=== PATIENT | female | born 1935 | race Caucasian/White ===

== ENCOUNTER 2018-05-16 19:58 | Emergency (ER) | payer MEDICARE, SELFPAY ==
[2018-05-16] VITALS (41 sets, daily range): BP systolic 125–183; BP diastolic 50–155; PULSE 66–143; RESP 14–25; TEMP 36.7–36.9; O2SAT 95–98
[2018-05-16 20:46] LABS: Abs Immature Grans 0.02 k/cumm (0.0-0.09); Absolute Basophil Count 0.04 k/cumm (0.0-0.2); Absolute Eosinophil Count 0.39 k/cumm (0.0-0.7); Absolute Lymphocyte Count 4.48 k/cumm (1.2-3.4); Absolute Monocyte Count 0.96 k/cumm (0.11-0.7); Basophils % 0.4; Eosinophils % 3.5; HCT 46.8 % (36.0-46.0); HGB 15.2 g/dL (12.0-15.5); Immature Grans % 0.2; Lymphocytes % 40.1; Mean Corp. HGB Concentration 32.5 g/dL (32.0-36.0); Mean Corpuscular Hemoglobin 29.8 pg (27.0-33.0); Mean Corpuscular Volume 91.8 fL (80-95); Mean Platelet Volume 10.9 fL (8.0-11.0); Monocytes % 8.6; Neutrophils % 47.2; Platelet Count 238 x1000/uL (130-400); RBC Distribution Width 13.4 % (11.7-14.6); White Blood Cell Count 11.18 k/cumm (4.4-10.8)
[2018-05-16 20:50] LABS: Absolute Neutrophil Count 5.28 k/cumm (1.2-6.7)
[2018-05-16 20:56] LABS: ALT 32 U/L (12-78); AST 25 U/L (15-37); Albumin 3.8 g/dL (3.4-5.0); Alkaline Phosphatase 84 U/L (46-116); Anion Gap 11.1 mmol/L (3-11); BUN 27 mg/dL (7-18); Bilirubin, Total 0.3 mg/dL (0.2-1.0); CO2 25.9 mmol/L (21.0-32.0); CREATININE 1.05 mg/dL (0.55-1.02); Calcium 9.4 mg/dL (8.5-10.1); Chloride 104 mmol/L (98-107); Estimated GFR 50.18 (mL/min/1.73m2); Glucose 106 mg/dL (70-100); Potassium 4.2 mmol/L (3.5-5.1); Sodium 141 mmol/L (136-145); Total Protein 8.4 g/dL (6.4-8.2)
[2018-05-16 21:02] LABS: Troponin I 0.18 ng/mL (0.00-0.06)
[2018-05-16 22:59] LABS: TSH 8.47 uIU/mL (0.358-3.74)
[2018-05-16] MEDS: Clopidogrel 300 MG TAB 600 MG PO (23:01)
[2018-05-16] MEDS: Aspirin 325 MG TAB PO (23:02)
--- NOTE | 2018-05-16 23:06 | W.ED.GENAD ---
Discharge Plan Disposition [facility] Condition: Good Discharge Details Chief Complaint: Chest Pain Clinical Impression: Acute non-ST elevation myocardial infarction (NSTEMI), Heart palpitations, Paroxysmal A-fib, Community acquired pneumonia Primary Care Provider: Chantell Castillo V ED Provider: Marcos Talavera Home Meds and New Rx's Prescriptions: No Action No Known Home Meds RF: 0 Medical Decision Making This is an 83-year-old female with no significant past medical history who presents today for palpitations. Patient has had palpitations and a heart rate in the 120s-130s for the last 4-6 hours. She had some very very mild light chest pressure, but denies any arm or neck pain. She denies any previous cardiac history. She has had a mild associated cough for the last few weeks but no fevers chills or productivity to her cough. When the patient initially arrived in the emergency room she had a heart rate of 127, and EKG read atrial fibrillation with a right bundle branch block. However within 10 minutes of being here in the emergency department she converted on her own to sinus rhythm, with a rate in the 70s. She continues to have no complaints at this time of chest pain, shortness of breath or even pressure on her chest, shoulders or arms. EKG showed no evidence of ST elevations or depressions. Patient's laboratory workup did return shows minimal white count of 11.18. TSH is notably elevated at 8.47. Sodium, potassium, chloride and bicarb are normal. Troponin is 0.18 and elevated. Although the patient has no cardiac history, she clearly does demonstrate an elevated troponin. Chest x-ray does show evidence of a hazy opacity in the left lower lung per virtual radiology, likely related to combination of atelectasis and/or pneumonia with possible layering left pleural effusion. We will start the patient on azithromycin for this. No evidence of pneumothorax. The patient's notable tachycardia and spontaneous return to normal, as well as her notably elevated troponin, we do feel that she requires further workup from a Cardiologic perspective. We did contact [facility], and they were unwilling to accept any patients at this time. We did contact the [facility] and I spoke with Dr. Reagan who did agree that the patient would benefit from further cardiac evaluation however they have no rooms at this time, but may be they would have some in the morning. They recommended giving aspirin and Plavix, but holding on heparin at this time. Currently there are no beds with telemetry at [facility], [facility], [facility], [facility], [facility]. I spoke with Paul Sutton hospitalist at [facility], he is agreed to accept the patient for transfer. I have extensively reviewed the treatment plan with the patient. I have addressed all patient concerns at this time. I have also discussed the plan with the admitting physician and they agree with the current assessment and plan and have agreed to assume responsibility for the patient. All parties demonstrate verbal understanding and agreement with our assessment and plan at this time. EKG 20: 10 Rate 127, QTC 462, QRS 120, interpretation of atrial fibrillation with right bundle branch block, however there does appear to be inconsistent P wave morphology and presence. Right bundle branch block is present. No ST elevations or depressions. Inverted T wave in lead II, lead III, V3, V4. T wave flattening in V4. EKG 21:28 Rate 70, [place] 172, QTc 425, QRS 134, sinus rhythm with right bundle branch block. No ST elevations or depressions, no significant T wave inversions. Q waves in lead III. Negative for Scarbossas criterion. P waves are present HPI General Date/Time Provider Initiated Documentation: 05/16/18 20:14. HPI Narrative: This is an 83-year-old female who denies any significant past medical history, who presents today for palpitations. Patient states that this afternoon she felt very lightheaded, and took her blood pressure and placed a heart rate monitor on she noted her heart rate to be in the 120s-130s. This continued for 4-5 hours. Eventually she felt it prudent to go to the ER for further evaluation. She had some mild chest pain and pressure during these episodes. She denies any arm pain, neck pain, numbness, tingling, weakness, headache, vision changes. She does admit to a mild cough, that has been nonproductive. This is been present for the last few weeks though. She denies any fever or chills. She denies any previous cardiac history, or history of stroke. She denies any history of hypertension, diabetes, high cholesterol, or tobacco use. Past surgical history is positive for hysterectomy and bladder repositioning. Patient denies any other complaints at this time. She denies any pertinent family history. She denies any IV or illicit drug use Related Data Home Medications Medication Instructions Recorded Confirmed Unknown [No Known Home Meds] 05/16/18 05/16/18 Allergies Allergy/AdvReac Type Severity Reaction Status Date / Time No Known Allergies Allergy Unverified 05/16/18 21:45 General Stated Complaint: Chest Pain PAL: 2 Review of Systems Review of Systems 10 point review of systems was performed, pertinent positives and negatives are noted in the history of present illness. [facility] Social History Smoking/Tobacco Use Status: Never Exam Narrative Exam Narrative: 1.Const: Well-nourished, Well-developed, appearing stated age 2.Eyes: PERRL, no conjunctival injection, and symmetrical lids. 3.ENT: Atraumatic external nose and ears. Moist MM. Neck: Symmetric, trachea midline, No thyromegaly. 4.CVS: +S1/S2, No murmurs or gallops. Heart rate is in the 70s on auscultation peripheral pulses 2+ and equal in all extremities. Brisk capillary refill in all extremities. 5.RESP: Unlabored respiratory effort. Clear to auscultation bilaterally. No wheezes rales or rhonchi 6.GI: Soft, Nontender/Nondistended, No hepatosplenomegaly. No guarding or rebound. 7.MSK: Normocephalic/Atraumatic, Extremities w/o deformity or ttp No cyanosis or clubbing, Normal movement of all extremities 8.Skin: Warm, Dry. No rashes or lesions. 9.Neuro: technology integration specialist II-XII grossly intact. Sensation grossly intact, no focal neurologic deficits. 10.Psych: (AAO) x3. Appropriate mood and affect Course Vital Signs Temperature 36.7 C 05/16/18 20:24 Pulse 132 H 05/16/18 20:24 Respiratory Rate 18 05/16/18 20:24 Blood Pressure 129/82 05/16/18 20:24 Temperature 36.9 C 05/16/18 23:02 Temperature Source Temporal Artery Scan 05/16/18 20:24 Pulse 132 H 05/16/18 20:24 Respiratory Rate 18 05/16/18 20:24 Respiratory Effort Non-Labored 05/16/18 20:27 Respiratory Depth Normal 05/16/18 20:27 Respiratory Pattern Normal 05/16/18 20:27 Blood Pressure 129/82 05/16/18 20:24 Blood Pressure Position Sitting 05/16/18 20:24 Oxygen Delivery Method Room Air 05/16/18 20:24 Oxygen Flow Rate 0 05/16/18 20:24 Pain Level 0 05/16/18 23:02 Lab/Test Results Lab/Test Results: Laboratory Tests Range/Units 05/16/18 05/16/18 05/16/18 20:22 20:22 20:22 WBC (4.4-10.8) k/cumm 11.18 H RBC (4.00-5.20) m/cumm 5.10 Hgb (12.0-15.5) g/dL 15.2 Hct (36.0-46.0) % 46.8 H MCV (80-95) fL 91.8 MCH (27.0-33.0) pg 29.8 MCHC (32.0-36.0) g/dL 32.5 RDW (11.7-14.6) % 13.4 Plt Count (130-400) x1000/uL 238 MPV (8.0-11.0) fL 10.9 Immature Gran % 0.2 Neutrophils % 47.2 Lymphocytes % 40.1 Monocytes % 8.6 Eosinophils % 3.5 Basophils % 0.4 Absolute Neutrophils (1.2-6.7) k/cumm 5.28 Absolute Lymphocytes (1.2-3.4) k/cumm 4.48 H Absolute Monocytes (0.11-0.7) k/cumm 0.96 H Absolute Eosinophils (0.0-0.7) k/cumm 0.39 Absolute Basophils (0.0-0.2) k/cumm 0.04 Sodium (136-145) mmol/L 141 Potassium (3.5-5.1) mmol/L 4.2 Chloride (98-107) mmol/L 104 Carbon Dioxide (21.0-32.0) mmol/L 25.9 Anion Gap (3-11) mmol/L 11.1 H BUN (7-18) mg/dL 27 H Creatinine (0.55-1.02) mg/dL 1.05 H Estimated GFR/1.73 m2 (mL/min/1.73m2) 50.18 Glucose (70-100) mg/dL 106 H Calcium (8.5-10.1) mg/dL 9.4 Magnesium (1.8-2.4) mg/dL 2.0 Total Bilirubin (0.2-1.0) mg/dL 0.3 AST (15-37) U/L 25 ALT (12-78) U/L 32 Alkaline Phosphatase (46-116) U/L 84 Troponin I (0.00-0.06) ng/mL 0.18 H Total Protein (6.4-8.2) g/dL 8.4 H Albumin (3.4-5.0) g/dL 3.8 TSH (0.358-3.74) uIU/mL 8.47 H
--- NOTE | 2018-05-16 23:12 | ED.GENADUL_ITS ---
Discharge Plan Disposition [facility] Disposition: [facility] Condition: Good Discharge Details Chief Complaint: Chest Pain Clinical Impression: Acute non-ST elevation myocardial infarction (NSTEMI), Heart palpitations, Paroxysmal A-fib, Community acquired pneumonia Primary Care Provider: Chantell Castillo V ED Provider: Marcos Talavera Home Meds and New Rx's Prescriptions: No Action No Known Home Meds RF: 0 Medical Decision Making This is an 83-year-old female with no significant past medical history who presents today for palpitations. Patient has had palpitations and a heart rate in the 120s-130s for the last 4-6 hours. She had some very very mild light chest pressure, but denies any arm or neck pain. She denies any previous cardiac history. She has had a mild associated cough for the last few weeks but no fevers chills or productivity to her cough. When the patient initially arrived in the emergency room she had a heart rate of 127, and EKG read atrial fibrillation with a right bundle branch block. However within 10 minutes of being here in the emergency department she converted on her own to sinus rhythm, with a rate in the 70s. She continues to have no complaints at this time of chest pain, shortness of breath or even pressure on her chest, shoulders or arms. EKG showed no evidence of ST elevations or depressions. Patient's laboratory workup did return shows minimal white count of 11.18. TSH is notably elevated at 8.47. Sodium, potassium, chloride and bicarb are normal. Troponin is 0.18 and elevated. Although the patient has no cardiac history, she clearly does demonstrate an elevated troponin. Chest x-ray does show evidence of a hazy opacity in the left lower lung per virtual radiology, likely related to combination of atelectasis and/or pneumonia with possible layering left pleural effusion. We will start the patient on azithromycin for this. No evidence of pneumothorax. The patient's notable tachycardia and spontaneous return to normal, as well as her notably elevated troponin, we do feel that she requires further workup from a Cardiologic perspective. We did contact [facility], and they were unwilling to accept any patients at this time. We did contact the [facility] and I spoke with Dr. Reagan who did agree that the patient would benefit from further cardiac evaluation however they have no rooms at this time, but may be they would have some in the morning. They recommended giving aspirin and Plavix, but holding on heparin at this time. Currently there are no beds with telemetry at [facility], [facility], [facility], [facility], [facility]. I spoke with Paul Sutton hospitalist at [facility] , he is agreed to accept the patient for transfer. I have extensively reviewed the treatment plan with the patient. I have addressed all patient concerns at this time. I have also discussed the plan with the admitting physician and they agree with the current assessment and plan and have agreed to assume responsibility for the patient. All parties demonstrate verbal understanding and agreement with our assessment and plan at this time. EKG 20: 10 Rate 127, QTC 462, QRS 120, interpretation of atrial fibrillation with right bundle branch block, however there does appear to be inconsistent P wave morphology and presence. Right bundle branch block is present. No ST elevations or depressions. Inverted T wave in lead II, lead III, V3, V4. T wave flattening in V4. EKG 21:28 Rate 70, MT 172, QTc 425, QRS 134, sinus rhythm with right bundle branch block. No ST elevations or depressions, no significant T wave inversions. Q waves in lead III. Negative for Scarbossas criterion. P waves are present HPI General Date/Time Provider Initiated Documentation: 05/16/18 20:14 . HPI Narrative: This is an 83-year-old female who denies any significant past medical history, who presents today for palpitations. Patient states that this afternoon she felt very lightheaded, and took her blood pressure and placed a heart rate monitor on she noted her heart rate to be in the 120s-130s. This continued for 4-5 hours. Eventually she felt it prudent to go to the ER for further evaluation. She had some mild chest pain and pressure during these episodes. She denies any arm pain, neck pain, numbness, tingling, weakness, headache, vision changes. She does admit to a mild cough, that has been nonproductive. This is been present for the last few weeks though. She denies any fever or chills. She denies any previous cardiac history, or history of stroke. She denies any history of hypertension, diabetes , high cholesterol, or tobacco use. Past surgical history is positive for hysterectomy and bladder repositioning. Patient denies any other complaints at this time. She denies any pertinent family history. She denies any IV or illicit drug use Related Data Home Medications Medication Instructions Recorded Confirmed Unknown [No Known Home Meds] 05/16/18 05/16/18 Allergies Allergy/AdvReac Type Severity Reaction Status Date / Time No Known Allergies Allergy Unverified 05/16/18 21:45 General Stated Complaint: Chest Pain PAL: 2 Review of Systems Review of Systems 10 point review of systems was performed, pertinent positives and negatives are noted in the history of present illness. [facility] Social History Smoking/Tobacco Use Status: Never Exam Narrative Exam Narrative: 1.Const: Well-nourished, Well-developed, appearing stated age 2.Eyes: PERRL, no conjunctival injection, and symmetrical lids. 3.ENT: Atraumatic external nose and ears. Moist MM. Neck: Symmetric, trachea midline, No thyromegaly. 4.CVS: +S1/S2, No murmurs or gallops. Heart rate is in the 70s on auscultation peripheral pulses 2+ and equal in all extremities. Brisk capillary refill in all extremities. 5.RESP: Unlabored respiratory effort. Clear to auscultation bilaterally. No wheezes rales or rhonchi 6.GI: Soft, Nontender/Nondistended, No hepatosplenomegaly. No guarding or rebound. 7.MSK: Normocephalic/Atraumatic, Extremities w/o deformity or ttp No cyanosis or clubbing, Normal movement of all extremities 8.Skin: Warm, Dry. No rashes or lesions. 9.Neuro: operations professional II-XII grossly intact. Sensation grossly intact, no focal neurologic deficits. 10.Psych: (AAO) x3. Appropriate mood and affect Course Vital Signs Temperature 36.7 C 05/16/18 20:24 Pulse 132 H 05/16/18 20:24 Respiratory Rate 18 05/16/18 20:24 Blood Pressure 129/82 05/16/18 20:24 Temperature 36.9 C 05/16/18 23:02 Temperature Source Temporal Artery Scan 05/16/18 20:24 Pulse 132 H 05/16/18 20:24 Respiratory Rate 18 05/16/18 20:24 Respiratory Effort Non-Labored 05/16/18 20:27 Respiratory Depth Normal 05/16/18 20:27 Respiratory Pattern Normal 05/16/18 20:27 Blood Pressure 129/82 05/16/18 20:24 Blood Pressure Position Sitting 05/16/18 20:24 Oxygen Delivery Method Room Air 05/16/18 20:24 Oxygen Flow Rate 0 05/16/18 20:24 Pain Level 0 05/16/18 23:02 Lab/Test Results Lab/Test Results: Laboratory Tests Range/Units 05/16/18 05/16/18 05/16/18 20:22 20:22 20:22 WBC (4.4-10.8) k/cumm 11.18 H RBC (4.00-5.20) m/cumm 5.10 Hgb (12.0-15.5) g/dL 15.2 Hct (36.0-46.0) % 46.8 H MCV (80-95) fL 91.8 MCH (27.0-33.0) pg 29.8 MCHC (32.0-36.0) g/dL 32.5 RDW (11.7-14.6) % 13.4 Plt Count (130-400) x1000/uL 238 MPV (8.0-11.0) fL 10.9 Immature Gran % 0.2 Neutrophils % 47.2 Lymphocytes % 40.1 Monocytes % 8.6 Eosinophils % 3.5 Basophils % 0.4 Absolute Neutrophils (1.2-6.7) k/cumm 5.28 Absolute Lymphocytes (1.2-3.4) k/cumm 4.48 H Absolute Monocytes (0.11-0.7) k/cumm 0.96 H Absolute Eosinophils (0.0-0.7) k/cumm 0.39 Absolute Basophils (0.0-0.2) k/cumm 0.04 Sodium (136-145) mmol/L 141 Potassium (3.5-5.1) mmol/L 4.2 Chloride (98-107) mmol/L 104 Carbon Dioxide (21.0-32.0) mmol/L 25.9 Anion Gap (3-11) mmol/L 11.1 H BUN (7-18) mg/dL 27 H Creatinine (0.55-1.02) mg/dL 1.05 H Estimated GFR/1.73 m2 (mL/min/1.73m2) 50.18 Glucose (70-100) mg/dL 106 H Calcium (8.5-10.1) mg/dL 9.4 Magnesium (1.8-2.4) mg/dL 2.0 Total Bilirubin (0.2-1.0) mg/dL 0.3 AST (15-37) U/L 25 ALT (12-78) U/L 32 Alkaline Phosphatase (46-116) U/L 84 Troponin I (0.00-0.06) ng/mL 0.18 H Total Protein (6.4-8.2) g/dL 8.4 H Albumin (3.4-5.0) g/dL 3.8 TSH (0.358-3.74) uIU/mL 8.47 H
--- NOTE | 2018-05-16 23:15 | DI.RAD_ITS ---
SYMPTOM/DIAGNOSIS: COUGH PORTABLE AP CHEST: No priors. The heart is mildly enlarged. Pulmonary vasculature is within normal limits. There is obscuration of the left hemidiaphragm and a left basilar infiltrate and /or effusion cannot be excluded. The lungs are otherwise clear. No pneumothorax is identified. Degenerative changes are seen in the spine. IMPRESSION: Question of a left basilar infiltrate and/or effusion.
--- NOTE | 2018-05-16 23:45 | DI.VRAD_ITS ---
EXAM: XR Chest, 1 View CLINICAL HISTORY: 83 years old, female; Signs and symptoms; Cough TECHNIQUE: Frontal view of the chest. COMPARISON: None available. FINDINGS: Lungs: The pulmonary vasculature is within normal limits. There is mild peribronchial thickening, likely infectious or inflammatory in etiology. There are changes suggesting underlying COPD/emphysema. There is hazy opacity in the left lung base with obscuration of the left hemidiaphragm and left costophrenic angle that may represent a combination of atelectasis and/or pneumonia, possibly with a layering left pleural effusion. The appearance may be due in part to overlying soft tissue. Pleural space: See above. Heart: The cardiomediastinal silhouette shows cardiomegaly. Mediastinum: Unremarkable. Bones/joints: Unremarkable. IMPRESSION: Hazy opacity in the left lower lung, likely related to a combination of atelectasis and/or pneumonia with possible layering left pleural effusion. Dictated and Authenticated by: Kitty Pretty MD. Ordering:TJ WOODALL MD
[2018-05-17] VITALS (12 sets, daily range): BP systolic 141–172; BP diastolic 44–99; PULSE 58–83; RESP 14–28; O2SAT 95–97
[2018-05-17] MEDS: AZITHROMYCIN 500 MG in Normal Saline 250 ML 250 MG IVPB (00:40)
== END 2018-05-17 01:14 | disposition short-term general hospital (02) ==
PROVIDERS: Emergency Provider Student in an Organized Health Care Education/Training Program; PCP Family Medicine
DX: I21.4 Non-ST elevation (NSTEMI) myocardial infarction (principal); R00.2 Palpitations; I48.0 Paroxysmal atrial fibrillation; J18.9 Pneumonia, unspecified organism
CPT/HCPCS: 80053; 93005; 96365; 99285; 71045; 83735; 84443; 84484; 85025; 93010; J0456

== ENCOUNTER 2018-05-20 17:05 | Outpatient (REF) | payer MEDICARE, SELFPAY | END 2018-05-20 17:25 | LOC: NCHCN 17:05 | PROVIDERS: PCP Family Medicine; Visit Provider Family Medicine | DX: R35.0 Frequency of micturition (principal) | CPT/HCPCS: 87086 ==

== ENCOUNTER 2018-05-30 00:06 | Outpatient (CLI) | payer MEDICARE, SELFPAY ==
--- NOTE | 2018-05-30 09:15 | MERGEMPI_ITS ---
*[facility]* *[facility]* [address] [place] [address] Myocardial Perfusion Imaging - SPECT Jalen protocol Date of study: 05/30/2018 *PATIENT PRESENTATION* Height: 152.4cm (60in) Blood Pressure: Weight: 72.3kg (159lb) BSA: 1.78m^2 Referring physician: Sorin Horton MD Ordering physician: Chantell Castillo Impressions: Normal perfusion by Tc99m Sestamibi Imaging. Summary: 1. Myocardial perfusion imaging: No myocardial perfusion defects noted. 2. The calculated left ventricular ejection fraction after stress: 73%. No left ventricular regional motion abnormality. Indication: I48.91. History: REASON FOR TESTING: PATIENT IN ED ON 05/16/18 FOR CHEST PAIN-- HAD PRESENTED WITH CHEST FLUTTERING, NSTEMI RULED IN, AND PATIENT TRANSFERRED TO [facility] FOR FURTHER EVALUATION. PMH: PAFIB, NSTEMI. FAMILY HISTORY: NON-CONTRIBUTORY. SMOKING: NEVER. EXERCISE: NO REGULAR EXERCISE. Risk factors: Cholesterol: 232mg/dl. HDL: 56mg/dl. LDL: 156mg/dl. Triglycerides: 188mg/dl. ALLERGIES: NKA MEDICATIONS: METOPROLOL 25 MG BID, PRADAXA 150MG BID, LEVOTHYROXINE DOSE UNKNOWN. VITAMINS: B6 100MG, B 12 1000 MCG, VIT C 1000 MG, EXTER C 500 MG, VIT E 400 MG, FISH OIL 1000 MG GARLIC 600 MG, ROYAL JELLY 500 MG, KURT KETONES DOSE UNKNOWN, CRANBERRY EXTRACT DOSE UNKNOWN. Imaging Technique: Protocol: Jalen protocol. Acquisition: Gated SPECT; 1 day - rest/stress. The patient was imaged in the supine position. Attenuation correction used. Isotope administration: - Rest. Tc[99m]-sestamibi. Dose: 10.3mCi. Injection time: 09:20 AM. Injection to stress time: 00:45. - Stress. Tc[99m]-sestamibi. Dose: 32.2mCi. Injection time: 11:00 AM. 1-2 min before end of exercise Baseline ECG: LAST EKG 05/16/18-SINUS RHYTHM WITH RIGHT BBB WITH HR 70. TODAY'S EKG: SINUS ANGIE WITH HR 57. Stress protocol: + +---+ + !Stage !HR !BP (mmHg) ! + +---+ + !Baseline supine !57 !126/70 (89) ! + +---+ + !Baseline standing !63 !130/72 (91) ! + +---+ + !Stage I; 1.7mph, 10degrees; 3 min!135!220/102 (141)! + +---+ + !Recovery; 1 min !128!220/102 (141)! + +---+ + !Recovery; 3 min !100!170/100 (123)! + +---+ + !Recovery; 6 min !71 !128/72 (91) ! + +---+ + !Recovery; 9 min !69 !140/80 (100) ! + +---+ + * Stress results: The rate-pressure product for the peak heart rate and blood pressure was 24834ku Hg/min. Stress ECG: EXERCISE TESTING ENDED IN 2 MINUTES 35 SECONDS D/T FATIGUE AND PROFOUND SOB. MAX HR WAS 138, 100% OF TARGET. BP RESONSE-HYPERTENSIVE. METS 4.64, ECTOPY: INTERMITTENT PAC'S AND PVC'S ANGINA: NO REPORTED CHEST PAIN OR PRESSURE ISCHEMIA: NONE NOTED FUNCTIONAL CAPACITY: MILD TO MODERATELY DIMINISHED. Myocardial perfusion: Imaging information: gated. No myocardial perfusion defects noted. Ventricular Function (Wall Motion): The calculated left ventricular ejection fraction after stress: 73%. No left ventricular regional motion abnormality. Study data: VALERY supervised and was readily available during the procedure. This study was interpreted by [facility]. Study status: Routine. Consent: The risks, benefits, and alternatives to the procedure were explained to the patient and informed consent was obtained. Procedure: Initial setup. A baseline ECG was recorded. Surface ECG leads and manual cuff blood pressure measurements were monitored. Heart sounds: Normal. Lung sounds: Normal. Treadmill exercise testing was performed using the Jalen protocol. Study completion: All catheters inserted during the procedure were removed. The patient tolerated the procedure well and was discharged from the lab. Discharge: The patient left the laboratory in stable condition. Birthdate: Patient birthdate: 1935. Sex: Gender: female. Study date: Study date: 05/30/2018. Study time: 12:30 PM. Electronically signed by Sorin Horton MD 05/30/2018 16:44
== END 2018-05-30 00:26 ==
PROVIDERS: PCP Family Medicine; Visit Provider Family Medicine
DX: I48.91 Unspecified atrial fibrillation (principal); R07.9 Chest pain, unspecified; I25.2 Old myocardial infarction
CPT/HCPCS: 78452; 93016; 93018; 93017

== ENCOUNTER 2018-06-21 15:26 | Outpatient (REF) | payer MEDICARE, SELFPAY | END 2018-06-21 15:46 | LOC: NCHCN 15:26 | PROVIDERS: PCP Family Medicine; Visit Provider Family Medicine | DX: E03.9 Hypothyroidism, unspecified (principal) | CPT/HCPCS: 84443 ==

== ENCOUNTER 2019-01-03 11:56 | Outpatient (REF) | payer MEDICARE, SELFPAY ==
[2019-01-03 21:58] LABS: HCT 43.7 % (36.0-46.0); Mean Corpuscular Hemoglobin 29.7 pg (27.0-33.0); Mean Corpuscular Volume 92.8 fL (80-95); Mean Platelet Volume 11.9 fL (8.0-11.0); Platelet Count 203 x1000/uL (130-400); RBC 4.71 m/cumm (4.00-5.20); RBC Distribution Width 13.3 % (11.7-14.6); White Blood Cell Count 11.89 k/cumm (4.4-10.8)
[2019-01-03 22:12] LABS: Anion Gap 9.4 mmol/L (3-11); BUN 21 mg/dL (7-18); CO2 26.6 mmol/L (21.0-32.0); CREATININE 0.91 mg/dL (0.55-1.02); Calcium 9.3 mg/dL (8.5-10.1); Chloride 104 mmol/L (98-107); Estimated GFR 59.18 (mL/min/1.73m2); FREE T4 1.12 ng/dL (0.76-1.46); Glucose 93 mg/dL (70-100); Potassium 4.2 mmol/L (3.5-5.1); Sodium 140 mmol/L (136-145); TSH 2.57 uIU/mL (0.358-3.74)
== END 2019-01-03 12:16 ==
LOC: NCHCN 11:56
PROVIDERS: PCP Family Medicine; Visit Provider Family Medicine
DX: E03.9 Hypothyroidism, unspecified (principal); I48.91 Unspecified atrial fibrillation
CPT/HCPCS: 80048; 85027; 84439; 84443

== ENCOUNTER 2019-01-22 19:56 | Emergency (ER) | payer MEDICARE, SELFPAY ==
--- NOTE | 2019-01-22 20:00 | NUR.NOTE ---
pt presents today with loose bloody stools that started today. describes blood as bright red blood and is convinced that the blood is from her hemorrhoids and not a GI bleed.
[2019-01-22 20:03] VITALS: BP 178/75; PULSE 88; RESP 17; TEMP 36.8; O2SAT 97
--- NOTE | 2019-01-22 20:33 | W.ED.GENAD ---
Discharge Plan Disposition Patient Disposition: HOME Condition: Stable Discharge Details Chief Complaint: Nausea/Vomit/Diar Clinical Impression: Diverticulitis Primary Care Provider: Chantell Castillo V ED Provider: Sorin Lucas Home Meds and New Rx's Prescriptions: New ciprofloxacin HCl 500 mg tablet 500 mg PO BID Qty: 14 RF: 0 metronidazole [Flagyl] 500 mg tablet 500 mg PO TID Qty: 21 RF: 0 Continued levothyroxine 25 mcg Tablet 25 mcg PO DAILY RF: 0 metoprolol tartrate 25 mg Tablet 25 mg PO BID RF: 0 Xarelto 20 mg Tablet 20 mg PO DAILY RF: 0 Discharge Instructions Additional Instructions: Your cat scan showed you have diverticulitis Take the antibiotics as prescribed. Do not drink alcohol while taking the flagyl follow up with your primary care provider within a week you can take 1000mg tylenol every 6 hours for pain as needed if pain significantly worsens, you have high persistent fevers, feel short of breath or chest pain or persistent vomit return to the emergency department Medical Decision Making 83 yo female with hx of afib on xarelto comes in with diarrhea for a day and thinks there has been blood in the stool today as well. Denies any recent abx or recent travel. She is in no distress on exam. She does have lower abdominal pain and on exam has tenderness without guarding or rebound on exam, no upper abdominal pain. HAs small non bleeding external hemorrhoid at the 9 oclock position. No internal masses or hemorrhoids palpated. HAs brown heme positive stool on rectal exam, no alessandro blood or melena. Will obtain lab work and imaging to evaluate for possible diverticulitis labs show wbc of 17, stable h/h and otherwise unremarkable lab work. CT shows uncomplicated diverticulitis. She is tolerating PO and only has minimal pain, is willing to tryial outpatient management of her diverticulitis. Will start oral abx, she will f/u with her pcp in a week and return precautions given Differential Diagnosis hemorrhoids, diverticulitis, colitis Medical Records Medical records reviewed: Yes I reviewed the patient's medical records. Imaging Data Radiologic Study: Attestation: I personally reviewed and interpreted this imaging study as follows: Imaging: CT Scan Radiologist's impression: 1. Non-complicated diverticulitis of the mid sigmoid colon. 2. Equivocal findings with respect to the rectosigmoid junction. Lab Data Lab results reviewed: Yes I reviewed the patient's lab results. HPI General Mode of arrival: ambulatory. Date/Time Provider Initiated Documentation: 01/22/19 20:06. Limitations to Documentation: no limitations. Information obtained by: patient. History of Present Illness 83 year old F presents to the emergency department with the chief complaint of diarrhea, described as moderate, Patient started experiencing this day(s) (1) and it has been constant. No relieving factors improve symptom(s), No exacerbating factors reported . Patient did receive the following treatments prior to arrival, none Related Data Home Medications Medication Instructions Recorded Confirmed Xarelto 20 mg PO DAILY 01/22/19 01/22/19 ciprofloxacin HCl 500 mg PO BID #14 tab 01/22/19 levothyroxine 25 mcg PO DAILY 01/22/19 01/22/19 metoprolol tartrate 25 mg PO BID 01/22/19 01/22/19 metronidazole [Flagyl] 500 mg PO TID #21 tab 01/22/19 Previous Rx's Medication Instructions Recorded ciprofloxacin HCl 500 mg PO BID #14 tab 01/22/19 metronidazole [Flagyl] 500 mg PO TID #21 tab 01/22/19 Allergies Allergy/AdvReac Type Severity Reaction Status Date / Time No Known Allergies Allergy Unverified 01/22/19 20:06 General Stated Complaint: Nausea/Vomit/Diar PAL: 4 Review of Systems Review of Systems All systems reviewed & are unremarkable except as noted in HPI and below Constitutional Denies chills, Denies fever(s) and Denies weakness Cardiovascular Denies chest pain and Denies dyspnea Respiratory Denies cough and Denies dyspnea Gastrointestinal Denies nausea and Denies vomiting Genitourinary Denies dysuria Neurologic Denies weakness [facility] Social History Smoking/Tobacco Use Status: Never Alcohol Intake: never Drug use: Never Substance use type: does not use Do you feel safe at home: Yes Do you feel safe in your relationship?: Yes Exam Const General: no acute distress Orientation: alert HENMT Head: normal to inspection Ears: external ears normal General nose exam: external nose normal Mouth: moist mucous membranes Eyes General: appearance normal, both eyes and all related structures Neck Neck: normal visual inspection Resp Effort & Inspection: normal respiratory effort and able to speak in complete sentences Cardio Rate: regular rate GI Palpation: soft Skin General skin exam: no rashes or lesions noted Neuro General: alert and oriented x3 Extrem General: normal to inspection Psych Mental Status: mental status grossly normal Course Vital Signs Temperature 36.8 C 01/22/19 20:03 Pulse 88 01/22/19 20:03 Respiratory Rate 17 01/22/19 20:03 Blood Pressure 178/75 H 01/22/19 20:03 Pulse Oximetry 97 01/22/19 20:03 Temperature 36.8 C 01/22/19 20:03 Temperature Source Skin 01/22/19 20:03 Pulse 88 01/22/19 20:03 Respiratory Rate 17 01/22/19 20:03 Respiratory Effort 01/22/19 20:10 Blood Pressure 178/75 H 01/22/19 20:03 Blood Pressure Position Sitting 01/22/19 20:03 Pulse Oximetry 97 01/22/19 20:03 Oxygen Delivery Method Room Air 01/22/19 20:03 Oxygen Flow Rate 0 01/22/19 20:03 Pain Level 6 01/22/19 20:03
--- NOTE | 2019-01-22 20:37 | ED.GENADUL_ITS ---
Discharge Plan Disposition Patient Disposition: HOME Condition: Stable Discharge Details Chief Complaint: Nausea/Vomit/Diar Clinical Impression: Diverticulitis Primary Care Provider: Chantell Castillo V ED Provider: Sorin Lucas Home Meds and New Rx's Prescriptions: New ciprofloxacin HCl 500 mg tablet 500 mg PO BID Qty: 14 RF: 0 metronidazole [Flagyl] 500 mg tablet 500 mg PO TID Qty: 21 RF: 0 Continued levothyroxine 25 mcg Tablet 25 mcg PO DAILY RF: 0 metoprolol tartrate 25 mg Tablet 25 mg PO BID RF: 0 Xarelto 20 mg Tablet 20 mg PO DAILY RF: 0 Discharge Instructions Additional Instructions: Your cat scan showed you have diverticulitis Take the antibiotics as prescribed. Do not drink alcohol while taking the flagyl follow up with your primary care provider within a week you can take 1000mg tylenol every 6 hours for pain as needed if pain significantly worsens, you have high persistent fevers, feel short of breath or chest pain or persistent vomit return to the emergency department Medical Decision Making 83 yo female with hx of afib on xarelto comes in with diarrhea for a day and thinks there has been blood in the stool today as well. Denies any recent abx or recent travel. She is in no distress on exam. She does have lower abdominal pain and on exam has tenderness without guarding or rebound on exam, no upper abdominal pain. HAs small non bleeding external hemorrhoid at the 9 oclock position. No internal masses or hemorrhoids palpated. HAs brown heme positive stool on rectal exam, no alessandro blood or melena. Will obtain lab work and imaging to evaluate for possible diverticulitis labs show wbc of 17, stable h/h and otherwise unremarkable lab work. CT shows uncomplicated diverticulitis. She is tolerating PO and only has minimal pain, is willing to tryial outpatient management of her diverticulitis. Will start oral abx, she will f/u with her pcp in a week and return precautions given Differential Diagnosis hemorrhoids, diverticulitis, colitis Medical Records Medical records reviewed: Yes I reviewed the patient's medical records. Imaging Data Radiologic Study: Attestation: I personally reviewed and interpreted this imaging study as follows: Imaging: CT Scan Radiologist's impression: 1. Non-complicated diverticulitis of the mid sigmoid colon. 2. Equivocal findings with respect to the rectosigmoid junction. Lab Data Lab results reviewed: Yes I reviewed the patient's lab results. HPI General Mode of arrival: ambulatory . Date/Time Provider Initiated Documentation: 01/22/19 20:06 . Limitations to Documentation: no limitations . Information obtained by: patient . History of Present Illness 83 year old F presents to the emergency department with the chief complaint of diarrhea, described as moderate, Patient started experiencing this day(s) (1) and it has been constant. No relieving factors improve symptom(s), No exacerbating factors reported . Patient did receive the following treatments prior to arrival, none Related Data Home Medications Medication Instructions Recorded Confirmed Xarelto 20 mg PO DAILY 01/22/19 01/22/19 ciprofloxacin HCl 500 mg PO BID #14 tab 01/22/19 levothyroxine 25 mcg PO DAILY 01/22/19 01/22/19 metoprolol tartrate 25 mg PO BID 01/22/19 01/22/19 metronidazole [Flagyl] 500 mg PO TID #21 tab 01/22/19 Previous Rx's Medication Instructions Recorded ciprofloxacin HCl 500 mg PO BID #14 tab 01/22/19 metronidazole [Flagyl] 500 mg PO TID #21 tab 01/22/19 Allergies Allergy/AdvReac Type Severity Reaction Status Date / Time No Known Allergies Allergy Unverified 01/22/19 20:06 General Stated Complaint: Nausea/Vomit/Diar PAL: 4 Review of Systems Review of Systems All systems reviewed & are unremarkable except as noted in HPI and below Constitutional Denies chills, Denies fever(s) and Denies weakness Cardiovascular Denies chest pain and Denies dyspnea Respiratory Denies cough and Denies dyspnea Gastrointestinal Denies nausea and Denies vomiting Genitourinary Denies dysuria Neurologic Denies weakness [facility] Social History Smoking/Tobacco Use Status: Never Alcohol Intake: never Drug use: Never Substance use type: does not use Do you feel safe at home: Yes Do you feel safe in your relationship?: Yes Exam Const General: no acute distress Orientation: alert HENMT Head: normal to inspection Ears: external ears normal General nose exam: external nose normal Mouth: moist mucous membranes Eyes General: appearance normal, both eyes and all related structures Neck Neck: normal visual inspection Resp Effort & Inspection: normal respiratory effort and able to speak in complete sentences Cardio Rate: regular rate GI Palpation: soft Skin General skin exam: no rashes or lesions noted Neuro General: alert and oriented x3 Extrem General: normal to inspection Psych Mental Status: mental status grossly normal Course Vital Signs Temperature 36.8 C 01/22/19 20:03 Pulse 88 01/22/19 20:03 Respiratory Rate 17 01/22/19 20:03 Blood Pressure 178/75 H 01/22/19 20:03 Pulse Oximetry 97 01/22/19 20:03 Temperature 36.8 C 01/22/19 20:03 Temperature Source Skin 01/22/19 20:03 Pulse 88 01/22/19 20:03 Respiratory Rate 17 01/22/19 20:03 Respiratory Effort 01/22/19 20:10 Blood Pressure 178/75 H 01/22/19 20:03 Blood Pressure Position Sitting 01/22/19 20:03 Pulse Oximetry 97 01/22/19 20:03 Oxygen Delivery Method Room Air 01/22/19 20:03 Oxygen Flow Rate 0 01/22/19 20:03 Pain Level 6 01/22/19 20:03
[2019-01-22 20:39] LABS: Abs Immature Grans 0.04 k/cumm (0.0-0.09); Basophils % 0.1; Eosinophils % 0.1; HCT 43.3 % (36.0-46.0); HGB 14.6 g/dL (12.0-15.5); Immature Grans % 0.2; Lymphocytes % 7.1; Mean Corp. HGB Concentration 33.7 g/dL (32.0-36.0); Mean Corpuscular Hemoglobin 30.2 pg (27.0-33.0); Mean Corpuscular Volume 89.6 fL (80-95); Mean Platelet Volume 10.4 fL (8.0-11.0); Neutrophils % 83.5; Platelet Count 193 x1000/uL (130-400); RBC 4.83 m/cumm (4.00-5.20); RBC Distribution Width 13.5 % (11.7-14.6); White Blood Cell Count 17.53 k/cumm (4.4-10.8)
[2019-01-22 20:51] LABS: Absolute Basophil Count 0.02 k/cumm (0.0-0.2); Absolute Eosinophil Count 0.02 k/cumm (0.0-0.7); Absolute Lymphocyte Count 1.24 k/cumm (1.2-3.4); Absolute Monocyte Count 1.58 k/cumm (0.11-0.7); Absolute Neutrophil Count 14.64 k/cumm (1.2-6.7)
[2019-01-22 21:01] LABS: Prothrombin Time 10.3 sec (9.3-11.0)
--- NOTE | 2019-01-22 21:05 | DI.CT_ITS ---
SYMPTOM/DIAGNOSIS: LOW ABD PAIN, BLOODY STOOL ABDOMEN AND PELVIC CT: CT examination of the abdomen and pelvis was performed with a bolus infusion of 100 cc's of Omnipaque 350. Images obtained through the lung bases are unremarkable. Note is made of a hiatal hernia. Liver and spleen are unremarkable in appearance. Pancreas appears intact. Gallbladder and biliary ducts are CT normal. Abdominal aorta is of normal diameter and no major vascular abnormality is seen. No significant abdominal or pelvic adenopathy. Bi-lobed fat containing ventral hernia noted. Appendix appears normal. No evidence of bowel obstruction. There is an area of apparent inflammatory change involving sigmoid colon with marked pericolonic fat edema and wall thickening of the colon consistent with diverticulitis. Note is also made of apparent wall thickening and pericolonic increased fat attenuation suggestive of proctitis, please correlate clinically. CONCLUSION: Findings consistent with acute sigmoid diverticulitis, uncomplicated. Probable proctitis, please correlate clinically.
[2019-01-22 21:08] LABS: Diff Comment Diff Reviewed; RBC Morphology Normal
[2019-01-22 21:10] LABS: ALT 19 U/L (12-78); AST 16 U/L (15-37); Albumin 3.4 g/dL (3.4-5.0); Alkaline Phosphatase 72 U/L (46-116); Anion Gap 15.7 mmol/L (3-11); BUN 22 mg/dL (7-18); Bilirubin, Total 0.8 mg/dL (0.2-1.0); CO2 21.3 mmol/L (21.0-32.0); Calcium 9.5 mg/dL (8.5-10.1); Chloride 101 mmol/L (98-107); Estimated GFR 53.08 (mL/min/1.73m2); Glucose 145 mg/dL (70-100); Lipase 108 U/L (73-393); Potassium 3.7 mmol/L (3.5-5.1); Sodium 138 mmol/L (136-145); Total Protein 8.7 g/dL (6.4-8.2)
[2019-01-22] MEDS: Omnipaque 350 MG/ML 100 ML BTL 86 ML IJ (21:10)
[2019-01-22] MEDS: Normal Saline Flush 10 ML SYR IVP (21:25)
[2019-01-22] MEDS: Normal Saline 1,000 ML 1000 ML IV (21:25)
--- NOTE | 2019-01-22 21:25 | DI.VRAD_ITS ---
EXAM: CT Abdomen and Pelvis With Contrast EXAM DATE/TIME: 01/22/2019 8:25 PM CLINICAL HISTORY: 83 years old, female; Generalized; Patient HX: Lower abdominal pain, bloody stools. TECHNIQUE: Imaging protocol: Axial computed tomography images of the abdomen and pelvis with intravenous contrast. Coronal and sagittal reformatted images were created and reviewed. Radiation optimization: All CT scans at this facility use at least one of these dose optimization techniques: automated exposure control; mA and/or kV adjustment per patient size (includes targeted exams where dose is matched to clinical indication); or iterative reconstruction. Contrast material: OMNI-PAQUE 350; Contrast volume: 86 ml; Contrast route: IV; COMPARISON: No relevant prior studies available. FINDINGS: Small hiatal hernia. Fat-containing anterior abdominal wall hernia. Inflammatory process involving the mid sigmoid colon with bogdan-colic fatty stranding suggesting acute diverticulitis. Additional mild colon wall thickening and some surrounding inflammation at the level of the rectum possibly representing an additional area of proctitis although this may be related to prior surgery or an old inflammatory process. Prior hysterectomy. Diffuse degenerative disc and facet disease throughout the lumbar spine. No significant free fluid. No evidence of bowel obstruction. IMPRESSION: 1. Non-complicated diverticulitis of the mid sigmoid colon. 2. Equivocal findings with respect to the rectosigmoid junction. 3. Additional incidental findings as described. Dictated and Authenticated by: Onel Bales MD. Ordering:RIDDHI Rowell MD
[2019-01-22] MEDS: Ciprofloxacin 500 MG TAB PO (21:41)
[2019-01-22] MEDS: metroNIDAZOLE 500 MG TAB PO (21:41)
== END 2019-01-22 22:20 | disposition home or self-care (01) ==
PROVIDERS: Emergency Provider Emergency Medicine; PCP Family Medicine
DX: K57.33 Diverticulitis of large intestine without perforation or abscess with bleeding (principal); I48.91 Unspecified atrial fibrillation; Z79.01 Long term (current) use of anticoagulants
CPT/HCPCS: 36415; 80053; 83690; 96360; 99285; 74177; 83735; 85025; 85610; 85730; 99284; J3490

== ENCOUNTER 2019-03-23 15:56 | Outpatient (REF) | payer MEDICARE, SELFPAY ==
[2019-03-23 21:14] LABS: Abs Immature Grans 0.01 k/cumm (0.0-0.09); Absolute Basophil Count 0.02 k/cumm (0.0-0.2); Absolute Eosinophil Count 0.27 k/cumm (0.0-0.7); Absolute Lymphocyte Count 3.06 k/cumm (1.2-3.4); Absolute Monocyte Count 0.81 k/cumm (0.11-0.7); Absolute Neutrophil Count 3.84 k/cumm (1.2-6.7); Basophils % 0.2; Eosinophils % 3.4; Immature Grans % 0.1; Lymphocytes % 38.2; Monocytes % 10.1; White Blood Cell Count 8.01 k/cumm (4.4-10.8)
[2019-03-23 22:31] LABS: TSH (W/Ref FT4) 3.79 uIU/mL (0.36-3.74); Vitamin B12 1101 pg/mL (193-986)
[2019-03-27 11:42] LABS: Varicella IgG Antibody Positive
== END 2019-03-23 16:16 ==
LOC: NCHCN 15:56
PROVIDERS: PCP Family Medicine; Visit Provider Family Medicine
DX: E03.9 Hypothyroidism, unspecified (principal); D72.829 Elevated white blood cell count, unspecified; I48.91 Unspecified atrial fibrillation; E53.8 Deficiency of other specified B group vitamins
CPT/HCPCS: 85048; 86787; 82607; 84439; 84443; 85007

== ENCOUNTER 2019-06-20 12:41 | Outpatient (REF) | payer MEDICARE, SELFPAY ==
[2019-06-20 21:59] LABS: Abs Immature Grans 0.01 k/cumm (0.0-0.09); Absolute Basophil Count 0.04 k/cumm (0.0-0.2); Absolute Eosinophil Count 0.22 k/cumm (0.0-0.7); Absolute Lymphocyte Count 2.12 k/cumm (1.2-3.4); Absolute Monocyte Count 0.58 k/cumm (0.11-0.7); Absolute Neutrophil Count 4.13 k/cumm (1.2-6.7); Basophils % 0.6; Eosinophils % 3.1; HCT 42.9 % (36.0-46.0); HGB 13.7 g/dL (12.0-15.5); Immature Grans % 0.1; Lymphocytes % 29.9; Mean Corp. HGB Concentration 31.9 g/dL (32.0-36.0); Mean Corpuscular Hemoglobin 28.6 pg (27.0-33.0); Mean Corpuscular Volume 89.6 fL (80-95); Mean Platelet Volume 10.8 fL (8.0-11.0); Monocytes % 8.2; Neutrophils % 58.1; Platelet Count 289 x1000/uL (130-400); RBC 4.79 m/cumm (4.00-5.20); RBC Distribution Width 12.9 % (11.7-14.6)
[2019-06-20 22:03] LABS: C-Reactive Protein 0.78 mg/dL (0.0-0.3)
[2019-06-20 22:57] LABS: ESR 37 mm/hr (0-30)
== END 2019-06-20 13:01 ==
LOC: NCHCN 12:41
PROVIDERS: PCP Family Medicine; Visit Provider Family Medicine
DX: R10.9 Unspecified abdominal pain (principal); K57.90 Diverticulosis of intestine, part unspecified, without perforation or abscess without bleeding
CPT/HCPCS: 85652; 85025; 86140

== ENCOUNTER → 2019-07-03 09:44 | Outpatient (BNVA) | payer MEDICARE, SELFPAY | PROVIDERS: PCP Family Medicine; Referring Provider Family Medicine; Visit Provider Surgery | DX: K57.32 Diverticulitis of large intestine without perforation or abscess without bleeding (principal); R10.9 Unspecified abdominal pain; M54.5 Low back pain | CPT/HCPCS: 99203; 99213 ==

== ENCOUNTER 2019-07-13 10:46 | Day surgery (SDC) | payer MEDICARE, SELFPAY ==
[2019-07-13 11:10] VITALS: BP 148/72; PULSE 72; RESP 16; TEMP 36; O2SAT 97
[2019-07-13] MEDS: Lactated Ringers 1,000 ML 80 ML IV (11:29)
--- NOTE | 2019-07-13 12:40 | W.PM.DSUDISC ---
Discharge Plan Disposition Patient Disposition: HOME Condition: Good Discharge Details Reason For Visit: DIVERTICULITIS Attending Provider: Opal Das Primary Care Provider: Chantell Castillo V Home Meds and New Rx's Prescriptions: Continued ascorbate calcium (vitamin C) 500 mg tablet 1 gm PO DAILY RF: 0 vitamin B complex [B Complex-Vitamin B12] Tablet 1 tab PO DAILY RF: 0 omega-3 fatty acids [Fish Oil Concentrate] 1,000 mg capsule 1,000 mg PO DAILY RF: 0 vitamin E 200 unit capsule 200 unit PO DAILY RF: 0 garlic 500 mg capsule 500 mg PO DAILY RF: 0 cranberry fruit concentrate 500 mg capsule 500 mg PO DAILY RF: 0 royal jelly 500 mg capsule 500 mg PO DAILY RF: 0 raspberry ketone 100 mg capsule 100 mg PO DAILY RF: 0 levothyroxine 25 mcg Tablet 25 mcg PO DAILY RF: 0 Xarelto 20 mg Tablet 20 mg PO DAILY RF: 0 metoprolol tartrate 25 mg tablet 12.5 mg PO BID RF: 0 ibuprofen 200 mg Tablet 200 mg PO PRN PRNRF: 0 Discharge Instructions Additional Instructions: Findings: Your colonoscopy showed diverticulosis Follow up: Routine colon screening is not needed. Please call if you develop: fevers >101.5 Nausea or Vomiting Abdominal pain that is not transient DAY SURGERY UNIT POST COLONOSCOPY INSTRUCTIONS 1. Because there will be medication in your system for the next 24 hours, you may feel a little sleepy. Your coordination will be affected. Therefore: a. Do not drive or operate dangerous equipment for 24 hours. b. Do not drink alcohol beverages for 24 hours (not even beer). c. Plan to go home and rest for the day. 2. Generally there are no restrictions on your activity after a day or so has gone by, but you may feel a bit fatigued for a few days. 3 After you arrive home you may have a light meal and return to a normal diet as you can tolerate it without feeling sick to your stomach. 4. After surgery, you may feel pain or discomfort. This should be only transient, but if it persists please contact your doctor. 5. If there are any questions regarding the findings of your procedure, please feel free to contact your doctor. 6. If you are unable to contact your doctor with a problem, contact the hospital at [phone]. 7. Continue all your regular medications unless directed otherwise. I understand the above instructions and have no questions. Signature of Patient or Responsible Adult Escort Date/Time Name of Responsible Adult Escort Signature of Nurse Date/Time Stand Alone Forms: Kamran Busby (KENANU) Activity:: Activity as Tolerated Diet:: As Tolerated Discharge Orders Discharge Orders: Discharge Order (Routine); Ordered 07/13/19 Ordered By: Opal Das DS: Diagnosis Discharge Diagnosis (1) Diverticulosis: Status: Acute
[2019-07-13 13:15] VITALS: BP 141/67; PULSE 81; RESP 16; TEMP 36.2; O2SAT 99
--- NOTE | 2019-07-13 13:54 | COLE_ITS ---
DATE OF PROCEDURE: July 13, 2019 PREOPERATIVE DIAGNOSIS: Diverticulitis. POSTOPERATIVE DIAGNOSIS: Diverticulosis. PROCEDURE: Colonoscopy. SURGEON: Opal Das M.D. ANESTHESIA: General. INDICATIONS: This is an 84-year-old woman who had diagnosed with diverticulitis based on CAT scan in January. She does note some left low back pain that radiates around to her left groin. Her last colon oscopy was in 2002. She has no F/H colon cancer or inflammatory bowel disease. PROCEDURE: She is placed in the left Araiza' position. Propofol was titrated to sedation. Digital r ectal examination revealed no abnormalities. The scope was advanced to the cecum without difficulty . The ileocecal valve and the appendiceal orifice were clearly identified. Her prep was excellent. The scope was slowly withdrawn with no abnormalities seen within the ascending, transverse or desc ending colon. In the sigmoid region, she had a moderate amount of diverticular change. There was no evidence of active inflammation or stricture. The rectum was normal including retroflexed view. She tolerated the procedure well and was stable to recovery. She will not need routine screening in the future. cc: Chantell Castillo M.D.
== END 2019-07-13 14:05 | disposition home or self-care (01) ==
PROVIDERS: PCP Family Medicine; Visit Provider Surgery
PROC: 0DJD8ZZ Inspection of Lower Intestinal Tract, Via Natural or Artificial Opening Endoscopic (ICD-10-PCS; CPT 45378; principal; 2019-07-13 12:00)
DX: K57.30 Diverticulosis of large intestine without perforation or abscess without bleeding (principal); Z87.19 Personal history of other diseases of the digestive system
CPT/HCPCS: 45378; J3010

== ENCOUNTER 2019-09-28 11:59 | Outpatient (REF) | payer MEDICARE, SELFPAY ==
[2019-09-28 22:13] LABS: Anion Gap 10.3 mmol/L (3-11); BUN 25 mg/dL (7-18); CO2 26.7 mmol/L (21.0-32.0); CREATININE 0.85 mg/dL (0.55-1.02); Calcium 9.3 mg/dL (8.5-10.1); Chloride 105 mmol/L (98-107); Glucose 94 mg/dL (74-106); Potassium 4.5 mmol/L (3.5-5.1); Sodium 142 mmol/L (136-145); TSH 3.82 uIU/mL (0.36-3.74); Vitamin B12 1202 pg/mL (193-986)
[2019-09-28 22:30] LABS: FREE T4 0.99 ng/dL (0.76-1.46)
== END 2019-09-28 12:19 ==
LOC: NCHCN 11:59
PROVIDERS: PCP Family Medicine; Visit Provider Family Medicine
DX: E03.9 Hypothyroidism, unspecified (principal); E53.8 Deficiency of other specified B group vitamins; I10 Essential (primary) hypertension
CPT/HCPCS: 80048; 82607; 84439; 84443

== ENCOUNTER 2019-12-26 10:53 | Outpatient (REF) | payer MEDICARE, SELFPAY ==
[2019-12-26 19:20] LABS: HCT 42.8 % (36.0-46.0); HGB 14.2 g/dL (12.0-15.5); Mean Corp. HGB Concentration 33.2 g/dL (32.0-36.0); Mean Corpuscular Hemoglobin 30.3 pg (27.0-33.0); Mean Corpuscular Volume 91.3 fL (80-95); Mean Platelet Volume 10.8 fL (8.0-11.0); Platelet Count 220 x1000/uL (130-400); RBC 4.69 m/cumm (4.00-5.20); RBC Distribution Width 13.3 % (11.7-14.6); White Blood Cell Count 8.71 k/cumm (4.4-10.8)
[2019-12-26 19:41] LABS: ALT 24 U/L (14-59); AST 17 U/L (15-37); Albumin 3.8 g/dL (3.4-5.0); Alkaline Phosphatase 70 U/L (46-116); Anion Gap 8.5 mmol/L (3-11); BUN 24 mg/dL (7-18); Bilirubin, Total 0.4 mg/dL (0.2-1.0); CO2 28.5 mmol/L (21.0-32.0); Calcium 9.2 mg/dL (8.5-10.1); Calculated LDL 158 mg/dL (<100); Chloride 105 mmol/L (98-107); Cholesterol 238 mg/dL (<200); Glucose 89 mg/dL (74-106); HDL Cholesterol 54 mg/dL (40-60); Potassium 4.2 mmol/L (3.5-5.1); Sodium 142 mmol/L (136-145); TSH (W/Ref FT4) 4.46 uIU/mL (0.36-3.74); Total Protein 7.5 g/dL (6.4-8.2); Triglyceride 130 mg/dL (<150)
[2019-12-26 20:03] LABS: FREE T4 0.95 ng/dL (0.76-1.46)
== END 2019-12-26 11:13 ==
LOC: NCHCN 10:53
PROVIDERS: PCP Family Medicine; Visit Provider Family Medicine
DX: I10 Essential (primary) hypertension (principal); E03.9 Hypothyroidism, unspecified; E78.5 Hyperlipidemia, unspecified
CPT/HCPCS: 80053; 80061; 85027; 84439; 84443

== ENCOUNTER 2020-10-05 12:17 | Inpatient (IN) | payer MEDICARE, SELFPAY ==
[2020-10-05] VITALS (38 sets, daily range): BP systolic 99–165; BP diastolic 46–104; PULSE 60–165; RESP 12–29; TEMP 36.3–36.5; O2SAT 94–100
--- NOTE | 2020-10-05 12:59 | DI.CT_ITS ---
EXAM: CT ABDOMEN PELVIS W CLINICAL HISTORY: left flank and back pain, rlq ttp, prior diverticu. TECHNIQUE: Imaging Protocol: Axial computed tomography images with coronal and sagittal reformatted images were created and reviewed CONTRAST MATERIAL: Intravenous: Omnipaque 65cc, as per ER physician request Oral: None COMPARISON: CT CT ABDOMEN PELVIS W from 01/22/2019 FINDINGS: VISUALIZED LUNG BASES: No nodules nor pleural effusions evident. ABDOMEN: There is no ascites. Moderate size hiatal hernia again noted. There is edema of the duodenal C loop and there is an air-filled density off the medial aspect of the duodenum which is significantly larg er than on the prior study. Suspect duodenum ulcer at this level, the most distal aspect of the duod enum as well as the ligament of Treitz and proximal jejunal loops do not appear edematous. In additi on, the pancreas does not appear to be the obvious cause of the duodenal pathology. LIVER: There are no obvious focal hepatic lesions evident . GALLBLADDER/BILIARY: No obvious gallbladder pathology. CBD is not dilated. PANCREAS: No evidence of pancreatic mass nor dilatation of the pancreatic duct. No peripancreatic st reaking evident. SPLEEN: Spleen is not enlarged. No obvious intrasplenic lesions. Splenic and portal veins are paten t. ADRENALS: There are no significant adrenal masses. KIDNEYS:No cysts evident. No solid renal masses. No calculi nor hydronephrosis.. ABDOMINAL AORTA: Abdominal aorta is heavily calcified but not enlarged. ABDOMINAL WALL/GI: There is an anterior abdominal wall midline hernia which contains fat but no bowel loops. This hernia was also evident in the January 2019 study. No bowel obstruction. PELVIS: GI: No evidence of appendicitis.There are multiple sigmoid diverticuli but without evidence of obviou s acute diverticulitis. No free fluid. LYMPH NODES: There is no intrapelvic nor inguinal adenopathy. REPRODUCTIVE: Uterus is surgically absent. No abnormal adnexal masses. URINARY BLADDER: No calculi nor obvious masses evident OSSEOUS: No significant osseous lesions. 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 Also adva nced facet joint degenerative arthropathy. Scoliosis convex left in the lumbar spine evident. Degen erative anterolisthesis L4 upon L5. No lytic osseous lesions evident. IMPRESSION: 1. Compared to the prior CT scan of January 2019 there is again noted evidence of sigmoid diverticulosis but the diverticulitis has cleared and there is no evidence of abscess in the pelvis. 2. The main new finding here is significant edema of the proximal and mid duodenal C-loop and there i s also air addition defect in the medial wall more evident than previous and 1st consideration here i s for prominent duodenal ulcer. The edema of the duodenum does not appear to be related to adjacent pathology in the pancreas. The pancreas itself appears unremarkable. The epicenter of pathology tiana ears to be in the duodenum. Endoscopy is recommended. 3. Moderate size hiatal hernia again noted. 4. Uterus is again noted to be surgically absent. There are no abnormal adnexal findings. RADIATION DOSE DELIVERED: 719.59mGy.cm Total DLP DATA REPOSITORY: All CT scans at this facility are submitted to the National Radiology Data Registry (NRDR) Dose Index Registry (DIR) with the [employer] ([employer]). RADIATION OPTIMIZATION: All CT scans at this facility use at least one of these dose optimization te chniques: automated exposure control; mA and/or kV adjustment per patient size (includes targeted exa ms where dose is matched to clinical indication); or iterative reconstruction.
--- NOTE | 2020-10-05 13:02 | ED.GENADUL_ITS ---
Discharge Plan Disposition Patient Disposition: [facility] INPATIENT Condition: Serious Discharge Details Clinical Impression: Melena, Acute upper gastrointestinal bleeding, Duodenal ulcer, Atrial fibrillation Primary Care Provider: Chantell Castillo V ED Provider: Charanjit Gaviria Home Meds and New Rx's Prescriptions: No Action ascorbate calcium (vitamin C) 500 mg tablet 1 gm PO DAILY RF: 0 vitamin B complex [B Complex-Vitamin B12] Tablet 1 tab PO DAILY RF: 0 omega-3 fatty acids [Fish Oil Concentrate] 1,000 mg capsule 1,000 mg PO DAILY RF: 0 vitamin E 200 unit capsule 200 unit PO DAILY RF: 0 garlic 500 mg capsule 500 mg PO DAILY RF: 0 cranberry fruit concentrate 500 mg capsule 500 mg PO DAILY RF: 0 royal jelly 500 mg capsule 500 mg PO DAILY RF: 0 raspberry ketone 100 mg capsule 100 mg PO DAILY RF: 0 Xarelto 20 mg Tablet 20 mg PO DAILY RF: 0 metoprolol tartrate 25 mg tablet 12.5 mg PO BID RF: 0 sulfamethoxazole-trimethoprim [Bactrim DS] 800-160 mg Tablet 1 tab PO BID RF: 0 losartan 25 mg Tablet 25 mg PO DAILY RF: 0 ibuprofen 200 mg Tablet 200 mg PO PRN PRNRF: 0 Medical Decision Making 1307??85-year-old female with prior history of diverticulitis remotely, here with left flank pain that radiates to her left lower abdomen over the past 4 days, refractory so far to antibiotic that she recently started 2 days ago. Also had episode of coffee ground dark stool today. No BRBPR. Patient does have right lower quadrant abdominal tenderness, no rigidity and no rebound tenderness. Patient is hemodynamically stable. Plan to obtain CT the abdomen pelvis to assess for acute surgical pathology. -- Labs reviewed: cbc pending. --Patient had an episode of atrial fibrillation with rapid ventricular response with heart rate in the 150s to 160s. BP stable. Metoprolol 25 mg orally given and shortly thereafter heart rate improved. ECG was reviewed and interpreted by me: Please see report -- CT abd/pelv interpreted by radiology: Stomach and bowel: There is wall edema involving the 1st and 2nd portion of the duodenum with some mild extent to the 3rd portion level. These changes are new since previous exam. In the proximal duodenal level there appears to be anterior air attenuation not appreciated on previous study series 7, images 68-72. Consider possible ulcer or diverticulum. Diverticulosis without acute diverticulitis. Vasculature: Moderate atherosclerotic change seen in the vasculature. Lymph nodes: Mild peripancreatic adenopathy. IMPRESSION: Inflammatory changes in the proximal duodenum extending to the proximal portion of the 3rd portion of the duodenum. Ulcer at the bulb level not excludable. Rectal exam performed and no alessandro blood, heme positive stool. Patient is on xarelto. Will consult surgery. 16:45 --I spoke with Dr. Sears who will admit the patient. HPI General Mode of arrival: ambulatory . Date/Time Provider Initiated Documentation: 10/05/20 12:59 . Limitations to Documentation: no limitations . Information obtained by: patient . HPI Narrative: 85-year-old female with history of diverticulitis, atrial fibrillation on Xarelto, here with left lower back, flank and abdominal pain that started 4 days ago and has persisted. Patient notes she started an antibiotic from prior course of diverticulitis 3 days ago which was switched to Bactrim by her PCP which she has been taking for the past 2 days. She notes pain is persisted without any significant relief on antibiotics. Pain is currently mild to moderate. Pain is worse with movement and improved with lying down. She notes associated dark stool today. No bloody stool. No fever. No urinary symptoms. Related Data Home Medications Medication Instructions Recorded Confirmed Xarelto 20 mg PO DAILY 01/22/19 10/05/20 ascorbate calcium (vitamin C) 500 1 gm PO DAILY tab 07/03/19 10/05/20 mg tablet cranberry fruit concentrate 500 mg 500 mg PO DAILY cap 07/03/19 10/05/20 capsule garlic 500 mg capsule 500 mg PO DAILY 07/03/19 10/05/20 metoprolol tartrate 25 mg tablet 12.5 mg PO BID tab 07/03/19 10/05/20 omega-3 fatty acids 1,000 mg 1,000 mg PO DAILY 07/03/19 10/05/20 capsule raspberry ketone 100 mg capsule 100 mg PO DAILY cap 07/03/19 10/05/20 royal jelly 500 mg capsule 500 mg PO DAILY cap 07/03/19 10/05/20 vitamin B complex 1 tab PO DAILY 07/03/19 10/05/20 vitamin E 200 unit capsule 200 unit PO DAILY 07/03/19 10/05/20 ibuprofen 200 mg PO PRN PRN 07/13/19 10/05/20 losartan 25 mg PO DAILY 10/05/20 10/05/20 sulfamethoxazole-trimethoprim 1 tab PO BID 10/05/20 10/05/20 [Bactrim DS] Allergies Allergy/AdvReac Type Severity Reaction Status Date / Time No Known Allergies Allergy Unverified 10/05/20 12:32 General Stated Complaint: FlankPain PAL: 3 Review of Systems All systems reviewed & are unremarkable except as noted in HPI and below Constitutional Constitutional: Denies fever(s) Comments: Generally does not feel well Gastrointestinal Gastrointestinal: Reports as per HPI Genitourinary Genitourinary: Reports as per HPI [facility] Medical History Atrial fibrillation Diverticulosis Hyperlipidemia Hypothyroidism Ventral hernia Surgical History History of bladder repair surgery History of colonoscopy S/P hysterectomy Social History Smoking/Tobacco Use Status: Never Smoking risk assessment performed?: Yes Alcohol Intake: never Drug use: Never Substance use type: does not use Do you feel safe at home: Yes Do you feel safe in your relationship?: Yes Exam Const General: cooperative and no acute distress HENMT Mouth: moist mucous membranes Eyes Conjunctivae: normal conjunctivae Sclera: normal sclerae Neck Neck: trachea midline and supple Resp Auscultation: clear to auscultation bilaterally, no rales, no rhonchi and no wheezes Cardio Jugular venous pressure: no JVD Rate: not tachycardic Rhythm: abnormal rhythm GI Palpation: soft, not firm, no guarding, hernia ventral (Nontender), no masses, not rigid, tender in the RLQ; with no rebound tenderness and No ascites Skin General skin exam: no rashes or lesions noted Neuro General: patient alert, patient awake, patient oriented x3 and tone normal Extrem General: no edema Psych Appearance: grossly normal Mental Status: mental status grossly normal Speech and Movement: speech and movement normal Course Vital Signs Vital signs: Vital Signs Temperature 36.5 C 10/05/20 12:25 Pulse 83 10/05/20 12:25 Blood Pressure 165/73 H 10/05/20 12:25 Pulse Oximetry 97 10/05/20 12:25 Temperature 36.5 C 10/05/20 12:25 Temperature Source Temporal Artery Scan 10/05/20 12:25 Pulse 83 10/05/20 12:25 Respiratory Effort Non-Labored 10/05/20 12:30 Blood Pressure 165/73 H 10/05/20 12:25 Blood Pressure Position Sitting 10/05/20 12:25 Pulse Oximetry 97 10/05/20 12:25 Oxygen Delivery Method Room Air 10/05/20 12:25 Oxygen Flow Rate 0 10/05/20 12:25 Pain Level 0 10/05/20 12:25
[2020-10-05] MEDS: Normal Saline 500 ML 1000 ML IV (13:16)
[2020-10-05] MEDS: Normal Saline Flush 10 ML SYR IVP ×5 (13:17→23:15)
[2020-10-05 13:27] LABS: ALT 55 U/L (14-59); AST 43 U/L (15-37); Albumin 3.6 g/dL (3.4-5.0); Alkaline Phosphatase 98 U/L (46-116); Anion Gap 13.2 mmol/L (3-11); BUN 27 mg/dL (7-18); Bilirubin, Total 0.5 mg/dL (0.2-1.0); CO2 22.8 mmol/L (21.0-32.0); CREATININE 1.4 mg/dL (0.55-1.02); Calcium 9.3 mg/dL (8.5-10.1); Chloride 101 mmol/L (98-107); Estimated GFR 35.82 (mL/min/1.73m2); Glucose 111 mg/dL (74-106); Potassium 4.1 mmol/L (3.5-5.1); Sodium 137 mmol/L (136-145); Total Protein 8.3 g/dL (6.4-8.2)
[2020-10-05 13:50] LABS: Prothrombin Time 10.4 sec (9.3-11.0)
--- NOTE | 2020-10-05 14:00 | RT.EKG_ITS ---
APPROVED REPORT Exam: Resting ECG Patient Location: E HR:151 bpm ECG Measurements Heart Rate 151 AXIS MI 90 P 0 QRSd 119 QRS 91 QT 304 T -6 QTc 481 Conclusion Supraventricular tachycardia...V-rate>(220-age), QRSd<120 RBBB and LPFB...QRSd >120mS, axis(90,210) Low voltage, precordial leads...precordial leads <1.0mV afib with rvr
[2020-10-05] MEDS: Metoprolol 25 MG TAB (14:24)
[2020-10-05] MEDS: Normal Saline - Diluent 50 ML VIAL IV (14:44)
[2020-10-05] MEDS: Omnipaque 350 MG/ML 100 ML BTL IV (15:05)
[2020-10-05 15:19] LABS: Bilirubin Negative (Negative); Blood Negative (Negative); Clarity Sl Cloudy (Clear); Glucose Negative (Negative); Ketones 15 mg/dL (Negative); Leukocyte Esterase Negative (Negative); Nitrite Negative (Negative); Specific Gravity >= 1.030 (1.005-1.025); Urobilinogen 0.2 EU/dL (Up TO 0.2); pH 5.5 (5-8)
[2020-10-05 15:38] LABS: Lipase 135 U/L (73-393)
--- NOTE | 2020-10-05 15:42 | DI.VRAD_ITS ---
PROCEDURE INFORMATION: Exam: CT Abdomen And Pelvis With Contrast Exam date and time: 10/05/2020 2:43 PM Age: 85 years old Clinical indication: Other: Left flank and back pain, rlq ttp prior diverticulitis TECHNIQUE: Imaging protocol: Computed tomography of the abdomen and pelvis with contrast. Contrast material: OMNIPAQUE 350; Contrast volume: 65 ml; Contrast route: INTRAVENOUS (IV); COMPARISON: CT ABDOMEN PELVIS W 01/22/2019 8:45 PM FINDINGS: Mediastinal space: Small hiatal hernia. Liver: Mild fatty liver. Gallbladder and bile ducts: Normal. No calcified stones. No ductal dilation. Pancreas: Normal. No ductal dilation. Spleen: Normal. No splenomegaly. Adrenal glands: Normal. No mass. Kidneys and ureters: Normal. No hydronephrosis. Stomach and bowel: There is wall edema involving the 1st and 2nd portion of the duodenum with some mild extent to the 3rd portion level. These changes are new since previous exam. In the proximal duodenal level there appears to be anterior air attenuation not appreciated on previous study series 7, images 68-72. Consider possible ulcer or diverticulum. Diverticulosis without acute diverticulitis. Appendix: No evidence of appendicitis. Intraperitoneal space: Unremarkable. No free air. No significant fluid collection. Vasculature: Moderate atherosclerotic change seen in the vasculature. Lymph nodes: Mild peripancreatic adenopathy. Urinary bladder: Unremarkable as visualized. Reproductive: Status post hysterectomy. Bones/joints: Levoscoliosis noted in the lumbar spine. Soft tissues: Unremarkable. Other findings: Respiratory motion noted. IMPRESSION: Inflammatory changes in the proximal duodenum extending to the proximal portion of the 3rd portion of the duodenum. Ulcer at the bulb level not excludable. Dictated and Authenticated by: Trinity Turner MD. Ordering:SAV Donohue MD
[2020-10-05 16:21] LABS: HCT 43.6 % (36.0-46.0); HGB 14.5 g/dL (11.2-15.7); MCHC 33.3 % (32.0-36.0); MCV 90.1 fL (80-95); MPV 11.8 fL (8.0-11.0); Platelet Count 226 10^3/uL (130-400); RBC 4.84 10^6/uL (3.93-5.22); RDW 13.2 % (11.7-14.6); RDW-SD 43.5 fL; WBC 8.95 10^3/uL (4.4-10.8)
--- NOTE | 2020-10-05 16:28 | W.PM.HP.N ---
Date of service: 10/05/20 Time of Service: 16:28 Assessment and Plan Assessment and plan (1) Acute upper gastrointestinal bleeding: Status: Acute Assessment and plan: One episeode of possible melena at home. Had occult positive stools Hgb is normal Will treat with BID omeprazole and AC and HS Carafate Stop Xarelto I spent 45 minutes in reviewing the record, seeing the patient and documenting in the medical record. (2) Duodenal ulcer: Status: Acute Assessment and plan: ? History of Present Illness Narrative: 85-year-old female with history of diverticulitis, atrial fibrillation on Xarelto, that went to the ED today for left lower back that radiates to the LLQ that started 4 days ago and has persisted. Patient notes she started an antibiotic from prior course of diverticulitis 3 days ago which was switched to Bactrim by her PCP which she has been taking for the past 2 days. She notes pain is persisted without any significant relief on antibiotics. Pain is currently mild to moderate. Pain is worse with movement and improved with lying down. She notes associated dark stool today. No bloody stool. No fever. No urinary symptoms Labs were normal CT scan Abdomen and pelvis was done. I reviewed the scan It shows some inflammation in the duodenum with a diverticulum vs ulcer. There is no free fluid or air. She has no pain in the epigastric area. Review of Systems Constitutional Constitutional: Denies fever(s), Denies headache(s) and Denies weight loss Eyes Eyes: Denies change in vision ENT Ears, Nose, Mouth, and Throat: Denies dysphagia, Denies headache(s) and Denies hoarseness Cardiovascular Cardiovascular: Reports as per HPI, Denies chest pain, Denies radiating jaw, neck or arm pain and Denies dyspnea Respiratory Respiratory: Denies cough and Denies dyspnea Gastrointestinal Gastrointestinal: Reports as per HPI and Denies dysphagia Genitourinary Genitourinary: Denies hematuria, Denies urinary frequency and Denies difficulty voiding Musculoskeletal Musculoskeletal: Reports system reviewed and no additional complaints, except as documented Integumentary/Breasts Skin/Breast: Reports system reviewed and no additional complaints, except as documented Neurologic Neurologic: Reports system reviewed and no additional complaints, except as documented and Denies headache(s) Psychiatric Psychiatric: Reports system reviewed and no additional complaints, except as documented Endocrine Endocrine: Reports system reviewed and no additional complaints, except as documented PFSH Medical History (Updated 10/05/20 @ 17:38 by Katiana Sears MD) Atrial fibrillation Diverticulitis large intestine Diverticulosis Elevated blood pressure reading without diagnosis of hypertension Grief reaction Hyperlipidemia Hypothyroidism Pharyngitis Urinary frequency Ventral hernia Vitamin B12 deficiency Surgical History History of bladder repair surgery History of colonoscopy S/P hysterectomy Social History Smoking/Tobacco Use Status: Never Smoking risk assessment performed?: Yes Alcohol Intake: never Drug use: Never Substance use type: does not use Do you feel safe at home: Yes Do you feel safe in your relationship?: Yes Meds Home Medications and Allergies Home Medications Medication Instructions Recorded Confirmed Type Xarelto 20 mg PO DAILY 01/22/19 10/05/20 History ascorbate calcium (vitamin C) 500 1 gm PO DAILY tab 07/03/19 10/05/20 History mg tablet cranberry fruit concentrate 500 mg 500 mg PO DAILY cap 07/03/19 10/05/20 History capsule garlic 500 mg capsule 500 mg PO DAILY 07/03/19 10/05/20 History metoprolol tartrate 25 mg tablet 12.5 mg PO BID tab 07/03/19 10/05/20 History omega-3 fatty acids 1,000 mg 1,000 mg PO DAILY 07/03/19 10/05/20 History capsule raspberry ketone 100 mg capsule 100 mg PO DAILY cap 07/03/19 10/05/20 History royal jelly 500 mg capsule 500 mg PO DAILY cap 07/03/19 10/05/20 History vitamin B complex 1 tab PO DAILY 07/03/19 10/05/20 History vitamin E 200 unit capsule 200 unit PO DAILY 07/03/19 10/05/20 History ibuprofen 200 mg PO PRN PRN 07/13/19 10/05/20 History losartan 25 mg PO DAILY 10/05/20 10/05/20 History sulfamethoxazole-trimethoprim 1 tab PO BID 10/05/20 10/05/20 History [Bactrim DS] Allergies Allergy/AdvReac Type Severity Reaction Status Date / Time No Known Allergies Allergy Unverified 10/05/20 12:32 Exam Const General: cooperative, comfortable and no acute distress Orientation: alert and oriented x3 HENMT Head: normocephalic and atraumatic Resp Effort & Inspection: normal respiratory effort Auscultation: clear to auscultation bilaterally Cardio Rate: regular rate Rhythm: abnormal rhythm GI Inspection: normal to inspection Palpation: soft, no hepatosplenomegaly and tender (mild LLQ. No rebound or guarding) Auscultation: normal bowel sounds Results Labs Result diagrams: 10/05/20 13:10 10/05/20 13:09 Labs: Laboratory Results - last 24 hr 10/05/20 10/05/20 10/05/20 13:09 13:09 13:09 WBC RBC Hgb Hct MCV MCH MCHC RDW Plt Count MPV PT 10.4 INR 1.0 Sodium 137 Potassium 4.1 Chloride 101 Carbon Dioxide 22.8 Anion Gap 13.2 H BUN 27 H Creatinine 1.4 H Estimated GFR/1.73 m2 35.82 Glucose 111 H Calcium 9.3 Total Bilirubin 0.5 AST 43 H ALT 55 Alkaline Phosphatase 98 Total Protein 8.3 H Albumin 3.6 Lipase 135 Urine Color Urine Clarity Urine pH Ur Specific [place] Urine Protein Urine Ketones Urine Blood Urine Nitrite Urine Bilirubin Urine Urobilinogen Ur Leukocyte Esterase Urine Glucose 10/05/20 10/05/20 13:10 14:45 WBC 8.95 RBC 4.84 Hgb 14.5 Hct 43.6 MCV 90.1 MCH 30.0 MCHC 33.3 RDW 13.2 Plt Count 226 MPV 11.8 H PT INR Sodium Potassium Chloride Carbon Dioxide Anion Gap BUN Creatinine Estimated GFR/1.73 m2 Glucose Calcium Total Bilirubin AST ALT Alkaline Phosphatase Total Protein Albumin Lipase Urine Color Yellow Urine Clarity Sl cloudy Urine pH 5.5 Ur Specific [place] >= 1.030 H Urine Protein Negative Urine Ketones 15 H Urine Blood Negative Urine Nitrite Negative Urine Bilirubin Negative Urine Urobilinogen 0.2 Ur Leukocyte Esterase Negative Urine Glucose Negative Last Vital Signs Temp 97.5 F L 10/05/20 15:55 Pulse 81 10/05/20 16:16 Resp 18 10/05/20 16:16 BP 105/87 10/05/20 16:16 Pulse Ox 95 10/05/20 16:16 COVID-19 Screening Have you, or household traveled for leisure in last 14 days?: No Had IN PERSON contact w/suspected or confirmed C-19 person: No
[2020-10-05] MEDS: ACETAMINOPHEN 1,000 MG/100 ML BTL 400 MG IVPB ×2 (16:55→23:14)
[2020-10-05] MEDS: Pantoprazole 40 MG VIAL IVP (19:21)
[2020-10-05] MEDS: Sucralfate 1 GM TAB PO (21:11)
[2020-10-06] VITALS (20 sets, daily range): BP systolic 87–148; BP diastolic 53–76; PULSE 69–155; RESP 15–20; TEMP 36–36.8; O2SAT 95–98
[2020-10-06 01:45] LABS: COVID-19 RT-PCR UVMMC Result Negative (Negative)
[2020-10-06] MEDS: ACETAMINOPHEN 1,000 MG/100 ML BTL 400 MG IVPB ×3 (04:07→20:15)
[2020-10-06] MEDS: Normal Saline Flush 10 ML SYR IVP ×6 (04:08→21:36)
[2020-10-06 07:12] LABS: Abs Immature Grans 0.01 10^3/uL (0.0-0.06); Absolute Basophil Count 0.04 10^3/uL (0.0-0.2); Absolute Eosinophil Count 0.45 10^3/uL (0.0-0.7); Absolute Lymphocyte Count 2.09 10^3/uL (1.2-3.4); Absolute Monocyte Count 1.02 10^3/uL (0.1-0.8); Absolute Neutrophil Count 3.68 10^3/uL (1.2-6.7); Basophils % 0.5; Eosinophils % 6.2; HCT 35.4 % (36.0-46.0); HGB 11.9 g/dL (11.2-15.7); Immature Grans % 0.1; Lymphocytes % 28.7; MCHC 33.6 % (32.0-36.0); MCV 89.2 fL (80-95); MPV 11.1 fL (8.0-11.0); Neutrophils % 50.5; Nucleated RBC 0 %; Platelet Count 190 10^3/uL (130-400); RBC 3.97 10^6/uL (3.93-5.22); RDW 13.2 % (11.7-14.6); RDW-SD 43.6 fL; WBC 7.29 10^3/uL (4.4-10.8)
[2020-10-06 07:31] LABS: Anion Gap 10.6 mmol/L (3-11); BUN 27 mg/dL (7-18); CO2 22.4 mmol/L (21.0-32.0); CREATININE 1.3 mg/dL (0.55-1.02); Calcium 8.5 mg/dL (8.5-10.1); Chloride 103 mmol/L (98-107); Estimated GFR 39.02 (mL/min/1.73m2); Glucose 93 mg/dL (74-106); Magnesium 1.8 mg/dL (1.8-2.4); Potassium 3.9 mmol/L (3.5-5.1); Sodium 136 mmol/L (136-145)
[2020-10-06] MEDS: Metoprolol 25 MG TAB 12.5 MG PO (09:38)
[2020-10-06] MEDS: Sucralfate 1 GM TAB PO ×4 (09:38→21:36)
[2020-10-06] MEDS: Losartan 25 MG TAB PO (09:38)
[2020-10-06] MEDS: Pantoprazole 40 MG VIAL IVP ×2 (09:39→21:36)
[2020-10-06] MEDS: Metoprolol 5 MG/5 ML VIAL IVP ×3 (09:57→17:14)
--- NOTE | 2020-10-06 11:02 | W.MEDCONSULT ---
Date of service: 10/06/20 Time of Service: 11:02 Assessment and Plan Assessment and plan (1) Acute upper gastrointestinal bleeding: Status: Acute Assessment and plan: Hold Xarelto for the next 48 to 72 hours until certain the bleeding has ceased. Continue aggressive GI management with PPI and Carafate. If further bleeding then proceed with EGD. Check Helicobacter pylori studies. If H&H remains stable/no further bleeding and consider resumption of Xarelto upon discharge from the hospital. (2) Atrial fibrillation: Status: Chronic Assessment and plan: Aggressive rate control with adjustment of her Lopressor. Can use IV Lopressor for acute management while adjusting her oral dose. Hold Xarelto as noted above. I would obtain outpatient 30-day event recorder to assess stability of her atrial fibrillation upon discharge. She does not routinely follow-up with a ext js developer. Reviewing her studies here at [facility] she had a stress test in 2018 in which she was sinus rhythm. She indicates that usually she can tell when she is back in atrial fibrillation. Qualifiers: Atrial fibrillation type: paroxysmal Qualified Code(s): I48.0 - Paroxysmal atrial fibrillation (3) Duodenal ulcer: Status: Acute Assessment and plan: Aggressive GI management with double dose Protonix in addition to Carafate. EGD as per surgery's recommendation. (4) Acute low back pain: Status: Acute Assessment and plan: Avoid use of NSAIDs in the setting of peptic ulcer disease. Apparently patient was taken Advil at home for her low back pain. Treat with muscle relaxer and topical lidocaine patch. May use Nucynta if pain is not controlled with Tylenol and muscle relaxers and lidocaine. Qualifiers: Back pain laterality: left Sciatica presence: with sciatica Sciatica laterality: sciatica of left side Qualified Code(s): M54.42 - Lumbago with sciatica, left side History of Present Illness History of Present Illness Chief Complaint: Low back pain, melena Narrative: 85-year-old female with history of atrial fibrillation controlled with Lopressor and anticoagulated with Xarelto presents emergency department yesterday with low back pain with radiation to her left groin. She has a history of diverticulitis and was presumptively diagnosed with acute diverticulitis and placed on antibiotics by her PCP. In spite of being on antibiotics her back pain and left groin pain did not improve. She has been taking Aleve gel capsules for her pain. On the day of admission she had loose bowel movements with dark black stools. Her low back pain radiates around the left sacrum and into the left groin is worse with movement and alleviated with rest or with lying down. She denies any nausea or vomiting or hematemesis and no hematochezia. While being worked up in the emergency department she went into rapid atrial fibrillation which was treated double dose of her home medication of Lopressor. She was given a total of 25 mg of Lopressor in the emergency department. Work-up included CBC that showed a normal hemoglobin of 14.5 g and a hematocrit of 43% with normal platelets and normal leukocyte count. Pro time and INR were within normal limits. CMP demonstrated elevated BUN and creatinine of [address] of the abdomen pelvis was performed and demonstrated hiatal hernia as well as edema and air-filled defect of the proximal duodenum suggestive of a duodenal ulcer. She is also noted to have diverticulosis but no evidence for diverticulitis. Patient was admitted to the hospital by Dr. Sears who been consulted by the emergency department. Patient was started on IV Protonix and oral Carafate. Since being admitted last night she has had a couple episodes of paroxysmal rapid atrial fibrillation with heart rates in the 130s that is been responsive to IV Lopressor. I have been consulted to medically manage her. Her Xarelto is currently on hold because of recent GI bleeding. There is no plans to perform an immediate EGD unless she has recurrent bleeding. Patient denies any abdominal pain or nausea or vomiting this morning and denies any chest pain or pressure or dizziness or dyspnea. Her low back pain seems to be musculoskeletal of the left lower sacrum over the SI joint with some radiation into the left groin. Dr. Sears is going to treat this with lidocaine patch and I suggested addition of Robaxin. I have increased her home dose of Lopressor from 12.5 mg p.o. twice daily to 25 mg p.o. twice daily. We will recheck an H&H at noon as she dropped her hemoglobin overnight from 14.5 g down to 11.9 g. Review of Systems Constitutional Constitutional: Reports system reviewed and no additional complaints, except as documented Cardiovascular Cardiovascular: Reports system reviewed and no additional complaints, except as documented Respiratory Respiratory: Reports system reviewed and no additional complaints, except as documented Gastrointestinal Gastrointestinal: Reports as per [facility] Medical History Atrial fibrillation Diverticulitis large intestine Diverticulosis Elevated blood pressure reading without diagnosis of hypertension Grief reaction Hyperlipidemia Hypothyroidism Pharyngitis Urinary frequency Ventral hernia Vitamin B12 deficiency Surgical History History of bladder repair surgery History of colonoscopy S/P hysterectomy Social History Smoking/Tobacco Use Status: Never Smoking risk assessment performed?: Yes Alcohol Intake: never Drug use: Never Substance use type: does not use Do you feel safe at home: Yes Do you feel safe in your relationship?: Yes Exam Narrative Exam Narrative: Elderly female sitting up in her chair in no discomfort. She is alert and oriented person place time circumstance. HEENT is unremarkable. Conjunctiva is pink. Neck is supple nontender no JVD. Lungs are clear to auscultation anteriorly posteriorly she had some fine rales at the bases no rhonchi or wheezes. Heart irregularly irregular at a slightly rapid rate no appreciable murmur rub Abdomen soft and nontender with normal bowel sounds. Low back is tender over the SI joint. Lower extremities without peripheral cyanosis or edema Results Last Vital Signs Temp 36.0 C L 10/06/20 08:26 Pulse 95 H 10/06/20 10:54 Resp 16 10/06/20 08:26 BP 107/59 L 10/06/20 10:54 Pulse Ox 98 10/06/20 08:26 Labs Result diagrams: 10/06/20 06:34 10/06/20 06:34 Labs: Laboratory Results - last 24 hr 10/05/20 10/05/20 10/05/20 13:09 13:09 13:09 WBC RBC Hgb Hct MCV MCH MCHC RDW Plt Count MPV Immature Gran % Neutrophils % Lymphocytes % Monocytes % Eosinophils % Basophils % Nucleated RBC % Absolute Neutrophils Absolute Lymphocytes Absolute Monocytes Absolute Eosinophils Absolute Basophils PT 10.4 INR 1.0 Sodium 137 Potassium 4.1 Chloride 101 Carbon Dioxide 22.8 Anion Gap 13.2 H BUN 27 H Creatinine 1.4 H Estimated GFR/1.73 m2 35.82 Glucose 111 H Calcium 9.3 Magnesium Total Bilirubin 0.5 AST 43 H ALT 55 Alkaline Phosphatase 98 Total Protein 8.3 H Albumin 3.6 Lipase 135 Urine Color Urine Clarity Urine pH Ur Specific [place] Urine Protein Urine Ketones Urine Blood Urine Nitrite Urine Bilirubin Urine Urobilinogen Ur Leukocyte Esterase Urine Glucose SARS-CoV-2 (PCR) Nasopharyn COVID-19 PCR Ref Test Perform Site 10/05/20 10/05/20 10/05/20 13:10 14:45 17:00 WBC 8.95 RBC 4.84 Hgb 14.5 Hct 43.6 MCV 90.1 MCH 30.0 MCHC 33.3 RDW 13.2 Plt Count 226 MPV 11.8 H Immature Gran % Neutrophils % Lymphocytes % Monocytes % Eosinophils % Basophils % Nucleated RBC % Absolute Neutrophils Absolute Lymphocytes Absolute Monocytes Absolute Eosinophils Absolute Basophils PT INR Sodium Potassium Chloride Carbon Dioxide Anion Gap BUN Creatinine Estimated GFR/1.73 m2 Glucose Calcium Magnesium Total Bilirubin AST ALT Alkaline Phosphatase Total Protein Albumin Lipase Urine Color Yellow Urine Clarity Sl cloudy Urine pH 5.5 Ur Specific [place] >= 1.030 H Urine Protein Negative Urine Ketones 15 H Urine Blood Negative Urine Nitrite Negative Urine Bilirubin Negative Urine Urobilinogen 0.2 Ur Leukocyte Esterase Negative Urine Glucose Negative SARS-CoV-2 (PCR) [facility] Not Applicable Ref Test [facility]form [facility] 10/06/20 10/06/20 06:34 06:34 WBC 7.29 RBC 3.97 Hgb 11.9 D Hct 35.4 L MCV 89.2 MCH 30.0 MCHC 33.6 RDW 13.2 Plt Count 190 MPV 11.1 H Immature Gran % 0.1 Neutrophils % 50.5 Lymphocytes % 28.7 Monocytes % 14.0 Eosinophils % 6.2 Basophils % 0.5 Nucleated RBC % 0 Absolute Neutrophils 3.68 Absolute Lymphocytes 2.09 Absolute Monocytes 1.02 H Absolute Eosinophils 0.45 Absolute Basophils 0.04 PT INR Sodium 136 Potassium 3.9 Chloride 103 Carbon Dioxide 22.4 Anion Gap 10.6 BUN 27 H Creatinine 1.3 H Estimated GFR/1.73 m2 39.02 Glucose 93 Calcium 8.5 Magnesium 1.8 Total Bilirubin AST ALT Alkaline Phosphatase Total Protein Albumin Lipase Urine Color Urine Clarity Urine pH Ur Specific [place] Urine Protein Urine Ketones Urine Blood Urine Nitrite Urine Bilirubin Urine Urobilinogen Ur Leukocyte Esterase Urine Glucose SARS-CoV-2 (PCR) Nasopharyn COVID-19 PCR Ref Test Perform Site
[2020-10-06 12:12] LABS: HGB 13.1 g/dL (11.2-15.7)
[2020-10-06] MEDS: Lidocaine 5% Patch 1 PATCH TP (12:13)
--- NOTE | 2020-10-06 12:50 | PGE_ITS ---
Date of Service Date of service: 10/06/20 Time of Service: 09:00 Assessment and Plan Assessment and plan (1) Acute low back pain: Status: Acute Assessment and plan: She is tender to palpation just above the pelvic bone. It is more tender when she moves. Less tender when she lays down or sitting. The heating pad helps. We will apply a Lidoderm patch to see if that helps with her pain. I do not feel that this is GI related or kidney related. Qualifiers: Back pain laterality: left Sciatica presence: with sciatica Sciatica laterality: sciatica of left side Qualified Code(s): M54.42 - Lumbago with sciatica, left side (2) Duodenal ulcer: Status: Acute Assessment and plan: CT scan showing either an ulcer versus a duodenal diverticulum. There is also some mild inflammation noted within the duodenum. She has not had a bowel movement today to check for blood. She has no abdominal pain. We will recheck her hemoglobin and hematocrit at 12 and make sure that it is not drifting. I will also start her on a soft diet. I spent 45 minutes in reviewing the record, seeing the patient and documenting in the medical record. (3) Atrial fibrillation: Status: Chronic Assessment and plan: Patient continues to go in and out of atrial fibrillation. I have consulted the hospitalist to assist with treatment. Subjective Subjective Interval history since last seen: Ms Sanchez is feeling well today. She did go back into A. fib in the 130s 140s. She was given 5 mg of IV Lopressor and her pulse came back down. She is asymptomatic with this. She does not complain of any chest pain, shortness of breath. She continues to only complain of her back pain. No abdominal pain, no nausea no vomiting. She is hungry. She has tolerated her clear liquids without any difficulty. She has not yet had a bowel movement. Her hematocrit did drop slightly from 43.6 yesterday to 35.4. Her hemoglobin dropped from 14.5-11.9 this morning. It hold her metoprolol last night because her blood pressures were low and she had gotten a double dose of metoprolol in the emergency department. Exam Const General: cooperative, comfortable and no acute distress Orientation: alert and awake [facility] Head: normocephalic and atraumatic Resp Effort & Inspection: normal respiratory effort Auscultation: clear to auscultation bilaterally Cardio Rate: tachycardic Rhythm: abnormal rhythm Heart Sounds: no gallops, no murmurs and no rubs GI Inspection: normal to inspection Palpation: soft, no hepatosplenomegaly and nontender Auscultation: normal bowel sounds Back/Spine/Pelvis Back: no CVA tenderness and back tenderness (Just above the pelvic brim.) Back/spine/pelvis image: 1. Area of tenderness on palpation. Objective Last Vital Signs Temp 97.9 F 10/06/20 11:40 Pulse 120 H 10/06/20 12:10 Resp 18 10/06/20 11:40 BP 92/56 L 10/06/20 12:10 Pulse Ox 97 10/06/20 11:40 Laboratory Results - last 24 hr 10/05/20 10/05/20 10/05/20 13:09 13:09 13:09 WBC RBC Hgb Hct MCV MCH MCHC RDW Plt Count MPV Immature Gran % Neutrophils % Lymphocytes % Monocytes % Eosinophils % Basophils % Nucleated RBC % Absolute Neutrophils Absolute Lymphocytes Absolute Monocytes Absolute Eosinophils Absolute Basophils PT 10.4 INR 1.0 Sodium 137 Potassium 4.1 Chloride 101 Carbon Dioxide 22.8 Anion Gap 13.2 H BUN 27 H Creatinine 1.4 H Estimated GFR/1.73 m2 35.82 Glucose 111 H Calcium 9.3 Magnesium Total Bilirubin 0.5 AST 43 H ALT 55 Alkaline Phosphatase 98 Total Protein 8.3 H Albumin 3.6 Lipase 135 Urine Color Urine Clarity Urine pH Ur Specific [place] Urine Protein Urine Ketones Urine Blood Urine Nitrite Urine Bilirubin Urine Urobilinogen Ur Leukocyte Esterase Urine Glucose SARS-CoV-2 (PCR) Nasopharyn COVID-19 PCR Ref Test Perform Site 10/05/20 10/05/20 10/05/20 13:10 14:45 17:00 WBC 8.95 RBC 4.84 Hgb 14.5 Hct 43.6 MCV 90.1 MCH 30.0 MCHC 33.3 RDW 13.2 Plt Count 226 MPV 11.8 H Immature Gran % Neutrophils % Lymphocytes % Monocytes % Eosinophils % Basophils % Nucleated RBC % Absolute Neutrophils Absolute Lymphocytes Absolute Monocytes Absolute Eosinophils Absolute Basophils PT INR Sodium Potassium Chloride Carbon Dioxide Anion Gap BUN Creatinine Estimated GFR/1.73 m2 Glucose Calcium Magnesium Total Bilirubin AST ALT Alkaline Phosphatase Total Protein Albumin Lipase Urine Color Yellow Urine Clarity Sl cloudy Urine pH 5.5 Ur Specific [place] >= 1.030 H Urine Protein Negative Urine Ketones 15 H Urine Blood Negative Urine Nitrite Negative Urine Bilirubin Negative Urine Urobilinogen 0.2 Ur Leukocyte Esterase Negative Urine Glucose Negative SARS-CoV-2 (PCR) Negative Nasopharyn COVID-19 PCR Not Applicable Ref Test Perform Site [facility] lab 10/06/20 10/06/20 10/06/20 06:34 06:34 12:00 WBC 7.29 RBC 3.97 Hgb 11.9 D 13.1 Hct 35.4 L 40.0 MCV 89.2 MCH 30.0 MCHC 33.6 RDW 13.2 Plt Count 190 MPV 11.1 H Immature Gran % 0.1 Neutrophils % 50.5 Lymphocytes % 28.7 Monocytes % 14.0 Eosinophils % 6.2 Basophils % 0.5 Nucleated RBC % 0 Absolute Neutrophils 3.68 Absolute Lymphocytes 2.09 Absolute Monocytes 1.02 H Absolute Eosinophils 0.45 Absolute Basophils 0.04 PT INR Sodium 136 Potassium 3.9 Chloride 103 Carbon Dioxide 22.4 Anion Gap 10.6 BUN 27 H Creatinine 1.3 H Estimated GFR/1.73 m2 39.02 Glucose 93 Calcium 8.5 Magnesium 1.8 Total Bilirubin AST ALT Alkaline Phosphatase Total Protein Albumin Lipase Urine Color Urine Clarity Urine pH Ur Specific [place] Urine Protein Urine Ketones Urine Blood Urine Nitrite Urine Bilirubin Urine Urobilinogen Ur Leukocyte Esterase Urine Glucose SARS-CoV-2 (PCR) Nasopharyn COVID-19 PCR Ref Test Perform Site
--- NOTE | 2020-10-06 14:47 | PDOC.CMIN ---
- If Service Date Differs Date of service: 10/06/20 Time of Service: 18:59 Care Management Initial Assess REASON FOR HOSPITALIZATION:: Gastric Ulcer PAST MEDICAL HISTORY/PAST SURGICAL HISTORY:: acute low back pain, melena, upper GI bleeding, duodenal ulcer, A-fib, abdominal pain, leukocytosis, diverticulosis, hypothyroidism, hyperlipidemia, pharyngitis, ventral hernia, vitamin B12 deficiency, bladder repair surgery, colonoscopy, hysterectomy, gastrointestinal hemorrage, lumbago with sciatica PREVIOUS FUNCTIONAL STATUS/SOCIAL/FAMILY SUPPORTS:: Jayashree resides in [place] with her . Her daughter Niru resides nearby in [place], [place]. Her son also visits her almost daily. CURRENT FUNCTIONAL STATUS:: Jayashree was sleeping when attempted to meet with her. Per provider, she is up independently in her room, remains on tele with medication adjustments due to A-fib. Med consult placed. She continues to complain of back pain and hemoglobin is being closely monitored due to upper GI bleeding; xarelto currently being held. ADVANCE DIRECTIVES:: None on file at [facility]. Has patient been provided with info about the portal/API?: No Did the patient sign up for the portal?: No CODE STATUS:: Full Code INSURANCE COVERAGE / FINANCIAL ISSUES:: Medicare. AARP CURRENT HOME/COMMUNITY SERVICES/EQUIPMENT:: Raised toilet seat, cane, walking stick PRIMARY CARE PHYSICIAN:: Chantell Castillo MD. POTENTIAL DISCHARGE NEEDS:: Possible new medications. Follow up appointment with PCP. PATIENT/FAMILY EDUCATION NEEDS:: Review discharge instructions, discuss [employer]. ANTICIPATED BARRIERS TO DISCHARGE:: None identified at this time. TRANSPORTATION:: Via private vehicle with her son. PLAN:: Jayashree will return home when ready per MD. She will follow up with her PCP and plan of care as prescribed. She will transport via private vehicle with her son.
[2020-10-06] MEDS: Normal Saline 500 ML 30 ML IV (20:15)
[2020-10-06] MEDS: Metoprolol 25 MG TAB PO (20:16)
[2020-10-06] MEDS: LIDOCAINE Patch Removal 1 EACH TP (21:38)
[2020-10-07] VITALS (15 sets, daily range): BP systolic 101–120; BP diastolic 60–73; PULSE 65–147; RESP 17–19; TEMP 36–36.9; O2SAT 95–99
[2020-10-07] MEDS: Normal Saline Flush 10 ML SYR IVP ×3 (03:19→20:19)
[2020-10-07] MEDS: ACETAMINOPHEN 1,000 MG/100 ML BTL 400 MG IVPB ×3 (03:19→20:18)
[2020-10-07 07:21] LABS: Abs Immature Grans 0.02 10^3/uL (0.0-0.06); Absolute Basophil Count 0.04 10^3/uL (0.0-0.2); Absolute Eosinophil Count 0.32 10^3/uL (0.0-0.7); Absolute Lymphocyte Count 3.53 10^3/uL (1.2-3.4); Absolute Monocyte Count 0.87 10^3/uL (0.1-0.8); Absolute Neutrophil Count 4.06 10^3/uL (1.2-6.7); Basophils % 0.5; Eosinophils % 3.6; HCT 38.5 % (36.0-46.0); HGB 12.8 g/dL (11.2-15.7); Immature Grans % 0.2; Lymphocytes % 39.9; MCH 29.6 pg (27.0-33.0); MCHC 33.2 % (32.0-36.0); MCV 89.1 fL (80-95); MPV 10.8 fL (8.0-11.0); Monocytes % 9.8; Nucleated RBC 0 %; Platelet Count 209 10^3/uL (130-400); RBC 4.32 10^6/uL (3.93-5.22); RDW 13.2 % (11.7-14.6); RDW-SD 43.3 fL; WBC 8.84 10^3/uL (4.4-10.8)
[2020-10-07 07:34] LABS: Anion Gap 9.8 mmol/L (3-11); BUN 26 mg/dL (7-18); CO2 22.2 mmol/L (21.0-32.0); CREATININE 1.4 mg/dL (0.55-1.02); Calcium 8.6 mg/dL (8.5-10.1); Chloride 99 mmol/L (98-107); Estimated GFR 35.82 (mL/min/1.73m2); Glucose 104 mg/dL (74-106); Potassium 4.1 mmol/L (3.5-5.1); Sodium 131 mmol/L (136-145)
[2020-10-07] MEDS: Pantoprazole 40 MG VIAL IVP ×2 (08:30→20:18)
[2020-10-07] MEDS: Metoprolol 5 MG/5 ML VIAL IVP (08:31)
[2020-10-07] MEDS: Sucralfate 1 GM TAB PO ×4 (08:31→21:54)
--- NOTE | 2020-10-07 08:53 | W.PM.PROGNOT ---
Date of Service Date of service: 10/07/20 Time of Service: 07:00 Assessment and Plan Assessment and plan (1) Acute low back pain: Status: Acute Assessment and plan: Continue with use of heating pad and lidocaine patches. Encouraged activity as tolerated. Qualifiers: Back pain laterality: left Sciatica presence: with sciatica Sciatica laterality: sciatica of left side Qualified Code(s): M54.42 - Lumbago with sciatica, left side (2) Duodenal ulcer: Status: Acute Assessment and plan: Continue with soft diet. (+) BM yesterday. No abdominal pain. (3) Atrial fibrillation: Status: Chronic Assessment and plan: Hospitalist has been consulted. Hgb and Hct is stable. Could most likely restart her Xeralto. Subjective Subjective Interval history since last seen: Patient denies any abdominal pain at this time. (+) BM last night. She states her largest complaint at this time is her low back pain, which disturbed her sleep last night. Exam Const General: cooperative, healthy appearing and comfortable Orientation: alert and oriented x3 Resp Effort & Inspection: normal respiratory effort, no audible wheezes and no cough GI Inspection: normal to inspection Palpation: soft, no guarding and nontender Auscultation: normal bowel sounds Objective Last Vital Signs Temp 36.0 C L 10/07/20 07:53 Pulse 130 H 10/07/20 08:31 Resp 17 10/07/20 07:53 BP 105/60 10/07/20 08:31 Pulse Ox 95 10/07/20 07:53 Laboratory Results - last 24 hr 10/06/20 10/07/20 10/07/20 12:00 07:07 07:07 WBC 8.84 RBC 4.32 Hgb 13.1 12.8 Hct 40.0 38.5 MCV 89.1 MCH 29.6 MCHC 33.2 RDW 13.2 Plt Count 209 MPV 10.8 Immature Gran % 0.2 Neutrophils % 46.0 Lymphocytes % 39.9 Monocytes % 9.8 Eosinophils % 3.6 Basophils % 0.5 Nucleated RBC % 0 Absolute Neutrophils 4.06 Absolute Lymphocytes 3.53 H Absolute Monocytes 0.87 H Absolute Eosinophils 0.32 Absolute Basophils 0.04 Sodium 131 L Potassium 4.1 Chloride 99 Carbon Dioxide 22.2 Anion Gap 9.8 BUN 26 H Creatinine 1.4 H Estimated GFR/1.73 m2 35.82 Glucose 104 Calcium 8.6
[2020-10-07] MEDS: Metoprolol 25 MG TAB PO ×4 (09:08→20:19)
[2020-10-07] MEDS: LIDOCAINE Patch Removal 1 EACH TP (10:49)
[2020-10-07] MEDS: Metoprolol 12.5 MG TAB PO (11:10)
[2020-10-07] MEDS: Rivaroxaban 10 MG TABLET 20 MG PO (12:21)
--- NOTE | 2020-10-07 12:59 | W.NUTRFU ---
Date of service: 10/07/20 Time of Service: 12:59 Nutritional Follow up NOTE: 85 year old female admitted with GI bleed with hx of diverticulitis. Following soft Heart Healthy Diet with adequate intake. Not considered at nutritional risk. Will continue to follow. Time Spent in Nutritional Counseling and Treatment: 0
[2020-10-07] MEDS: Methocarbamol 750 MG TAB 1500 MG PO ×2 (15:46→20:19)
--- NOTE | 2020-10-07 17:03 | W.PM.PROGNOT ---
Date of Service Date of service: 10/07/20 Time of Service: 17:03 Assessment and Plan Assessment and plan (1) Atrial fibrillation: Status: Deleted Assessment and plan: Continue titration of Lopressor. Currently now on 25 mg p.o. 4 times daily. Use IV Lopressor as needed sustained heart rate greater than or equal to 130 bpm. Arrange outpatient Holter ECG upon discharge. Patient should then follow-up with her PCP who should refer her on to a wrapper layer and examiner soft work. I put her losartan on hold so that she will have enough blood pressure to tolerate the Lopressor. Qualifiers: Atrial fibrillation type: paroxysmal Qualified Code(s): I48.0 - Paroxysmal atrial fibrillation (2) Acute upper gastrointestinal bleeding: Status: Acute Assessment and plan: Hold Xarelto for the next 48 to 72 hours until certain the bleeding has ceased. Continue aggressive GI management with PPI and Carafate. If further bleeding then proceed with EGD. Check Helicobacter pylori studies. If H&H remains stable/no further bleeding and consider resumption of Xarelto upon discharge from the hospital. (3) Duodenal ulcer: Status: Acute Assessment and plan: Aggressive GI management with double dose Protonix in addition to Carafate. EGD as per surgery's recommendation. (4) Acute low back pain: Status: Acute Assessment and plan: Avoid use of NSAIDs in the setting of peptic ulcer disease. Apparently patient was taken Advil at home for her low back pain. Treat with muscle relaxer and topical lidocaine patch. May use Nucynta if pain is not controlled with Tylenol and muscle relaxers and lidocaine. Qualifiers: Back pain laterality: left Sciatica presence: with sciatica Sciatica laterality: sciatica of left side Qualified Code(s): M54.42 - Lumbago with sciatica, left side Subjective Subjective Interval history since last seen: This morning patient's atrial fibrillation was out of control with heart rates up into the 130s. Since that I have adjusted her Lopressor to 25 mg p.o. 4 times daily and this afternoon heart rate has improved. At rest heart rates in the 80s but with activity she will be up into the 110s. Hopefully overnight she will continue to improve well will be able to be discharged home tomorrow. With respect to her ulcer she has no nausea or vomiting no abdominal pain. She is currently being maintained on Carafate and Protonix. I expect that she should be able to be discharged home tomorrow. We will arrange outpatient Holter monitoring upon discharge. Exam Narrative Exam Narrative: Elderly female sitting up in a chair alert and oriented person place time circumstance Lungs are clear to auscultation Heart is irregularly irregular and slightly tachycardic Abdomen soft nontender Extremities without peripheral cyanosis or edema. Objective Last Vital Signs Temp 36.6 C 10/07/20 15:17 Pulse 90 10/07/20 15:17 Resp 18 10/07/20 15:17 BP 101/61 10/07/20 15:17 Pulse Ox 99 10/07/20 15:17 Laboratory Results - last 24 hr 10/07/20 10/07/20 07:07 07:07 WBC 8.84 RBC 4.32 Hgb 12.8 Hct 38.5 MCV 89.1 MCH 29.6 MCHC 33.2 RDW 13.2 Plt Count 209 MPV 10.8 Immature Gran % 0.2 Neutrophils % 46.0 Lymphocytes % 39.9 Monocytes % 9.8 Eosinophils % 3.6 Basophils % 0.5 Nucleated RBC % 0 Absolute Neutrophils 4.06 Absolute Lymphocytes 3.53 H Absolute Monocytes 0.87 H Absolute Eosinophils 0.32 Absolute Basophils 0.04 Sodium 131 L Potassium 4.1 Chloride 99 Carbon Dioxide 22.2 Anion Gap 9.8 BUN 26 H Creatinine 1.4 H Estimated GFR/1.73 m2 35.82 Glucose 104 Calcium 8.6
--- NOTE | 2020-10-07 19:27 | PDOC.CMPRO ---
- If Service Date Differs Date of service: 10/07/20 Time of Service: 19:27 Care Management Progress Note S/O: Jayashree was sitting up in her chair when CM met with her. She reported that she was feeling ok. She has been having back pain, which is what is bothering her the most today. She reported that she has had a positive experience at [facility]. She stated that he brought her to the infusion room for a long period of time prior to his passing, and she was very happy with [facility] at that time as well. Per report, she may be ready for discharge tomorrow. Her medications continue to be adjusted today. CM will continue to follow. A: Jayashree is an 85 year old female admitted to [facility] on 10/05/20 with a gastric ulcer. P: Jayashree will return home when ready per MD. She will follow up with her PCP and plan of care as prescribed. She will transport via private vehicle with her son.
[2020-10-07] MEDS: Lidocaine 5% Patch 1 PATCH TP (21:54)
[2020-10-08] VITALS (9 sets, daily range): BP systolic 112–130; BP diastolic 67–80; PULSE 41–141; RESP 18–20; TEMP 36.2–37.1; O2SAT 95–99
[2020-10-08] MEDS: ACETAMINOPHEN 1,000 MG/100 ML BTL 400 MG IVPB (03:16)
[2020-10-08] MEDS: Normal Saline Flush 10 ML SYR IVP ×4 (03:17→20:28)
--- NOTE | 2020-10-08 07:26 | W.PM.PROGNOT ---
Documented by User: SAMPSON Ahmadi 10/08/20 07:30 Date of Service Date of service: 10/08/20 Time of Service: 07:26 Assessment and Plan Assessment and plan (1) Acute low back pain: Status: Acute Assessment and plan: Continue with use of heating pad and lidocaine patches. Encouraged activity as tolerated. Qualifiers: Back pain laterality: left Sciatica laterality: sciatica of left side Sciatica presence: with sciatica Qualified Code(s): M54.42 - Lumbago with sciatica, left side (2) Duodenal ulcer: Status: Acute Assessment and plan: Continue with soft diet. No abdominal pain. Recommended continued use of PPI and Sulcrafate upon d/c (3) Atrial fibrillation: Status: Chronic Assessment and plan: Defer to hospitalist. Subjective Subjective Interval history since last seen: Patient reports the only thing that has been bothering her is her low back pain. She denies any abdominal pain. She states that she has not had a BM. Exam Const General: cooperative, healthy appearing and comfortable Orientation: alert and oriented x3 Resp Effort & Inspection: normal respiratory effort, no audible wheezes and no cough GI Palpation: soft, no guarding and nontender Objective Last Vital Signs Temp 37.1 C 10/08/20 03:08 Pulse 121 H 10/08/20 03:08 Resp 18 10/08/20 03:08 BP 130/80 10/08/20 03:08 Pulse Ox 96 10/08/20 03:08 Laboratory Results - last 24 hr 10/07/20 10/07/20 07:07 07:07 WBC 8.84 RBC 4.32 Hgb 12.8 Hct 38.5 MCV 89.1 MCH 29.6 MCHC 33.2 RDW 13.2 Plt Count 209 MPV 10.8 Immature Gran % 0.2 Neutrophils % 46.0 Lymphocytes % 39.9 Monocytes % 9.8 Eosinophils % 3.6 Basophils % 0.5 Nucleated RBC % 0 Absolute Neutrophils 4.06 Absolute Lymphocytes 3.53 H Absolute Monocytes 0.87 H Absolute Eosinophils 0.32 Absolute Basophils 0.04 Sodium 131 L Potassium 4.1 Chloride 99 Carbon Dioxide 22.2 Anion Gap 9.8 BUN 26 H Creatinine 1.4 H Estimated GFR/1.73 m2 35.82 Glucose 104 Calcium 8.6 Documented by User: Ely Morton, DO 10/08/20 22:58 Assessment and Plan Assessment and plan (1) Anemia due to blood loss, acute: Status: Acute Assessment and plan: cont PPI and carafate will re-eval as needed.
[2020-10-08 08:06] LABS: HGB 12.6 g/dL (11.2-15.7)
[2020-10-08] MEDS: Pantoprazole 40 MG VIAL IVP (09:08)
[2020-10-08] MEDS: Metoprolol 25 MG TAB PO ×2 (09:09→12:27)
[2020-10-08] MEDS: Methocarbamol 750 MG TAB 1500 MG PO ×4 (09:09→20:28)
[2020-10-08] MEDS: Rivaroxaban 10 MG TABLET 20 MG PO (09:09)
[2020-10-08] MEDS: Sucralfate 1 GM TAB PO ×4 (09:09→21:46)
[2020-10-08] MEDS: LIDOCAINE Patch Removal 1 EACH TP (10:07)
--- NOTE | 2020-10-08 11:40 | W.PM.PROGNOT ---
Date of Service Date of service: 10/08/20 Time of Service: 11:40 Assessment and Plan Assessment and plan (1) Atrial fibrillation: Status: Deleted Assessment and plan: Despite titration of her Lopressor we have not been able to regulate her atrial fibrillation rate. Blood pressures of limited further titration of her Lopressor. Given that she had a normal stress MPI in May 30, 2018 with an ejection fraction of 73% and given that her akgqj-kx-utkc ultrasound also demonstrated normal LV and RV function I think the patient would be eligible for going on an antiarrhythmic such as Tambocor or Tikosyn. Because of her Xarelto and its interaction with calcium channel blockers I have not tried verapamil or diltiazem. If she had ischemic heart disease or congestive heart failure I would consider amiodarone therapy. I will obtain a telephone consultation with cardiology to get their impression. Patient is now back on her Xarelto. Qualifiers: Atrial fibrillation type: paroxysmal Qualified Code(s): I48.0 - Paroxysmal atrial fibrillation (2) Acute upper gastrointestinal bleeding: Status: Acute Assessment and plan: No further evidence of GI bleeding. Hemoglobin remained stable at 12.6 g. (3) Duodenal ulcer: Status: Acute Assessment and plan: Aggressive GI management with double dose Protonix in addition to Carafate. EGD as per surgery's recommendation. (4) Acute low back pain: Status: Acute Assessment and plan: Avoid use of NSAIDs in the setting of peptic ulcer disease. Apparently patient was taken Advil at home for her low back pain. Treat with muscle relaxer and topical lidocaine patch. May use Nucynta if pain is not controlled with Tylenol and muscle relaxers and lidocaine. Qualifiers: Back pain laterality: left Sciatica presence: with sciatica Sciatica laterality: sciatica of left side Qualified Code(s): M54.42 - Lumbago with sciatica, left side (5) Discharge planning issues: Status: Acute Assessment and plan: Patient will return home once we get her atrial fibrillation rate under control. Subjective Subjective Interval history since last seen: Patient's rhythm remains atrial fibrillation with variable rate control. At rest her heart rate will be in the low 100s but with activity she will be upwards of 140 bpm. Patient denies any chest pain or pressure palpitations but gets mildly dyspneic with any kind of activity. Exam Narrative Exam Narrative: Alert and oriented to person place time circumstance in no acute distress sitting up in her chair. Patient was placed back to bed to do a vopiw-vt-idph ultrasound of her heart. Lungs are clear to auscultation Heart irregular regular but tachycardic with no appreciable murmur rub Abdomen is obese soft and nontender Extremities without peripheral cyanosis or edema. Objective Last Vital Signs Temp 36.7 C 10/08/20 11:05 Pulse 41 L 10/08/20 11:05 Resp 20 10/08/20 11:05 BP 112/67 10/08/20 11:05 Pulse Ox 96 10/08/20 11:05 Laboratory Results - last 24 hr 10/08/20 07:46 Hgb 12.6
--- NOTE | 2020-10-08 12:15 | RT.EKG_ITS ---
APPROVED REPORT Exam: Resting ECG Patient Location: I HR:118 bpm ECG Measurements Heart Rate 118 AXIS MS [id number] P [id number] QRSd 139 QRS 86 QT 334 T -33 QTc 489 Conclusion Atrial fibrillation Right bundle branch block...QRSd>120, terminal axis(90,270)
[2020-10-08] MEDS: Acetaminophen 325 MG TAB PO (15:41)
[2020-10-08] MEDS: Digoxin 0.5 MG/2 ML AMP 0.25 MG IVP (15:42)
--- NOTE | 2020-10-08 17:37 | PDOC.CMPRO ---
- If Service Date Differs Date of service: 10/08/20 Time of Service: 17:37 Care Management Progress Note S/O: Jayashree was sitting up in her chair when CM met with her. She was pleasant and engaged in conversation. She reported that she had an ultrasound in her room today, and the MD was going to consult the process description writer. She stated that her back pain is her main complaint, which started on Wednesday. Her back pain is being treated with tylenol, a muscle relaxer and a topical lidocaine patch, which is effective for the most part, per pt. Per report, once her AFIB rate is controlled, she will be ready for discharge. CM will continue to follow. A: Jayashree is an 85 year old female admitted to [facility] on 10/05/20 with a gastric ulcer. P: Jayashree will return home when ready per MD. She will follow up with her PCP and plan of care as prescribed. She will transport via private vehicle with her son.
[2020-10-08] MEDS: METOPROLOL CR 50 MG, METOPROLOL CR 25 MG 75 MG PO (20:28)
[2020-10-08] MEDS: Pantoprazole 40 MG TABCR PO (20:28)
[2020-10-08] MEDS: Lidocaine 5% Patch 1 PATCH TP (21:45)
[2020-10-09] VITALS (10 sets, daily range): BP systolic 111–148; BP diastolic 72–90; PULSE 57–122; RESP 18–19; TEMP 35.4–36.6; O2SAT 96–97
[2020-10-09] MEDS: Digoxin 0.5 MG/2 ML AMP 0.125 MG IVP ×2 (00:07→06:16)
[2020-10-09] MEDS: Acetaminophen 325 MG TAB PO ×2 (03:44→11:26)
[2020-10-09] MEDS: Normal Saline Flush 10 ML SYR IVP ×2 (06:16→08:01)
[2020-10-09] MEDS: Rivaroxaban 10 MG TABLET 20 MG PO (07:58)
[2020-10-09] MEDS: Methocarbamol 750 MG TAB 1500 MG PO (07:58)
[2020-10-09] MEDS: Sucralfate 1 GM TAB PO ×2 (07:59→11:23)
[2020-10-09] MEDS: METOPROLOL CR 50 MG, METOPROLOL CR 25 MG 75 MG PO (08:00)
[2020-10-09] MEDS: Pantoprazole 40 MG TABCR PO (08:00)
[2020-10-09] MEDS: LIDOCAINE Patch Removal 1 EACH TP (10:36)
[2020-10-09] MEDS: Digoxin 0.125 MG TAB PO (11:22)
--- NOTE | 2020-10-09 13:50 | W.PM.DS.N ---
Date of service: 10/09/20 Time of Service: 13:50 DS: Diagnosis Discharge Diagnosis (1) Acute upper gastrointestinal bleeding: Status: Resolved Asessment and Plan: No further GI bleeding was noted after her Xarelto was held for couple of days and she was started on Carafate and Protonix. Patient is advised to avoid use of NSAIDs in the future. She should have a follow-up CBC in a week. (2) Duodenal ulcer: Status: Acute Asessment and Plan: Patient was treated with Carafate and Protonix and should remain on the same. She should follow-up with Dr. Sears in 4 to 6 weeks to consider having EGD to see if her ulcer has healed or whether this is a duodenal diverticulum. (3) Atrial fibrillation: Status: Chronic Asessment and Plan: Patient's Lopressor was changed to Toprol-XL 75 mg twice a day. Xarelto was resumed. Digoxin was added at 0.125 mg daily. Patient is advised to monitor blood pressure if her blood pressures are on the low side she should withhold her losartan indefinitely. (4) Acute low back pain: Status: Acute Asessment and Plan: Patient's low back pain was treated with lidocaine patches while in the hospital along with Robaxin and Nucynta. She should have further follow-up as an outpatient with further investigation with possible MRI of her lumbosacral spine. Prescription for Robaxin Nucynta was written and short-term supply medicines were dispensed to cover her overnight until her pharmacy could obtain the medications. Discharge Plan Disposition Patient Disposition: HOME Condition: Improving Discharge Details Reason For Visit: GASTRIC ULCER Admit Date/Time: 10/07/20 16:05 Admit Provider: Katiana Sears Attending Provider: Jovanni Gonzales Primary Care Provider: Chantell Castillo V Hospital Course Hospital Course: 85-year-old female with history of paroxysmal atrial fibrillation treated with Lopressor and Xarelto who presented emergency department with low back pain with radiation to her left groin. She has a history of diverticulitis and was presumptively diagnosed with cute diverticulitis and placed on antibiotics by her PCP. In spite of the antibiotics her low back pain and left groin pain did not improve so she was taking Aleve gel capsules for pain. On admission she had loose black tarry looking stools. While she was being worked up in the emergency department she went in rapid atrial fibrillation which was treated with a double dose of her oral Lopressor. She was given a total of 25 mg of Lopressor emergency department. Further work-up showed her hemoglobin to be 14.5 g hematocrit 43%. INR was within normal limits. CMP showed elevated BUN of [address] scan of the abdomen pelvis performed showed a hiatal hernia as well as edema and air-filled defect of the proximal duodenum suggestive of a duodenal ulcer. Dr. Katiana Sears was consulted from surgical service and she admitted the patient. Patient was placed on IV Protonix and oral Carafate and her Xarelto was held for 48 hours. An EGD was not performed during this hospitalization. Serial CBCs were monitored. Her hemoglobin on admission was 14.5 g and transiently dropped to 11.9 g the next morning but then abiel to 13.1 g and rate remained between 12.6 and 13 g. Hospitalist service was consulted regarding her rapid atrial fibrillation. 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 She was placed on muscle relaxants including Robaxin and prescribed Nucynta for her pain. Over the next couple days she required titration of her Lopressor dose which was increased up to 25 mg 4 times daily. In spite of this she still required IV Lopressor for intermittent spells of rapid atrial fibrillation in the 130s to 140s. I was going to start her on either verapamil or diltiazem CD. I looked back at her previous cardiac work-up she had a normal stress MPI in May 2018 in which her EF was 70%. There were no echocardiograms on record. Because our senior teradata developer was office this week no echocardiogram could be done. I did a utina-mb-nlsz ultrasound and this demonstrated normal LV and RV function however she also has evidence of LVH. I was considering putting her on an antidysrhythmic but because we had held her Xarelto for a couple of days because of the acute GI bleeding it was not felt to be safe to put her on a antidysrhythmic and possibly having her cardioverted to sinus rhythm until she been safely back on her Xarelto for 4 weeks. I called down to [facility] and spoke with an EP chief of hospital medicine Dr. Iraheta who recommended low-dose digoxin as well as titration of her metoprolol. He suggested putting her on extended release and dividing it into twice a day dosing of Toprol-XL. Since she was already tolerating 100 mg a day of Lopressor he suggested going up to 150 mg a day and dividing it into a twice daily dosing of Toprol-XL. I also started on some IV digoxin and then converted over to oral digoxin 0.125 mg p.o. daily. Overall this seemed to improve her rate control in general. At rest her heart rate ranged from 57-85 although with activity her heart rate would still get up into the 110s but she was asymptomatic from this. Patient is being discharged on antiulcer medications including Carafate 1 g before meals and at bedtime as well as Protonix. For her atrial fibrillation she has been prescribed Toprol-XL 50 mg 1 and 1/2 tablets twice a day as well as digoxin 0.125 mg daily. Patient was set up with a 14-day cardiac event recorder to assess stability of her atrial fibrillation. Home Meds and New Rx's Prescriptions: New methocarbamol 750 mg Tablet 1,500 mg PO QID PRN PRNQty: 40 RF: 0 sucralfate 1 gram Tablet 1 g PO AC & HS Qty: 120 RF: 1 pantoprazole 40 mg Tablet,Delayed Release (Dr/Ec) 40 mg PO BID@729,1999 Qty: 30 RF: 1 Nucynta 50 mg Tablet 50 mg PO Q4H PRN PRNQty: 18 RF: 0 digoxin 125 mcg (0.125 mg) tablet 125 mcg PO DAILY Qty: 30 RF: 1 metoprolol succinate [Toprol XL] 50 mg tablet extended release 24 hr 75 mg PO BID Qty: 90 RF: 1 Continued vitamin B complex [B Complex-Vitamin B12] Tablet 1 tab PO DAILY RF: 0 omega-3 fatty acids [Fish Oil Concentrate] 1,000 mg capsule 1,000 mg PO DAILY RF: 0 vitamin E 200 unit capsule 200 unit PO DAILY RF: 0 garlic 500 mg capsule 500 mg PO DAILY RF: 0 cranberry fruit concentrate 500 mg capsule 500 mg PO DAILY RF: 0 royal jelly 500 mg capsule 500 mg PO DAILY RF: 0 raspberry ketone 100 mg capsule 100 mg PO DAILY RF: 0 Xarelto 20 mg Tablet 20 mg PO DAILY RF: 0 losartan 25 mg Tablet 25 mg PO DAILY RF: 0 Discontinued ascorbate calcium (vitamin C) 500 mg tablet 1 gm PO DAILY RF: 0 metoprolol tartrate 25 mg tablet 12.5 mg PO BID RF: 0 sulfamethoxazole-trimethoprim [Bactrim DS] 800-160 mg Tablet 1 tab PO BID RF: 0 ibuprofen 200 mg Tablet 200 mg PO PRN PRNRF: 0 Discharge Instructions Instructions: A-fib (Atrial Fibrillation) (DC), Peptic Ulcer (DC) Additional Instructions: discontinue your current metoprolol tartrate (lopressor) which is being replaced w/ metoprolol succinate (an extended release form called Toprol XL). You will also be started on digoxin 0.125 mg once per day to help w/ control of your irregular heart rhythm, atrial fibrillation. You should continue your Xarelto (rivaroxaban). You have been started on two medications to help heal the ulcer caused by your use of NSAID'S. The medications to help your ulcer are called pantoprazole (protonix) and sulcralfate (carafate). You should refrain from use of any non-steroidal anti-inflammatory medicines such as ibuprofen (Motrin) or naproxen (Aleve) or aspirin. You may use Tylenol in the recommended doses on the bottle for mild to moderate pains. You have been prescribed Nucynta to use on a short term basis for more severe pains. You have also been prescribed a muscle relaxer (Robaxin). Ask your PCP for referral for further treatment of your low back pain such as a pain clinic, massotherapist or chiropracter. You have been given a heart monitor to wear for the next 14 days (Zio patch) please return to respiratory care department per their instructions at the end of 14 days. This will be read by a chief of hospital medicine and reported to your primary care provider. Your provider may wish to refer you to a chief of hospital medicine to assist w/ managing your atrial fibrillation. Stand Alone Forms: Nursing Discharge Form Referrals: Chantell Castillo MD [Primary Care Provider] - 10/18/20 8:45 am Katiana Sears MD [ [facility] STAFF PHYSICIAN] - 10/22/20 1:30 pm Activity:: Activity as Tolerated Equipment/Supplies:: No Equipment Needed Diet:: Low Sodium Discharge Orders Discharge Orders: Discharge Order (Routine); Ordered 10/09/20 Ordered By: Jovanni Gonzales Other Ambulatory Orders: Complete Blood Count w/Diff (Routine) Timeframe: 1 Week Facility: [facility] - Location: Laboratory Outpatient Ordered By: Jovanni Gonzales DS: Summary Time Spent with Patient providing and/or coordinating discharge services: Less than 30 minutes Status at Discharge Functional status at discharge: independent ambulation Overall status at discharge: patient is progressing back to baseline Mental Status: mental status grossly normal Speech and Movement: speech and movement normal Mood: congruent mood Affect: normal affect Exam Narrative Exam Narrative: Alert and oriented to person place time circumstance in no acute distress sitting up in her chair. Patient was placed back to bed to do a fjmyg-iz-sxex ultrasound of her heart. Lungs are clear to auscultation Heart irregular regular but tachycardic with no appreciable murmur rub Abdomen is obese soft and nontender Extremities without peripheral cyanosis or edema. Psych Mental Status: mental status grossly normal Speech and Movement: speech and movement normal Mood: congruent mood Affect: normal affect DS: Data Vitals/I&O Vitals and I&O: Vital Signs Temperature 36.6 C 10/09/20 11:17 Temperature Source Tympanic 10/09/20 11:17 Pulse 120 H 10/09/20 11:22 Pulse Rhythm Irregular 10/09/20 10:58 Pulse 70 10/05/20 16:50 Respiratory Rate 19 10/09/20 11:17 Respiratory Effort Non-Labored 10/09/20 10:58 Respiratory Depth Normal 10/09/20 10:58 Respiratory Pattern Normal 10/09/20 10:58 Blood Pressure 111/72 10/09/20 11:17 Blood Pressure Mean 76 10/05/20 16:46 Blood Pressure Position Sitting 10/05/20 15:55 Pulse Oximetry 97 10/09/20 11:17 Oxygen Delivery Method Room Air 10/09/20 11:17 Oxygen Flow Rate 0 10/09/20 11:17 Pain Level 5 10/09/20 11:26 Comment 10/06/20 17:24 Intake & Output 10/08/20 10/09/20 10/09/20 23:59 11:59 23:59 Intake Total 570 / 820 260 / 500 240 / 500 Output Total 1725 / 2825 900 / 900 Balance -1155 / -2005 -640 / -400 240 / -400 Intake: IV 10 / 10 10 / 10 Oral 560 / 810 250 / 490 240 / 490 Output: Urine 1725 / 2825 900 / 900 Other: Urine Color Yellow Straw Urine Appearance Clear Clear Urine Odor None None Voiding Methods Toilet Toilet [facility] Medical History (Updated 10/09/20 @ 14:49 by Jovanni Gonzales) Diverticulitis large intestine Diverticulosis Elevated blood pressure reading without diagnosis of hypertension Grief reaction Hyperlipidemia Hypothyroidism Pharyngitis Urinary frequency Ventral hernia Vitamin B12 deficiency Surgical History History of bladder repair surgery History of colonoscopy S/P hysterectomy Social History Smoking/Tobacco Use Status: Never Smoking risk assessment performed?: Yes Alcohol Intake: never Drug use: Never Substance use type: does not use Do you feel safe at home: Yes Do you feel safe in your relationship?: Yes
--- NOTE | 2020-10-09 15:58 | PDOC.CMDIS ---
- If Service Date Differs Date of service: 10/09/20 Time of Service: 15:58 LACE Index Scoring Tool - Questions: Length of Stay (in days): 4 - 6 Acuity (Admit via E.D.?): Yes E.D. Visits: 1 - Answers: Total Score: 8 Risk of Readmission: Low Risk Care Management Discharge Reason for Hospitalization: Gastric Ulcer Discharge Plan: Jayashree will return home with no additional services at this time. REE called her pharmacy and obtained her co pay information, which was $116 after all discount cards applied for 5 new prescriptions. The pharmacy had to order them, and they will not be available until tomorrow afternoon. CM asked [facility]'s pharmacy and MD to provide her doses for this evening and tomorrow morning. She will follow up with her PCP and discharge plan of care. Her son will drive her home via private vehicle. She is happy to be going home. Patient/Family Education Needs: Review discharge instructions regarding activity levels and medications, discussion of self care needs including ask me three and goals of care.
== END 2020-10-09 15:08 | disposition home or self-care (01) | DRG 379 ==
LOC: ER 16:49 → MS 17:43
PROVIDERS: Admitting Provider Surgery; Emergency Provider Student in an Organized Health Care Education/Training Program; PCP Family Medicine; Visit Provider Internal Medicine
DX: K26.0 Acute duodenal ulcer with hemorrhage (principal); Z79.01 Long term (current) use of anticoagulants; K57.30 Diverticulosis of large intestine without perforation or abscess without bleeding; E78.5 Hyperlipidemia, unspecified; E03.9 Hypothyroidism, unspecified; E53.8 Deficiency of other specified B group vitamins; R35.0 Frequency of micturition; I48.0 Paroxysmal atrial fibrillation; M54.42 Lumbago with sciatica, left side; K44.9 Diaphragmatic hernia without obstruction or gangrene
CPT/HCPCS: 36415; 80048; 80053; 83690; 85027; 87338; 93005; 93246; 96361; 96374; 99223; 99232; 99233; 99239; 99253; 99285; U0003; U0005; 74177; 81003; 83735; 85014; 85018; 85025; 85610; 93010; 99213; G0378; J0131; J1160; J3490

== ENCOUNTER 2020-10-15 07:17 | Emergency (ER) | payer MEDICARE, SELFPAY ==
[2020-10-15] VITALS (41 sets, daily range): BP systolic 81–131; BP diastolic 53–78; PULSE 63–134; RESP 15–27; TEMP 36.6–36.8; O2SAT 84–100
--- NOTE | 2020-10-15 07:15 | RT.EKG_ITS ---
APPROVED REPORT Exam: Resting ECG Patient Location: E HR:128 bpm ECG Measurements Heart Rate 128 AXIS NH [id number] P [id number] QRSd 121 QRS 61 QT 341 T -78 QTc 497 Conclusion Atrial fibrillation...? atrial activity Ventricular bigeminy...bigeminy string>4 w/ V complexes Right bundle branch block...QRSd>120, terminal axis(90,270). ST depr, consider ischemia, anterolateral lds...ST <-0.10mV, I aVL V2-V6. Afib. RBBB. No significant change from previous. I have reviewed and interpreted ECG and agree with software generated interpretation.
[2020-10-15 07:54] LABS: Abs Immature Grans 0.29 10^3/uL (0.0-0.06); Absolute Basophil Count 0.05 10^3/uL (0.0-0.2); Basophils % 0.2; HGB 8.7 g/dL (11.2-15.7); Immature Grans % 1.2; Lymphocytes % 10.8; MCH 30.9 pg (27.0-33.0); MCHC 32.2 % (32.0-36.0); MCV 95.7 fL (80-95); MPV 9.7 fL (8.0-11.0); Monocytes % 4.5; Neutrophils % 83.3; Nucleated RBC 0 %; RBC 2.82 10^6/uL (3.93-5.22); RDW 14.4 % (11.7-14.6); RDW-SD 48.4 fL
[2020-10-15 08:02] LABS: Absolute Monocyte Count 1.13 10^3/uL (0.1-0.8); Absolute Neutrophil Count 20.85 10^3/uL (1.2-6.7); WBC 25.03 10^3/uL (4.4-10.8)
[2020-10-15 08:16] LABS: INR 1.3 (0.9-1.1); PTT Activated 23.3 sec (21.0-27.5); Prothrombin Time 13.2 sec (9.3-11.0)
[2020-10-15 08:20] LABS: ALT 30 U/L (14-59); AST 13 U/L (15-37); Alkaline Phosphatase 52 U/L (46-116); Anion Gap 12.8 mmol/L (3-11); BUN 68 mg/dL (7-18); Bilirubin, Total 0.3 mg/dL (0.2-1.0); CO2 20.2 mmol/L (21.0-32.0); CREATININE 1.2 mg/dL (0.55-1.02); Calcium 9.1 mg/dL (8.5-10.1); Chloride 106 mmol/L (98-107); Glucose 180 mg/dL (74-106); Lipase 207 U/L (73-393); Magnesium 1.8 mg/dL (1.8-2.4); Potassium 4.4 mmol/L (3.5-5.1); Sodium 139 mmol/L (136-145); Total Protein 6.9 g/dL (6.4-8.2)
[2020-10-15 08:21] LABS: Diff Comment Agrees w/ Instrument; Platelet Count 380 10^3/uL (130-400)
[2020-10-15 08:22] LABS: Polychromasia Present
[2020-10-15 08:23] LABS: Bilirubin, Direct < 0.05 mg/dL (0.00-0.20)
[2020-10-15 08:24] LABS: Troponin I 0.11 ng/mL (<0.06)
[2020-10-15] MEDS: Normal Saline Flush 10 ML SYR IVP (08:38)
[2020-10-15] MEDS: Normal Saline 1,000 ML 1000 ML IV ×2 (08:38→10:12)
[2020-10-15] MEDS: Pantoprazole 40 MG VIAL (08:39)
[2020-10-15 08:51] LABS: Digoxin 2.08 ng/mL (0.90-2.00)
--- NOTE | 2020-10-15 09:06 | W.ED.GENAD ---
Discharge Plan Disposition Patient Disposition: [facility] Condition: Serious Discharge Details Chief Complaint: Nausea/Vomit/Diar Clinical Impression: GI bleed, Leukocytosis, Anemia Primary Care Provider: Chantell Castillo V ED Provider: Jovanni Diez Home Meds and New Rx's Prescriptions: No Action vitamin B complex [B Complex-Vitamin B12] Tablet 1 tab PO DAILY RF: 0 omega-3 fatty acids [Fish Oil Concentrate] 1,000 mg capsule 1,000 mg PO DAILY RF: 0 vitamin E 200 unit capsule 200 unit PO DAILY RF: 0 garlic 500 mg capsule 500 mg PO DAILY RF: 0 cranberry fruit concentrate 500 mg capsule 500 mg PO DAILY RF: 0 royal jelly 500 mg capsule 500 mg PO DAILY RF: 0 raspberry ketone 100 mg capsule 100 mg PO DAILY RF: 0 Xarelto 20 mg Tablet 20 mg PO DAILY RF: 0 losartan 25 mg Tablet 25 mg PO DAILY RF: 0 methocarbamol 750 mg Tablet 1,500 mg PO QID PRN PRNQty: 40 RF: 0 sucralfate 1 gram Tablet 1 g PO AC & HS Qty: 120 RF: 1 pantoprazole 40 mg Tablet,Delayed Release (Dr/Ec) 40 mg PO BID@0730,2000 Qty: 30 RF: 1 Nucynta 50 mg Tablet 50 mg PO Q4H PRN PRNQty: 18 RF: 0 digoxin 125 mcg (0.125 mg) tablet 125 mcg PO DAILY Qty: 30 RF: 1 metoprolol succinate [Toprol XL] 50 mg tablet extended release 24 hr 75 mg PO BID Qty: 90 RF: 1 Medical Decision Making This is a 85-year-old female with past medical history of hypertension, A. fib, chronic anticoagulation, recent medication change to digoxin. She was seen in the ER 2 weeks ago and subsequently admitted for duodenal ulcer. There was difficulty controlling her A. fib while here in the facility, cardiology consulted, digoxin added onto her her medication list, and she did not end up having an endoscopy. Since discharge she has had continuation of her left back pain, discharge plan was for potential MRI and orthopedic follow-up. She has had intermittent black tarry stools and blood in her stools. Had one episode of coffee-ground emesis today. She reports generalized weakness, fatigue, shortness of breath with any exertion. Clinically she appears well, initial blood pressure 127/60. Heart rate 112. Abdomen is soft, nontender. Given her recent hospitalization, duodenal bleeding ulcer, presentation today, will initiate IV access, both septic and cardiac work-up. Of note, the patient did present to the ER prior to the beginning of my shift and laboratory values were placed per protocol. Upon my evaluation blood pressures are lower than her initial presentation, she remained tachycardic, will initiate IV fluid bolus. Laboratory values reveal a white blood cell count of 25.03, hemoglobin 8.7, hematocrit 27.0. These are all very different than her most recent presentation to the ER and hospitalization. Platelet count 380. INR 1.3. Lactate 4.0. Sodium 139 potassium 4.4, BUN 68, creatinine 1.2, GFR 42.8 glucose 180 magnesium 1.8 initial troponin 0 0.11. Lipase 207. Dig level of 2.08. Type and screen pending Denies any chest pain whatsoever. Believe that her slightly elevated troponin is likely secondary to demand. Given her initial presentation and initial laboratory values, I do not believe the patient can be safely discharged home. The question is whether or not we can care for her here at our facility or she will require transfer. I spoke with Dr. Sears, our surgical team, who felt as though the patient would likely require a higher level of care. Given her lactate, white blood cell count, persistent hypotension. Will initiate a second IV fluid bolus, CT abdomen pelvis with IV contrast. No clear source of infection, will obtain blood cultures but hold on any antibiotic therapy. I did receive a call from the patient's daughter, made her aware of her current status, no clear disposition at this point but we are awaiting her CT and need for admission or likely transfer. CT imaging pushed to [facility] and I initiated a transfer with the [facility] transfer line at 0950. I was contacted by Dr. Jacobs, at 1024, hospitalist team at [facility]. She believes that transfer is reasonable. They will need to check on the bed status. She believe that obtaining a portable chest x-ray is reasonable. She does not believe that emergent transfusion is indicated, recommends rechecking CBC in about 2 hours. She does feel as though a repeat lactate now is reasonable. Given there is no clear source of infection will hold on any antibiotic therapy. Patient will be given 3rd L of fluid at 200 cc/h after the second liter is completed. I received a second call from [facility], Dr. Jacobs, at 1042. She is able to accept transfer of the patient, bed availability is present but they will need to call back with that bed availability. At this time she does recommend initiating Zosyn antibiotics given there is no clear source of her infection, impressive white count and lactate. Repeat lactate 2.9. Repeat troponin 0 0.19. Repeat troponin at 1106, please see official report by Dr. Bay. Atrial fibrillation, rate of 119. Right bundle branch block. No dynamic changes when compared to initial EKG. Medical Records Medical records reviewed: Yes I reviewed the patient's medical records. Imaging Data Radiologic Study: Attestation: I personally reviewed and interpreted this imaging study as follows: Imaging: X-Ray Radiologist's impression: Chest x-ray negative per radiology Lab Data Lab results reviewed: Yes I reviewed the patient's lab results. Lab results narrative: 10/15/20 10:36 Blood Blood Culture - Pending 10/15/20 10:26 Blood Blood Culture - Pending Laboratory Tests Range/Units 10/15/20 10/15/20 10/15/20 07:42 07:42 07:42 WBC (4.4-10.8) 10^3/uL 25.03 H* RBC (3.93-5.22) 10^6/uL 2.82 L Hgb (11.2-15.7) g/dL 8.7 L Hct (36.0-46.0) % 27.0 L MCV (80-95) fL 95.7 H MCH (27.0-33.0) pg 30.9 MCHC (32.0-36.0) % 32.2 RDW (11.7-14.6) % 14.4 Plt Count (130-400) 10^3/uL 380 D MPV (8.0-11.0) fL 9.7 Immature Gran % 1.2 Neutrophils % 83.3 Lymphocytes % 10.8 Monocytes % 4.5 Eosinophils % 0.0 Basophils % 0.2 Nucleated RBC % % 0 Absolute Neutrophils (1.2-6.7) 10^3/uL 20.85 H Absolute Lymphocytes (1.2-3.4) 10^3/uL 2.70 Absolute Monocytes (0.1-0.8) 10^3/uL 1.13 H Absolute Eosinophils (0.0-0.7) 10^3/uL 0.00 Absolute Basophils (0.0-0.2) 10^3/uL 0.05 RBC Morphology See below Polychromasia Present PT (9.3-11.0) sec INR (0.9-1.1) APTT (21.0-27.5) sec VBG Lactate (0.6-1.4) mmol/L 4.0 H* Sodium (136-145) mmol/L 139 Potassium (3.5-5.1) mmol/L 4.4 Chloride (98-107) mmol/L 106 Carbon Dioxide (21.0-32.0) mmol/L 20.2 L Anion Gap (3-11) mmol/L 12.8 H BUN (7-18) mg/dL 68 H Creatinine (0.55-1.02) mg/dL 1.2 H Estimated GFR/1.73 m2 (mL/min/1.73m2) 42.80 Glucose (74-106) mg/dL 180 H Calcium (8.5-10.1) mg/dL 9.1 Magnesium (1.8-2.4) mg/dL 1.8 Total Bilirubin (0.2-1.0) mg/dL 0.3 Conjugated Bilirubin (0.00-0.20) mg/dL < 0.05 AST (15-37) U/L 13 L ALT (14-59) U/L 30 Alkaline Phosphatase (46-116) U/L 52 Troponin I (<0.06) ng/mL 0.11 H* Total Protein (6.4-8.2) g/dL 6.9 Albumin (3.4-5.0) g/dL 3.0 L Lipase (73-393) U/L 207 Urine Color (Yellow) Urine Clarity (Clear) Urine pH (5-8) Ur Specific [place] (1.005-1.025) Urine Protein (Negative) mg/dL Urine Ketones (Negative) mg/dL Urine Blood (Negative) Urine Nitrite (Negative) Urine Bilirubin (Negative) Urine Urobilinogen (Up TO 0.2) EU/dL Ur Leukocyte Esterase (Negative) Urine RBC (0-2) HPF Urine WBC (0-5) HPF Ur Epithelial Cells (Negative) HPF Urine Crystals (Negative) HPF Urine Bacteria (Negative) HPF Urine Casts (Negative) LPF Urine Mucus (Negative) Ur Culture Indicated? Urine Glucose (Negative) mg/dL Digoxin (0.90-2.00) ng/mL Patient ABO/Rh Antibody Screen Range/Units 10/15/20 10/15/20 10/15/20 07:42 07:42 07:42 WBC (4.4-10.8) 10^3/uL RBC (3.93-5.22) 10^6/uL Hgb (11.2-15.7) g/dL Hct (36.0-46.0) % MCV (80-95) fL MCH (27.0-33.0) pg MCHC (32.0-36.0) % RDW (11.7-14.6) % Plt Count (130-400) 10^3/uL MPV (8.0-11.0) fL Immature Gran % Neutrophils % Lymphocytes % Monocytes % Eosinophils % Basophils % Nucleated RBC % % Absolute Neutrophils (1.2-6.7) 10^3/uL Absolute Lymphocytes (1.2-3.4) 10^3/uL Absolute Monocytes (0.1-0.8) 10^3/uL Absolute Eosinophils (0.0-0.7) 10^3/uL Absolute Basophils (0.0-0.2) 10^3/uL RBC Morphology Polychromasia PT (9.3-11.0) sec 13.2 H INR (0.9-1.1) 1.3 H APTT (21.0-27.5) sec 23.3 VBG Lactate (0.6-1.4) mmol/L Sodium (136-145) mmol/L Potassium (3.5-5.1) mmol/L Chloride (98-107) mmol/L Carbon Dioxide (21.0-32.0) mmol/L Anion Gap (3-11) mmol/L BUN (7-18) mg/dL Creatinine (0.55-1.02) mg/dL Estimated GFR/1.73 m2 (mL/min/1.73m2) Glucose (74-106) mg/dL Calcium (8.5-10.1) mg/dL Magnesium (1.8-2.4) mg/dL Total Bilirubin (0.2-1.0) mg/dL Conjugated Bilirubin (0.00-0.20) mg/dL AST (15-37) U/L ALT (14-59) U/L Alkaline Phosphatase (46-116) U/L Troponin I (<0.06) ng/mL Total Protein (6.4-8.2) g/dL Albumin (3.4-5.0) g/dL Lipase (73-393) U/L Urine Color (Yellow) Urine Clarity (Clear) Urine pH (5-8) Ur Specific [place] (1.005-1.025) Urine Protein (Negative) mg/dL Urine Ketones (Negative) mg/dL Urine Blood (Negative) Urine Nitrite (Negative) Urine Bilirubin (Negative) Urine Urobilinogen (Up TO 0.2) EU/dL Ur Leukocyte Esterase (Negative) Urine RBC (0-2) HPF Urine WBC (0-5) HPF Ur Epithelial Cells (Negative) HPF Urine Crystals (Negative) HPF Urine Bacteria (Negative) HPF Urine Casts (Negative) LPF Urine Mucus (Negative) Ur Culture Indicated? Urine Glucose (Negative) mg/dL Digoxin (0.90-2.00) ng/mL 2.08 H* Patient ABO/Rh O Negative Antibody Screen Negative Range/Units 10/15/20 10/15/20 10/15/20 09:58 10:36 11:01 WBC (4.4-10.8) 10^3/uL RBC (3.93-5.22) 10^6/uL Hgb (11.2-15.7) g/dL Hct (36.0-46.0) % MCV (80-95) fL MCH (27.0-33.0) pg MCHC (32.0-36.0) % RDW (11.7-14.6) % Plt Count (130-400) 10^3/uL MPV (8.0-11.0) fL Immature Gran % Neutrophils % Lymphocytes % Monocytes % Eosinophils % Basophils % Nucleated RBC % % Absolute Neutrophils (1.2-6.7) 10^3/uL Absolute Lymphocytes (1.2-3.4) 10^3/uL Absolute Monocytes (0.1-0.8) 10^3/uL Absolute Eosinophils (0.0-0.7) 10^3/uL Absolute Basophils (0.0-0.2) 10^3/uL RBC Morphology Polychromasia PT (9.3-11.0) sec INR (0.9-1.1) APTT (21.0-27.5) sec VBG Lactate (0.6-1.4) mmol/L 2.9 H* Sodium (136-145) mmol/L Potassium (3.5-5.1) mmol/L Chloride (98-107) mmol/L Carbon Dioxide (21.0-32.0) mmol/L Anion Gap (3-11) mmol/L BUN (7-18) mg/dL Creatinine (0.55-1.02) mg/dL Estimated GFR/1.73 m2 (mL/min/1.73m2) Glucose (74-106) mg/dL Calcium (8.5-10.1) mg/dL Magnesium (1.8-2.4) mg/dL Total Bilirubin (0.2-1.0) mg/dL Conjugated Bilirubin (0.00-0.20) mg/dL AST (15-37) U/L ALT (14-59) U/L Alkaline Phosphatase (46-116) U/L Troponin I (<0.06) ng/mL 0.19 H* Total Protein (6.4-8.2) g/dL Albumin (3.4-5.0) g/dL Lipase (73-393) U/L Urine Color (Yellow) Yellow Urine Clarity (Clear) Clear Urine pH (5-8) 5.0 Ur Specific [place] (1.005-1.025) 1.010 Urine Protein (Negative) mg/dL Negative Urine Ketones (Negative) mg/dL Negative Urine Blood (Negative) Small H Urine Nitrite (Negative) Negative Urine Bilirubin (Negative) Negative Urine Urobilinogen (Up TO 0.2) EU/dL 0.2 Ur Leukocyte Esterase (Negative) Negative Urine RBC (0-2) HPF 0-2 Urine WBC (0-5) HPF 0-2 Ur Epithelial Cells (Negative) HPF Moderate Urine Crystals (Negative) HPF Negative Urine Bacteria (Negative) HPF Few Urine Casts (Negative) LPF Negative Urine Mucus (Negative) Negative Ur Culture Indicated? No/sq. contamination Urine Glucose (Negative) mg/dL Negative Digoxin (0.90-2.00) ng/mL Patient ABO/Rh Antibody Screen ECG Data Attestation: I personally reviewed and interpreted this ECG (s) as follows: Interpretation: Please see official report by Dr. Bay. Atrial fibrillation, rate of 128. Right bundle branch block. No dynamic changes when compared to EKG on 10-05-20. HPI General Mode of arrival: ambulatory. Date/Time Provider Initiated Documentation: 10/15/20 07:17. Limitations to Documentation: no limitations. Information obtained by: patient. HPI Narrative: This is an 85-year-old female with past medical history that includes A. fib, chronic anticoagulation, recently on digoxin, hypertension, diverticulosis, recent admission to our facility for duodenal ulcer. She states that she was discharged last week and since then has had intermittent bloody or dark stools. She tells me that she has had lower left back pain for the past 2 weeks and has was initially brought her to the ER for her last admission. She tells me that the pain is essentially unchanged, moderate in nature, worse with movement. She tells me that she has generalized weakness, felt diaphoretic, feels very tired and short of breath with any movement or exertion, had one episode this morning of loose black stool but not diarrhea. Also reports 1 episode of coffee-ground emesis. She denies any abdominal pain to me whatsoever. She denies recent trauma, headache, chest pain, cough, abdominal pain, dysuria, numbness, tingling, weakness. Related Data Home Medications Medication Instructions Recorded Confirmed Xarelto 20 mg PO DAILY 01/22/19 10/15/20 cranberry fruit concentrate 500 mg 500 mg PO DAILY cap 07/03/19 10/15/20 capsule garlic 500 mg capsule 500 mg PO DAILY 07/03/19 10/15/20 omega-3 fatty acids 1,000 mg 1,000 mg PO DAILY 07/03/19 10/15/20 capsule raspberry ketone 100 mg capsule 100 mg PO DAILY cap 07/03/19 10/15/20 royal jelly 500 mg capsule 500 mg PO DAILY cap 07/03/19 10/15/20 vitamin B complex 1 tab PO DAILY 07/03/19 10/15/20 vitamin E 200 unit capsule 200 unit PO DAILY 07/03/19 10/15/20 losartan 25 mg PO DAILY 10/05/20 10/15/20 digoxin 125 mcg PO DAILY #30 tab 10/09/20 10/15/20 methocarbamol 1,500 mg PO QID PRN PRN #40 tab 10/09/20 10/15/20 metoprolol succinate [Toprol XL] 75 mg PO BID #90 tab 10/09/20 10/15/20 pantoprazole 40 mg PO BID@0730,1999 #30 tab 10/09/20 10/15/20 sucralfate 1 g PO AC & HS #120 tab 10/09/20 10/15/20 tapentadol [Nucynta] 50 mg PO Q4H PRN PRN #18 tab 10/09/20 10/15/20 Previous Rx's Medication Instructions Recorded digoxin 125 mcg PO DAILY #30 tab 10/09/20 methocarbamol 1,500 mg PO QID PRN PRN #40 tab 10/09/20 metoprolol succinate [Toprol XL] 75 mg PO BID #90 tab 10/09/20 pantoprazole 40 mg PO BID@0730,1999 #30 tab 10/09/20 sucralfate 1 g PO AC & HS #120 tab 10/09/20 tapentadol [Nucynta] 50 mg PO Q4H PRN PRN #18 tab 10/09/20 Allergies Allergy/AdvReac Type Severity Reaction Status Date / Time No Known Allergies Allergy Unverified 10/15/20 07:31 General Stated Complaint: Nausea/Vomit/Diar PAL: 3 Review of Systems Constitutional Constitutional: Reports fatigue, Denies fever(s), Denies headache(s) and Reports weakness (Generalized) ENT Ears, Nose, Mouth, and Throat: Denies headache(s) and Denies neck pain Cardiovascular Cardiovascular: Denies chest pain and Reports dyspnea on exertion Respiratory Respiratory: Denies cough and Reports dyspnea on exertion Gastrointestinal Gastrointestinal: Denies abdominal pain, Reports melena, Reports hematochezia, Denies constipation, Denies diarrhea, Reports nausea and Reports vomiting Genitourinary Genitourinary: Denies dysuria Musculoskeletal Musculoskeletal: Reports back pain, Denies neck pain, Denies numbness and Denies tingling Integumentary/Breasts Skin/Breast: Denies rash Neurologic Neurologic: Denies headache(s), Denies numbness, Denies tingling and Reports weakness (Generalized) Endocrine Endocrine: Reports fatigue Hematologic/Lymphatic Hematologic/Lymphatic: Reports easy bleeding and Reports easy bruising [facility] Medical History Diverticulitis large intestine Diverticulosis Elevated blood pressure reading without diagnosis of hypertension Grief reaction Hyperlipidemia Hypothyroidism Pharyngitis Urinary frequency Ventral hernia Vitamin B12 deficiency Surgical History History of bladder repair surgery History of colonoscopy S/P hysterectomy Social History Smoking/Tobacco Use Status: Never Smoking risk assessment performed?: Yes Alcohol Intake: never Drug use: Never Substance use type: does not use Do you feel safe at home: Yes Do you feel safe in your relationship?: Yes Exam Const General: cooperative, healthy appearing, comfortable and no acute distress Orientation: alert, awake and oriented x3 HENMT Head: normal to inspection, normocephalic and atraumatic Mouth: moist mucous membranes Eyes General: appearance normal, both eyes and all related structures Conjunctivae: conjunctivae normal Sclera: sclerae normal Neck Neck: normal visual inspection, full ROM, trachea midline, supple and nontender Resp Effort & Inspection: normal respiratory effort and able to speak in complete sentences Auscultation: clear to auscultation bilaterally Cardio Rate: tachycardic (112) Rhythm: abnormal rhythm irregularly irregular GI Inspection: visible herniation Palpation: soft, not firm, no guarding, no pulsatile masses, nontender and other (Soft, nontender, easily reduced hernia just superior to the umbilicus) Auscultation: normal bowel sounds Rectal Exam - female: visual inspection normal, normal sphincter tone, abnormal stool Rectal exam abnormal stool - female: black stool, No fecal impaction, No fissure and heme positive stool Back/Spine/Pelvis Back: no CVA tenderness and back tenderness (Diffuse mild left lumbar, worse over the SI joint) Skin General skin exam: no rashes or lesions noted Neuro General: patient alert, patient awake, patient oriented x3, moves all extremities and no focal motor deficits Cognition: normal cognition Speech: speech normal Motor: muscle tone normal throughout Sensory Exam: no sensory deficits noted Extrem General: normal to inspection, full ROM, capillary refill normal, no pedal edema and no calf tenderness Psych Appearance: grossly normal Mental Status: mental status grossly normal Course Vital Signs Vital signs: Vital Signs Temperature 36.6 C 10/15/20 07:24 Pulse 75 10/15/20 07:24 Respiratory Rate 18 10/15/20 07:24 Blood Pressure 127/60 10/15/20 07:24 Pulse Oximetry 94 10/15/20 07:24 Temperature 36.6 C 10/15/20 07:24 Temperature Source Skin 10/15/20 07:24 Pulse 109 H 10/15/20 08:31 Pulse 112 H 10/15/20 08:50 Respiratory Rate 27 H 10/15/20 08:50 Respiratory Effort 10/15/20 07:31 Blood Pressure 110/75 10/15/20 08:31 Blood Pressure Mean 84 10/15/20 08:31 Blood Pressure Position Supine 10/15/20 07:24 Pulse Oximetry 99 10/15/20 08:40 Oxygen Delivery Method Room Air 10/15/20 07:24 Oxygen Flow Rate 0 10/15/20 07:24 Pain Level 0 10/15/20 07:24 Lab/Test Results Lab/Test Results: Laboratory Tests Range/Units 10/15/20 10/15/20 10/15/20 07:42 07:42 07:42 WBC (4.4-10.8) 10^3/uL 25.03 H* RBC (3.93-5.22) 10^6/uL 2.82 L Hgb (11.2-15.7) g/dL 8.7 L Hct (36.0-46.0) % 27.0 L MCV (80-95) fL 95.7 H MCH (27.0-33.0) pg 30.9 MCHC (32.0-36.0) % 32.2 RDW (11.7-14.6) % 14.4 Plt Count (130-400) 10^3/uL 380 D MPV (8.0-11.0) fL 9.7 Immature Gran % 1.2 Neutrophils % 83.3 Lymphocytes % 10.8 Monocytes % 4.5 Eosinophils % 0.0 Basophils % 0.2 Nucleated RBC % % 0 Absolute Neutrophils (1.2-6.7) 10^3/uL 20.85 H Absolute Lymphocytes (1.2-3.4) 10^3/uL 2.70 Absolute Monocytes (0.1-0.8) 10^3/uL 1.13 H Absolute Eosinophils (0.0-0.7) 10^3/uL 0.00 Absolute Basophils (0.0-0.2) 10^3/uL 0.05 RBC Morphology See below Polychromasia Present PT (9.3-11.0) sec INR (0.9-1.1) APTT (21.0-27.5) sec VBG Lactate (0.6-1.4) mmol/L 4.0 H* Sodium (136-145) mmol/L 139 Potassium (3.5-5.1) mmol/L 4.4 Chloride (98-107) mmol/L 106 Carbon Dioxide (21.0-32.0) mmol/L 20.2 L Anion Gap (3-11) mmol/L 12.8 H BUN (7-18) mg/dL 68 H Creatinine (0.55-1.02) mg/dL 1.2 H Estimated GFR/1.73 m2 (mL/min/1.73m2) 42.80 Glucose (74-106) mg/dL 180 H Calcium (8.5-10.1) mg/dL 9.1 Magnesium (1.8-2.4) mg/dL 1.8 Total Bilirubin (0.2-1.0) mg/dL 0.3 Conjugated Bilirubin (0.00-0.20) mg/dL < 0.05 AST (15-37) U/L 13 L ALT (14-59) U/L 30 Alkaline Phosphatase (46-116) U/L 52 Troponin I (<0.06) ng/mL 0.11 H* Total Protein (6.4-8.2) g/dL 6.9 Albumin (3.4-5.0) g/dL 3.0 L Lipase (73-393) U/L 207 Digoxin (0.90-2.00) ng/mL Patient ABO/Rh Antibody Screen Range/Units 10/15/20 10/15/20 10/15/20 07:42 07:42 07:42 WBC (4.4-10.8) 10^3/uL RBC (3.93-5.22) 10^6/uL Hgb (11.2-15.7) g/dL Hct (36.0-46.0) % MCV (80-95) fL MCH (27.0-33.0) pg MCHC (32.0-36.0) % RDW (11.7-14.6) % Plt Count (130-400) 10^3/uL MPV (8.0-11.0) fL Immature Gran % Neutrophils % Lymphocytes % Monocytes % Eosinophils % Basophils % Nucleated RBC % % Absolute Neutrophils (1.2-6.7) 10^3/uL Absolute Lymphocytes (1.2-3.4) 10^3/uL Absolute Monocytes (0.1-0.8) 10^3/uL Absolute Eosinophils (0.0-0.7) 10^3/uL Absolute Basophils (0.0-0.2) 10^3/uL RBC Morphology Polychromasia PT (9.3-11.0) sec 13.2 H INR (0.9-1.1) 1.3 H APTT (21.0-27.5) sec 23.3 VBG Lactate (0.6-1.4) mmol/L Sodium (136-145) mmol/L Potassium (3.5-5.1) mmol/L Chloride (98-107) mmol/L Carbon Dioxide (21.0-32.0) mmol/L Anion Gap (3-11) mmol/L BUN (7-18) mg/dL Creatinine (0.55-1.02) mg/dL Estimated GFR/1.73 m2 (mL/min/1.73m2) Glucose (74-106) mg/dL Calcium (8.5-10.1) mg/dL Magnesium (1.8-2.4) mg/dL Total Bilirubin (0.2-1.0) mg/dL Conjugated Bilirubin (0.00-0.20) mg/dL AST (15-37) U/L ALT (14-59) U/L Alkaline Phosphatase (46-116) U/L Troponin I (<0.06) ng/mL Total Protein (6.4-8.2) g/dL Albumin (3.4-5.0) g/dL Lipase (73-393) U/L Digoxin (0.90-2.00) ng/mL 2.08 H* Patient ABO/Rh O Negative Antibody Screen Negative Critical Care Time Critical Care Time Critical Care Time: Yes Total Critical Care Time: 40 Attestation: Upon my evaluation, this patient had a high probability of clinically significant, life-threatening deterioration due to their current medical conditions, which required my direct attention, intervention, and personal management. I have personally provided greater than 30 minutes of critical care time exclusive of the time spend on separately billable procedures. Time includes obtaining a history, examining the patient, pulse oximetry, review of laboratory data, radiology results, discussion with consultants, arranging urgent treatment with development of a management plan, evaluation of patient's response to treatment, and monitoring for potential decompensation. Interventions were performed as documented above.
[2020-10-15] MEDS: Normal Saline - Diluent 50 ML VIAL IV (09:15)
[2020-10-15] MEDS: Omnipaque 350 MG/ML 100 ML BTL IJ (09:15)
--- NOTE | 2020-10-15 09:15 | DI.CT_ITS ---
EXAM: CT ABDOMEN PELVIS W CLINICAL HISTORY: hx of diverticulitis and duo ulcer. Bloody stool. TECHNIQUE: Imaging Protocol: Axial computed tomography images with coronal and sagittal reformatted images were created and reviewed CONTRAST MATERIAL: Intravenous: Omnipaque 350 Contrast volume:100 cc Oral: no COMPARISON: CT CT ABDOMEN PELVIS W from 10/05/2020 FINDINGS: Lung bases are clear. The heart is mildly enlarged, unchanged. There is a small hiatal hernia. The liver, gallbladder, spleen, pancreas, kidneys, adrenals and urinary bladder are unremarkable. The p atient is status post hysterectomy. There is diverticulosis of the sigmoid but no evidence of divert iculitis. The appendix appears normal. The previously noted duodenal edema is no longer present. T here is now perirectal and perianal wall thickening. There is no evidence of an abscess. There is n o free air or free fluid. The aorta shows atherosclerotic changes. There is no evidence of aneurysm . A fatty containing hernia is again noted above the level of the umbilicus. Degenerative changes a re present in the spine. Scoliosis is also present. Impression: Distal rectal and perianal wall thickening and inflammation. No evidence of drainable abscess or flu id collection. Resolution of previously noted duodenal edema. RADIATION DOSE DELIVERED: 775.58mGy.cm Total DLP DATA REPOSITORY: All CT scans at this facility are submitted to the National Radiology Data Registry (NRDR) Dose Index Registry (DIR) with the [employer] (ACR). RADIATION OPTIMIZATION: All CT scans at this facility use at least one of these dose optimization te chniques: automated exposure control; mA and/or kV adjustment per patient size (includes targeted exa ms where dose is matched to clinical indication); or iterative reconstruction.
--- NOTE | 2020-10-15 09:32 | DI.VRAD_ITS ---
PROCEDURE INFORMATION: Exam: CT Abdomen And Pelvis With Contrast Exam date and time: 10/15/2020 9:15 AM Age: 85 years old Clinical indication: Localized; Other: Duo ulcer; Patient HX: Black bloody stool this morning with vomiting and severe abdominal pain since early this morning. TECHNIQUE: Imaging protocol: Computed tomography of the abdomen and pelvis with contrast. Radiation optimization: All CT scans at this facility use at least one of these dose optimization techniques: automated exposure control; mA and/or kV adjustment per patient size (includes targeted exams where dose is matched to clinical indication); or iterative reconstruction. Contrast material: OMNIPAQUE 350; Contrast volume: 100 ml; Contrast route: INTRAVENOUS (IV); COMPARISON: CT ABDOMEN PELVIS W 10/05/2020 2:50 PM FINDINGS: Limitations: None. Lungs: Grossly clear lung bases. Stable cardiac silhouette. Mediastinal space: Small hiatal hernia as before. Liver: Low-density liver suggests fatty infiltration without focal lesions or ductal dilatation. Gallbladder and bile ducts: No gallstones or choledocholithiasis. Pancreas: Normal. No ductal dilation. Spleen: The spleen is enlarged. Adrenal glands: Normal. No mass. Kidneys and ureters: Bilateral renal volume loss as before without stone or hydronephrosis. Stomach and bowel: The stomach is poorly distended. Resolved edema in wall thickening involving the duodenum relative to the prior. Sigmoid diverticulosis without diverticulitis. Appendix: No evidence of appendicitis. Intraperitoneal space: Unremarkable. No free air. No significant fluid collection. Vasculature: Atherosclerotic changes of the thoracic aorta. Moderate to severe atherosclerotic changes of the aorta extending into the mesenteric, renal, and iliac arteries. No central arterial thrombus. Lymph nodes: Unremarkable. No enlarged lymph nodes. Urinary bladder: Unremarkable as visualized. Reproductive: Absent uterus. Bones/joints: Scoliosis and degenerative changes with osteopenia but no evidence of acute fracture. Stable grade 1 anterolisthesis of L4 on L5. comparable to the previous. Direct visualization and palpation recommended. Soft tissues: Tiny fatty ventral wall hernia contains a minimally stranded fat but no bowel. This was present previously. Soft tissue prominence at the level of the anus and distal rectum extending to the posterior perineum this was not completely included on the field of view on the previous. Limited adjacent fatty stranding. Other findings: Stable fatty stranding along the left side of the perirectal space as before. IMPRESSION: 1. Resolved duodenal edema. 2. Prominent soft tissue involving the distal rectum, anus, ischial rectal, and perineal soft tissues, incompletely included on the field of view on the prior. Limited fatty stranding adjacent this. Correlation with direct visualization and palpation recommended to exclude inflammatory or infiltrative disorders here. 3. No bowel obstruction or free air. 4. Changes of likely fatty liver. 5. Atherosclerotic changes of the aorta and branch vessels without central thrombus. 6. No pneumatosis. Dictated and Authenticated by: Pillo Arenas MD. Ordering:LUIS CARLOS Baig MD
[2020-10-15 10:05] LABS: Bilirubin Negative (Negative); Blood Small (Negative); Clarity Clear (Clear); Glucose Negative (Negative); Ketones Negative (Negative); Leukocyte Esterase Negative (Negative); Nitrite Negative (Negative); Urobilinogen 0.2 EU/dL (Up TO 0.2)
[2020-10-15 10:12] LABS: Bacteria Few HPF (Negative); C & S Indicated? No/Sq. Contamination; Casts Negative LPF (Negative); Crystals Negative HPF (Negative); Epithelial Cells Moderate HPF (Negative); Mucus Negative (Negative); RBC 0-2 HPF (0-2); WBC 0-2 HPF (0-5)
--- NOTE | 2020-10-15 10:45 | RT.EKG_ITS ---
APPROVED REPORT Exam: Resting ECG Patient Location: E HR:119 bpm ECG Measurements Heart Rate 119 AXIS AL [id number] P [id number] QRSd 127 QRS 70 QT 346 T 269 QTc 486 Conclusion Atrial fibrillation...? atrial activity Right bundle branch block...QRSd>120, terminal axis(90,270) Repol abnrm suggests ischemia, diffuse leads...ST-T neg, ant/lat/inf I have reviewed and interpreted ECG and agree with software generated interpretation.
--- NOTE | 2020-10-15 10:48 | DI.RAD_ITS ---
EXAM: XR PORTABLE CHEST AP CLINICAL HISTORY: trop of 0.11, wbc 25 TECHNIQUE: 2D digital imaging was performed. COMPARISON: CR XR PORTABLE CHEST AP from 05/16/[address] ABDOMEN PELVIS W from 10/15/[address] ABDOMEN PELVIS W from 10/15/2020 FINDINGS: LUNGS: Mild scarring left lung base. No pleural abnormality seen. HEART: Mildly enlarged, unchanged.. MEDIASTINUM: Normal. Electronic device overlying the left upper chest. Monitoring leads. BONES: Degenerative changes in the spine and shoulders. Scoliosis of the thoracolumbar junction. IMPRESSION: No acute pulmonary findings. DATA REPOSITORY: RADIATION DOSE DELIVERED:
[2020-10-15] MEDS: Normal Saline 500 ML 200 ML IV (10:59)
[2020-10-15] MEDS: PIPERACILLIN/TAZO 3.375 GM in Normal Saline 50 ML IVPB (10:59)
[2020-10-15 11:06] LABS: Troponin I 0.19 ng/mL (<0.06)
[2020-10-15 11:11] LABS: Lactate 2.9 mmol/L (0.6-1.4)
== END 2020-10-15 11:56 | disposition short-term general hospital (02) ==
PROVIDERS: Emergency Medicine; Emergency Provider Physician Assistant; PCP Family Medicine
DX: K92.2 Gastrointestinal hemorrhage, unspecified (principal); D72.829 Elevated white blood cell count, unspecified; D64.89 Other specified anemias; I48.91 Unspecified atrial fibrillation; Z79.01 Long term (current) use of anticoagulants; I10 Essential (primary) hypertension
CPT/HCPCS: 36415; 80053; 83690; 86850; 86900; 86901; 87040; 93005; 96361; 96365; 99291; 71045; 74177; 80162; 81003; 81015; 82248; 83605; 83735; 84484; 85025; 85610; 85730; 93010; J2543; J3490

== ENCOUNTER 2020-10-22 08:30 | Outpatient (CLI) | payer MEDICARE, SELFPAY | END 2020-10-22 08:31 | LOC: CARDO 10-23 10:09 | PROVIDERS: PCP Family Medicine; Referring Provider Internal Medicine; Visit Provider Internal Medicine Cardiovascular Disease | DX: I48.91 Unspecified atrial fibrillation (principal); I48.92 Unspecified atrial flutter; I47.2 Ventricular tachycardia | CPT/HCPCS: 93248 ==

== ENCOUNTER 2020-10-23 11:08 | Outpatient (REF) | payer MEDICARE, SELFPAY ==
[2020-10-23 16:04] LABS: Abs Immature Grans 0.03 10^3/uL (0.0-0.06); Absolute Basophil Count 0.03 10^3/uL (0.0-0.2); Absolute Lymphocyte Count 1.57 10^3/uL (1.2-3.4); Absolute Monocyte Count 0.69 10^3/uL (0.1-0.8); Absolute Neutrophil Count 4.94 10^3/uL (1.2-6.7); Basophils % 0.4; HCT 31.4 % (36.0-46.0); Immature Grans % 0.4; Lymphocytes % 20.8; MCH 30.3 pg (27.0-33.0); MCHC 31.8 % (32.0-36.0); MCV 95.2 fL (80-95); MPV 11.7 fL (8.0-11.0); Monocytes % 9.1; Neutrophils % 65.3; Nucleated RBC 0 %; Platelet Count 218 10^3/uL (130-400); RDW 17.8 % (11.7-14.6); RDW-SD 60.7 fL; WBC 7.56 10^3/uL (4.4-10.8)
[2020-10-23 16:19] LABS: Digoxin 0.92 ng/mL (0.90-2.00)
== END 2020-10-23 11:09 | disposition home or self-care (01) ==
LOC: NCHCN 11:08
PROVIDERS: PCP Family Medicine; Visit Provider Family Medicine
DX: I48.0 Paroxysmal atrial fibrillation (principal); Z79.899 Other long term (current) drug therapy; Z51.81 Encounter for therapeutic drug level monitoring
CPT/HCPCS: 80162; 85025

== ENCOUNTER 2020-12-03 05:40 | Emergency (ER) | payer MEDICARE, SELFPAY ==
[2020-12-03] VITALS (92 sets, daily range): BP systolic 146–198; BP diastolic 65–156; PULSE 50–85; RESP 12–26; TEMP 36–36.6; O2SAT 94–100
--- NOTE | 2020-12-03 05:30 | RT.EKG_ITS ---
APPROVED REPORT Exam: Resting ECG Patient Location: E HR:67 bpm ECG Measurements Heart Rate 67 AXIS HI 212 P 31 QRSd 139 QRS 50 QT 411 T 0 QTc 432 Conclusion Sinus rhythm...normal P axis, V-rate 60- 99 Ventricular trigeminy...trigeminy string>6 w/ V complexes Borderline prolonged HI interval...HI >212, V-rate 50- 90 Right bundle branch block...QRSd>120, terminal axis(90,270)
--- NOTE | 2020-12-03 05:44 | ED.GENADUL_ITS ---
Discharge Plan Disposition Patient Disposition: [facility] Condition: Stable Discharge Details Clinical Impression: Left leg numbness, Pain of left calf, Elevated troponin Primary Care Provider: Chantell Castillo V ED Provider: Aura Bay Home Meds and New Rx's Prescriptions: No Action losartan 25 mg Tablet 25 mg PO DAILY RF: 0 pantoprazole 40 mg Tablet,Delayed Release (Dr/Ec) 40 mg PO BID@ Qty: 30 RF: 1 digoxin 125 mcg (0.125 mg) tablet 125 mcg PO DAILY Qty: 30 RF: 1 metoprolol succinate [Toprol XL] 50 mg tablet extended release 24 hr 75 mg PO BID Qty: 90 RF: 1 aspirin 81 mg tablet,chewable 81 mg PO DAILY RF: 0 Discharge Data Discharge Date/Time-TO BE ENTERED AT DEPARTURE: 12/03/20 18:55 Medical Decision Making <Sorin Lucas MD - Last Filed: 12/03/20 06:58> 85 yo female with hx of afib, htn, upper gi bleed in September secondary to duodenal ulcer due to H pylori and nstemi at the same time, presents today with ems with complaints of waking up and noting she was having numbness and difficulty walking due to numbness in her left leg and also noted she felt sweaty. She denies chest pain, dyspnea, and denies being weakn yesterday when she went to bed. She states her symptoms were first noticed when she woke up. She denies any nausea or abdominal pain. She has an NIH of 1 on neuro exam for sensation loss being mild to moderate throughout the left leg, has no drift or other deficits. When she does try to walk she has difficulty because she states she can't feel her leg touching the ground. No saddle anesthesia, has mild calf tenderness but no leg swelling. Concern for possible cva but given she awoke with these symptoms would be outside window for lytics and her nih is low as well. Will obtain labs to evaluate for anemia, electrolyte disorders and also head ct, and given the calf tenderness and she is currently not on xarelto will obtain ultrasound to evaluate for dvt though has no swelling of the leg so doubt dvt patient remains stable, still has numbness throughout the left leg without any drift and has pain in the left calf. Continues to deny any chest pain or dyspnea at this time. will order aspirin and await results of u/s and will likely need cardiology and possibly neurology consults Differential Diagnosis Differential Diagnosis: anemia, electrolyte abnormality, uti, cva, tia Medical Records Medical records reviewed: Yes I reviewed the patient's medical records. Imaging Data Radiologic Study: Attestation: I personally reviewed and interpreted this imaging study as follows: Imaging: CT Scan Radiologist's impression: IMPRESSION: Age-appropriate atrophy and chronic microvascular change. Lab Data Lab results reviewed: Yes I reviewed the patient's lab results. ECG Data Attestation: I personally reviewed and interpreted this ECG (s) as follows: Prior ECG tracings: available for review Interpretation: sinus rhythm, rate of 67, pr 212, qtc 432 <Justin Beck MD - Last Filed: 12/03/20 14:41> 85-year-old female, on whom I received signout from Dr. Lucas for the morning of December 03. Please see his note regarding details of the initial presentation, exam, plan of care she has a history of paroxysmal atrial fibrillation for which she is currently not anticoagulated, GI bleed with a history of duodenal ulcer which she just finished a course of antibiotics for H pylori, as well as history of non-STEMI in September. She had establish care for presumed coronary artery disease with plan for outpatient cardiac MRI. She presented early this morning for diaphoresis and new left leg numbness. She has not had previous chest pain with NSTEMI in September. Patient remained somewhat hypertensive, I reexamined her left leg which reveals normal motor function, sensation intact throughout but diminished per the patient. Normal patellar reflex. Mild tenderness left SI joint. Given the history of diaphoresis, left leg dysesthesia, history of suspected coronary artery disease and now troponin of 0.4, I did consider aortic dissection and the patient underwent CTA of the chest and abdomen, as well as the ultrasound ordered by Dr. Lucas. Ultrasound no evidence of DVT, CTA reveals no evidence of dissection. There is note of atherosclerotic disease in the abdomen, as well as mild pulmonary edema. See formal report. Further lab diagnostics: Improvement of venous lactate, repeat troponin is 0.36 Prior to the contrast dye load the patient received 200 cc of normal saline, given her elevated troponin, evidence of CHF, she was subsequently given 20 mg of Lasix. She has had a brisk urine output. I discussed the case with Dr. Dodge of neurology, she does feel the patient may have a cortical stroke and merits antiplatelet therapy and anticoagulation with further work-up likely to include MRI of the head and CTA. I discussed the case with on-call cardiology at [facility]. They agree that her worsening cardiac status likely denotes underlying coronary artery vascular disease and she will require transfer and further work-up. They have accepted her to the cardiology service of , likely for tomorrow morning. If possible, they have asked that we consider obtaining brain MRI & echocardiogram while awaiting transfer (ordered). Addendum: Dr. Ivory reports no acute findings on the patient's MRI imaging. Echocardiogram: Normal left ventricular wall thickness and chamber size. Estimated ejection fraction is 50 to 55%. There are segmental wall motion abnormalities involving the anteroapical, inferoapical and apical segments Normal right ventricular size and systolic function Both atria are normal in size The aortic valve is trileaflet with mild regurgitation Moderate mitral annular calcification. Moderate mitral regurgitation Normal tricuspid valve with mild regurgitation. Estimated right ventricular systolic pressure is 51 mmHg, moderate pulmonary hypertension Normal pulmonic valve with trace regurgitation <Aura Bay DO - Last Filed: 12/03/20 22:47> 1500 -- please see previous providers notes for initial presentation, exam, plan and course. Case endorsed to continue to monitor patient while she is awaiting transport to [facility]. If [facility] bed not available this evening and bed becomes available on the floor, will admit on the floor while awaiting transfer to [facility]. 1625 -- bed now available. PTT obtained prior to transport and elevated. Heparin adjusted accordingly. Patient has remained hemodynamically stable. 1830 -- EMS now available and here to transport patient to [facility]. Patient has remained hemodynamically stable. HPI <Sorin Lucas MD - Last Filed: 12/03/20 06:58> General Mode of arrival: EMS . Date/Time Provider Initiated Documentation: 12/03/20 05:42 . Limitations to Documentation: no limitations . Information obtained by: patient . History of Present Illness 85 year old F presents to the emergency department with the chief complaint of left leg numb ness, described as moderate, and is localized to the left and lower extremity. Patient reports no radiation. Patient started experiencing this unknown (woke up with it) and it has been constant. No relieving factors improve symptom(s), No exacerbating factors reported . Patient did receive the following treatments prior to arrival, none Related Data Home Medications Medication Instructions Recorded Confirmed losartan 25 mg PO DAILY 10/05/20 12/03/20 digoxin 125 mcg PO DAILY #30 tab 10/09/20 12/03/20 metoprolol succinate [Toprol XL] 75 mg PO BID #90 tab 10/09/20 12/03/20 pantoprazole 40 mg PO BID@0730,1999 #30 tab 10/09/20 12/03/20 aspirin 81 mg PO DAILY 12/03/20 12/03/20 Previous Rx's Medication Instructions Recorded digoxin 125 mcg PO DAILY #30 tab 10/09/20 metoprolol succinate [Toprol XL] 75 mg PO BID #90 tab 10/09/20 pantoprazole 40 mg PO BID@0730,1999 #30 tab 10/09/20 Allergies Allergy/AdvReac Type Severity Reaction Status Date / Time No Known Allergies Allergy Unverified 12/03/20 05:47 General PAL: 3 Review of Systems <Sorin Lucas MD - Last Filed: 12/03/20 06:58> All systems reviewed & are unremarkable except as noted in HPI and below Constitutional Constitutional: Denies chills and Denies fever(s) Cardiovascular Cardiovascular: Denies chest pain and Denies dyspnea Respiratory Respiratory: Denies cough and Denies dyspnea Gastrointestinal Gastrointestinal: Denies abdominal pain, Denies nausea and Denies vomiting Musculoskeletal Musculoskeletal: Denies joint swelling PFS <Sorin Lucas MD - Last Filed: 12/03/20 06:58> Medical History Diverticulitis large intestine Diverticulosis Elevated blood pressure reading without diagnosis of hypertension Grief reaction Hyperlipidemia Hypothyroidism Pharyngitis Urinary frequency Ventral hernia Vitamin B12 deficiency Surgical History History of bladder repair surgery History of colonoscopy S/P hysterectomy Social History Smoking/Tobacco Use Status: Never Smoking risk assessment performed?: Yes Alcohol Intake: never Drug use: Never Substance use type: does not use Do you feel safe at home: Yes Do you feel safe in your relationship?: Yes Exam <Sorin Lucas MD - Last Filed: 12/03/20 06:58> Const General: no acute distress Orientation: alert [facility] Head: normal to inspection Ears: external ears normal General nose exam: external nose normal Mouth: moist mucous membranes Eyes General: appearance normal, both eyes and all related structures Neck Neck: normal visual inspection Resp Effort & Inspection: normal respiratory effort and able to speak in complete sentences Cardio Rate: regular rate Skin General skin exam: no rashes or lesions noted Neuro General: patient alert and patient oriented x3 Extrem General: normal to inspection Psych Mental Status: mental status grossly normal Sign Out <Sorin Lucas MD - Last Filed: 12/03/20 06:58> Sign Out Data: Sign Out Comment: woke up with left leg numbness and diaphoresis, gi bleed and nstemi in September. CT head negative no chest pain or dyspnea troponin is 0.43. Given aspirin, getting ultrasound due to calf pain but pending cardiology and neurology recs Last updated by Sorin Lucas MD at 12/03/20 06:48 Sign Out Comment: Accepted to [facility] [place], Dr Ritter-Cardiology. Check bed availablility, consider ICU admission if no bed today. Last updated by Justin Beck MD at 12/03/20 14:45
--- NOTE | 2020-12-03 05:45 | DI.CT_ITS ---
EXAM: CT HEAD WO CLINICAL HISTORY: numbness left leg. TECHNIQUE: Imaging Protocol: Axial computed tomography images with coronal and sagittal reformatted images were created and reviewed COMPARISON: No exams were available for comparison FINDINGS: Ventricles and Extra axial spaces: Normal in size and morphology for the patient's age. Hemorrhage: None. Cerebral parenchyma: No acute territorial infarct. There are areas of decreased attenuation in the w melida matter consistent with chronic microvascular ischemic disease. 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 Midline shift: None. Brainstem/Cerebellum: Normal. Calvarium: Normal. Visualized Paranasal sinuses/Mastoids: Clear. Soft Tissues: Unremarkable. IMPRESSION: No acute intracranial process. RADIATION DOSE DELIVERED: 687.12mGy.cm Total DLP DATA REPOSITORY: All CT scans at this facility are submitted to the National Radiology Data Registry (NRDR) Dose Index Registry (DIR) with the [employer] ([employer]). RADIATION OPTIMIZATION: All CT scans at this facility use at least one of these dose optimization te chniques: automated exposure control; mA and/or kV adjustment per patient size (includes targeted exa ms where dose is matched to clinical indication); or iterative reconstruction.
[2020-12-03 05:55] LABS: Abs Immature Grans 0.02 10^3/uL (0.0-0.06); Absolute Basophil Count 0.04 10^3/uL (0.0-0.2); Absolute Eosinophil Count 0.41 10^3/uL (0.0-0.7); Absolute Lymphocyte Count 2.79 10^3/uL (1.2-3.4); Absolute Monocyte Count 0.81 10^3/uL (0.1-0.8); Absolute Neutrophil Count 4.07 10^3/uL (1.2-6.7); Basophils % 0.5; HCT 38.8 % (36.0-46.0); HGB 11.9 g/dL (11.2-15.7); Immature Grans % 0.2; Lymphocytes % 34.3; MCH 27.7 pg (27.0-33.0); MCHC 30.7 % (32.0-36.0); MCV 90.2 fL (80-95); MPV 11.2 fL (8.0-11.0); Nucleated RBC 0 %; Platelet Count 209 10^3/uL (130-400); RDW 14.7 % (11.7-14.6); RDW-SD 48.9 fL; WBC 8.14 10^3/uL (4.4-10.8)
[2020-12-03 06:00] LABS: Lactate 2.8 mmol/L (0.6-1.4)
[2020-12-03 06:11] LABS: INR 1.1 (0.9-1.1); PTT Activated 21.3 sec (21.0-27.5); Prothrombin Time 10.6 sec (9.3-11.0)
--- NOTE | 2020-12-03 06:12 | NUR.NOTE ---
Nursing Note: NIHSS 1, for sensory loss left leg
--- NOTE | 2020-12-03 06:13 | NUR.NOTE ---
Addendum entered by Kaleigh Murdock 12/03/20 06:25: Push/pull of arms and legs are equal and strong. Speech clear and symmetry of facial muscles noted. Denies numbness/weakness of anywhere else except left leg. Original Note: Nursing Note: Pt reports she woke up and felt left leg numbness. States I feel it's numb when I stand on it. It doesn't feel the same. Pt reports no loss/changes of vision, denies BASILIO, denies changes to speech or cognition. Pt reports it's just my left leg that is bothering me. Pt reports was seen for similar complaint and [place] [facility] [place]. Pt reports nothing makes numbness better/worse. No discoloration /bruising noted to leg. Pt denies injury to affected limb. Pt able to stand up and take few steps, however stating, I don't know if my foot is on the ground completely because it's numb. Pt reporting no CP, denies SOB, fever, denies N/V/D. Pt reports no urinary/abd complaints. NIHSS of 1 for sensory loss.
[2020-12-03 06:22] LABS: ALT 31 U/L (14-59); AST 25 U/L (15-37); Albumin 3.7 g/dL (3.4-5.0); Alkaline Phosphatase 79 U/L (46-116); Anion Gap 12.5 mmol/L (3-11); BUN 16 mg/dL (7-18); Bilirubin, Direct 0.1 mg/dL (0.0-0.2); Bilirubin, Total 0.6 mg/dL (0.2-1.0); CO2 23.5 mmol/L (21.0-32.0); CREATININE 1.1 mg/dL (0.55-1.02); Calcium 9.5 mg/dL (8.5-10.1); Chloride 108 mmol/L (98-107); Estimated GFR 47.32 (mL/min/1.73m2); Glucose 143 mg/dL (74-106); Magnesium 1.8 mg/dL (1.8-2.4); Potassium 3.6 mmol/L (3.5-5.1); Sodium 144 mmol/L (136-145); Total Protein 7.7 g/dL (6.4-8.2)
--- NOTE | 2020-12-03 06:32 | DI.VRAD_ITS ---
PROCEDURE INFORMATION: Exam: CT Head Without Contrast Exam date and time: 12/03/2020 5:57 AM Age: 85 years old Clinical indication: Other: Leg pain, numbness; Patient HX: Numbness in left leg TECHNIQUE: Imaging protocol: Computed tomography of the head without contrast. Radiation optimization: All CT scans at this facility use at least one of these dose optimization techniques: automated exposure control; mA and/or kV adjustment per patient size (includes targeted exams where dose is matched to clinical indication); or iterative reconstruction. Other technique: STROKE PROTOCOL was implemented. COMPARISON: No relevant prior studies available. FINDINGS: Brain: Age- related chronic microvascular changes are noted within the white matter. Right-sided basal ganglionic lacunar type infarct Cerebral ventricles: The ventricles and sulci are prominent compatible with age-appropriate atrophy. Bones/joints: Unremarkable. No acute fracture. Paranasal sinuses: Visualized sinuses are unremarkable. No fluid levels. Mastoid air cells: Visualized mastoid air cells are well aerated. Soft tissues: Unremarkable. IMPRESSION: Age-appropriate atrophy and chronic microvascular change. ASSESSMENT: ASPECTS ([place] Stroke Program Early CT Score) is 10. Dictated and Authenticated by: Valdemar Duque MD. Ordering:RIDDHI Rowell MD
[2020-12-03 06:39] LABS: Digoxin 0.58 ng/mL (0.90-2.00); FREE T4 0.91 ng/dL (0.76-1.46); Troponin I 0.43 ng/mL (<0.06)
[2020-12-03] MEDS: Aspirin 81 MG CHEW 324 MG CH (06:57)
--- NOTE | 2020-12-03 06:57 | NUR.NOTE ---
Nursing Note: Hand off report to Jeovany ALVES
--- NOTE | 2020-12-03 07:00 | DI.US_ITS ---
EXAM: US LOWER EXTREMITY VENOUS LT CLINICAL HISTORY: ?dvt, calf tenderness TECHNIQUE: Left lower extremity venous ultrasound performed using grayscale, color-flow, and spectra l Doppler analysis. COMPARISON: No exams were available for comparison FINDINGS: The left common femoral, femoral and popliteal veins demonstrate normal compressibility, augmentation , and color Doppler. The posterior tibial veins are patent. The saphenofemoral junction is unremarka ble. There is no evidence of a Lara cyst. The soft tissues are unremarkable. IMPRESSION: No DVT. DATA REPOSITORY:
--- NOTE | 2020-12-03 07:28 | DI.RAD_ITS ---
EXAM: XR PORTABLE CHEST AP CLINICAL HISTORY: elevated troponin TECHNIQUE: 2D digital imaging was performed. COMPARISON: CR XR PORTABLE CHEST AP from 10/15/2020 FINDINGS: MEDIASTINUM: Normal. HEART: Normal. PULMONARY VASCULATURE: Mild pulmonary venous congestion. LUNGS: Increased interstitial markings diffusely. No focal consolidating infiltrates. PLEURAL SPACE: Small right pleural effusion. No pneumothorax. BONE:Within normal limits for the patient's age. OTHER FINDINGS:Normal. IMPRESSION: Findings suspicious for fluid overload/CHF. Please correlate clinically. DATA REPOSITORY: RADIATION DOSE DELIVERED:
--- NOTE | 2020-12-03 07:36 | NUR.NOTE ---
Nursing Note Syd Hall [phone] Cell- [phone] Daughter
--- NOTE | 2020-12-03 07:45 | DI.CT_ITS ---
EXAM: CT THORAX ABDOMEN CTA CLINICAL HISTORY: L leg numb, HTN, elev trop. Hx GIulcer.. TECHNIQUE: Imaging Protocol: Axial CT angiography was performed with multi-slice acquisition and m ulti-planar and/or 3D reconstructions. CONTRAST MATERIAL: Intravenous: Omnipaque 350 Contrast volume:100 mL Oral: No COMPARISON: CT CT ABDOMEN PELVIS W from 10/15/2020 FINDINGS: CHEST: Tracheobronchial tree: Patent where visualized. Pulmonary parenchyma: Scattered small infiltrates are seen in the lungs. There are small bilateral p leural effusions with subjacent infiltrates which may represent atelectasis or pneumonia. The findin gs are most prominent in the right lung. There is diffuse thickening of the interstitium which may r epresent fluid/edema. No pulmonary nodules are identified. Pulmonary Arteries: No evidence of filling defect to suggest pulmonary emboli. Mediastinum and Trinh: No dominant adenopathy or fluid collection. Small hiatal hernia. Visualized thyroid: Unremarkable. Pleura: No pneumothorax. Heart: Mild cardiomegaly. Mild coronary artery calcification. No pericardial effusion. Aorta: Thoracic aorta non-dilated. No aneurysm or dissection. Moderate atherosclerosis. Soft Tissues: Unremarkable. Bones: Degenerative changes. ABDOMEN AND PELVIS: Abdomen: Celiac axis/mesenteric arteries: No evidence of occlusion or significant stenosis. Renal Arteries: No evidence of occlusion or significant stenosis of the right renal artery. There is atherosclerosis of the origin of the left renal artery with 40-50 percent stenosis. No occlusion. There is a single renal artery perfusing each kidney. Aorta: No evidence of occlusion or significant stenosis. No aneurysm or dissection. Moderate ather osclerosis. Pelvis: Iliac Arteries: The proximal common iliac arteries are visualized and show atherosclerosis. No sten osis or occlusion. ABDOMEN: Liver: Normal density. No measurable mass. Portal, Superior Mesenteric, and Splenic Veins: Unremarkable. Gallbladder and Biliary Tract: No radiodense calculus or dilation. Pancreas: Normal density, no abnormal calcifications or inflammatory process. Spleen: Normal. Adrenals: No masses seen. Kidneys: Normal size, contour and axis. No radiodense stones or obstructive uropathy. No masses seen. Bowel: No obstruction or bowel wall thickening. Small hiatal hernia. Peritoneal Cavity: No ascites, collection or mesenteric inflammatory response. No free air. Lymph Nodes: Within normal limits. Bones: Degenerative changes in the spine. Left convex lumbar scoliosis. Soft Tissues: A focal midline anterior abdominal wall fat containing hernia is incompletely imaged. IMPRESSION: 1. No evidence of pulmonary embolism, thoracic aortic dissection or aneurysm. 2. 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 Otherwise no evidence of ab dominal dissection or significant stenosis. 3. Findings in the lungs which may represent pulmonary edema/fluid overload. Please correlate clinic ally. 4. Focal fat containing anterior abdominal wall hernia which is incompletely imaged on this examinati on. 5. Bilateral pleural effusions. 6. Results of this exam have been verbally communicated with provider. RADIATION DOSE DELIVERED: 638.99mGy.cm Total DLP DATA REPOSITORY: All CT scans at this facility are submitted to the National Radiology Data Registry (NRDR) Dose Index Registry (DIR) with the [employer] (A[employer]). RADIATION OPTIMIZATION: All CT scans at this facility use at least one of these dose optimization te chniques: automated exposure control; mA and/or kV adjustment per patient size (includes targeted exa ms where dose is matched to clinical indication); or iterative reconstruction.
[2020-12-03] MEDS: Normal Saline 250 ML IV (07:55)
[2020-12-03] MEDS: Omnipaque 350 MG/ML 100 ML BTL IJ (08:25)
[2020-12-03 08:35] LABS: Lactate 1.4 mmol/L (0.6-1.4)
[2020-12-03] MEDS: Normal Saline - Diluent 50 ML VIAL IV (08:35)
--- NOTE | 2020-12-03 08:45 | RT.EKG_ITS ---
APPROVED REPORT Exam: Resting ECG Patient Location: E HR:65 bpm ECG Measurements Heart Rate 65 AXIS CA 213 P 53 QRSd 134 QRS 60 QT 427 T 225 QTc 445 Conclusion Sinus rhythm Multiple ventricular premature complexes. Borderline prolonged CA interval...CA >212 Right bundle branch block.. Anteroseptal infarct, age indeterminate...Q >35mS, T neg, V1-V2
[2020-12-03 09:01] LABS: Troponin I 0.36 ng/mL (<0.06)
[2020-12-03 09:02] LABS: Bilirubin Negative (Negative); Blood Negative (Negative); Clarity Sl Cloudy (Clear); Glucose Negative (Negative); Ketones Negative (Negative); Leukocyte Esterase Negative (Negative); Nitrite Negative (Negative); Specific Gravity 1.025 (1.005-1.025); Urobilinogen 0.2 EU/dL (Up TO 0.2); pH 5.5 (5-8)
[2020-12-03] MEDS: Furosemide 20 MG/2 ML VIAL IVP (09:03)
[2020-12-03 09:15] LABS: Epithelial Cells Many HPF (Negative)
[2020-12-03 09:16] LABS: C & S Indicated? No/Sq. Contamination
[2020-12-03 09:17] LABS: NT-proBNP 2684 pg/mL (<300)
[2020-12-03] MEDS: Acetaminophen 500 MG TAB 1000 MG PO (10:06)
[2020-12-03 10:41] LABS: COVID-19 PCR Negative (Negative)
--- NOTE | 2020-12-03 11:00 | DI.US_ITS ---
APPROVED REPORT EXAM: Comprehensive 2D, Doppler, and color-flow Echocardiogram Patient Location: ER Room/Bed: 2 Book Salesman: Norma Burgess RDCS (AE) Indications: NSTEMI Other Information Study Quality: Adequate. Technically limited study due to inability to position patient. Conclusion Normal left ventricular wall thickness and chamber size. Estimated ejection fraction is 50 to 55%. There are segmental wall motion abnormalities involving the anteroapical, inferoapical and apical se gments Normal right ventricular size and systolic function Both atria are normal in size The aortic valve is trileaflet with mild regurgitation Moderate mitral annular calcification. Moderate mitral regurgitation Normal tricuspid valve with mild regurgitation. Estimated right ventricular systolic pressure is 51 mmHg, moderate pulmonary hypertension Normal pulmonic valve with trace regurgitation Wall motion Left Ventricle The left ventricle is normal size. Left ventricular systolic function is mildly decreased. There is n ormal left ventricular wall thickness. Anteroapical, inferoapical, apical wall motion abnormality The re is no ventricular septal defect visualized. LVEF is 50-55%. Right Ventricle The right ventricle is normal size. The right ventricular systolic function is normal. The RVSP is 51 .4 mmHg. Atria The left atrium size is normal. The right atrium size is normal. The interatrial septum is intact wit h no evidence for an atrial septal defect. Aortic Valve The aortic valve is normal in structure. Aortic valve is trileaflet. There is no aortic valvular sten osis. mild aortic regurgitation. Mitral Valve Moderate mitral annular calcification. No evidence of mitral valve stenosis. Moderate mitral regurgit ation. Tricuspid Valve The tricuspid valve is normal in structure. There is no tricuspid valve stenosis. Mild tricuspid regu rgitation. Pulmonic Valve The pulmonary valve is normal in structure. There is no pulmonic valvular stenosis. Trace pulmonic re gurgitation. Great Vessels The aortic root is normal in size. The ascending aorta is normal in size. Aortic arch is not well vis ualized. IVC is normal in size and collapses >50% with inspiration. Pericardium There is no pericardial effusion. 2D Dimensions IVSD d PLAX 1.03 cm F: 0.6-1.0 LV Vol A2C d MOD 86.8 mL LVPW d PLAX 1.03 cm F: 0.6 - 1.0 LV Vol A4C d MOD 88.4 mL LVID d PLAX 4.10 cm F: 3.8 - 5.2 LA vol/ BSA A2C s A-L 26.7 mL/m2 LVDs 3.10 cm F: 2.2 - 3.5 LA vol/ BSA A4C s A-L 37.1 mL/m2 Ao Root d 2.45 cm F: 2.7 - 3.3 LA Vol/ BSA Biplane s A-L 34.1 mL/m2 RA Area A4C 11.92 cm2 LA Area A4C s MOD 21.12 cm2 RA Vol/ BSA A4C s A-L 17.3 mL/m2 LA Area A2C s MOD 16.54 cm2 Ao Asc Diam d 2.64 cm F: 2.3 - 3.1 LV EF A4C MOD 45.7 % LV EF Teichholz 48.8 % LV EF A2C MOD 45.2 % LVEF ([facility]) 45.12 % F: 54 - 74 LV EF Biplane MOD 45.1 % LV Volume 71.65 mL F: 46 - 106 SV 40.69 mL LV Volume Index 42.39 mL/m2 F: 29 - 61 SV Index 23.97 mL/m2 LV Vol Biplane MOD 90.2 mL FS 24.30 % M-Mode TAPSE 1.64 cm (M/F) >1.7 LV Diastology MV E' medial 0.070 (>0.07 m/s) E/A Ratio 2.6 LV E/e MED 16.90 (<14) MV E Vmax 1.18 (0.4-1.3 m/s) MV E' lateral 0.077 (>0.1 m/s) MV A Vmax 0.45 (0.4-1.3 m/s) LV E/e LAT 15.30 (<14) MV E/A Ratio 2.41 MV E/E' medial 16.93 MV E/E' lateral 15.32 Aortic Valve LVOT Area 2.69 cm2 AoV Area Vmax 1.37 cm2 LVOT Vmax 0.76 m/s AoV Area/ BSA (Vmax) 0.81 cm2/m2 LVOT Mean Jairo. 0.46 m/s PRISCILLA Mean Jairo. 1.30 cm2 LVOT Peak Grad 2.3 mmHg PRISCILLA Mean Jairo. Index 0.77 cm2/m2 LVOT Mean Grad 1.0 mmHg AR DT 2082 msec LVOT VTI 0.176 m AR PHT 604 msec LVOT Diam s 1.85 cm AoV Vmax 1.49 m/s Velocity Ratio 0.51 AoV Mean Jairo. 0.94 m/s AoV Peak Grad 8.9 mmHg LVOT SV 47.22 mL AoV Mean Grad 4.2 mmHg AoV VTI 0.313 m AoV Area VTI 1.51 cm2 AoV Area/ BSA (VTI) 0.89 cm/m2 Mitral Valve MV DT 170 (160-240 msec) MR Vmax 5.11 m/s MV PHT 49 msec MR VTI 1.888 m MV Area PHT 4.47 cm2 MR Peak Grad 104.4 mmHg MV VTI 0.326 m MR Mean Grad 76.7 mmHg MV VTI Annulus 0.321 m MR PISA Radius 0.58 cm MV Area VTI 1.43 (4.0-6.0 cm2) MR EROA 0.15 cm2 MR Aliasing Velocity 0.35 m/s MR PISA 2.13 cm2 Pulmonary Valve PV Vmax 0.71 (0.5-1.5 m/s) RVOT Peak Gr. 1.74 mmHg PV Peak Grad 2.0 mmHg RVOT Mean Gr. 0.75 mmHg PV Mean Grad 1.0 mmHg RVOT VTI 0.136 m PV VTI 0.137 m RVOT Vmax 0.66 m/s Tricuspid Valve TR Peak Grad 48.4 mmHg TR Vmax 3.48 m/s RA Pressure 3.00 mmHg RVSP (TR) 51.4 mmHg
--- NOTE | 2020-12-03 11:00 | DI.MRI_ITS ---
EXAM: MR ANGIO NECK WO CLINICAL HISTORY: left leg numbness. TECHNIQUE: Multiplanar multisequence MRA of the Neck was performed. COMPARISON: No exams were available for comparison FINDINGS: The examination is limited due to patient motion artifact. Common Carotid: Right: No dissection, occlusion or significant stenosis. Left: No dissection, occlusion or significant stenosis. External Carotid: Right: No evidence of occlusion or significant stenosis. Left: No evidence of occlusion or significant stenosis. Internal Carotid: Right: No dissection, occlusion or significant stenosis. Left: No dissection, occlusion or significant stenosis. Vertebral Artery: Right: No dissection, occlusion or significant stenosis. Left: No dissection, occlusion or significant stenosis. The visualized paraspinal soft tissues are unremarkable. IMPRESSION: No evidence of dissection, occlusion or significant stenosis. Results of this exam have been verbally communicated with provider. DATA REPOSITORY:
--- NOTE | 2020-12-03 11:00 | DI.MRI_ITS ---
CLINICAL HISTORY: left leg numbness. TECHNIQUE: Multiplanar multisequence MRA of the brain was performed. COMPARISON: None. FINDINGS: The examination is limited due to patient motion artifact. Carotid Arteries: No aneurysm, occlusion or significant stenosis. Anterior Cerebral Arteries: Right: No aneurysm, occlusion or significant stenosis. Left: No aneurysm, occlusion or significant stenosis. Middle Cerebral Arteries: Right: No aneurysm, occlusion or significant stenosis. Left: No aneurysm, occlusion or significant stenosis. Posterior Cerebral Arteries: Right: No aneurysm, occlusion or significant stenosis. Left: No aneurysm, occlusion or significant stenosis. Vertebral Arteries: Right: No aneurysm, occlusion or significant stenosis. Left: No aneurysm, occlusion or significant stenosis. Basilar Artery: No aneurysm, occlusion or significant stenosis. IMPRESSION: No vascular occlusion or significant stenosis. Results of this exam have been verbally communicated with provider. DATA REPOSITORY:
[2020-12-03] MEDS: Pantoprazole 40 MG VIAL IVP (11:51)
--- NOTE | 2020-12-03 12:00 | NUR.NOTE ---
Nursing Note: 5915 Pt notes that left anterior lower leg feels cold---anterior lower tibial area cool to touch--new sx--Dr Beck notifed.
[2020-12-03] MEDS: Losartan 25 MG TAB PO (12:35)
[2020-12-03] MEDS: Digoxin 0.125 MG TAB PO (12:35)
[2020-12-03] MEDS: LORazepam 2 MG/ML VIAL 0.5 MG IVP (12:45)
--- NOTE | 2020-12-03 12:58 | NUR.NOTE ---
Nursing Note: Heparin paused while pt in MRI--unable to use pump.
--- NOTE | 2020-12-03 13:45 | DI.MRI_ITS ---
EXAM: MR BRAIN WO CLINICAL HISTORY: left leg numbness TECHNIQUE: Multiplanar multisequence MRI of the brain was performed. COMPARISON: CT CT HEAD WO from 12/03/2020 FINDINGS: The examination is limited due to patient motion artifact. VENTRICLES AND EXTRA AXIAL SPACES: Normal in size and morphology for the patient's age. MIDLINE SHIFT: None. CEREBRAL PARENCHYMA: No focus of restricted diffusion to suggest acute infarct. No space-occupying le ky identified. There are scattered areas of hyperintense signal in the white matter on the T2 and F LAIR images consistent with microvascular ischemic change. There is a small lacunar infarct in the r ight basal ganglia. HEMORRHAGE: None. BRAINSTEM/CEREBELLUM: Normal. CALVARIUM: Normal. VISUALIZED PARANASAL SINUSES/MASTOIDS:Clear. [place]: Normal flow void. PITUITARY GLAND: Unremarkable. OTHER FINDINGS: None. IMPRESSION: No evidence of an acute infarct. Results of this exam have been verbally communicated with provider. DATA REPOSITORY:
--- NOTE | 2020-12-03 16:40 | NUR.NOTE ---
Nursing Note: 1615--anterior tibial area returned to normal warm temp--pulses intact--pt states t feels better than before--Not quite normal but almost. Dr Bay notified.
[2020-12-03 17:16] LABS: PTT Activated 69.9 sec (21.0-27.5)
== END 2020-12-03 18:55 | disposition short-term general hospital (02) ==
PROVIDERS: Emergency Medicine; Emergency Provider Physician Assistant; PCP Family Medicine
DX: M79.662 Pain in left lower leg (principal); R77.8 Other specified abnormalities of plasma proteins; R20.0 Anesthesia of skin; Z20.822 Contact with and (suspected) exposure to COVID-19
CPT/HCPCS: 70544; 70547; 71275; 74175; 80053; 87635; 93005; 93306; 96361; 96365; 96366; 96375; 99285; 70450; 70551; 71045; 80162; 81003; 81015; 82248; 83605; 83735; 83880; 84439; 84443; 84484; 85025; 85610; 85730; 93010; 93971; J1941; J2060; J3490

== ENCOUNTER 2020-12-09 18:23 | Outpatient (CLI) | payer MEDICARE, SELFPAY ==
--- NOTE | 2020-12-09 11:34 | DI.RAD_ITS ---
EXAM: XR HIP LT COMPLETE AP PELVIS CLINICAL HISTORY: HIP PAIN LT, M25.552. TECHNIQUE: 2D digital imaging was performed. COMPARISON: No exams were available for comparison FINDINGS: There is no evidence of pelvic nor hip fracture. Additional lateral view of the left hip reveals mild degenerative changes. No osseous lesions. Bone density is age-appropriate. IMPRESSION: DATA REPOSITORY: RADIATION DOSE DELIVERED:
--- NOTE | 2020-12-09 11:34 | DI.RAD_ITS ---
EXAM: XR LUMBAR SPINE COMPLETE CLINICAL HISTORY: BACK PAIN LUMBAR WITH RADICULOPATHY, M54.16. TECHNIQUE: 2D digital imaging was performed. COMPARISON: CT CT THORAX ABDOMEN CTA from 12/03/2020 FINDINGS: There is an element of partial sacralization of the L5 segment. There is advanced disc space narrowi ng at L5-S1. There is degenerative anterolisthesis of L4 upon L5 approximately 1 cm slippage and thi s related to advanced degenerative changes in the facet joints at this level. Mild narrowing of the disc spaces above this level noted. Anterior osseous lipping at L2-3 level noted. Hypertrophic dege nerative changes in spinous processes are noted. Scoliosis convex left which is a rotoscoliosis. Th e visualized sacroiliac joints appear unremarkable. IMPRESSION: Degenerative disc disease. Degenerative anterolisthesis L4 upon L5. Rotoscoliosis. DATA REPOSITORY: RADIATION DOSE DELIVERED:
== END 2020-12-09 18:43 ==
PROVIDERS: PCP Family Medicine; Visit Provider Family Medicine
DX: M54.16 Radiculopathy, lumbar region (principal); M51.17 Intervertebral disc disorders with radiculopathy, lumbosacral region; M25.552 Pain in left hip; M16.12 Unilateral primary osteoarthritis, left hip
CPT/HCPCS: 72110; 73502

== ENCOUNTER 2020-12-26 03:42 | Outpatient (CLI) | payer MEDICARE, SELFPAY ==
--- NOTE | 2020-12-26 10:00 | RT.EKG_ITS ---
APPROVED REPORT Exam: Resting ECG Reason for Exam: PreOp Testing Patient Location: O HR:65 bpm ECG Measurements Heart Rate 65 AXIS CA 232 P 8 QRSd 148 QRS 27 QT 392 T 251 QTc 406 Conclusion Sinus rhythm...normal P axis, V-rate 60- 99 Ventricular premature complex...V complex w/ short R-R interval Prolonged CA interval...CA >220, V-rate 50- 90 Right bundle branch block...QRSd>120, terminal axis(90,270)
== END 2020-12-26 03:43 | disposition home or self-care (01) ==
LOC: RT 03:42
PROVIDERS: PCP Family Medicine; Visit Provider Surgery
DX: R94.31 Abnormal electrocardiogram [ECG] [EKG] (principal); I73.9 Peripheral vascular disease, unspecified; Z01.818 Encounter for other preprocedural examination; D62 Acute posthemorrhagic anemia
CPT/HCPCS: 36415; 80048; 84134; 85025; 93005; 93010

== ENCOUNTER 2020-12-26 10:12 | Outpatient (CLI) | payer MEDICARE, SELFPAY ==
[2020-12-26 10:39] LABS: Abs Immature Grans 0.03 10^3/uL (0.0-0.06); Absolute Basophil Count 0.03 10^3/uL (0.0-0.2); Absolute Eosinophil Count 0.17 10^3/uL (0.0-0.7); Absolute Monocyte Count 0.95 10^3/uL (0.1-0.8); Absolute Neutrophil Count 5.76 10^3/uL (1.2-6.7); Basophils % 0.3; HCT 39.7 % (36.0-46.0); HGB 12.4 g/dL (11.2-15.7); Immature Grans % 0.3; Lymphocytes % 19.7; MCHC 31.2 % (32.0-36.0); MCV 86.3 fL (80-95); MPV 9.8 fL (8.0-11.0); Neutrophils % 66.7; Nucleated RBC 0 %; Platelet Count 293 10^3/uL (130-400); RDW 14.9 % (11.7-14.6); RDW-SD 47.1 fL; WBC 8.64 10^3/uL (4.4-10.8)
[2020-12-26 11:50] LABS: BUN 23 mg/dL (7-18); CREATININE 1.2 mg/dL (0.55-1.02); Calcium 9.3 mg/dL (8.5-10.1); Chloride 97 mmol/L (98-107); Glucose 107 mg/dL (74-106); Potassium 3.9 mmol/L (3.5-5.1); Sodium 135 mmol/L (136-145)
[2020-12-27 09:42] LABS: Prealbumin 27 mg/dL (20-40)
== END 2020-12-26 10:13 | disposition home or self-care (01) ==
LOC: LBO 10:17
PROVIDERS: Internal Medicine; PCP Family Medicine; Visit Provider Surgery
DX: D62 Acute posthemorrhagic anemia (principal); I73.9 Peripheral vascular disease, unspecified; Z01.818 Encounter for other preprocedural examination
CPT/HCPCS: 36415; 80048; 84134; 85025

== ENCOUNTER 2021-06-18 09:32 | Outpatient (REF) | payer MEDICARE, SELFPAY ==
[2021-06-18 15:07] LABS: HGB 13.2 g/dL (11.2-15.7)
[2021-06-18 15:27] LABS: ALT 35 U/L (14-59); AST 26 U/L (15-37); Alkaline Phosphatase 95 U/L (46-116); Anion Gap 9.7 mmol/L (3-11); BUN 30 mg/dL (7-18); Bilirubin, Total 0.5 mg/dL (0.2-1.0); CO2 28.3 mmol/L (21.0-32.0); CREATININE 1.2 mg/dL (0.55-1.02); Calcium 9.4 mg/dL (8.5-10.1); Chloride 107 mmol/L (98-107); FREE T4 0.75 ng/dL (0.76-1.46); Glucose 101 mg/dL (74-106); Potassium 4.2 mmol/L (3.5-5.1); Sodium 145 mmol/L (136-145); TSH 7.07 uIU/mL (0.36-3.74); Total Protein 7.7 g/dL (6.4-8.2)
[2021-06-18 16:50] LABS: Digoxin 0.77 ng/mL (0.90-2.00)
== END 2021-06-18 09:33 | disposition home or self-care (01) ==
LOC: NCHCN 09:32
PROVIDERS: PCP Family Medicine; Visit Provider Family Medicine
DX: E03.9 Hypothyroidism, unspecified (principal); I10 Essential (primary) hypertension; D64.9 Anemia, unspecified; I48.91 Unspecified atrial fibrillation
CPT/HCPCS: 80053; 80162; 84439; 84443; 85014; 85018

== ENCOUNTER 2021-08-05 13:34 | Outpatient (REF) | payer MEDICARE, SELFPAY ==
[2021-08-05 20:22] LABS: CREATININE 1.1 mg/dL (0.55-1.02); Calculated LDL 64 mg/dL (<100); Cholesterol 129 mg/dL (<200); Estimated GFR 47.21 (mL/min/1.73m2); HDL Cholesterol 43 mg/dL (40-60); TSH 3.04 uIU/mL (0.36-3.74); Triglyceride 110 mg/dL (<150)
[2021-08-05 20:57] LABS: FREE T4 0.88 ng/dL (0.76-1.46)
[2021-08-07 00:44] LABS: Vitamin D 25 Total 43.2 ng/mL (30-100)
== END 2021-08-05 13:35 | disposition home or self-care (01) ==
LOC: NCHCN 13:34
PROVIDERS: PCP Family Medicine; Visit Provider Family Medicine
DX: E03.9 Hypothyroidism, unspecified (principal); I73.9 Peripheral vascular disease, unspecified; Z00.00 Encounter for general adult medical examination without abnormal findings
CPT/HCPCS: 80061; 82306; 82565; 84439; 84443

== ENCOUNTER 2021-12-04 09:29 | Outpatient (REF) | payer MEDICARE, SELFPAY ==
[2021-12-04 13:34] LABS: HCT 43.1 % (36.0-46.0)
[2021-12-04 14:19] LABS: Anion Gap 9.3 mmol/L (3-11); BUN 25 mg/dL (7-18); CO2 28.7 mmol/L (21.0-32.0); Calcium 9.2 mg/dL (8.5-10.1); Chloride 105 mmol/L (98-107); Digoxin 0.85 ng/mL (0.90-2.00); Estimated GFR 52.69 (mL/min/1.73m2); Glucose 124 mg/dL (74-106); Potassium 4.2 mmol/L (3.5-5.1); Sodium 143 mmol/L (136-145); TSH (W/Ref FT4) 4.18 uIU/mL (0.36-3.74)
[2021-12-04 14:59] LABS: FREE T4 0.91 ng/dL (0.76-1.46)
== END 2021-12-04 09:30 | disposition home or self-care (01) ==
LOC: NCHCN 09:29
PROVIDERS: PCP Family Medicine; Visit Provider Family Medicine
DX: E03.9 Hypothyroidism, unspecified (principal); I73.9 Peripheral vascular disease, unspecified; I10 Essential (primary) hypertension; I25.10 Atherosclerotic heart disease of native coronary artery without angina pectoris
CPT/HCPCS: 80048; 80162; 84439; 84443; 85014; 85018

== ENCOUNTER 2022-10-27 11:10 | Outpatient (REF) | payer MEDICARE, SELFPAY ==
[2022-10-27 16:48] LABS: ALT 40 U/L (14-59); AST 33 U/L (15-37); Alkaline Phosphatase 67 U/L (46-116); Anion Gap 9.4 mmol/L (3-11); BUN 31 mg/dL (7-18); Bilirubin, Total 0.7 mg/dL (0.2-1.0); CO2 27.6 mmol/L (21.0-32.0); CREATININE 1.1 mg/dL (0.55-1.02); Calcium 9.6 mg/dL (8.5-10.1); Chloride 105 mmol/L (98-107); Estimated GFR 48.94 (mL/min/1.73m2); FREE T4 1.02 ng/dL (0.76-1.46); Glucose 101 mg/dL (74-106); Potassium 4.3 mmol/L (3.5-5.1); Sodium 142 mmol/L (136-145); TSH 2.21 uIU/mL (0.36-3.74); Total Protein 8.1 g/dL (6.4-8.2)
== END 2022-10-27 11:11 | disposition home or self-care (01) ==
LOC: NCHCN 11:10
PROVIDERS: PCP Family Medicine; Visit Provider Family Medicine
DX: E03.9 Hypothyroidism, unspecified (principal); I10 Essential (primary) hypertension
CPT/HCPCS: 80053; 84439; 84443

== ENCOUNTER 2023-06-01 19:24 | Outpatient (REF) | payer MEDICARE, SELFPAY ==
[2023-06-01 16:04] LABS: HCT 45.3 % (36.0-46.0); HGB 15.2 g/dL (11.2-15.7); MCH 31.1 pg (27.0-33.0); MCHC 33.6 % (32.0-36.0); MCV 93 fL (80-95); MPV 11.2 fL (8.0-11.0); Platelet Count 216 10^3/uL (130-400); RBC 4.88 10^6/uL (3.93-5.22); RDW 12.6 % (11.7-14.6); RDW-SD 43.1 fL; WBC 9.66 10^3/uL (4.4-10.8)
[2023-06-01 16:25] LABS: ALT 44 U/L (14-59); AST 33 U/L (15-37); Alkaline Phosphatase 64 U/L (46-116); Anion Gap 13.2 mmol/L (3-11); BUN 29 mg/dL (7-18); Bilirubin, Total 0.6 mg/dL (0.2-1.0); CO2 22.8 mmol/L (21.0-32.0); CREATININE 1.1 mg/dL (0.55-1.02); Calcium 9.8 mg/dL (8.5-10.1); Chloride 104 mmol/L (98-107); Estimated GFR 48.63 (mL/min/1.73m2); Glucose 108 mg/dL (74-106); Potassium 4.1 mmol/L (3.5-5.1); Sodium 140 mmol/L (136-145); TSH 2.88 uIU/mL (0.36-3.74); Total Protein 7.7 g/dL (6.4-8.2)
[2023-06-01 16:37] LABS: Digoxin 0.89 ng/mL (0.90-2.00)
== END 2023-06-01 19:25 | disposition home or self-care (01) ==
LOC: NCHCN 19:24
PROVIDERS: PCP Family Medicine; Visit Provider Nurse Practitioner Family
DX: I48.91 Unspecified atrial fibrillation (principal); E03.9 Hypothyroidism, unspecified; D64.9 Anemia, unspecified
CPT/HCPCS: 80053; 85027; 80162; 84443

== ENCOUNTER → 2023-08-05 00:37 | Outpatient (CLI) | payer MEDICARE, SELFPAY | PROVIDERS: PCP Family Medicine; Visit Provider Nurse Practitioner Family | DX: I25.2 Old myocardial infarction (principal) | CPT/HCPCS: 93306 ==

== ENCOUNTER → 2023-08-27 00:46 | Outpatient (CLI) | payer MEDICARE, SELFPAY ==
--- NOTE | 2023-08-27 | DI.DEXA_ITS ---
Exam(s) XR DEXA BONE DENSITY W/WO FARTUN EXAM: XR DEXA BONE DENSITY W/WO FARTUN CLINICAL HISTORY: MENOPAUSAL Z78.0 TECHNIQUE: COMPARISON: Comparison examination is 10/26/2002. FINDINGS: Lateral Spine Image: Unremarkable. No compression deformities identified. Left hip: Total T-Score: -1.7. This compares to -0.9 on the prior examination. Total Z-Score: 0.6 T- and Z-scores: Findings are consistent with osteopenia. Lumbar Spine: Total T-Score: 3.9. This compares to 0.1 on the prior examination. Total Z-Score: 6.8 T- and Z-scores: Within normal limits. Left forearm: Total T-score:-2.9. This compares to -1.8 on the prior examination. Findings are consistent with osteoporosis. 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
== END ==
PROVIDERS: PCP Family Medicine; Visit Provider Family Medicine
DX: Z78.0 Asymptomatic menopausal state (principal); Z13.820 Encounter for screening for osteoporosis; M81.0 Age-related osteoporosis without current pathological fracture
CPT/HCPCS: 77080

== ENCOUNTER 2023-12-10 13:13 | Outpatient (REF) | payer MEDICARE, SELFPAY ==
[2023-12-10 16:02] LABS: HGB 13.3 g/dL (11.2-15.7); MCH 31.4 pg (27.0-33.0); MCHC 32.4 % (32.0-36.0); MCV 97 fL (80-95); MPV 11.2 fL (8.0-11.0); Platelet Count 184 10^3/uL (130-400); RBC 4.24 10^6/uL (3.93-5.22); RDW 13.2 % (11.7-14.6); RDW-SD 46.6 fL; WBC 8.99 10^3/uL (4.4-10.8)
[2023-12-10 16:27] LABS: Anion Gap 11.5 mmol/L (3-11); BUN 35 mg/dL (7-18); CO2 27.5 mmol/L (21.0-32.0); CREATININE 1.2 mg/dL (0.55-1.02); Calcium 9.9 mg/dL (8.5-10.1); Chloride 105 mmol/L (98-107); Digoxin 0.81 ng/mL (0.90-2.00); Estimated GFR 43.81 (mL/min/1.73m2); Glucose 103 mg/dL (74-106); Potassium 4.4 mmol/L (3.5-5.1); Sodium 144 mmol/L (136-145)
== END 2023-12-10 13:14 | disposition home or self-care (01) ==
LOC: NCHCN 13:13
PROVIDERS: PCP Family Medicine; Visit Provider Family Medicine
DX: I10 Essential (primary) hypertension (principal); I48.91 Unspecified atrial fibrillation; Z79.899 Other long term (current) drug therapy
CPT/HCPCS: 80048; 85027; 80162

== ENCOUNTER 2024-01-12 14:41 | Emergency (ER) | payer MEDICARE, SELFPAY ==
[2024-01-12] VITALS (37 sets, daily range): BP systolic 90–160; BP diastolic 39–87; PULSE 96–128; RESP 16–26; TEMP 36.5–36.9; O2SAT 97–100
--- NOTE | 2024-01-12 14:30 | RT.EKG_ITS ---
APPROVED REPORT Exam: Resting ECG Reason for Exam: shortness of breath Patient Location: E HR:102 bpm ECG Measurements Heart Rate 102 AXIS SD [id number] P [id number] QRSd 144 QRS 67 QT 380 T -70 QTc 495 Conclusion Atrial fibrillation...? atrial activity Right bundle branch block...QRSd>120, terminal axis(90,270) ST depression, consider ischemia, diffuse lds...ST <-0.10mV, ant/lat/inf Atrial fibrillation at a rate of 102 with approximately [address] segment elevation in aVR with diffuse ST segment depressions leads I to aVL V2, V3, V4 through V6. Compared to prior dated [address] segment elevation in aVR and depressions are markedly more pronounced. Concerning for occlusion ID.
--- NOTE | 2024-01-12 14:45 | W.ED.GENAD ---
Discharge Plan Disposition Patient Disposition: Transfer-Acute Inpatient Care Specific Acute Inpt Facility: [facility] Discharge Details Clinical Impression: Myocardial injury, Acute non-ST elevation myocardial infarction (NSTEMI), Chest pressure, Acute anemia Primary Care Provider: Chantell Castillo V ED Provider: Cal Joya Home Meds and New Rx's Prescriptions: No Action losartan 25 mg Tablet 25 mg PO DAILY digoxin 125 mcg (0.125 mg) tablet 125 mcg PO DAILY Qty: 30 1RF aspirin 81 mg tablet,chewable 81 mg PO DAILY Patient Comments: CHEW ONE TABLET BY MOUTH EVERY DAY levothyroxine 25 mcg tablet Patient Comments: TAKE 1 AND 1/2 TABLETS BY MOUTH EVERY DAY LEAST 30 MINUTES PRIOR TO BREAKFAST nitroglycerin 0.4 mg tablet, sublingual Patient Comments: PLACE ONE TABLET UNDER THE TONGUE EVERY 5 MINUTES FOR UP TO 3 DOSES NEEDED FOR CHEST PAIN. IF CHEST PAIN STILL PERSISTS CONTACT 911 hydrochlorothiazide 12.5 mg tablet Patient Comments: TAKE ONE TABLET BY MOUTH EVERY DAY metoprolol tartrate 25 mg tablet Patient Comments: TAKE ONE-HALF TABLET BY MOUTH EVERY DAY NEEDED FOR ELEVATED PULSE losartan 50 mg tablet Patient Comments: Take 1/2 tablet by mouth once a day famotidine 20 mg tablet Patient Comments: TAKE 1 TABLET BY MOUTH TWICE A WEEK levothyroxine 25 mcg capsule 25 mcg PO DAILY metoprolol succinate [Toprol XL] 50 mg tablet extended release 24 hr 200 mg PO BID HPI General Date/Time Provider Initiated Documentation: 01/12/24 14:43. HPI Narrative: MDM Patient seen immediately on arrival. Patient has greater than [address] segment elevation in aVR with diffuse ST segment depression concerning for proximal LAD occlusion and STEMI equivalent for which [facility] was consulted at 3:10 PM. Patient has resolved chest pain now and given approximately 1 week of symptoms with shortness of breath will consult with cardiology at [facility] prior to administering lytics. No lower extremity edema to suggest acute heart failure. PE is certainly possible and patient is relatively low risk so we will obtain a D-dimer. No tearing quality to suggest aortic dissection. Equal breath sounds and no trauma so doubt pneumothorax. Not hypotensive nor dialysis patient so my suspicion is low for tamponade. No pain out of proportion to suggest necrotizing soft tissue infection. No fevers nor cough so doubt pneumonia. No history of recent emesis so doubt esophageal rupture. Will obtain portable chest x-ray and complete bedside echocardiogram. Will repeat ECG to ensure no dynamic changes. 3:22 PM I spoke to Dr. Wills from cards at [facility] who advised against lytics. She was concerned for left main disease. She requested an update once the patient's troponin returned. CBC returned with no leukocytosis. No thrombocytosis. Venous blood gas with no acidemia nor hypercarbia. Normocytic anemia with a hemoglobin of 8.3. No melena nor gross blood on rectal exam so I did not reverse her apixaban with 4 factor PCC. Given this new acute blood loss anemia I considered whether or not to pursue a restrictive or liberal transfusion strategy given myocardial infarction with anemia. Given recent [place] Journal article which may have been slightly underpower I elected to pursue a more liberal strategy and transfused the patient 2 units given the trend towards benefit observed in the liberal group from this study: Restrictive or liberal transfusion strategy in myocardial infarction and anemia Pablo JL, Yves MM, H?edil PC, et al. N Engl J Med. 2022;389(15):8120-8307. 3:30 PM I received call back from Dr. Wills from cardiology at [facility]. She accepted the patient to the stepdown on behalf of Dr. Eckert. Transfer center requested that we wait for a call from bed placement prior to transferring the patient. If the patient makes troponin Dr. Wills advised heparin bolus and drip. She requested holding off on clopidogrel as there is a possibility that the patient may require surgical evaluation. No response to nitroglycerin. No ongoing chest pain. 3:35 PM Critical troponin at 252 ng/L. Will start heparin drip. CKD but no LUIS. No acute LFT abnormalities. Mild hyperglycemia and mild gap but bicarbonate greater than 18??not consistent with DKA. Very mild hypokalemia. Mild hypomagnesemia for which patient will receive oral repletion. I updated the transfer center at [facility]. 3:52 PM Mildly elevated BUN. Negative D-dimer. 4:17 PM Subtherapeutic digoxin level. Given no A-fib with RVR will hold digoxin load at this point in time. 7:04 PM Troponin went up nearly 10 fold to 1109 ng/L for which I called the transfer center at [facility]. Patient remains stable in no acute distress. 7:57 PM Patient had an approximately 10-second run of nonsustained V. tach for which she was placed on the pads. She remained asymptomatic during this time. I updated the cardiology team at [facility]. 11:40 PM Late charting due to patient care. Patient was transferred uneventfully to [facility] with visual merchandising coordinator Randy. Chronic conditions affecting the care of the patient: Coronary artery disease atrial fibrillation History obtained from an outside historian: Patient's daughter External record review: [facility] EMR Diagnostic interpretations performed by me: Per my independent interpretation chest x-ray shows:No acute cardiopulmonary process. Per my independent interpretation EKG shows: Atrial fibrillation at a rate of 102 with approximately [address] segment elevation in aVR with diffuse ST segment depressions leads I to aVL V2, V3, V4 through V6. Compared to prior dated [address] segment elevation in aVR and depressions are markedly more pronounced. Concerning for occlusion PR. ECG #2 Atrial fibrillation at a rate of 106. Normal axis. Right bundle branch block. ST segment elevation in aVR with diffuse ST segment depressions similar to prior. Prolonged QTc. ]Medications: Aspirin nitroglycerin heparin drip blood Social determinants of health affecting disposition: N/A Management discussed with: Cardiology [facility] Treatment/interventions considered: Reversal of apixaban but deferred based on myocardial injury Response to therapies provided: N/A HPI This is an 88-year-old female with history of coronary artery disease, hypertension, hyperlipidemia and atrial fibrillation on apixaban arrived to the emergency department via private vehicle in the setting of shortness of breath the past approximately 1 week. She arrives with her daughter. She mostly has shortness of breath with exertion. She reports history of myocardial infarction in 2020. On the way down to the emergency department she developed chest pressure that is now resolved. She denies any radiation to her chest pressure. No exacerbators. No alleviators. She describes her chest pressure as a light pain. She denies tobacco. She has no history of diabetes. She denies leg swelling. She has not taken any nitro in the past week. She denies nausea vomiting diarrhea. No lower extremity swelling. No dysuria nor frequency. Patient notes that she has intermittently had dark stools. She denies any blood in her stools. Denies any recent bleeding. Denies any coffee-ground emesis. Patient is not an alcoholic. Exam General: Elderly-appearing in no acute distress speaking in complete sentences. Head: Normocephalic, atraumatic. Eye: Extraocular eye movements intact. No conjunctival injection. No scleral icterus. Ear, nose, mouth, throat: Grossly normal inspection. Normal voice, handling secretions normally. Neck: Trachea midline. Cardiovascular: Well-perfused distal extremities. Irregularly irregular rate Respiratory: Nonlabored respiration. Clear lungs bilaterally. Gastrointestinal: Nondistended abdomen. Soft nontender. Rectal exam: With patient's daughter at bedside completed a rectal exam. Patient had a nonbleeding external hemorrhoid at the 6 o'clock position. No gross blood. No melena. No stigmata of recent bleed. Musculoskeletal: No no significant lower extremity pitting edema. Moving all 4 extremities spontaneously. Skin: Normal for age and race, grossly normal temperature and turgor. No acute rash. Neurologic: Alert and appropriate, no apparent acute deficits. Psychiatric: Mood and manner are appropriate. Grooming and personal hygiene are appropriate. Related Data Home Medications Medication Instructions Recorded Confirmed losartan 25 mg tablet 25 mg PO DAILY 10/05/20 01/12/24 digoxin 125 mcg (0.125 mg) tablet 125 mcg PO DAILY #30 tabs 10/09/20 01/12/24 aspirin 81 mg chewable tablet 81 mg PO DAILY 12/03/20 01/12/24 famotidine 20 mg tablet mg 01/12/24 hydrochlorothiazide 12.5 mg tablet mg 01/12/24 levothyroxine 25 mcg capsule 25 mcg PO DAILY 01/12/24 01/12/24 levothyroxine 25 mcg tablet mcg 01/12/24 losartan 50 mg tablet mg 01/12/24 metoprolol succinate 50 mg 200 mg PO BID 01/12/24 01/12/24 tablet,extended release 24 hr (Toprol XL) metoprolol tartrate 25 mg tablet mg 01/12/24 nitroglycerin 0.4 mg sublingual mg 01/12/24 tablet Previous Rx's Medication Instructions Recorded digoxin 125 mcg (0.125 mg) tablet 125 mcg PO DAILY #30 tabs 10/09/20 Allergies Allergy/AdvReac Type Severity Reaction Status Date / Time No Known Allergies Allergy Verified 01/12/24 14:48 General PAL: 3 Medical Decision Making Quality:SDOH Health Related Social Needs: No Data to Display Critical Care Time Critical Care Time Critical Care Time: Yes Total Critical Care Time: 45 Attestation: Tacky dysrhythmia and consultation with cardiology at [facility]. [facility] All Active Problems (Updated 01/12/24 @ 23:41 by Cal Joya MD) Acute anemia (Acute) Chest pressure (Acute) Acute non-ST elevation myocardial infarction (NSTEMI) (Acute) Myocardial injury (Acute) Elevated troponin (Acute) Pain of left calf (Acute) Left leg numbness (Acute) Anemia due to blood loss, acute (Acute) Discharge planning issues (Acute) Acute low back pain (Acute) Melena (Acute) Duodenal ulcer (Acute) Atrial fibrillation (Chronic) Abdominal pain (Acute) Leukocytosis (Acute) Reaction, situational (Acute) Diverticulosis (Acute) Hypothyroidism (Chronic) Hyperlipidemia (Acute) Medical History Diverticulitis large intestine Diverticulosis Elevated blood pressure reading without diagnosis of hypertension Grief reaction Hyperlipidemia Hypothyroidism Pharyngitis Urinary frequency Ventral hernia Vitamin B12 deficiency Surgical History History of bladder repair surgery History of colonoscopy S/P hysterectomy Social History Smoking/Tobacco Use Status: Never Smoking risk assessment performed?: Yes Alcohol Intake: never Drug use: Never Substance use type: does not use Do you feel safe at home: Yes Do you feel safe in your relationship?: Yes POCUS Exam (ED) Limited Cardiac Exam DATE OF EXAM: 01/12/24 TIME OF EXAM: 15:39 PROVIDER THAT PERFORMED THE STUDY: Cal Joya IS THIS A REPEAT EXAM DURING THIS ENCOUNTER: no REASON FOR EXAM: Chest pain VISUALIZED STRUCTURES: Four Chambers, Left ventricle, LVOT and Other structure: Bilateral lungs VIEW OBTAINED: Apical 4-Chamber, Parasternal long-axis and Subxiphoid PERTINENT FINDINGS/IMPRESSION: No pericardial effusion and No RV dilation DIFFERENTIAL DIAGNOSES: Aortic outflow track less than 4 cm, good squeeze, RV less than LV, no significant pericardial effusion. No B-lines bilaterally. Exam complete
[2024-01-12] MEDS: Aspirin 81 MG CHEW 324 MG CH (15:01)
[2024-01-12 15:06] LABS: BE (Venous) -4 mmol/L (-2-3); HCO3 (Venous) 20 mmol/L (23-28); O2 Sat (Venous) 81 %; TCO2 (Venous) 19 mmol/L (24-29); pCO2 (Venous) 32 mmHg (41-51); pH (Venous) 7.41 (7.31-7.41); pO2 (Venous) 49 mmHg
[2024-01-12 15:08] LABS: Abs Immature Grans 0.03 10^3/uL (0.0-0.06); Absolute Basophil Count 0.02 10^3/uL (0.0-0.2); Absolute Eosinophil Count 0.21 10^3/uL (0.0-0.7); Absolute Lymphocyte Count 3.01 10^3/uL (1.2-3.4); Absolute Monocyte Count 1.01 10^3/uL (0.1-0.8); Absolute Neutrophil Count 6.22 10^3/uL (1.2-6.7); Basophils % 0.2 %; HCT 25.8 % (36.0-46.0); HGB 8.3 g/dL (11.2-15.7); Immature Grans % 0.3 %; Lymphocytes % 28.7 %; MCH 30.3 pg (27.0-33.0); MCHC 32.2 % (32.0-36.0); MCV 94 fL (80-95); MPV 10.4 fL (8.0-11.0); Monocytes % 9.6 %; Neutrophils % 59.2 %; Platelet Count 243 10^3/uL (130-400); RBC 2.74 10^6/uL (3.93-5.22); RDW 12.8 % (11.7-14.6); RDW-SD 43.8 fL
--- NOTE | 2024-01-12 15:15 | RT.EKG_ITS ---
APPROVED REPORT Exam: Resting ECG Reason for Exam: SOB Patient Location: E HR:106 bpm ECG Measurements Heart Rate 106 AXIS MD [id number] P [id number] QRSd 135 QRS 68 QT 389 T -59 QTc 518 Conclusion Atrial fibrillation...? atrial activity Right bundle branch block...QRSd>120, terminal axis(90,270) Repol abnrm suggests ischemia, diffuse leads...ST-T neg, ant/lat/inf Atrial fibrillation at a rate of 106. Normal axis. Right bundle branch block. ST segment elevation in aVR with diffuse ST segment depressions similar to prior. Prolonged QTc.
--- NOTE | 2024-01-12 15:20 | DI.RAD_ITS ---
Exam(s) XR PORTABLE CHEST AP EXAM: XR PORTABLE CHEST AP CLINICAL HISTORY: Shortness of breath. TECHNIQUE: 2D digital imaging was performed. COMPARISON: CR XR PORTABLE CHEST AP from 12/03/2020 FINDINGS: Single AP portable view. Heart size is upper normal, unchanged. The mediastinum is not widened. No new infiltrates nor pleural effusions. No pulmonary edema. No fractures. No pneumothorax. IMPRESSION: No acute pulmonary findings on this single AP portable view of the chest. DATA REPOSITORY: RADIATION DOSE DELIVERED:
[2024-01-12 15:30] LABS: ALT 27 U/L (14-59); AST 13 U/L (15-37); Albumin 3.9 g/dL (3.4-5.0); Alkaline Phosphatase 60 U/L (46-116); Anion Gap 16.2 mmol/L (3-11); BUN 54 mg/dL (7-18); Bilirubin, Total 0.5 mg/dL (0.2-1.0); CO2 19.8 mmol/L (21.0-32.0); CREATININE 1.3 mg/dL (0.55-1.02); Calcium 9.3 mg/dL (8.5-10.1); Chloride 105 mmol/L (98-107); Glucose 214 mg/dL (74-106); Magnesium 1.7 mg/dL (1.8-2.4); Potassium 3.4 mmol/L (3.5-5.1); Sodium 141 mmol/L (136-145); Total Protein 7.6 g/dL (6.4-8.2)
[2024-01-12 15:32] LABS: Troponin I 252 ng/L (< or =60)
[2024-01-12 15:33] LABS: NT-proBNP 1142 pg/mL (<300)
[2024-01-12 15:46] LABS: D-Dimer 270 ng/mlFEU (<500)
[2024-01-12] MEDS: Magnesium Oxide 400 MG TAB PO (16:01)
[2024-01-12] MEDS: Potassium Chloride 20 MEQ TABCR 40 MEQ PO (16:02)
[2024-01-12 16:11] LABS: PTT Activated 25.2 sec (23.6-32.8)
[2024-01-12] MEDS: Heparin in 0.45% NaCl 25,000 UNIT/250 ML BAG 7.5 UNIT IV (16:20)
[2024-01-12 18:51] LABS: Troponin I 1109 ng/L (< or =60)
--- NOTE | 2024-01-12 19:56 | NUR.NOTE ---
Nursing Note: Pt had 20 beat run of VT on tele. Pt assessed, pt had no S&S, was talking with daughter at the time who stated she did not indicate any concerns. Mahnaz FIGUEROA notified and to bedside. Tele strip printed and transferred to EMR.
== END 2024-01-12 21:45 | disposition short-term general hospital (02) ==
PROVIDERS: Emergency Provider Emergency Medicine; PCP Family Medicine
DX: I21.4 Non-ST elevation (NSTEMI) myocardial infarction (principal); I25.2 Old myocardial infarction; I10 Essential (primary) hypertension; D64.9 Anemia, unspecified; E87.6 Hypokalemia; E83.42 Hypomagnesemia; K64.4 Residual hemorrhoidal skin tags; I25.10 Atherosclerotic heart disease of native coronary artery without angina pectoris; E78.5 Hyperlipidemia, unspecified; Z79.82 Long term (current) use of aspirin; Z79.01 Long term (current) use of anticoagulants
CPT/HCPCS: 36415; 80053; 82805; 86850; 86900; 86901; 86920; 93005; 93308; 99285; 71045; 80162; 83735; 83880; 84484; 85025; 85379; 85730; 93010; J1644; P9016

== ENCOUNTER 2024-01-31 10:50 | Outpatient (REF) | payer MEDICARE, SELFPAY ==
[2024-01-31 16:18] LABS: Abs Immature Grans 0.02 10^3/uL (0.0-0.06); Absolute Basophil Count 0.03 10^3/uL (0.0-0.2); Absolute Eosinophil Count 0.22 10^3/uL (0.0-0.7); Absolute Lymphocyte Count 1.65 10^3/uL (1.2-3.4); Absolute Monocyte Count 0.76 10^3/uL (0.1-0.8); Absolute Neutrophil Count 6.01 10^3/uL (1.2-6.7); Basophils % 0.3 %; Eosinophils % 2.5 %; HGB 10.2 g/dL (11.2-15.7); Immature Grans % 0.2 %; MCH 27.2 pg (27.0-33.0); MCHC 30.9 % (32.0-36.0); MCV 88 fL (80-95); MPV 10.7 fL (8.0-11.0); Monocytes % 8.7 %; Neutrophils % 69.3 %; Platelet Count 302 10^3/uL (130-400); RBC 3.75 10^6/uL (3.93-5.22); RDW 14.1 % (11.7-14.6); RDW-SD 45.4 fL; WBC 8.69 10^3/uL (4.4-10.8)
[2024-01-31 16:57] LABS: Iron 18 ug/dL (50-170); Total Iron Binding Capacity 429 ug/dL (250-450); Transferrin Sat 4 % (15-50)
[2024-01-31 17:03] LABS: Anion Gap 10.8 mmol/L (3-11); BUN 30 mg/dL (7-18); CO2 27.2 mmol/L (21.0-32.0); CREATININE 1.3 mg/dL (0.55-1.02); Calcium 9.5 mg/dL (8.5-10.1); Chloride 102 mmol/L (98-107); Estimated GFR 39.55 (mL/min/1.73m2); Ferritin 14 ng/mL (8-252); Glucose 114 mg/dL (74-106); Potassium 4.5 mmol/L (3.5-5.1); Sodium 140 mmol/L (136-145); Vitamin B12 1016 pg/mL (193-986)
== END 2024-01-31 10:51 | disposition home or self-care (01) ==
LOC: NCHCN 10:50
PROVIDERS: PCP Family Medicine; Visit Provider Physician Assistant Medical
DX: D64.9 Anemia, unspecified (principal); I22.2 Subsequent non-ST elevation (NSTEMI) myocardial infarction; K92.89 Other specified diseases of the digestive system
CPT/HCPCS: 80048; 82607; 82728; 83540; 83550; 83735; 85025

== ENCOUNTER 2024-04-11 15:06 | Outpatient (REF) | payer MEDICARE, SELFPAY ==
[2024-04-11 16:46] LABS: Abs Immature Grans 0.03 10^3/uL (0.0-0.06); Absolute Basophil Count 0.04 10^3/uL (0.0-0.2); Absolute Lymphocyte Count 1.75 10^3/uL (1.2-3.4); Absolute Monocyte Count 1.02 10^3/uL (0.1-0.8); Absolute Neutrophil Count 6.16 10^3/uL (1.2-6.7); Basophils % 0.4 %; Eosinophils % 1.1 %; HCT 32.2 % (36.0-46.0); HGB 9.4 g/dL (11.2-15.7); Immature Grans % 0.3 %; Lymphocytes % 19.2 %; MCH 22.6 pg (27.0-33.0); MCHC 29.2 % (32.0-36.0); MCV 77 fL (80-95); MPV 10.6 fL (8.0-11.0); Monocytes % 11.2 %; Neutrophils % 67.8 %; Platelet Count 317 10^3/uL (130-400); RBC 4.16 10^6/uL (3.93-5.22); RDW 18.6 % (11.7-14.6); RDW-SD 49.4 fL
[2024-04-11 17:37] LABS: ALT 28 U/L (14-59); AST 30 U/L (15-37); Albumin 3.9 g/dL (3.4-5.0); Alkaline Phosphatase 68 U/L (46-116); Anion Gap 10.5 mmol/L (3-11); BUN 26 mg/dL (7-18); Bilirubin, Total 0.82 mg/dL (0.2-1.0); CO2 23.5 mmol/L (21.0-32.0); CREATININE 1.3 mg/dL (0.55-1.02); Calcium 10.1 mg/dL (8.5-10.1); Chloride 102 mmol/L (98-107); Estimated GFR 39.55 (mL/min/1.73m2); Glucose 103 mg/dL (74-106); Magnesium 1.8 mg/dL (1.8-2.4); NT-proBNP 2201 pg/mL (<300); Potassium 4.5 mmol/L (3.5-5.1); Sodium 136 mmol/L (136-145); TSH (W/Ref FT4) 4.79 uIU/mL (0.36-3.74); Total Protein 7.6 g/dL (6.4-8.2)
[2024-04-11 17:54] LABS: Iron 18 ug/dL (50-170)
[2024-04-11 18:03] LABS: FREE T4 1.19 ng/dL (0.76-1.46)
[2024-04-11 18:50] LABS: Digoxin 0.83 ng/mL (0.90-2.00)
== END 2024-04-11 15:07 | disposition home or self-care (01) ==
LOC: NCHCN 15:06
PROVIDERS: PCP Family Medicine; Visit Provider Family Medicine
DX: D64.9 Anemia, unspecified (principal); I22.2 Subsequent non-ST elevation (NSTEMI) myocardial infarction
CPT/HCPCS: 80053; 80162; 83540; 83735; 83880; 84439; 84443; 85025

== ENCOUNTER 2024-05-11 21:39 | Outpatient (REF) | payer MEDICARE, SELFPAY ==
[2024-05-11 17:39] LABS: HCT 35.2 % (36.0-46.0); HGB 10.1 g/dL (11.2-15.7)
[2024-05-11 17:55] LABS: Anion Gap 12.8 mmol/L (3-11); BUN 28 mg/dL (7-18); CO2 25.2 mmol/L (21.0-32.0); CREATININE 1.5 mg/dL (0.55-1.02); Calcium 9.9 mg/dL (8.5-10.1); Chloride 103 mmol/L (98-107); Estimated GFR 33.31 (mL/min/1.73m2); Glucose 124 mg/dL (74-106); Sodium 141 mmol/L (136-145)
[2024-05-11 18:01] LABS: Iron 22 ug/dL (50-170)
== END 2024-05-11 21:40 | disposition home or self-care (01) ==
LOC: NCHCN 21:39
PROVIDERS: PCP Family Medicine; Visit Provider Family Medicine
DX: D46.9 Myelodysplastic syndrome, unspecified (principal)
CPT/HCPCS: 80048; 83540; 85014; 85018

== ENCOUNTER 2024-06-21 07:53 | Outpatient (REF) | payer MEDICARE, SELFPAY ==
[2024-06-20 16:30] LABS: HCT 38.9 % (36.0-46.0); HGB 11.5 g/dL (11.2-15.7)
[2024-06-20 17:38] LABS: Anion Gap 12.4 mmol/L (3-11); BUN 25 mg/dL (7-18); CO2 26.6 mmol/L (21.0-32.0); CREATININE 1.2 mg/dL (0.55-1.02); Calcium 9.4 mg/dL (8.5-10.1); Chloride 109 mmol/L (98-107); Estimated GFR 43.54 (mL/min/1.73m2); Glucose 98 mg/dL (74-106); Potassium 4.2 mmol/L (3.5-5.1); Sodium 148 mmol/L (136-145)
[2024-06-20 18:28] LABS: Iron 24 ug/dL (50-170)
== END 2024-06-21 07:54 | disposition home or self-care (01) ==
LOC: NCHCN 07:53
PROVIDERS: PCP Family Medicine; Visit Provider Family Medicine
DX: D64.9 Anemia, unspecified (principal)
CPT/HCPCS: 80048; 83540; 85014; 85018

== ENCOUNTER 2024-09-14 12:14 | Outpatient (REF) | payer MEDICARE, SELFPAY ==
[2024-09-14 15:41] LABS: Anion Gap 7.9 mmol/L (3-11); BUN 36 mg/dL (7-18); CO2 30.1 mmol/L (21.0-32.0); CREATININE 1.2 mg/dL (0.55-1.02); Calcium 9.8 mg/dL (8.5-10.1); Chloride 107 mmol/L (98-107); Estimated GFR 43.54 (mL/min/1.73m2); FREE T4 0.85 ng/dL (0.76-1.46); Glucose 96 mg/dL (74-106); NT-proBNP 1959 pg/mL (<300); Potassium 4.2 mmol/L (3.5-5.1); Sodium 145 mmol/L (136-145)
[2024-09-14 16:24] LABS: Iron 110 ug/dL (50-170)
== END 2024-09-14 12:15 | disposition home or self-care (01) ==
LOC: NCHCN 12:14
PROVIDERS: PCP Family Medicine; Visit Provider Family Medicine
DX: D64.9 Anemia, unspecified (principal); E03.9 Hypothyroidism, unspecified; R60.0 Localized edema
CPT/HCPCS: 80048; 83540; 83880; 84439; 85014; 85018

== ENCOUNTER 2025-01-11 15:04 | Outpatient (REF) | payer MEDICARE, SELFPAY ==
[2025-01-11 20:23] LABS: HCT 47.5 % (36.0-46.0); HGB 15.2 g/dL (11.2-15.7)
[2025-01-11 20:36] LABS: ALT 41 U/L (14-59); AST 31 U/L (15-37); Albumin 4.1 g/dL (3.4-5.0); Alkaline Phosphatase 83 U/L (46-116); Anion Gap 13.6 mmol/L (3-11); BUN 34 mg/dL (7-18); Bilirubin, Total 0.7 mg/dL (0.2-1.0); CO2 27.4 mmol/L (21.0-32.0); Calcium 9.5 mg/dL (8.5-10.1); Chloride 104 mmol/L (98-107); Digoxin 0.76 ng/mL (0.90-2.00); Estimated GFR 54.19 (mL/min/1.73m2); Glucose 91 mg/dL (74-106); Potassium 4.3 mmol/L (3.5-5.1); Sodium 145 mmol/L (136-145); Total Protein 7.5 g/dL (6.4-8.2)
[2025-01-12 10:15] LABS: FREE T4 0.79 ng/dL (0.76-1.46)
== END 2025-01-11 15:05 | disposition home or self-care (01) ==
LOC: NCHCN 15:04
PROVIDERS: PCP Family Medicine; Visit Provider Family Medicine
DX: E03.9 Hypothyroidism, unspecified (principal); I10 Essential (primary) hypertension; I48.91 Unspecified atrial fibrillation; D64.9 Anemia, unspecified
CPT/HCPCS: 80053; 80162; 84439; 84443; 85014; 85018

== ENCOUNTER 2025-06-03 00:20 | Inpatient (IN) | payer MEDICARE, SELFPAY ==
[2025-06-03] VITALS (105 sets, daily range): BP systolic 102–163; BP diastolic 18–118; PULSE 37–106; RESP 7–30; TEMP 36–36.7; O2SAT 15–100
--- NOTE | 2025-06-03 00:23 | W.ED.GENAD ---
Discharge Plan Disposition Patient Disposition: Admit to [facility] Condition: Stable Discharge Details Clinical Impression: GI bleed, Anticoagulant long-term use Primary Care Provider: Chantell Castillo V ED Provider: Armin Villalta Home Meds and New Rx's Prescriptions: No Action losartan 25 mg Tablet 25 mg PO DAILY digoxin 125 mcg (0.125 mg) tablet 125 mcg PO DAILY Qty: 30 1RF aspirin 81 mg tablet,chewable 81 mg PO DAILY Patient Comments: CHEW ONE TABLET BY MOUTH EVERY DAY levothyroxine 25 mcg tablet 25 mcg Patient Comments: TAKE 1 AND 1/2 TABLETS BY MOUTH EVERY DAY LEAST 30 MINUTES PRIOR TO BREAKFAST nitroglycerin 0.4 mg tablet, sublingual Patient Comments: PLACE ONE TABLET UNDER THE TONGUE EVERY 5 MINUTES FOR UP TO 3 DOSES NEEDED FOR CHEST PAIN. IF CHEST PAIN STILL PERSISTS CONTACT 911 metoprolol tartrate 25 mg tablet Patient Comments: TAKE ONE-HALF TABLET BY MOUTH EVERY DAY NEEDED FOR ELEVATED PULSE losartan 50 mg tablet 25 mg PO HS Patient Comments: Take 1/2 tablet by mouth once a day famotidine 20 mg tablet Patient Comments: TAKE 1 TABLET BY MOUTH TWICE A WEEK levothyroxine 25 mcg capsule 25 mcg PO DAILY metoprolol succinate [Toprol XL] 50 mg tablet extended release 24 hr 75 mg PO BID clopidogrel [Plavix] 75 mg tablet 75 mg PO DAILY furosemide 40 mg tablet Patient Comments: TAKE ONE TABLET BY MOUTH EVERY DAY acetaminophen [Tylenol] 325 mg tablet 325 mg PO Q6H PRN clopidogrel 75 mg tablet Patient Comments: TAKE ONE TABLET BY MOUTH EVERY DAY pantoprazole [Protonix] 40 mg tablet,delayed release (DR/EC) 40 mg PO DAILY pantoprazole 40 mg tablet,delayed release (DR/EC) PO Patient Comments: TAKE ONE TABLET BY MOUTH EVERY DAY pyridoxine (vitamin B6) 100 mg tablet 100 mg PO DAILY cranberry 500 mg capsule 500 mg PO DAILY Rx Instructions: administer with a meal cholecalciferol (vitamin D3) 50 mcg (2,000 unit) capsule 50 mcg PO DAILY Xarelto 15 mg tablet 15 mg PO QPM Rx Instructions: must administer with evening meal coQ10 (ubiquinol) [Qunol Malik CoQ10] 100 mg capsule 100 mg PO DAILY mecobalamin (vitamin B12) 500 mcg tablet,chewable PO naturelo vegan iron 25 mg PO 1XD Patient Comments: 4 hours after thyroid med HPI General Mode of arrival: wheelchair. Date/Time Provider Initiated Documentation: 06/03/25 00:23. Limitations to Documentation: no limitations. Information obtained by: patient, RN notes reviewed and old records reviewed. HPI Narrative: Patient presents to ED with complaint of increased weakness, slow heart rate, bloody stool, some increased shortness of breath. Symptoms all began over the course of Wednesday. Denies any type of chest pain or pressure. Denies any abdominal pain. Has had no nausea or vomiting. She is on digoxin, metoprolol, Xarelto for atrial fibrillation. She has had history of GI bleeds. Has not had any syncope. Denies any fever, cough, urinary symptoms. Related Data Home Medications ?Medication ?Instructions ?Recorded ?Confirmed losartan 25 mg tablet 25 mg PO DAILY 10/05/20 06/03/25 digoxin 125 mcg (0.125 mg) tablet 125 mcg PO DAILY #30 tabs 10/09/20 06/03/25 aspirin 81 mg chewable tablet 81 mg PO DAILY 12/03/20 06/03/25 Held on 06/03/25. Instructions: Changed by Provider famotidine 20 mg tablet mg 01/12/24 Held on 06/03/25. Instructions: Changed by Provider levothyroxine 25 mcg capsule 25 mcg PO DAILY 01/12/24 06/03/25 levothyroxine 25 mcg tablet 25 mcg 01/12/24 losartan 50 mg tablet 25 mg PO HS 01/12/24 06/03/25 metoprolol succinate 50 mg 75 mg PO BID 01/12/24 06/03/25 tablet,extended release 24 hr (Toprol XL) metoprolol tartrate 25 mg tablet mg 01/12/24 nitroglycerin 0.4 mg sublingual mg 01/12/24 tablet acetaminophen 325 mg tablet 325 mg PO Q6H PRN 06/03/25 06/03/25 (Tylenol) cholecalciferol (vitamin D3) 50 50 mcg PO DAILY 06/03/25 06/03/25 mcg (2,000 unit) capsule clopidogrel 75 mg tablet mg 06/03/25 clopidogrel 75 mg tablet (Plavix) 75 mg PO DAILY 06/03/25 06/03/25 coQ10 (ubiquinol) 100 mg capsule 100 mg PO DAILY 06/03/25 06/03/25 (Qunol Malik CoQ10) cranberry 500 mg capsule 500 mg PO DAILY 06/03/25 06/03/25 furosemide 40 mg tablet mg 06/03/25 mecobalamin (vitamin B12) 500 mcg mcg PO 06/03/25 chewable tablet naturelo vegan iron 25 mg PO 1XD 06/03/25 06/03/25 pantoprazole 40 mg tablet,delayed mg PO 06/03/25 release pantoprazole 40 mg tablet,delayed 40 mg PO DAILY 06/03/25 06/03/25 release (Protonix) pyridoxine (vitamin B6) 100 mg 100 mg PO DAILY 06/03/25 06/03/25 tablet rivaroxaban 15 mg tablet (Xarelto) 15 mg PO QPM 06/03/25 06/03/25 Previous Rx's ?Medication ?Instructions ?Recorded digoxin 125 mcg (0.125 mg) tablet 125 mcg PO DAILY #30 tabs 10/09/20 Allergies Allergy/AdvReac Type Severity Reaction Status Date / Time No Known Allergies Allergy Verified 06/03/25 00:44 General PAL: 3 Exam Narrative Exam Narrative: Const: WDWN elderly female in NAD. VS per triage. HEENT: NC/AT. Normal facial exam. Neck: Supple. Trachea midline. Lungs: Normal respiratory effort. Lungs are clear. Cor: Slow irregular. Good radial pulses. GI: Soft/ND/NT. Neuro: A+O x 3. Normal speech, mentation, gait. Cranial nerves II - XII grossly intact. No gross motor or sensory deficit. Ext: No C/C/E. Medical Decision Making Patient presenting to ED with weakness, slow heart rate, bloody bowel movement x 2 minimum. She has some increased shortness of breath. She has history of atrial fibrillation on digoxin, metoprolol, Xarelto. She has no chest pain or abdominal pain. Presume GI bleed so we will place 2 IVs and send type and screen as well as dig level, CBC, CMP and mag level. EKG ordered. Will start fluids for the time being. Consider reversal of anticoagulation although currently appears relatively stable. She has been transfused previously and is okay with transfusion once again if needed. Patient's hemoglobin came back at 10.2 down 5 points from this spring. Because of this CTA of the abdomen pelvis was ordered. She remained hemodynamically stable with no chest or abdominal pain. White count is normal. Little bit of renal insufficiency present with a creatinine of 1.4 previous values ranging from 1-1.5. Electrolytes fairly unremarkable. Magnesium a little low at 1.6. Digoxin is low at 0.79. Preliminary CT read per radiology with no evidence of active GI bleed by scan. She does have some pericholecystic fluid but continues to deny abdominal pain. She has no abdominal tenderness on exam. She has no fever or white count. Do not believe this is related to acute cholecystitis. There is also noted some rectal thickening but felt to be suboptimally evaluated due to underdistention and nonopacification. Patient has had no further bloody stool here in the department. Vital signs remain stable with continued sinus bradycardia on the monitor and normal blood pressure. She is maintained on LR at 125 an hour. She is typed and screened. Given her hemodynamic stability, lack of brisk GI bleed per CTA and no further bloody stool here I have not reversed her anticoagulation. I do recommend holding her anticoagulant. She probably also hold her metoprolol and digoxin for the time being given her bradycardia. Discussed with patient and family. Discussed with hospitalist. Will be admitted for further observation. Medical Records Medical records reviewed: Yes I reviewed the patient's medical records. Imaging Data Radiologic Study: Imaging: CT Scan Radiologist's impression: IMPRESSION: 1. Rectal thickening, suboptimally evaluated but suggestive of proctitis or neoplasm. Follow-up as clinically warranted. 2. Pericholecystic fluid suggesting cholecystitis. This may be further evaluated with right upper quadrant ultrasound as clinically warranted. 3. Additional findings as above. Lab Data Lab results reviewed: Yes I reviewed the patient's lab results. Lab results narrative: see [facility] ECG Data Attestation: I personally reviewed and interpreted this ECG (s) as follows: Prior ECG tracings: available for review Interpretation: see EKG/[facility] Critical Care Time Critical Care Time Critical Care Time: Yes Total Critical Care Time: 60 Attestation: Upon my evaluation, this patient had a high probability of imminent or life-threatening deterioration, which required my direct attention, intervention, and personal management. I have personally provided 60 minutes of critical care time exclusive of time spent on separately billable procedures. Time includes monitoring for potential decompensation, ordering of tests and medications, review of laboratory and radiology results, discussion with consultants and documentation . Interventions were performed as documented above in procedures. PFS All Active Problems (Updated 06/03/25 @ 03:31 by Armin Villalta MD) Anticoagulant long-term use (Acute) GI bleed (Chronic) PAD (peripheral artery disease) (Acute) CAD (coronary artery disease), [place] coronary artery (Acute) Hypomagnesemia (Acute) HTN (hypertension) (Chronic) Hematochezia (Acute) Elevated troponin (Acute) Pain of left calf (Acute) Left leg numbness (Acute) Anemia due to blood loss, acute (Acute) Discharge planning issues (Acute) Acute low back pain (Acute) Melena (Acute) Duodenal ulcer (Acute) Atrial fibrillation (Chronic) Abdominal pain (Acute) Leukocytosis (Acute) Reaction, situational (Acute) Diverticulosis (Acute) Hypothyroidism (Chronic) Hyperlipidemia (Acute) Medical History Diverticulitis large intestine Elevated blood pressure reading without diagnosis of hypertension Ventral hernia Pharyngitis Urinary frequency Vitamin B12 deficiency Grief reaction Surgical History History of bladder repair surgery History of colonoscopy S/P hysterectomy Social History Smoking/Tobacco Use Status: Never Smoking risk assessment performed?: Yes Alcohol Intake: never Drug use: Never Substance use type: does not use Housing: house Do you feel safe at home: Yes Do you feel safe in your relationship?: Yes
--- NOTE | 2025-06-03 00:30 | RT.EKG_ITS ---
APPROVED REPORT Exam: Resting ECG Reason for Exam: bradycardia Patient Location: E HR:43 bpm ECG Measurements Heart Rate 43 AXIS FL 176 P 0 QRSd 143 QRS 52 QT 536 T 187 QTc 437 Conclusion Sinus bradycardia...rate< 60 Atrial premature complex...SV complex w/ short R-R interval Right bundle branch block...QRSd>120, terminal axis(90,270) Repol abnrm suggests ischemia, lateral leads...ST dep, T neg, I aVL V5 V6 -- not significantly different than ST changes seen on 01/12/2024
--- NOTE | 2025-06-03 01:15 | DI.CT_ITS ---
Exam(s) CT ABDOMEN PELVIS CTA EXAM: CT ABDOMEN PELVIS CTA CLINICAL HISTORY: GI Bleed. TECHNIQUE: Imaging Protocol: Axial CT angiography was performed with multi- slice acquisition and multi-planar and/or 3D reconstructions. CONTRAST MATERIAL: Intravenous: Omnipaque 350 Contrast volume:100mL Oral: No COMPARISON: CT CT ABDOMEN PELVIS W from 01/22/[address] ABDOMEN PELVIS W from 10/05/[address] ABDOMEN PELVIS W from 10/15/[address] THORAX ABDOMEN CTA from 12/03/2020 FINDINGS: ABDOMEN AND PELVIS: Abdomen: Celiac axis/mesenteric arteries: The celiac arteries unremarkable. There is atherosclerotic calcification at the origin of the superior mesenteric artery with less than 50 percent stenosis. Renal Arteries: No evidence of occlusion or significant stenosis. There is mild atherosclerotic calcification at the origin of the renal arteries without significant stenosis. Aorta: No evidence of occlusion or significant stenosis. No aneurysm or dissection. There is atherosclerotic calcification of the abdominal aorta. Pelvis: Iliac Arteries: No evidence of occlusion or significant stenosis. There is atherosclerotic calcification of the iliac arteries. The findings are most marked in the internal iliac arteries bilaterally. There is, however, less than 50 percent stenosis present. Common Femoral Arteries: There is occlusion of the right superficial femoral artery 2.5 cm from the bifurcation. There is approximately 50 percent stenosis of the left superficial femoral artery. ABDOMEN: Lung bases: Cardiomegaly. Liver: Normal density. No measurable mass. Portal, Superior Mesenteric, and Splenic Veins: Unremarkable. Gallbladder and Biliary Tract: There is gallbladder wall enhancement. Pericholecystic fluid is present. There is no biliary ductal dilatation or gallstone present. Pancreas: Normal density, no abnormal calcifications or inflammatory process. Spleen: Normal. Adrenals: No masses seen. Kidneys: Normal size, contour and axis. No radiodense stones or obstructive uropathy. No masses seen. Bowel: There is diverticulosis of the colon without evidence of diverticulitis. There is no evidence of bowel obstruction or bowel wall thickening. There is a small hiatal hernia. Appendix is unremarkable. There is no evidence of gastrointestinal bleeding. Peritoneal Cavity: There is a small amount of perihepatic and pelvic ascites. No free air. Lymph Nodes: Within normal limits. Bones: There are marked degenerative changes present throughout the lumbar spine. There is grade 1 anterolisthesis of L4 on L5 likely due to degenerative changes in the facet joints. There is no spondylolysis. There is a left convex lumbar scoliosis. Soft Tissues: There is a moderate sized supraumbilical fat containing anterior abdominal wall hernia. There is a small fat containing umbilical hernia. PELVIS: Bladder: Symmetric distention, no gross wall thickening. Reproductive Organs: Status post hysterectomy. Lymph Nodes: Within normal limits. Bones: Within normal limits. IMPRESSION: 1. There is no evidence of gastrointestinal bleeding. 2. There is no evidence of an abdominal aortic aneurysm or dissection. 3. Occlusion of the right superficial femoral artery approximately 2.5 cm from the bifurcation. 4. Small amount of abdominal pelvic ascites. 5. Colonic diverticulosis without evidence of acute diverticulitis. 6. Pericholecystic fluid and gallbladder wall enhancement. No cholelithiasis or biliary ductal dilatation. If clinically indicated, gallbladder ultrasound may be obtained for further evaluation. 7. Indeterminate thickening of the wall of the rectum. This may be due to underdistention. Inflammatory/infectious process or neoplasm cannot be excluded. Follow-up as clinically appropriate. 8. The preliminary [facility] report was reviewed. RADIATION DOSE DELIVERED: 940.18mGy.cm Total DLP DATA REPOSITORY: All CT scans at this facility are submitted to the National Radiology Data Registry (NRDR) Dose Index Registry (DIR) with the [employer] (ACR). RADIATION OPTIMIZATION: All CT scans at this facility use at least one of these dose optimization techniques: automated exposure control; mA and/or kV adjustment per patient size (includes targeted exams where dose is matched to clinical indication); or iterative reconstruction.
[2025-06-03 01:16] LABS: Abs Immature Grans 0.02 10^3/uL (0.0-0.06); HCT 31.4 % (36.0-46.0); HGB 10.2 g/dL (11.2-15.7); Immature Grans % 0.3 %; MCH 31.6 pg (27.0-33.0); MCHC 32.5 % (32.0-36.0); MCV 97 fL (80-95); MPV 10.4 fL (8.0-11.0); Platelet Count 221 10^3/uL (130-400); RBC 3.23 10^6/uL (3.93-5.22); RDW 15.1 % (11.7-14.6); RDW-SD 52.8 fL; WBC 7.56 10^3/uL (4.4-10.8)
[2025-06-03 01:26] LABS: Magnesium 1.6 mg/dL (1.8-2.4)
[2025-06-03 01:32] LABS: ALT 35 U/L (14-59); AST 26 U/L (15-37); Albumin 3.9 g/dL (3.4-5.0); Alkaline Phosphatase 70 U/L (46-116); Anion Gap 12.7 mmol/L (3-11); BUN 33 mg/dL (7-18); Bilirubin, Total 0.9 mg/dL (0.2-1.0); CO2 23.3 mmol/L (21.0-32.0); Calcium 8.9 mg/dL (8.5-10.1); Chloride 98 mmol/L (98-107); Estimated GFR 35.96 (mL/min/1.73m2); Glucose 139 mg/dL (74-106); Potassium 3.6 mmol/L (3.5-5.1); Sodium 134 mmol/L (136-145); Total Protein 7.1 g/dL (6.4-8.2)
[2025-06-03] MEDS: Omnipaque 350 MG/ML 100 ML BTL IJ (01:46)
[2025-06-03] MEDS: Normal Saline Flush 10 ML SYR IVP ×3 (01:46→20:00)
[2025-06-03] MEDS: Normal Saline - Diluent 50 ML VIAL IJ (01:46)
[2025-06-03 01:52] LABS: Digoxin 0.79 ng/mL (0.90-2.00)
[2025-06-03] MEDS: Lactated Ringers 1,000 ML 125 ML IV ×3 (02:19→20:00)
--- NOTE | 2025-06-03 02:51 | DI.[facility]_ITS ---
PROCEDURE INFORMATION: Exam: CTA Abdomen and Pelvis With Contrast Exam date and time: 06/03/2025 1:59 AM Age: 89 years old Clinical indication: Other: Gi bleed TECHNIQUE: Imaging protocol: Computed tomographic angiography of the abdomen and pelvis with contrast. Exam focused on the arteries. 3D rendering (Not supervised by radiologist): MIP and/or 3D reconstructed images were created by the technologist. Contrast material: OMNIPAQUE 350; Contrast volume: 100 ml; Contrast route: INTRAVENOUS (IV); COMPARISON: No relevant prior studies are available for comparison. FINDINGS: Lungs: Scarring/atelectasis in the visualized lungs. Heart: Cardiomegaly. Diaphragm: Small hiatal hernia. Aorta: Atherosclerotic changes in the aorta and its branches. Celiac and mesenteric arteries: Mild narrowing in the proximal superior mesenteric artery with distal reconstitution. Renal arteries: No occlusion or significant stenosis. Right iliac arteries: No occlusion or significant stenosis. Left iliac arteries: No occlusion or significant stenosis. Liver: No focal hepatic lesion seen. Gallbladder and biliary ducts: Pericholecystic fluid. Pancreas: No evidence for acute pancreatitis. Spleen: No splenomegaly. Adrenal glands: No mass. Kidneys and ureters: No hydronephrosis. Stomach and bowel: The rectum appears thickened but is suboptimally evaluated due to non opacification and underdistention. Colonic diverticula. No evidence for intestinal obstruction. No evidence for active gastrointestinal hemorrhage appreciated at this time. Appendix: No evidence of appendicitis. Intraperitoneal space: Small amount of low-density pelvic fluid. Lymph nodes: Nonspecific mesenteric and retroperitoneal lymph nodes. Urinary bladder: The urinary bladder appears mildly thickened but is incompletely distended. Reproductive: No acute abnormality. Bones/joints: Curvature and degenerative changes in the spine. Soft tissues: Fat containing ventral hernias. IMPRESSION: 1. Rectal thickening, suboptimally evaluated but suggestive of proctitis or neoplasm. Follow-up as clinically warranted. 2. Pericholecystic fluid suggesting cholecystitis. This may be further evaluated with right upper quadrant ultrasound as clinically warranted. 3. Additional findings as above. Dictated and Authenticated by: Yasmeen Kang MD. Orderin Pawan Funez MD
--- NOTE | 2025-06-03 03:19 | W.PM.HP.N ---
Date of service: 06/03/25 Time of Service: 03:19 Assessment and Plan Assessment and plan (1) Melena: Start date: 06/03/25 Status: Acute Assessment and plan: This is an 89-year-old lady presented to the ED because of increasing weakness with shortness of breath with exertion and a decreased heart rate currently on metoprolol for atrial fibrillation. She also was having melena with her stools and though she is on iron chronically this was new. When evaluated in ED her CT of the abdomen had no acute findings though there were some abnormalities in the rectal wall and around the gallbladder, she was asymptomatic. She did have diverticulum which did not have evidence of infection. It was noted that she had dropped her hemoglobin from 15 g/dL to 10 g/dl since December of this year. Her MCV was normal. As stated she is on iron chronically. Because of her drop in hemoglobin and complaints of change in stool color, she was admitted for trending hemograms. Surgery was consulted but may not need to see the patient if she is stable, she can see her physician in [place] who did do her last EGD and colonoscopy in April 2024. At that time she only had polyps. She had a history of duodenal ulcer but did not have recurrence at that time. She is on Xarelto which will be held. She is not on aspirin for a long time and Plavix for at least a year by history. She is on observation and has anticipated discharge within 48 hours. She remains a full code. (2) Hypomagnesemia: Start date: 06/03/25 Status: Acute Assessment and plan: Patient is chronically on Lasix have been switched from hydrochlorothiazide. She is not on magnesium replacement and will receive IV repletion with trending. Her potassium is within normal limits. (3) Anemia due to blood loss, acute: Start date: 06/03/25 Status: Acute Assessment and plan: There has been a drop since December 2023 though she has a normal MCV and this is melena and not bright red blood. Trend hemograms the surgical consultation in place if needed. (4) PAD (peripheral artery disease): Status: Chronic Assessment and plan: Patient has been stopped on Plavix with a previous arterial clot in the left leg which is asymptomatic. She is on Xarelto. (5) Atrial fibrillation: Status: Chronic Assessment and plan: Bradycardic rate presently with atrial fibrillation. Metoprolol dosing will be decreased but not stopped. Telemetry. (6) Diverticulitis large intestine: Assessment and plan: This could be a source of chronic blood loss though her stool not bright red. She is not having abdominal symptoms presently. (7) Duodenal ulcer: Status: Chronic Assessment and plan: She is on the PPI but could be having breakthrough bleeding with melena. Consider EGD either during this hospitalization if she has drop in her hemoglobin with trending or as an outpatient with her physician in [place]. (8) CAD (coronary artery disease), [place] coronary artery: Status: Chronic Assessment and plan: Not active the patient on medical therapy and prevention. (9) HTN (hypertension): Status: Chronic Assessment and plan: Adjust outpatient medical therapy while hospitalized avoiding hypotension with patient having bradycardia. (10) Hypothyroidism: Status: Chronic Assessment and plan: Check TSH and continue outpatient replacement dosing. History of Present Illness History of Present Illness Chief Complaint: Dark stools with increasing weakness and shortness of breath. Narrative: This is an 89-year-old female patient has a history of anemia chronically on iron supplement with previous bleeding from a duodenal ulcer and question of diverticular bleeding in the past. 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 Patient did state that her physician in [facility] did take her off of aspirin within this last year and she has been off Plavix since 2020. She is only on Xarelto at this time. She also was switched from hydrochlorothiazide to Lasix by the same physician. About 1 year ago the patient had some similar symptoms and was scoped with an EGD and colonoscopy in April 2024. At that time she had a polyp removed and she had a negative recurrence of her duodenal ulcer. She is chronically on a PPI. She has had no nausea or vomiting and is stated no abdominal pain. She does have some lightheadedness or unsteadiness but does not state that she is dizzy. Her present symptoms have worsened over 24 hours. At the time of my interview, the patient was comfortable with no abdominal pain and was not having symptoms of shortness of breath, sweats or chest discomfort. She did note that her heart rate was decreased while she was having the symptoms last 24 hours. She has had no change in weight or edema. Because of her drop in hemoglobin in the last several months, the patient will be admitted for trending hemograms with surgical consultation to be considered if she does continue to have a downtrending hemoglobin. If this is more chronic, she could have outpatient evaluation with repeat endoscopies. She would be maintained on her outpatient therapy except for decrease in dose of metoprolol because of bradycardia. Telemetry will be placed. She also was found to have a low magnesium and this may be secondary to chronic diuresis with replacement and trending planned. She may want to be on chronic outpatient oral magnesium. Her potassium was within normal limits despite diuresis. Patient is a full code. Review of Systems Narrative: 13 point review of system otherwise unrevealing or stable. PFSH All Active Problems (Updated 06/03/25 @ 07:35 by Alphonse Armendariz) Anticoagulant long-term use (Acute) GI bleed (Chronic) PAD (peripheral artery disease) (Chronic) CAD (coronary artery disease), [place] coronary artery (Chronic) Hypomagnesemia (Acute) HTN (hypertension) (Chronic) Elevated troponin (Acute) Pain of left calf (Acute) Left leg numbness (Acute) Anemia due to blood loss, acute (Acute) Discharge planning issues (Acute) Acute low back pain (Acute) Melena (Acute) Duodenal ulcer (Chronic) Atrial fibrillation (Chronic) Abdominal pain (Acute) Leukocytosis (Acute) Reaction, situational (Acute) Diverticulosis (Acute) Hypothyroidism (Chronic) Hyperlipidemia (Acute) Medical History (Updated 06/03/25 @ 07:35 by Alphonse Armendariz) Diverticulitis large intestine Elevated blood pressure reading without diagnosis of hypertension Ventral hernia Pharyngitis Urinary frequency Vitamin B12 deficiency Grief reaction Surgical History History of bladder repair surgery History of colonoscopy S/P hysterectomy Social History Smoking/Tobacco Use Status: Never Smoking risk assessment performed?: Yes Alcohol Intake: never Drug use: Never Substance use type: does not use Housing: house Do you feel safe at home: Yes Do you feel safe in your relationship?: Yes Meds Allergies and Home Medications Allergies Allergy/AdvReac Type Severity Reaction Status Date / Time No Known Allergies Allergy Verified 06/03/25 00:44 Home Medications ?Medication ?Instructions ?Recorded ?Confirmed ?Type losartan 25 mg tablet 25 mg PO DAILY 10/05/20 06/03/25 History digoxin 125 mcg (0.125 mg) tablet 125 mcg PO DAILY #30 tabs 10/09/20 06/03/25 Rx aspirin 81 mg chewable tablet 81 mg PO DAILY 12/03/20 06/03/25 History Held on 06/03/25. Instructions: Changed by Provider famotidine 20 mg tablet 20 mg PO DAILY 01/12/24 06/03/25 History Held on 06/03/25. Instructions: Changed by Provider levothyroxine 25 mcg capsule 25 mcg PO DAILY 01/12/24 06/03/25 History levothyroxine 25 mcg tablet 25 mcg PO DAILY 01/12/24 06/03/25 History losartan 50 mg tablet 25 mg PO HS 01/12/24 06/03/25 History metoprolol succinate 50 mg 75 mg PO BID 01/12/24 06/03/25 History tablet,extended release 24 hr (Toprol XL) metoprolol tartrate 25 mg tablet 25 mg PO DAILY 01/12/24 06/03/25 History nitroglycerin 0.4 mg sublingual 0.4 mg sublingual Q5M PRN 01/12/24 06/03/25 History tablet acetaminophen 325 mg tablet 325 mg PO Q6H PRN 06/03/25 06/03/25 History (Tylenol) cholecalciferol (vitamin D3) 50 50 mcg PO DAILY 06/03/25 06/03/25 History mcg (2,000 unit) capsule clopidogrel 75 mg tablet 75 mg PO DAILY 06/03/25 06/03/25 History clopidogrel 75 mg tablet (Plavix) 75 mg PO DAILY 06/03/25 06/03/25 History coQ10 (ubiquinol) 100 mg capsule 100 mg PO DAILY 06/03/25 06/03/25 History (Qunol Malik CoQ10) cranberry 500 mg capsule 500 mg PO DAILY 06/03/25 06/03/25 History furosemide 40 mg tablet 40 mg PO DAILY 06/03/25 06/03/25 History mecobalamin (vitamin B12) 500 mcg 500 mcg PO DAILY 06/03/25 06/03/25 History chewable tablet naturelo vegan iron 25 mg PO 1XD 06/03/25 06/03/25 History pantoprazole 40 mg tablet,delayed 40 mg PO DAILY 06/03/25 06/03/25 History release pantoprazole 40 mg tablet,delayed 40 mg PO DAILY 06/03/25 06/03/25 History release (Protonix) pyridoxine (vitamin B6) 100 mg 100 mg PO DAILY 06/03/25 06/03/25 History tablet rivaroxaban 15 mg tablet (Xarelto) 15 mg PO QPM 06/03/25 06/03/25 History Exam Narrative Exam Narrative: General: Patient appears appropriate for age, in no acute distress. She is moderately obese. She is alert and oriented x 3. HEENT: Normocephalic, eyes with pupils equal and reactive to light symmetrically, extraocular movement intact and sclera anicteric. Oropharynx with moist mucosa and fair dentition. Neck: Supple without JVD. Back: Slightly kyphotic without CVA tenderness. Lungs: Fair aeration and clear to auscultation percussion. No expiratory wheeze. Breast: Exam deferred. Heart: Bradycardic rate with irregularly irregular rhythm. No appreciable murmur or gallop. Abdomen: Obese contour, soft to palpation with no palpable hepatosplenomegaly. No guarding or rebound. Bowel sounds positive all quadrants. Specifically no right upper quadrant discomfort and no lower abdomen discomfort. Genitalia/rectal: Exam deferred. Extremity: Without clubbing, cyanosis or grossly pitting edema. Fair capillary refill. Skin: Pale, warm and dry. Rough texture with some wrinkling over sun exposed areas. Neuro: Cranial nerves II through XII gross intact, no focalizing motor deficits or tremor. Psych: Normal affect and mood. No abnormal thought processes. Remote and recent memory grossly intact. Results Imaging Imaging Studies: Exam: CTA Abdomen and Pelvis With Contrast Exam date and time: 06/03/2025 1:59 AM Age: 89 years old Clinical indication: Other: Gi bleed COMPARISON: No relevant prior studies are available for comparison. FINDINGS: Lungs: Scarring/atelectasis in the visualized lungs. Heart: Cardiomegaly. Diaphragm: Small hiatal hernia. Aorta: Atherosclerotic changes in the aorta and its branches. Celiac and mesenteric arteries: Mild narrowing in the proximal superior mesenteric artery with distal reconstitution. Renal arteries: No occlusion or significant stenosis. Right iliac arteries: No occlusion or significant stenosis. Left iliac arteries: No occlusion or significant stenosis. Liver: No focal hepatic lesion seen. Gallbladder and biliary ducts: Pericholecystic fluid. Pancreas: No evidence for acute pancreatitis. Spleen: No splenomegaly. Adrenal glands: No mass. Kidneys and ureters: No hydronephrosis. Stomach and bowel: The rectum appears thickened but is suboptimally evaluated due to non opacification and underdistention. Colonic diverticula. No evidence for intestinal obstruction. No evidence for active gastrointestinal hemorrhage appreciated at this time. Appendix: No evidence of appendicitis. Intraperitoneal space: Small amount of low-density pelvic fluid. Lymph nodes: Nonspecific mesenteric and retroperitoneal lymph nodes. Urinary bladder: The urinary bladder appears mildly thickened but is incompletely distended. Reproductive: No acute abnormality. Bones/joints: Curvature and degenerative changes in the spine. Soft tissues: Fat containing ventral hernias. IMPRESSION: 1. Rectal thickening, suboptimally evaluated but suggestive of proctitis or neoplasm. Follow-up as clinically warranted. 2. Pericholecystic fluid suggesting cholecystitis. This may be further evaluated with right upper quadrant ultrasound as clinically warranted. 3. Additional findings as above. Labs 06/03/25 06:45 06/03/25 01:03 Labs: Laboratory Results - last 24 hr 06/03/25 01:03 WBC 7.56 RBC 3.23 L Hgb 10.2 L Hct 31.4 L MCV 97 H MCH 31.6 MCHC 32.5 RDW 15.1 H Plt Count 221 MPV 10.4 Immature Gran % 0.3 Neutrophils % 59.8 Lymphocytes % 24.5 Monocytes % 12.0 Eosinophils % 2.9 Basophils % 0.5 Nucleated RBC % 0.0 Absolute Neutrophils 4.52 Absolute Lymphocytes 1.85 Absolute Monocytes 0.91 H Absolute Eosinophils 0.22 Absolute Basophils 0.04 Sodium 134 L Potassium 3.6 Chloride 98 Carbon Dioxide 23.3 Anion Gap 12.7 H BUN 33 H Creatinine 1.4 H Est GFR (CKD-EPI 2020) 35.96 Glucose 139 H Calcium 8.9 Magnesium 1.6 L Total Bilirubin 0.9 AST 26 ALT 35 Alkaline Phosphatase 70 Total Protein 7.1 Albumin 3.9 Digoxin 0.79 L ABO/Rh O Negative Antibody Screen NEGATIVE Last Vital Signs Temp 36.7 C 06/03/25 00:41 Pulse 45 L 06/03/25 03:11 Resp 13 06/03/25 03:10 BP 145/52 H 06/03/25 03:11 Pulse Ox 100 10/12/25 03:10 Time Spent Time spent with Patient: >75 minutes Time was spent: preparing to see the patient(eg.review tests), obtaining and/or reviewing separately otained hiistory, ordering medications,tests, procedures, referring, communicating with other health animal caretaker supervisor, indepentently interpreting results, counseling the patient and care coordination
[2025-06-03 04:56] LABS: COVID-19 PCR Negative (Negative); RSV PCR Negative (Negative)
[2025-06-03] MEDS: MAGNESIUM SULFATE 2 GM/50 ML BAG IV_INF (05:24)
--- NOTE | 2025-06-03 06:09 | W.PC.ACHO ---
Registration Status: ADM AG Primary Language: Preferred Language: ED Information & Data Chief Complaint GI Bleed 06/03/25 00:58 Chief Complaint GI Bleed 06/03/25 00:41 Triage Note pt arrives per wheelchair c 06/03/25 00:41 /o blood in stool, increasing weakness and low heart rate over the last few days Medical / Surgical History (Last Reviewed 06/03/25 @ 03:19 by Alphonse Armendariz) Diverticulitis large intestine Elevated blood pressure reading without diagnosis of hypertension Ventral hernia Pharyngitis Urinary frequency Vitamin B12 deficiency Grief reaction (Last Reviewed 06/03/25 @ 03:19 by Alphonse Armendariz) History of bladder repair surgery History of colonoscopy S/P hysterectomy Most Recent Vital Signs Temperature 36.0 C L 06/03/25 05:36 Temperature Source Tympanic 06/03/25 05:34 Pulse 50 L 06/03/25 05:36 Pulse Rhythm Regular 06/03/25 05:36 Pulse 56 L 06/03/25 04:40 Respiratory Rate 15 06/03/25 05:36 Respiratory Effort Normal, Non-Labored, Accessory Muscle Use 06/03/25 05:36 Respiratory Depth Normal 06/03/25 05:36 Respiratory Pattern Normal 06/03/25 05:36 Blood Pressure 139/55 L 06/03/25 05:36 Blood Pressure Mean 80 06/03/25 05:34 Pulse Oximetry 99 06/03/25 05:34 Oxygen Delivery Method Room Air 06/03/25 05:36 Oxygen Flow Rate 0 06/03/25 05:36 Pain Level 0 06/03/25 05:36 Comment POST AMBULATION 06/03/25 03:31 Allergies No Known Allergies Allergy (Verified 06/03/25 00:44) Precautions Isolation Standard precaution 06/03/25 00:58 Active Medications Generic Name Dose Route Start Last Admin Trade Name Freq PRN Reason Stop Dose Admin Ringer's Solution 1,000 mls @ 125 mls/hr 06/03/25 00:45 06/03/25 02:19 IV 125 mls/hr INFUSION STEFANY Administration Magnesium Sulfate 2 gm in 50 mls @ 25 mls/hr 06/03/25 04:58 06/03/25 05:24 IV_INF 06/03/25 06:57 25 mls/hr NOW ONE Administration Sodium Chloride 0 ml 06/03/25 01:46 06/03/25 01:46 Normal Saline Flush 10 Ml Syr IVP 10 ml PRN PRN Administration Sodium Chloride 50 ml 06/03/25 02:00 06/03/25 01:46 Normal Saline - Diluent 50 Ml Vial IJ 50 ml DIRECTED STEFANY Administration IV IV Catheter Type [Right Peripheral IV Forearm] IV Catheter Type [Right Saline Lock Antecubital] IV Catheter Gauge [Right 20 Forearm] IV Catheter Gauge [Right 18 Antecubital] Diagnostics 06/03/25 06/03/25 06/03/25 Range/Units 22:57 16:57 10:57 WBC Cancelled Cancelled Cancelled (4.4-10.8) 10^3/uL RBC Cancelled Cancelled Cancelled (3.93-5.22) 10^6/uL Hgb Cancelled Cancelled Cancelled (11.2-15.7) g/dL Hct Cancelled Cancelled Cancelled (36.0-46.0) % MCV Cancelled Cancelled Cancelled (80-95) fL MCH Cancelled Cancelled Cancelled (27.0-33.0) pg MCHC Cancelled Cancelled Cancelled (32.0-36.0) % RDW Cancelled Cancelled Cancelled (11.7-14.6) % Plt Count Cancelled Cancelled Cancelled (130-400) 10^3/uL MPV Cancelled Cancelled Cancelled (8.0-11.0) fL Immature Gran % % Neutrophils % % Lymphocytes % % Monocytes % % Eosinophils % % Basophils % % Nucleated RBC % (0.0-0.3) % Absolute Neutrophils (1.2-6.7) 10^3/uL Absolute Lymphocytes (1.2-3.4) 10^3/uL Absolute Monocytes (0.1-0.8) 10^3/uL Absolute Eosinophils (0.0-0.7) 10^3/uL Absolute Basophils (0.0-0.2) 10^3/uL PT INR Sodium (136-145) mmol/L Potassium (3.5-5.1) mmol/L Chloride (98-107) mmol/L Carbon Dioxide (21.0-32.0) mmol/L Anion Gap (3-11) mmol/L BUN (7-18) mg/dL Creatinine (0.55-1.02) mg/dL Est GFR (CKD-EPI 2020) (mL/min/1.73m2) Glucose (74-106) mg/dL Calcium (8.5-10.1) mg/dL Magnesium (1.8-2.4) mg/dL Total Bilirubin (0.2-1.0) mg/dL AST (15-37) U/L ALT (14-59) U/L Alkaline Phosphatase (46-116) U/L Total Protein (6.4-8.2) g/dL Albumin (3.4-5.0) g/dL TSH Digoxin (0.90-2.00) ng/mL COVID-19 Source SARS-CoV-2 (PCR) (Negative) Influenza Type A (PCR) (Negative) Influenza Type B (PCR) (Negative) RSV (PCR) (Negative) ABO/Rh Antibody Screen 06/03/25 06/03/25 06/03/25 Range/Units 05:35 04:58 04:57 WBC Pending (4.4-10.8) 10^3/uL RBC Pending (3.93-5.22) 10^6/uL Hgb Pending (11.2-15.7) g/dL Hct Pending (36.0-46.0) % MCV Pending (80-95) fL MCH Pending (27.0-33.0) pg MCHC Pending (32.0-36.0) % RDW Pending (11.7-14.6) % Plt Count Pending (130-400) 10^3/uL MPV Pending (8.0-11.0) fL Immature Gran % % Neutrophils % % Lymphocytes % % Monocytes % % Eosinophils % % Basophils % % Nucleated RBC % (0.0-0.3) % Absolute Neutrophils (1.2-6.7) 10^3/uL Absolute Lymphocytes (1.2-3.4) 10^3/uL Absolute Monocytes (0.1-0.8) 10^3/uL Absolute Eosinophils (0.0-0.7) 10^3/uL Absolute Basophils (0.0-0.2) 10^3/uL PT Pending INR Pending Sodium Cancelled (136-145) mmol/L Potassium Cancelled (3.5-5.1) mmol/L Chloride Cancelled (98-107) mmol/L Carbon Dioxide Cancelled (21.0-32.0) mmol/L Anion Gap Cancelled (3-11) mmol/L BUN Cancelled (7-18) mg/dL Creatinine Cancelled (0.55-1.02) mg/dL Est GFR (CKD-EPI 2020) Cancelled (mL/min/1.73m2) Glucose Cancelled (74-106) mg/dL Calcium Cancelled (8.5-10.1) mg/dL Magnesium Cancelled (1.8-2.4) mg/dL Total Bilirubin Cancelled (0.2-1.0) mg/dL AST Cancelled (15-37) U/L ALT Cancelled (14-59) U/L Alkaline Phosphatase Cancelled (46-116) U/L Total Protein Cancelled (6.4-8.2) g/dL Albumin Cancelled (3.4-5.0) g/dL TSH Pending Digoxin (0.90-2.00) ng/mL COVID-19 Source SARS-CoV-2 (PCR) (Negative) Influenza Type A (PCR) (Negative) Influenza Type B (PCR) (Negative) RSV (PCR) (Negative) ABO/Rh Antibody Screen 06/03/25 06/03/25 Range/Units 04:06 01:03 WBC 7.56 (4.4-10.8) 10^3/uL RBC 3.23 L (3.93-5.22) 10^6/uL Hgb 10.2 L (11.2-15.7) g/dL Hct 31.4 L (36.0-46.0) % MCV 97 H (80-95) fL MCH 31.6 (27.0-33.0) pg MCHC 32.5 (32.0-36.0) % RDW 15.1 H (11.7-14.6) % Plt Count 221 (130-400) 10^3/uL MPV 10.4 (8.0-11.0) fL Immature Gran % 0.3 % Neutrophils % 59.8 % Lymphocytes % 24.5 % Monocytes % 12.0 % Eosinophils % 2.9 % Basophils % 0.5 % Nucleated RBC % 0.0 (0.0-0.3) % Absolute Neutrophils 4.52 (1.2-6.7) 10^3/uL Absolute Lymphocytes 1.85 (1.2-3.4) 10^3/uL Absolute Monocytes 0.91 H (0.1-0.8) 10^3/uL Absolute Eosinophils 0.22 (0.0-0.7) 10^3/uL Absolute Basophils 0.04 (0.0-0.2) 10^3/uL PT INR Sodium 134 L (136-145) mmol/L Potassium 3.6 (3.5-5.1) mmol/L Chloride 98 (98-107) mmol/L Carbon Dioxide 23.3 (21.0-32.0) mmol/L Anion Gap 12.7 H (3-11) mmol/L BUN 33 H (7-18) mg/dL Creatinine 1.4 H (0.55-1.02) mg/dL Est GFR (CKD-EPI 2020) 35.96 (mL/min/1.73m2) Glucose 139 H (74-106) mg/dL Calcium 8.9 (8.5-10.1) mg/dL Magnesium 1.6 L (1.8-2.4) mg/dL Total Bilirubin 0.9 (0.2-1.0) mg/dL AST 26 (15-37) U/L ALT 35 (14-59) U/L Alkaline Phosphatase 70 (46-116) U/L Total Protein 7.1 (6.4-8.2) g/dL Albumin 3.9 (3.4-5.0) g/dL TSH Digoxin 0.79 L (0.90-2.00) ng/mL COVID-19 Source Nasopharynx SARS-CoV-2 (PCR) Negative (Negative) Influenza Type A (PCR) Negative (Negative) Influenza Type B (PCR) Negative (Negative) RSV (PCR) Negative (Negative) ABO/Rh O Negative Antibody Screen NEGATIVE Intake and Output - 24 Hour Total 06/03/25 00:20 thru 06/03/25 05:36 Weight 58.8 kg Other: Urine Appearance Clear Emesis Description None Falls Risk Assessment History of Falls No History 06/03/25 05:36 Contributing Factors No Factors 06/03/25 05:36 Ambulatory Aids Independent 06/03/25 05:36 Tubes/Lines None 06/03/25 05:36 Gait Evaluation No gait disturbance 06/03/25 05:36 Cognition No cognitive impairment 06/03/25 05:36 Fall Total Score 0 06/03/25 05:36 Level of Risk Standard/Low Risk 06/03/25 05:36 Problems (Last Reviewed 06/03/25 @ 03:19 by Alphonse Armendariz) Anticoagulant long-term use (Acute) GI bleed (Chronic) PAD (peripheral artery disease) (Chronic) CAD (coronary artery disease), [place] coronary artery (Chronic) Hypomagnesemia (Acute) HTN (hypertension) (Chronic) Hematochezia (Acute) Anemia due to blood loss, acute (Acute) Duodenal ulcer (Chronic) Atrial fibrillation (Chronic) Hypothyroidism (Chronic) v v v v v v v v v Sending and/or Receiving Nurses: Please use comment section below to note any information pertinent to the patient hand-off not included above. Information / Comments: no further Report received from:John
[2025-06-03] MEDS: Levothyroxine 50 MCG TAB 25 MCG PO (06:12)
[2025-06-03 07:00] LABS: HCT 32.7 % (36.0-46.0); HGB 10.5 g/dL (11.2-15.7); MCH 31.7 pg (27.0-33.0); MCHC 32.1 % (32.0-36.0); MCV 99 fL (80-95); MPV 10.4 fL (8.0-11.0); Platelet Count 215 10^3/uL (130-400); RBC 3.31 10^6/uL (3.93-5.22); RDW 15.3 % (11.7-14.6); RDW-SD 54.5 fL; WBC 8.45 10^3/uL (4.4-10.8)
[2025-06-03 07:11] LABS: INR 1.5 (0.9-1.1); Prothrombin Time 14.7 sec (9.1-11.1)
[2025-06-03 07:31] LABS: TSH (W/Ref FT4) 6.24 uIU/mL (0.36-3.74)
[2025-06-03 07:38] LABS: Magnesium 2.7 mg/dL (1.8-2.4)
[2025-06-03 07:42] LABS: ALT 36 U/L (14-59); AST 25 U/L (15-37); Albumin 3.8 g/dL (3.4-5.0); Alkaline Phosphatase 62 U/L (46-116); BUN 31 mg/dL (7-18); Bilirubin, Total 0.9 mg/dL (0.2-1.0); Calcium 9.1 mg/dL (8.5-10.1); Chloride 98 mmol/L (98-107); Estimated GFR 35.96 (mL/min/1.73m2); Glucose 137 mg/dL (74-106); Potassium 3.5 mmol/L (3.5-5.1); Sodium 136 mmol/L (136-145); Total Protein 7.2 g/dL (6.4-8.2)
[2025-06-03 07:46] LABS: Anion Gap 16.1 mmol/L (3-11); CO2 21.9 mmol/L (21.0-32.0)
[2025-06-03] MEDS: Cyanocobalamin 500 MCG TAB PO (08:21)
[2025-06-03] MEDS: Pantoprazole 40 MG TABCR PO (08:21)
[2025-06-03] MEDS: Cholecalciferol (Vitamin D3) 1,000 UNIT TAB 2000 UNITS PO (08:22)
--- NOTE | 2025-06-03 08:45 | RT.EKG_ITS ---
APPROVED REPORT Exam: Resting ECG Reason for Exam: krupa Patient Location: I HR:42 bpm ECG Measurements Heart Rate 42 AXIS DC 220 P 0 QRSd 138 QRS 27 QT 483 T 204 QTc 404 Conclusion Sinus bradycardia...rate< 50 Right bundle branch block...QRSd>120, terminal axis(90,270) Repol abnrm suggests ischemia, lateral leads...ST dep, T neg, I aVL V5 V6
--- NOTE | 2025-06-03 10:13 | INITIAL_ITS ---
Date of service: 06/03/25 Time of Service: 10:13 [facility] Reason for Hospitalization: Hematochezia, acute anemia Functional Status/Living Situation Patient Presentation: Jayashree was lying in bed when CM met with her. She was pleasant and engaged well in conversation. She was transferred from /S to the ICU this morning due to bradycardia. Jayashree stated that she is feeling good, and that she is being well taken care of. She reported that she lives in [place], alone, but that her son, Alphonse, stays with her at times, if needed. She is , her about six years ago. They had four children, one of which has passed. Her three remaining children live nearby and are supportive. She has ten grandchildren and eleven great grandchildren. She also noted that she has a supportive neighbor. She stated that she is pretty independent, no longer drives, and uses a cane for ambulation when out of the house. She also has a FWW, but does not use it often. She reported that she may be transferred to [facility] for a pacemaker; per MD, she will continue to be observed overnight, and if she continues to stabilize, she will likely have a pacemaker placed outpatient. There is a possibility that she will be transferred, but it is low at this time. She is comfortable with the plan, regardless of the direction it goes. CM asked how she felt about going to [facility], to which she responded that she would listen to the recommendations of the doctor. CM will continue to follow. Town of Residence: [place] Resides with: Alone Significant Other/Family: Local Caregiver/Guardian: Niru is listed as HCA and visits often, also brings her to app. Alphonse stays with Pat, if/when she needs extra support. Natural Supports: Children, Niru, Alphonse and Ramses Ten grandchildren and eleven great grandchildren Employment Status: Retired (worked many jobs outside of the home when she was not home with her children) Instrumental Activities of Daily Living (ADLs): Independent Activities/Hobbies/SocialSupport: Sandra reports that she doesn't do much now, but used to cook, bake, can and tend to animals when she was more active. She no longer has any animals. Medications Medication Management: No Issues/Barriers identified Physical Functioning/Mobility Assistive Device: cane, FWW Advance Directives Advance Directives: Do you have an Advance Directive: Y , 10:01 AD On File at [facility]: Y 10/05/20, 16:43 Date Asked 01/11/25 01/11/25, 13:17 AD Date Reviewed 06/03/25 Today, 14:03 COLST On File at [facility] No 10/05/20, 16:43 COLST Date Scanned Code Status Resuscitation Status Full Code Insurance Coverage/Financial Issues Insurance: [facility] AARP [facility] supplement Care Team Visit Care Team Role Provider Type Tena Handy APRN MD [facility] STAFF PHYSICIAN Chantell Castillo MD Primary Care Provider [facility] STAFF PHYSICIAN Melissa Jay MD Other Providers [facility] STAFF PHYSICIAN Armin Villalta MD Emergency Provider [facility] STAFF PHYSICIAN Alphonse Armendariz Admit Provider NON-[facility] STAFF PHYSICIAN Attending Provider Discharge Potential Discharge Needs: PCP F/U Appt Anticipated Barriers to Discharge: None Identified Patient/Family Education Needs: Review discharge instructions, discuss Ask Me Three Transportation: Private vehicle Plan: Anticipate Jayashree will return home once medically cleared. She will be driven home via private vehicle by family. She will follow up with her PCP and discharge plan of care. CM will continue to follow. Social Determinants of Health Screening Social Determinants of health last assessed in clinic: 06/03/25 Will the Patient Participate in the Screening?: Yes Do you worry about having a steady place to live?: yes What is your living situation today?: I have housing today, but am worried about losing it Problems where you live: no known problems In the past 12 months, have you had to go without electric, gas, oil or water in your home?: no 1. Within the past 12 months, we worried whether our food would run out before we got money to buy more.: Never true 2. Within the past 12 months, the food we bought just didn't last and we didn't have money to get more.: Never true Has lack of transportation kept you from medical appointments or from doing things needed for daily living?: no Has anyone in your life made you feel unsafe or unsupported?: no How hard is it for you to pay for the very basics like food, housing, medical care, and heating? Would you say it is:: Not hard at all Do you want help finding or keeping work or a job?: I do not need or want help If for any reason you need help with day-to-day activities such as bathing, preparing meals, shopping, managing finances, etc., do you get the help you need?: I don?t need any help How often do you feel lonely or isolated from those around you?: Never Do you speak a language other than [place] Citizen at home?: No Does the patient want assistance with any of the above?: No Health Related Social Needs Health related social needs: housing instability, housed, with risk of homelessness (Z59.811) Health related social needs details: no further PFSH All Active Problems (Updated 06/03/25 @ 07:35 by Alphonse Armendariz) Anticoagulant long-term use (Acute) GI bleed (Chronic) PAD (peripheral artery disease) (Chronic) CAD (coronary artery disease), [place] coronary artery (Chronic) Hypomagnesemia (Acute) HTN (hypertension) (Chronic) Elevated troponin (Acute) Pain of left calf (Acute) Left leg numbness (Acute) Anemia due to blood loss, acute (Acute) Discharge planning issues (Acute) Acute low back pain (Acute) Melena (Acute) Duodenal ulcer (Chronic) Atrial fibrillation (Chronic) Abdominal pain (Acute) Leukocytosis (Acute) Reaction, situational (Acute) Diverticulosis (Acute) Hypothyroidism (Chronic) Hyperlipidemia (Acute) Medical History (Updated 06/03/25 @ 07:35 by Alphonse Armendariz) Diverticulitis large intestine Elevated blood pressure reading without diagnosis of hypertension Ventral hernia Pharyngitis Urinary frequency Vitamin B12 deficiency Grief reaction Surgical History History of bladder repair surgery History of colonoscopy S/P hysterectomy Social History Smoking/Tobacco Use Status: Never Smoking risk assessment performed?: Yes Alcohol Intake: never Drug use: Never Substance use type: does not use Housing: house Do you feel safe at home: Yes Do you feel safe in your relationship?: Yes
[2025-06-03] MEDS: nitroGLYcerin 0.4 MG TAB SL (11:06)
[2025-06-03] MEDS: Acetaminophen 325 MG TAB 650 MG PO ×3 (11:06→20:37)
--- NOTE | 2025-06-03 11:13 | TELEP.MEDREC ---
Date of service: 06/03/25 Time of Service: 11:14 [facility] Home Med Rec Allergies Allergies: No Known Allergies Allergy (Verified 06/03/25 00:44) Interview Person Interviewed: Jayashree Quality Quality of Interview/Accuracy of Medication List: Excellent Sources Sources used to compile medication list: [employer] Medication List Changes made to Home Medication List: ADDITIONS: none DELETIONS: clopidogrel (DUP) Pantoprazole (DUP) CHANGES: CoQ10 Additional Notes Additional Notes: Jayashree was a pleasure to interview. She knew all her medications, strengths, and regimens without prompting. Recommended Changes Recommended Changes(reason for recommendation): none Attestation: The home medication list is now updated to the best of my knowledge and is ready to be reconciled by the provider. Please contact the [facility] Medication Reconciliation Pharmacist at for any questions. Meds Allergies and Home Medications Allergies Allergy/AdvReac Type Severity Reaction Status Date / Time No Known Allergies Allergy Verified 06/03/25 00:44 Home Medication ?Medication ?Instructions ?Recorded losartan 25 mg tablet 25 mg PO HS 10/05/20 digoxin 125 mcg (0.125 mg) tablet 125 mcg PO DAILY #30 tabs 10/09/20 aspirin 81 mg chewable tablet 81 mg PO DAILY 12/03/20 Held on 06/03/25. Instructions: Changed by Provider famotidine 20 mg tablet 20 mg PO DAILY 01/12/24 Held on 06/03/25. Instructions: Changed by Provider levothyroxine 25 mcg capsule 25 mcg PO DAILY 01/12/24 levothyroxine 25 mcg tablet 25 mcg PO DAILY 01/12/24 losartan 50 mg tablet 25 mg PO HS 01/12/24 metoprolol succinate 50 mg 75 mg PO BID 01/12/24 tablet,extended release 24 hr (Toprol XL) metoprolol tartrate 25 mg tablet 25 mg PO DAILY 01/12/24 nitroglycerin 0.4 mg sublingual 0.4 mg sublingual Q5M PRN 01/12/24 tablet acetaminophen 325 mg tablet 325 mg PO Q6H PRN 06/03/25 (Tylenol) cholecalciferol (vitamin D3) 50 50 mcg PO DAILY 06/03/25 mcg (2,000 unit) capsule clopidogrel 75 mg tablet 75 mg PO DAILY 06/03/25 coQ10 (ubiquinol) 100 mg capsule 100 mg PO BID 06/03/25 (Qunol Malik CoQ10) cranberry 500 mg capsule 500 mg PO DAILY 06/03/25 furosemide 40 mg tablet 40 mg PO DAILY 06/03/25 mecobalamin (vitamin B12) 500 mcg 500 mcg PO DAILY 06/03/25 chewable tablet naturelo vegan iron 25 mg PO 1XD 06/03/25 pantoprazole 40 mg tablet,delayed 40 mg PO DAILY 06/03/25 release (Protonix) pyridoxine (vitamin B6) 100 mg 100 mg PO DAILY 06/03/25 tablet rivaroxaban 15 mg tablet (Xarelto) 15 mg PO QPM 06/03/25 Current Visit Medications: Current Medications Generic Name Dose Route Start Last Admin Trade Name Freq PRN Reason Stop Dose Admin Acetaminophen 650 mg 06/03/25 04:58 06/03/25 11:06 Acetaminophen 325 Mg Tab PO 650 mg Q4H PRN PRN Administration Al Hydrox/Mg Hydrox/Simethicone 30 ml 06/03/25 04:58 Mylanta Suspension 30 Ml Cup PO Q2H PRN PRN Cholecalciferol 2,000 units 06/03/25 08:30 06/03/25 08:22 Cholecalciferol (Vitamin D3) 1,000 Unit Tab PO 2,000 units DAILY STEFANY Administration Cyanocobalamin 500 mcg 06/03/25 08:30 06/03/25 08:21 Cyanocobalamin 500 Mcg Tab PO 500 mcg DAILY STEFANY Administration Digoxin 0.125 mg 06/03/25 08:30 06/03/25 08:22 Digoxin 0.125 Mg Tab PO Not Given DAILY STEFANY Docusate Sodium 100 mg 06/03/25 04:58 Docusate Sodium 100 Mg Cap PO TID PRN PRN Ringer's Solution 1,000 mls @ 125 mls/hr 06/03/25 00:45 06/03/25 11:07 IV 125 mls/hr INFUSION STEFANY Administration IV Miscellaneous Supplies 2 each 06/03/25 00:45 Iv Access IV DIRECTED STEFANY Levothyroxine Sodium 25 mcg 06/04/25 06:00 Levothyroxine 25 Mcg Tab PO DAILY@0600 STEFANY Losartan Potassium 25 mg 06/03/25 08:30 06/03/25 08:23 Losartan 25 Mg Tab PO Not Given DAILY STEFANY Magnesium Hydroxide 30 ml 06/03/25 04:58 Milk Of Magnesia 30 Ml Cup PO DAILY PRN PRN Nitroglycerin 0.4 mg 06/03/25 04:58 06/03/25 11:06 Nitroglycerin 0.4 Mg Tab SL 0.4 mg Q5 MIN PRN X3 PRN Administration Pantoprazole Sodium 40 mg 06/03/25 08:30 06/03/25 08:21 Pantoprazole 40 Mg Tabcr PO 40 mg DAILY STEFANY Administration Polyethylene Glycol 17 gm 06/03/25 04:58 Polyethylene Glycol 3350 17 Gm Packet PO DAILY PRN PRN Constipation Pyridoxine HCl 100 mg 06/03/25 08:30 06/03/25 08:21 Pyridoxine 100 Mg Tab PO 100 mg DAILY STEFANY Administration Sodium Chloride 0 ml 06/03/25 08:30 06/03/25 11:09 Normal Saline Flush 10 Ml Syr IVP 40 ml BID STEFANY Administration Sodium Chloride 0 ml 06/03/25 01:46 06/03/25 01:46 Normal Saline Flush 10 Ml Syr IVP 10 ml PRN PRN Administration Administered Discontinued Medications: Discontinued Medications Generic Name Dose Route Start Last Admin Trade Name Freq PRN Reason Stop Dose Admin Atropine Sulfate 0.5 mg 06/03/25 10:12 06/03/25 11:09 Atropine 1 Mg/10 Ml Syringe IVP 06/03/25 10:13 Not Given NOW ONE Magnesium Sulfate 2 gm in 50 mls @ 25 mls/hr 06/03/25 04:58 06/03/25 05:24 IV_INF 06/03/25 06:57 25 mls/hr NOW ONE Administration Iohexol 100 ml 06/03/25 02:00 06/03/25 01:46 Omnipaque 350 Mg/Ml 100 Ml Btl IJ 07/03/25 23:59 100 ml DIRECTED STEFANY Administration Levothyroxine Sodium 25 mcg 06/03/25 06:00 06/03/25 06:12 Levothyroxine 50 Mcg Tab PO 25 mcg 0600 STEFANY Administration Metoprolol Succinate 25 mg 06/03/25 08:30 06/03/25 08:23 Metoprolol Cr 50 Mg Tabcr PO Not Given BID STEFANY Sodium Chloride 50 ml 06/03/25 02:00 06/03/25 01:46 Normal Saline - Diluent 50 Ml Vial IJ 50 ml DIRECTED STEFANY Administration
--- NOTE | 2025-06-03 14:16 | W.PM.HP.N ---
Date of service: 06/03/25 Time of Service: 08:00 Assessment and Plan Assessment and plan (1) Symptomatic bradycardia: Status: Acute Assessment and plan: Rates into the 30's in the morning, now in the 50's Discussed with [facility] cardiology Holding digoxin, metoprolol Will give losartan tonight With low rate not present on arrival, and not sustained, more likely bradycardia episodes are causing weakness and are not related to possible GI bleed Continue to monitor in ICU overnight, prepare for atropine for sustained rates under 40 Re-engage with [facility] cardiology in the morning for next steps (2) Melena: Start date: 06/03/25 Status: Chronic Assessment and plan: Single episode of blood in the stool yesterday. Multiple hospitalizations and endoscopic procedures for similar episodes She reports that she had a colon polyp, but otherwise has not had a cause identified for intermittent blood in the stool. No additional bleeding, hemoglobin in the 10's, will defer GS consultation Restarting rivaroxaban tonight Restarted diet (3) Anemia due to blood loss, acute: Start date: 06/03/25 Status: Acute Assessment and plan: Mild anemia in the 10's She has had hemoglobin in the 15's in the past No immediate risk of transfusion Monitor H&H (4) Hypomagnesemia: Start date: 06/03/25 Status: Resolved Assessment and plan: Repleted and resolved (5) PAD (peripheral artery disease): Status: Chronic Assessment and plan: Patient has been stopped on Plavix with a previous arterial clot in the left leg which is asymptomatic. She is on Xarelto. (6) Atrial fibrillation: Status: Chronic Assessment and plan: Not in afib during bradycardic episode with HR in the 30's and 40's Now with HR 56 she is in afib Restarted rivaroxaban, continue losartan (7) Diverticulitis large intestine: Assessment and plan: This could be a source of chronic blood loss though her stool not bright red. She is not having abdominal symptoms presently. (8) Duodenal ulcer: Status: Chronic Assessment and plan: She is on the PPI but could be having breakthrough bleeding with melena. Consider EGD either during this hospitalization if she has drop in her hemoglobin with trending or as an outpatient with her physician in [place]. (9) CAD (coronary artery disease), [place] coronary artery: Status: Chronic Assessment and plan: Not active the patient on medical therapy and prevention. (10) HTN (hypertension): Status: Chronic Assessment and plan: Adjust outpatient medical therapy while hospitalized avoiding hypotension with patient having bradycardia. (11) Hypothyroidism: Status: Chronic Assessment and plan: Check TSH and continue outpatient replacement dosing. History of Present Illness History of Present Illness Chief Complaint: weakness Narrative: Jayashree Sanchez is an 89 year old woman presenting June 02 with weakness and some blood stools, with some shortness of breath and low heart rate. She was admitted for GI bleed, for anemia monitoring. In the third cook she was bradycardic in the 30's and was transferred to the ICU. Her heart rate abiel from the 30's to the 130's on exertion in the ICU at the time [facility] cardiology was contacted. She was not given atropine. [facility] cardiology advised holding digoxin and metoprolol to wash out for evaluation of sick sinus. Patient has been awake, alert and cognitively intact throughout the day. 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 She has had no further bleeding since admission and hemoglobin has remained in the 10's. PMH includes NV x2, left femoral arterial clot on rivaroxaban, no longer on plavix/aspirin; atrial fibrillation on digoxin and metoprolol, hypothyroid on levothyroxine PFSH All Active Problems (Updated 06/03/25 @ 17:06 by Davion Russo MD) Symptomatic bradycardia (Acute) Anticoagulant long-term use (Acute) GI bleed (Chronic) PAD (peripheral artery disease) (Chronic) CAD (coronary artery disease), [place] coronary artery (Chronic) HTN (hypertension) (Chronic) Elevated troponin (Acute) Pain of left calf (Acute) Left leg numbness (Acute) Anemia due to blood loss, acute (Acute) Discharge planning issues (Acute) Acute low back pain (Acute) Melena (Chronic) Duodenal ulcer (Chronic) Atrial fibrillation (Chronic) Abdominal pain (Acute) Leukocytosis (Acute) Reaction, situational (Acute) Diverticulosis (Acute) Hypothyroidism (Chronic) Hyperlipidemia (Acute) Medical History (Updated 06/03/25 @ 17:06 by Davion Russo MD) Diverticulitis large intestine Elevated blood pressure reading without diagnosis of hypertension Ventral hernia Pharyngitis Urinary frequency Vitamin B12 deficiency Grief reaction Surgical History History of bladder repair surgery History of colonoscopy S/P hysterectomy Social History Smoking/Tobacco Use Status: Never Smoking risk assessment performed?: Yes Alcohol Intake: never Drug use: Never Substance use type: does not use Housing: house Do you feel safe at home: Yes Do you feel safe in your relationship?: Yes Meds Allergies and Home Medications Allergies Allergy/AdvReac Type Severity Reaction Status Date / Time No Known Allergies Allergy Verified 06/03/25 00:44 Home Medications ?Medication ?Instructions ?Recorded ?Confirmed ?Type losartan 25 mg tablet 25 mg PO HS 10/05/20 06/03/25 History digoxin 125 mcg (0.125 mg) tablet 125 mcg PO DAILY #30 tabs 10/09/20 06/03/25 Rx aspirin 81 mg chewable tablet 81 mg PO DAILY 12/03/20 06/03/25 History Held on 06/03/25. Instructions: Changed by Provider famotidine 20 mg tablet 20 mg PO DAILY 01/12/24 06/03/25 History Held on 06/03/25. Instructions: Changed by Provider levothyroxine 25 mcg capsule 25 mcg PO DAILY 01/12/24 06/03/25 History levothyroxine 25 mcg tablet 25 mcg PO DAILY 01/12/24 06/03/25 History losartan 50 mg tablet 25 mg PO HS 01/12/24 06/03/25 History metoprolol succinate 50 mg 75 mg PO BID 01/12/24 06/03/25 History tablet,extended release 24 hr (Toprol XL) metoprolol tartrate 25 mg tablet 25 mg PO DAILY 01/12/24 06/03/25 History nitroglycerin 0.4 mg sublingual 0.4 mg sublingual Q5M PRN 01/12/24 06/03/25 History tablet acetaminophen 325 mg tablet 325 mg PO Q6H PRN 06/03/25 06/03/25 History (Tylenol) cholecalciferol (vitamin D3) 50 50 mcg PO DAILY 06/03/25 06/03/25 History mcg (2,000 unit) capsule clopidogrel 75 mg tablet 75 mg PO DAILY 06/03/25 06/03/25 History coQ10 (ubiquinol) 100 mg capsule 100 mg PO BID 06/03/25 06/03/25 History (Qunol Malik CoQ10) cranberry 500 mg capsule 500 mg PO DAILY 06/03/25 06/03/25 History furosemide 40 mg tablet 40 mg PO DAILY 06/03/25 06/03/25 History mecobalamin (vitamin B12) 500 mcg 500 mcg PO DAILY 06/03/25 06/03/25 History chewable tablet naturelo vegan iron 25 mg PO 1XD 06/03/25 06/03/25 History pantoprazole 40 mg tablet,delayed 40 mg PO DAILY 06/03/25 06/03/25 History release (Protonix) pyridoxine (vitamin B6) 100 mg 100 mg PO DAILY 06/03/25 06/03/25 History tablet rivaroxaban 15 mg tablet (Xarelto) 15 mg PO QPM 06/03/25 06/03/25 History Exam Narrative Exam Narrative: General: This is a very pleasant, elderly woman in no distress HEENT: Normocephalic. Stable, large nevus under left eye. Right cheek is mildly edematous and erythematous. CV: mildly bradycardic in the 50's, no afib, no murmur Resp: CTAB Abd: soft, NTND MSK: voluntary motion x4 Neuro: awake, alert, no focal deficits Results Labs 06/03/25 06:45 06/03/25 06:45 Labs: Laboratory Results - last 24 hr 06/03/25 06/03/25 06/03/25 01:03 04:06 05:35 WBC 7.56 RBC 3.23 L Hgb 10.2 L Hct 31.4 L MCV 97 H MCH 31.6 MCHC 32.5 RDW 15.1 H Plt Count 221 MPV 10.4 Immature Gran % 0.3 Neutrophils % 59.8 Lymphocytes % 24.5 Monocytes % 12.0 Eosinophils % 2.9 Basophils % 0.5 Nucleated RBC % 0.0 Absolute Neutrophils 4.52 Absolute Lymphocytes 1.85 Absolute Monocytes 0.91 H Absolute Eosinophils 0.22 Absolute Basophils 0.04 PT INR Sodium 134 L Cancelled Potassium 3.6 Cancelled Chloride 98 Cancelled Carbon Dioxide 23.3 Cancelled Anion Gap 12.7 H Cancelled BUN 33 H Cancelled Creatinine 1.4 H Cancelled Est GFR (CKD-EPI 2020) 35.96 Cancelled Glucose 139 H Cancelled Calcium 8.9 Cancelled Magnesium 1.6 L Cancelled Total Bilirubin 0.9 Cancelled AST 26 Cancelled ALT 35 Cancelled Alkaline Phosphatase 70 Cancelled Total Protein 7.1 Cancelled Albumin 3.9 Cancelled TSH Free T4 Digoxin 0.79 L COVID-19 Source Nasopharynx SARS-CoV-2 (PCR) Negative Influenza Type A (PCR) Negative Influenza Type B (PCR) Negative RSV (PCR) Negative ABO/Rh O Negative Antibody Screen NEGATIVE 06/03/25 06/03/25 06/03/25 06:45 10:57 16:57 WBC 8.45 Cancelled Cancelled RBC 3.31 L Cancelled Cancelled Hgb 10.5 L Cancelled Cancelled Hct 32.7 L Cancelled Cancelled MCV 99 H Cancelled Cancelled MCH 31.7 Cancelled Cancelled MCHC 32.1 Cancelled Cancelled RDW 15.3 H Cancelled Cancelled Plt Count 215 Cancelled Cancelled MPV 10.4 Cancelled Cancelled Immature Gran % Neutrophils % Lymphocytes % Monocytes % Eosinophils % Basophils % Nucleated RBC % Absolute Neutrophils Absolute Lymphocytes Absolute Monocytes Absolute Eosinophils Absolute Basophils PT 14.7 H INR 1.5 H Sodium 136 Potassium 3.5 Chloride 98 Carbon Dioxide 21.9 Anion Gap 16.1 H BUN 31 H Creatinine 1.4 H Est GFR (CKD-EPI 2020) 35.96 Glucose 137 H Calcium 9.1 Magnesium 2.7 H Total Bilirubin 0.9 AST 25 ALT 36 Alkaline Phosphatase 62 Total Protein 7.2 Albumin 3.8 TSH 6.24 H Free T4 1.14 Digoxin COVID-19 Source SARS-CoV-2 (PCR) Influenza Type A (PCR) Influenza Type B (PCR) RSV (PCR) ABO/Rh Antibody Screen 06/03/25 22:57 WBC Cancelled RBC Cancelled Hgb Cancelled Hct Cancelled MCV Cancelled MCH Cancelled MCHC Cancelled RDW Cancelled Plt Count Cancelled MPV Cancelled Immature Gran % Neutrophils % Lymphocytes % Monocytes % Eosinophils % Basophils % Nucleated RBC % Absolute Neutrophils Absolute Lymphocytes Absolute Monocytes Absolute Eosinophils Absolute Basophils PT INR Sodium Potassium Chloride Carbon Dioxide Anion Gap BUN Creatinine Est GFR (CKD-EPI 2020) Glucose Calcium Magnesium Total Bilirubin AST ALT Alkaline Phosphatase Total Protein Albumin TSH Free T4 Digoxin COVID-19 Source SARS-CoV-2 (PCR) Influenza Type A (PCR) Influenza Type B (PCR) RSV (PCR) ABO/Rh Antibody Screen Last Vital Signs Temp 36.1 C L 06/03/25 09:40 Pulse 52 L 06/03/25 14:01 Resp 15 06/03/25 14:01 BP 137/37 L 06/03/25 14:01 Pulse Ox 98 06/03/25 14:01 Time Spent Time spent with Patient: 40-54 minutes Time was spent: preparing to see the patient(eg.review tests), obtaining and/or reviewing separately otained hiistory, ordering medications,tests, procedures, referring, communicating with other health point of care specialist, indepentently interpreting results, counseling the patient and care coordination
[2025-06-03] MEDS: Rivaroxaban 15 MG TABLET PO (17:05)
[2025-06-03 20:19] LABS: HCT 32.6 % (36.0-46.0); HGB 10.7 g/dL (11.2-15.7)
[2025-06-04] VITALS (44 sets, daily range): BP systolic 94–161; BP diastolic 40–94; PULSE 39–170; RESP 15–26; TEMP 36.4–37; O2SAT 92–98
[2025-06-04] MEDS: Acetaminophen 325 MG TAB 650 MG PO ×3 (04:58→20:19)
[2025-06-04] MEDS: Levothyroxine 25 MCG TAB PO (05:10)
[2025-06-04 06:44] LABS: Abs Immature Grans 0.02 10^3/uL (0.0-0.06); HCT 30.5 % (36.0-46.0); HGB 9.9 g/dL (11.2-15.7); Immature Grans % 0.2 %; MCH 32.8 pg (27.0-33.0); MCHC 32.5 % (32.0-36.0); MCV 101 fL (80-95); MPV 10.8 fL (8.0-11.0); Platelet Count 181 10^3/uL (130-400); RBC 3.02 10^6/uL (3.93-5.22); RDW 15.6 % (11.7-14.6); RDW-SD 56.4 fL; WBC 8.03 10^3/uL (4.4-10.8)
[2025-06-04 07:11] LABS: ALT 31 U/L (14-59); AST 23 U/L (15-37); Albumin 3.6 g/dL (3.4-5.0); Alkaline Phosphatase 63 U/L (46-116); Anion Gap 11.8 mmol/L (3-11); BUN 22 mg/dL (7-18); Bilirubin, Total 0.8 mg/dL (0.2-1.0); CO2 24.2 mmol/L (21.0-32.0); Calcium 9.1 mg/dL (8.5-10.1); Chloride 104 mmol/L (98-107); Estimated GFR 48.03 (mL/min/1.73m2); Glucose 113 mg/dL (74-106); Magnesium 2.1 mg/dL (1.8-2.4); Potassium 3.9 mmol/L (3.5-5.1); Sodium 140 mmol/L (136-145); Total Protein 6.9 g/dL (6.4-8.2)
[2025-06-04 07:44] LABS: Iron 32 ug/dL (50-170); Total Iron Binding Capacity 308 ug/dL (250-450); Transferrin Sat 10 % (15-50)
--- NOTE | 2025-06-04 08:31 | PDOC.CMPRO ---
Date of service: 06/04/25 Time of Service: 08:31 Care Management Progress Note Progress Note Text Progress Note Text: Jayashree was awake and lying in bed when CM met with her. She is pleasant and easily engages in conversation. The majority of this conversation focused on Jayashree's desire to remain at home as long as possible. She lives alone but reports feeling very well supported by her daughter Niru, son Alphonse and neighbor Litzy, who assist her with anything she needs. She has no interest in moving to a skilled nursing, but would like to explore options for bringing additional supports into the home. CM discussed [employer] and [employer], and Jayashree expresses interest in learning more about eligibility. Patient is agreeable to a referral to [facility] to discuss [facility] and Meals On Wheels (MOW). CM will follow. Discharge Potential Discharge Needs: PCP F/U Appt Anticipated Barriers to Discharge: None Identified Patient/Family Education Needs: Review discharge instructions, discuss Ask Me Three Transportation: Private vehicle Plan: Possible transfer [place] [facility] [place]. If stays, anticipate Jayashree will return home once medically cleared. She will be driven home via private vehicle by family. She will follow up with her PCP and continue per her discharge plan of care. CM will continue to follow. Social Determinants of Health Screening Social Determinants of health last assessed in clinic: 06/04/25 Will the Patient Participate in the Screening?: Yes Do you worry about having a steady place to live?: yes What is your living situation today?: I have housing today, but am worried about losing it Problems where you live: no known problems In the past 12 months, have you had to go without electric, gas, oil or water in your home?: no 1. Within the past 12 months, we worried whether our food would run out before we got money to buy more.: Never true 2. Within the past 12 months, the food we bought just didn't last and we didn't have money to get more.: Never true Has lack of transportation kept you from medical appointments or from doing things needed for daily living?: no Has anyone in your life made you feel unsafe or unsupported?: no How hard is it for you to pay for the very basics like food, housing, medical care, and heating? Would you say it is:: Not hard at all Do you want help finding or keeping work or a job?: I do not need or want help If for any reason you need help with day-to-day activities such as bathing, preparing meals, shopping, managing finances, etc., do you get the help you need?: I don?t need any help How often do you feel lonely or isolated from those around you?: Never Do you speak a language other than Yoruba at home?: No Does the patient want assistance with any of the above?: No Health Related Social Needs Health related social needs: housing instability, housed, with risk of homelessness (Z59.811) Health related social needs details: no further
[2025-06-04] MEDS: Pantoprazole 40 MG TABCR PO (09:15)
[2025-06-04] MEDS: Cyanocobalamin 500 MCG TAB PO (09:15)
[2025-06-04] MEDS: Cholecalciferol (Vitamin D3) 1,000 UNIT TAB 2000 UNITS PO (09:15)
[2025-06-04] MEDS: Normal Saline Flush 10 ML SYR IVP ×2 (09:17→20:05)
--- NOTE | 2025-06-04 14:45 | PHA.REVIEW2 ---
Pharmacy Admission Review Admission Clinical Review Admission Pharmacy Review: Symptomatic bradycardia (Acute) Anticoagulant long-term use (Acute) Anemia due to blood loss, acute (Acute) No Known Allergies Allergy (Verified 06/03/25 00:44) Resuscitation Status Full Code Height 5 ft Weight 59.4 kg Pharmacy Admission Review Renal Dosing Renal Dosing: BUN 22 mg/dL (7-18) H 06/04/25 05:30 Creatinine 1.1 mg/dL (0.55-1.02) H 06/04/25 05:30 Medications needing adjustments: Reviewed (No dose adjustments necessarry at this time) Anticoagulation Anticoagulation: Hgb 9.9 g/dL (11.2-15.7) L 06/04/25 05:30 Hct 30.5 % (36.0-46.0) L 06/04/25 05:30 Plt Count 181 10^3/uL (130-400) 06/04/25 05:30 INR 1.5 (0.9-1.1) H 06/03/25 06:45 Creatinine 1.1 mg/dL (0.55-1.02) H 06/04/25 05:30 Therapeutic Anticoagulation: Reviewed (Patient currently on Xarelto 15mg dosed daily with evening meal) Relevant Labs Relevant Labs: Sodium 140 mmol/L (136-145) 06/04/25 05:30 Potassium 3.9 mmol/L (3.5-5.1) 06/04/25 05:30 Chloride 104 mmol/L (98-107) 06/04/25 05:30 Magnesium 2.1 mg/dL (1.8-2.4) 06/04/25 05:30 Electrolytes, C-Reactive P, ESR: Reviewed (Electrolytes are within normal limits ) DM Control DM Control: Reviewed (No record of DM in [facility]'s H&P. No medication needed for control) Cardiac Review Cardiac Review: Blood Pressure 114/63 Heart rate 86 Blood Pressure 147/78 Heart rate 113 Blood Pressure 137/47 Heart rate 64 Blood Pressure 141/59 Heart rate 59 Blood Pressure 142/42 Heart rate 70 Blood Pressure 129/58 Heart rate 45 Blood Pressure 155/53 Heart rate 45 Blood Pressure 161/82 Blood Pressure 129/75 BP, HR, EF%: Reviewed (Blood pressure has not been stable and so is patient's heart rate, needs monitoring ) QTc Review QTc: Reviewed (QTc reported via EKG on 06/03/25 was 437) List meds needing interventions: Patient is not currently on any med that needs adjustments per QTc results Home Meds Home Med List reviewed: Reviewed Relevent Home Meds Not ordered & why?: All relevant home meds ordered. Metoprolol was held due to low HR at admit, will continue to monitor Current Meds Current Medication Order Review: Reviewed
--- NOTE | 2025-06-04 18:37 | PGE_ITS ---
Date of Service Date of service: 06/04/25 Time of Service: 08:00 Assessment and Plan Assessment and plan (1) Symptomatic bradycardia: Status: Acute Assessment and plan: Initially admitted for GI bleed Rates into the 30's in the morning, transferred to ICU anticipating atropine/pads/transfer, but improved into the 50's, no lower than 45 since initial episode With low rate not present on arrival, and not sustained, more likely bradycardia episodes are causing weakness and are not related to possible GI bleed Discussed with [facility] [place] Holding digoxin, metoprolol Continuing losartan Continue to monitor in ICU, prepare for atropine for sustained rates under 40 June 04 [facility] [place] advising to continue washout of digoxin and metoprolol in preparation for pacemaker evaluation She can see her regular housing relocation in [place] quickly after discharge Diltiazem 10 mg IV pushes x2 for tachycardia on Jun 04 Re-engage with [facility] cardiology in the morning for next steps (2) Melena: Start date: 06/03/25 Status: Chronic Assessment and plan: Single episode of blood in the stool yesterday. Multiple hospitalizations and endoscopic procedures for similar episodes She reports that she had a colon polyp, but otherwise has not had a cause identified for intermittent blood in the stool. No additional bleeding, hemoglobin in the 10's, will defer GS consultation Restarting rivaroxaban tonight Restarted diet (3) Anemia due to blood loss, acute: Start date: 06/03/25 Status: Acute Assessment and plan: Mild anemia in the 10's She has had hemoglobin in the 15's in the past No immediate risk of transfusion Monitor H&H (4) Hypomagnesemia: Start date: 06/03/25 Status: Resolved Assessment and plan: Repleted and resolved (5) PAD (peripheral artery disease): Status: Chronic Assessment and plan: Patient has been stopped on Plavix with a previous arterial clot in the left leg which is asymptomatic. She is on Xarelto. (6) Atrial fibrillation: Status: Chronic Assessment and plan: Not in afib during bradycardic episode with HR in the 30's and 40's Now with HR 56 she is in afib Restarted rivaroxaban, continue losartan (7) Diverticulitis large intestine: Assessment and plan: This could be a source of chronic blood loss though her stool not bright red. She is not having abdominal symptoms presently. (8) Duodenal ulcer: Status: Chronic Assessment and plan: She is on the PPI but could be having breakthrough bleeding with melena. Consider EGD either during this hospitalization if she has drop in her hemoglobi n with trending or as an outpatient with her physician in [place]. (9) CAD (coronary artery disease), [place] coronary artery: Status: Chronic Assessment and plan: Not active the patient on medical therapy and prevention. (10) HTN (hypertension): Status: Chronic Assessment and plan: Adjust outpatient medical therapy while hospitalized avoiding hypotension with patient having bradycardia. (11) Hypothyroidism: Status: Chronic Assessment and plan: Check TSH and continue outpatient replacement dosing. Subjective Subjective Interval history since last seen: Mrs. Sanchez feels well today and is able to eat and ambulate. She has had some episodes of tachycardia which are uncomfortable. She understands that she will probably leave the hospital soon with cardiology followup for possible pacemaker placement. Exam Narrative Exam Narrative: General: This is a very pleasant, elderly woman in no distress HEENT: Normocephalic. Stable, large nevus under left eye. Right cheek is mildly edematous and erythematous. CV: mildly bradycardic in the 50's, no afib, no murmur Resp: CTAB Abd: soft, NTND MSK: voluntary motion x4 Neuro: awake, alert, no focal deficits Objective Last Vital Signs Temp 36.4 C L 06/04/25 18:33 Pulse 94 H 06/04/25 16:01 Resp 20 06/04/25 16:01 BP 123/74 06/04/25 16:01 Pulse Ox 93 06/04/25 16:01 Laboratory Results - last 24 hr 06/03/25 06/04/25 19:50 05:30 WBC 8.03 RBC 3.02 L Hgb 10.7 L 9.9 L Hct 32.6 L 30.5 L MCV 101 H MCH 32.8 MCHC 32.5 RDW 15.6 H Plt Count 181 MPV 10.8 Immature Gran % 0.2 Neutrophils % 68.7 Lymphocytes % 17.2 Monocytes % 11.0 Eosinophils % 2.5 Basophils % 0.4 Nucleated RBC % 0.0 Absolute Neutrophils 5.52 Absolute Lymphocytes 1.38 Absolute Monocytes 0.88 H Absolute Eosinophils 0.20 Absolute Basophils 0.03 Sodium 140 Potassium 3.9 Chloride 104 Carbon Dioxide 24.2 Anion Gap 11.8 H BUN 22 H Creatinine 1.1 H Est GFR (CKD-EPI 2020) 48.03 Glucose 113 H Calcium 9.1 Magnesium 2.1 Iron 32 L TIBC 308 Transferrin % Sat 10 L Total Bilirubin 0.8 AST 23 ALT 31 Alkaline Phosphatase 63 Total Protein 6.9 Albumin 3.6 Time Spent with Patient Time Spent with Patient: 25-34 minutes Time was spent: preparing to see the patient(eg.review tests), obtaining and/or reviewing separately otained hiistory, ordering medications,tests, procedures, referring, communicating with other health patient care coordinator, indepentently interpreting results, counseling the patient and care coordination
[2025-06-04] MEDS: Losartan 25 MG TAB PO (20:06)
[2025-06-04] MEDS: dilTIAZem 25 MG/5 ML VIAL 10 MG IVP (21:26)
[2025-06-05] VITALS (25 sets, daily range): BP systolic 91–143; BP diastolic 52–110; PULSE 73–132; RESP 15–32; TEMP 35.9–36.4; O2SAT 95–97
[2025-06-05] MEDS: Acetaminophen 325 MG TAB 650 MG PO ×3 (01:54→20:08)
[2025-06-05] MEDS: dilTIAZem 25 MG/5 ML VIAL 10 MG IVP (03:52)
[2025-06-05] MEDS: Levothyroxine 25 MCG TAB PO (05:35)
[2025-06-05 06:55] LABS: Abs Immature Grans 0.02 10^3/uL (0.0-0.06); HCT 33.0 % (36.0-46.0); HGB 10.6 g/dL (11.2-15.7); Immature Grans % 0.2 %; MCH 32.6 pg (27.0-33.0); MCHC 32.1 % (32.0-36.0); MCV 102 fL (80-95); MPV 10.6 fL (8.0-11.0); Platelet Count 194 10^3/uL (130-400); RBC 3.25 10^6/uL (3.93-5.22); RDW 15.8 % (11.7-14.6); RDW-SD 58.1 fL; WBC 8.10 10^3/uL (4.4-10.8)
[2025-06-05 07:52] LABS: Magnesium 2.0 mg/dL (1.8-2.4)
[2025-06-05 07:57] LABS: ALT 28 U/L (14-59); AST 27 U/L (15-37); Albumin 3.4 g/dL (3.4-5.0); Alkaline Phosphatase 67 U/L (46-116); Anion Gap 11.4 mmol/L (3-11); BUN 18 mg/dL (7-18); Bilirubin, Total 0.6 mg/dL (0.2-1.0); CO2 24.6 mmol/L (21.0-32.0); Calcium 9.1 mg/dL (8.5-10.1); Chloride 108 mmol/L (98-107); Estimated GFR 48.03 (mL/min/1.73m2); Glucose 115 mg/dL (74-106); Potassium 3.9 mmol/L (3.5-5.1); Sodium 144 mmol/L (136-145); Total Protein 6.7 g/dL (6.4-8.2)
--- NOTE | 2025-06-05 08:22 | CMPROGNOTE_ITS ---
Date of service: 06/05/25 Time of Service: 08:22 Care Management Progress Note Progress Note Text Progress Note Text: Jayashree was sitting up in a chair when CM met with her. She was pleasant and looks better than she did yesterday, and reportedly feels better also. She has music therapy earlier today and was impressed by the 'dulcimer' and expressed interest in attending a local library group where this particular musician plays regularly. A PT consult is pending. She agrees to discharge home with [facility] services if recommended. She is not interested in SNF for STR. CM will follow. Discharge Potential Discharge Needs: Consult Consult Services Needed: Cardiology and PCP F/U Appt Anticipated Barriers to Discharge: None Identified Patient/Family Education Needs: Review discharge instructions, discuss Ask Me Three Transportation: Private vehicle Plan: Possible transfer to [facility] for a pacemaker. If stays, anticipate Jayashree will return home once medically cleared. She will be driven home via private vehicle by family. She will follow up with her PCP and continue per her discharge plan of care. CM will continue to follow. Social Determinants of Health Screening Social Determinants of health last assessed in clinic: 06/05/25 Will the Patient Participate in the Screening?: Yes Do you worry about having a steady place to live?: yes What is your living situation today?: I have housing today, but am worried about losing it Problems where you live: no known problems In the past 12 months, have you had to go without electric, gas, oil or water in your home?: no 1. Within the past 12 months, we worried whether our food would run out before we got money to buy more.: Never true 2. Within the past 12 months, the food we bought just didn't last and we didn't have money to get more.: Never true Has lack of transportation kept you from medical appointments or from doing things needed for daily living?: no Has anyone in your life made you feel unsafe or unsupported?: no How hard is it for you to pay for the very basics like food, housing, medical care, and heating? Would you say it is:: Not hard at all Do you want help finding or keeping work or a job?: I do not need or want help If for any reason you need help with day-to-day activities such as bathing, preparing meals, shopping, managing finances, etc., do you get the help you need?: I don?t need any help How often do you feel lonely or isolated from those around you?: Never Do you speak a language other than [place]ive[place] at home?: No Does the patient want assistance with any of the above?: No Health Related Social Needs Health related social needs: housing instability, housed, with risk of homelessness (Z59.811) Health related social needs details: no further
[2025-06-05] MEDS: SODIUM FER. GLUC./SUC. 125 MG in Normal Saline 100 ML 110 MG IVPB (08:34)
[2025-06-05] MEDS: Normal Saline Flush 10 ML SYR IVP ×2 (08:39→19:21)
[2025-06-05] MEDS: Cyanocobalamin 500 MCG TAB PO (08:42)
[2025-06-05] MEDS: Cholecalciferol (Vitamin D3) 1,000 UNIT TAB 2000 UNITS PO (08:55)
--- NOTE | 2025-06-05 09:09 | W.NUTRFU ---
Date of service: 06/05/25 Time of Service: 09:09 Nutrition Note NOTE: met with Jayashree a couple times yesterday while filling in for kitchen staff/getting meal orders. Her heart healthy diet order was liberalized to regular. She watches her salt intake and at her age liberalization recommended to enhance nutrition intake. She has had good intake and complements the quality of food while admiited in ICU thus far. Some weight loss noted in her hx - she states mostly unintentional weight loss but could stand to lose some anyway. About 9kg loss since sep 2020. Boost protein/nutrition ONS offered at breakfast and dinner meals to support her protein/nutrient intake. Denies n/v/c/d/ Labs: Hgb/Hct 10.6/33.0 today, BUN/Cr 18/1.1 today, GFR ~48 today, 115 FPG today, Iron/Transferrin yesterday 32/10%, total protein and albumin wnl today. 06/03 TSH was 6.24 - levothyroxine ordered. Patient with no questions/special nutrition needs. Currently assessed at lower acute nutrition risk. Will continue to monitor intake, weight, desire/need for ONS, nutrition-related labs Time Spent in Nutritional Counseling and Treatment: 10 min
[2025-06-05] MEDS: Metoprolol 25 MG TAB PO ×2 (10:18→16:14)
[2025-06-05] MEDS: Pantoprazole 40 MG TABCR PO (10:18)
--- NOTE | 2025-06-05 15:00 | PGE_ITS ---
Date of Service Date of service: 06/05/25 Time of Service: 15:00 Assessment and Plan Assessment and plan (1) Symptomatic bradycardia: Status: Acute Assessment and plan: Initially admitted for GI bleed Rates into the 30's in the morning, transferred to ICU anticipating atropine/pads/transfer, but improved into the 50's, no lower than 45 since initial episode With low rate not present on arrival, and not sustained, more likely bradycardia episodes are causing weakness and are not related to possible GI bleed D[place]ed with [facility] [place] Holding digoxin, metoprolol Continue to monitor in ICU, prepare for atropine for sustained rates under 40 June 04 [facility] [place] advising to continue washout of digoxin and metoprolol in preparation for pacemaker evaluation, but required diltiazem overnight. Given h/o CAD, resumed metoprolol. Plan to Re-engage with [facility] [place] (2) Melena: Start date: 06/03/25 Status: Chronic Assessment and plan: Single episode of blood in the stool yesterday. Multiple hospitalizations and endoscopic procedures for similar episodes She reports that she had a colon polyp, but otherwise has not had a cause identified for intermittent blood in the stool. No additional bleeding, hemoglobin in the 10's, will defer GS consultation Confirmed restarting rivaroxaban today (3) Anemia due to blood loss, acute: Start date: 06/03/25 Status: Acute Assessment and plan: Mild anemia in the 10's H/o duodenal ulcer, on PPI She has had hemoglobin in the 15's in the past, but stable this admission. No immediate risk of transfusion Monitor H&H (4) PAD (peripheral artery disease): Status: Chronic Assessment and plan: Patient has been off Plavix with a previous arterial clot in the left leg which is asymptomatic. She is on rivaroxaban. (5) Atrial fibrillation: Status: Chronic Assessment and plan: Not in afib during bradycardic episode with HR in the 30's and 40's Now with HR elevated in afib Restarted rivaroxaban, metoprolol, no digoxin (6) CAD (coronary artery disease), [place] coronary artery: Status: Chronic Assessment and plan: Not active, continue on medical therapy and prevention. Subjective Subjective Patient reports: tolerating a regular diet; denies nausea, vomiting, shortness of breath or fever Interval history since last seen: Tachycardic overnight off rate control, s/p diltiazem IV x 2 She feels okay this morning, though can feel heart rate is high. no chest pain. Exam Narrative Exam Narrative: General: This is a very pleasant, elderly woman in no distress CV: tachycardic in 110s-130s, irregular, no murmur Resp: CTAB, nl effort Abd: soft, NTND EXT: no cyanosis, warm, no edema Neuro: awake, alert, no focal deficits Objective Last Vital Signs Temp 35.9 C L 06/05/25 12:00 Pulse 94 H 06/05/25 13:08 Resp 26 H 06/05/25 13:08 BP 115/100 H 06/05/25 13:08 Pulse Ox 95 06/05/25 06:01 Laboratory Results - last 24 hr 06/05/25 05:36 WBC 8.10 RBC 3.25 L Hgb 10.6 L Hct 33.0 L MCV 102 H MCH 32.6 MCHC 32.1 RDW 15.8 H Plt Count 194 MPV 10.6 Immature Gran % 0.2 Neutrophils % 61.7 Lymphocytes % 21.9 Monocytes % 12.5 Eosinophils % 3.3 Basophils % 0.4 Nucleated RBC % 0.0 Absolute Neutrophils 5.00 Absolute Lymphocytes 1.77 Absolute Monocytes 1.01 H Absolute Eosinophils 0.27 Absolute Basophils 0.03 Sodium 144 Potassium 3.9 Chloride 108 H Carbon Dioxide 24.6 Anion Gap 11.4 H BUN 18 Creatinine 1.1 H Est GFR (CKD-EPI 2020) 48.03 Glucose 115 H Calcium 9.1 Magnesium 2.0 Total Bilirubin 0.6 AST 27 ALT 28 Alkaline Phosphatase 67 Total Protein 6.7 Albumin 3.4 Time Spent with Patient Time Spent with Patient: >50 minutes Time was spent: preparing to see the patient(eg.review tests), obtaining and/or reviewing separately otained hiistory, ordering medications,tests, procedures, referring, communicating with other health care navigator, indepentently interpreting results, counseling the patient and care coordination
[2025-06-05] MEDS: Rivaroxaban 15 MG TABLET PO (18:13)
[2025-06-05] MEDS: Losartan 25 MG TAB PO (19:21)
[2025-06-05] MEDS: Metoprolol 25 MG TAB 37.5 MG PO (20:07)
[2025-06-06] VITALS (24 sets, daily range): BP systolic 100–151; BP diastolic 57–105; PULSE 71–122; RESP 11–34; TEMP 36.2–37.2; O2SAT 97
[2025-06-06] MEDS: Metoprolol 25 MG TAB 37.5 MG PO ×4 (02:14→19:16)
[2025-06-06] MEDS: Levothyroxine 25 MCG TAB PO (05:14)
[2025-06-06 07:02] LABS: HCT 35.0 % (36.0-46.0); HGB 11.0 g/dL (11.2-15.7)
[2025-06-06 07:13] LABS: Anion Gap 10.9 mmol/L (3-11); BUN 23 mg/dL (7-18); CO2 25.1 mmol/L (21.0-32.0); Calcium 9.2 mg/dL (8.5-10.1); Chloride 106 mmol/L (98-107); Estimated GFR 48.03 (mL/min/1.73m2); Glucose 102 mg/dL (74-106); Potassium 4.1 mmol/L (3.5-5.1); Sodium 142 mmol/L (136-145)
[2025-06-06] MEDS: Docusate Sodium 100 MG CAP PO (07:30)
[2025-06-06] MEDS: Cholecalciferol (Vitamin D3) 1,000 UNIT TAB 2000 UNITS PO (07:31)
[2025-06-06] MEDS: Normal Saline Flush 10 ML SYR IVP ×3 (07:31→19:20)
[2025-06-06] MEDS: Cyanocobalamin 500 MCG TAB PO (07:31)
[2025-06-06] MEDS: Polyethylene Glycol 3350 17 GM PACKET PO (08:04)
--- NOTE | 2025-06-06 08:43 | PDOC.CMPRO ---
Date of service: 06/06/25 Time of Service: 08:43 Care Management Progress Note Progress Note Text Progress Note Text: Jayashree was sitting in a chair visiting with family when CM met with her. She was admitted on 06/03/25 for symptomatic bradycardia, now with afib and is planning to transfer to [facility] [place] a pacemaker. She is in good spirits and has been keeping her family up to date. New [facility] PT is recommended and she is certainly open to getting additional supports in the home. Palliative consult is pending. Referral to [facility] was placed yesterday. CM will continue to follow for ongoing care coordination and discharge planning needs. Discharge Potential Discharge Needs: Consult Consult Services Needed: Cardiology Anticipated Barriers to Discharge: Medical Status Patient/Family Education Needs: Review discharge instructions, discuss Ask Me Three Transportation: EMS Plan: Transfer to [facility] is planned for tomorrow, needs a pacemaker. Transportation will be via EMS and coordinated by nursing. CM will continue to follow. Social Determinants of Health Screening Social Determinants of health last assessed in clinic: 06/06/25 Will the Patient Participate in the Screening?: Yes Do you worry about having a steady place to live?: yes What is your living situation today?: I have housing today, but am worried about losing it Problems where you live: no known problems In the past 12 months, have you had to go without electric, gas, oil or water in your home?: no 1. Within the past 12 months, we worried whether our food would run out before we got money to buy more.: Never true 2. Within the past 12 months, the food we bought just didn't last and we didn't have money to get more.: Never true Has lack of transportation kept you from medical appointments or from doing things needed for daily living?: no Has anyone in your life made you feel unsafe or unsupported?: no How hard is it for you to pay for the very basics like food, housing, medical care, and heating? Would you say it is:: Not hard at all Do you want help finding or keeping work or a job?: I do not need or want help If for any reason you need help with day-to-day activities such as bathing, preparing meals, shopping, managing finances, etc., do you get the help you need?: I don?t need any help How often do you feel lonely or isolated from those around you?: Never Do you speak a language other than Romanian at home?: No Does the patient want assistance with any of the above?: No Health Related Social Needs Health related social needs: housing instability, housed, with risk of homelessness (Z59.811) Health related social needs details: no further
[2025-06-06] MEDS: Pantoprazole 40 MG TABCR PO (09:59)
[2025-06-06] MEDS: Furosemide 20 MG/2 ML VIAL IVP (10:29)
--- NOTE | 2025-06-06 10:56 | IN_ITS ---
PT Notes Visit Reasons: Hematochezia, Acute Anemia Physical Therapy Inpatient Initial Evaluation Date: 06/07/2025 Referring Doctor: Cal Ortiz MD PT Orders: PT CONSULT: Fall safety assessment. Safety consult for DC. Precautions: Fall. Standard. Activity as tolerated. Patient Profile/Admitting Diagnosis: Jayashree is an 89-year-old female admitted for management of symptomatic bradycardia, melena, anemia due to blood loss, hypomagnesemia, PAD, AF, and diverticulitis. PMHX: All Active Problems (Updated 06/03/25 @ 17:06 by Davion Russo MD) Symptomatic bradycardia (Acute) Anticoagulant long-term use (Acute) GI bleed (Chronic) PAD (peripheral artery disease) (Chronic) CAD (coronary artery disease), [place] coronary artery (Chronic) HTN (hypertension) (Chronic) Elevated troponin (Acute) Pain of left calf (Acute) Left leg numbness (Acute) Anemia due to blood loss, acute (Acute) Discharge planning issues (Acute) Acute low back pain (Acute) Melena (Chronic) Duodenal ulcer (Chronic) Atrial fibrillation (Chronic) Abdominal pain (Acute) Leukocytosis (Acute) Reaction, situational (Acute) Diverticulosis (Acute) Hypothyroidism (Chronic) Hyperlipidemia (Acute) Medical History (Updated 06/03/25 @ 17:06 by Davion Russo MD) Diverticulitis large intestine Elevated blood pressure reading without diagnosis of hypertension Ventral hernia Pharyngitis Urinary frequency Vitamin B12 deficiency Grief reaction Surgical History History of bladder repair surgery History of colonoscopy S/P hysterectomy Social History/Home Situation: Modified independent household ambulator. Lives alone but has excellent support from family and friends. No longer drives. Equipment Owned/DME: FWW, [facility] [place] Subjective: Pleasant and cooperative. Denied headache, chest pain, and lightheadedness throughout session. Objective: General Observation: Seated on [facility] [place] with JOHN Malinda assiting. Telemetry on. Mental Status: Alert and oriented as to person, place, time, and purpose. Able to pay attention, focus, and respond appropriately. Pain: None reported Vital Signs: HR highest of 128 thorughout the short walk ROM: Right Upper Extremity: Shoulder Flexion WFL. Shoulder abduction WFL. Elbow flexion WFL. Wrist flexion WFL. Functional opening and closing of hand WFL. Left Upper Extremity: Shoulder Flexion WFL. Shoulder abduction WFL. Elbow flexion WFL. Wrist flexion WFL. Functional opening and closing of hand WFL. Right Lower Extremity: Hip flexion WFL. Hip abduction WFL. Knee flexion WFL. Ankle dorsiflexion WFL. Ankle plantarflexion WFL. Left Lower Extremity: Hip flexion WFL. Hip abduction WFL. Knee flexion WFL. Ankle dorsiflexion WFL. Ankle plantarflexion WFL. Strength:4- Right Upper Extremity: Shoulder flexors 4-/5. Shoulder abductors 4-/5. Elbow flexors 4-/5. Elbow extensors 4-/5. Quality Internship strong. Left Upper Extremity: Shoulder flexors 4-/5. Shoulder abductors 4-/5. Elbow flexors 4-/5. Elbow extensors 4-/5. Quality Internship strong. Right Lower Extremity: Hip flexors 4-/5. Hip abductors 4-/5. Knee flexors 4-/5. Knee extensors 4-/5. Ankle dorsiflexors 4-/5. Ankle plantarflexors 4-/5. Left Lower Extremity: Hip flexors 4-/5. Hip abductors 4-/5. Knee flexors 4-/5. Knee extensors 4-/5. Ankle dorsiflexors 4-/5. Ankle plantarflexors 4-/5. Bed Mobility/Transfers: Minimal cueing provided for use of B hands as needed for support, movement sequence, AD management, and posture to reduce fall risk and minimize pain report Sit to stand standby assist with FWW Stand to sit standby assist with FWW Bed to bedside commode standby assist with FWW Bedside commode to bed standby assist with FWW Bed to reclining chair standby assist with FWW Gait: Facilitate safe and correct performance of level surface ambulation covering a distance of about 80 feet with use of walker with decreased gait speed. No LOB and no undue SOB. Directional change slow down. Step height and length decreased. Stairs: Not tested today Balance: Static Sitting: Normal Dynamic Sitting: Normal Static Standing: Good Dynamic Standing: Fair Special Tests: Mobility Limitations Standardized Measure [facility] AM-PAC 6 clicks Basic Mobility Inpatient Short Form: Raw Score: 22 CMS Score: 21% deficit Informed Consent/Education: Patient was instructed in purpose of PT consult and plan of care. Agreeable to proceed with established PT POC to achieve personal goals. Assessment: Sandra, per prior level of function, has been a household ambulator and holds onto furnitures navigating her house. She has had good family and friend support. She was able to tolerate walking in the ICU hallway without undue fatigue nor SOB. Gait slowed but no LOB. She will benefit from HH PT to ensurea smooth transition to home while facilitating return to PLOF. Patient presents with clinical signs and symptoms consistent with current/admitting diagnoses that have resulted to mobility limitations, gait instability, generalized weakness, and overall ADL decline as demonstrated by the following impairment level findings: 1. Decreased strength to B UE/LE major muscle groups 2. Impaired standing balance 3. Impaired activity tolerance Impairments are contributing to the following functional limitations: 1. Difficulty with ambulation without assistive device and physical assistance 2. Increased completion time for mobility ADL performance 3. Increased risk for falls 4. Difficulty with managing steps alone safely Patient is assessed as a 31593 moderate complexity based on the following: History: 89-year-old female with past medical history as indicated above Examination: Demonstrable impairment in strength, balance, and mobility level with underlying impairments and functional limitations as exhibited above as well as deficit score of 21% utilizing the [facility] Mobility Inpatient Short Form Presentation: Evolving Decision Makin moderate complexity Goals: Goals X1 week 1. Supine-Sit independent 2. Sit-Supine independent 3. Sit-Stand independent 4. Stand-Sit independent with FWW 5. Bed-Chair independent with FWW 6. Chair-Bed independent with FWW 7. Independent gait on level surface with use of FWW for at least 150 feet without report of pain nor dyspnea 8. Independent stair negotiation while holding onto B rails for at least 3 steps without report of pain nor dyspnea 9. Independent with home exercise program 10. Good static and dynamic standing balance/tolerance Plan of Care/Treatment Plan: 1-2x/day, 7 days/week x 1 week. Plan of care has been reviewed with the APPLIANCE TESTER providing the service under Physical Therapy direction. Initiate Physical Therapy intervention for pain management as needed, strengthening, bed mobility, transfers, gait, stairs, balance training, and use of assistive device. DISCHARGE RECOMMENDATIONS: HH PT TREATMENT CODE/TIME: 57650 x 25 minutes for 1 unit (10:56-11:21). Thank you for the opportunity to participate in the care of this patient. Carissa Rosales PT, DPT, CLT [facility] [place], [place]
--- NOTE | 2025-06-06 11:39 | PGE_ITS ---
Date of Service Date of service: 06/06/25 Time of Service: 11:39 Assessment and Plan Assessment and plan (1) Symptomatic bradycardia: Status: Acute Assessment and plan: Initially admitted for GI bleed Rates into the 30's that morning, transferred to ICU anticipating atropine/pads/transfer, but improved into the 50's, no lower than 45 since initial episode With low rate not present on arrival, more likely bradycardia episodes are causing weakness and are not related to possible GI bleed Discussed with [facility] cardiology, recommended holding digoxin, metoprolol for wash out period recommended, but rates up to 170s the next day Rates more reasonably controlled now back on metoprolol Case reviewed again and strips faxed to cardiology, 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 They ([facility]) accepted the patient for transfer to service of Dr. Iris Rowland cardiology with bed pending, listed for 06/07. (2) Right-sided heart failure: Status: Acute Assessment and plan: echo on admission showed elevated RVSP and right heart disfuction. Discussed with cardiology, will diurese with furosemide, which might improve stress on her heart. Troponins were not done on admission, get one now. (3) Melena: Start date: 06/03/25 Status: Chronic Assessment and plan: Single episode of blood in the stool prior to admission. Brown stools documented since then. Multiple hospitalizations and endoscopic procedures for similar episodes History of duodenal ulcer and reported colon polyp, on PPI and famotidine. No additional bleeding, hemoglobin in the 06-02, (though was 15 in December) even after resuming clopidogrel and rivaroxaban, no acute intervention (4) Anemia due to blood loss, acute: Start date: 06/03/25 Status: Acute Assessment and plan: As above. Iron/TIBC 10% on 06/04, given IV iron for repletion. (5) PAD (peripheral artery disease): Status: Chronic Assessment and plan: I confirmed with that she should be on clopidogrel and rivaroxaban, which is c/w her home list. (6) Atrial fibrillation: Status: Chronic Assessment and plan: Not in afib during bradycardic episode with HR in the 30's and 40's Now with HR elevated in afib Restarted rivaroxaban, metoprolol, no digoxin. See above. Subjective Subjective Patient reports: tolerating a regular diet and voiding w/o difficulty; denies diarrhea, nausea, vomiting or fever Interval history since last seen: Metoprolol increased to 37.5mg QID in evening She feels a little better, hasn't been up today. Was still lightheaded on her feet yesterday. Not SOB at rest, no chest pain or palpitations. Exam Narrative Exam Narrative: General: This is a very pleasant, elderly woman in no distress CV: borderline tachycardic with rate around 100, irregular, no murmur Resp: CTAB, nl effort Abd: soft, NTND EXT: no cyanosis, warm, no edema Neuro: awake, alert, no focal deficits Objective Last Vital Signs Temp 36.8 C 06/06/25 07:56 Pulse 96 H 06/06/25 10:01 Resp 19 06/06/25 10:45 BP 142/58 H 06/06/25 10:01 Pulse Ox 97 06/06/25 10:45 Laboratory Results - last 24 hr 06/06/25 06:08 Hgb 11.0 L Hct 35.0 L Sodium 142 Potassium 4.1 Chloride 106 Carbon Dioxide 25.1 Anion Gap 10.9 BUN 23 H Creatinine 1.1 H Est GFR (CKD-EPI 2020) 48.03 Glucose 102 Calcium 9.2 Time Spent with Patient Time Spent with Patient: >50 minutes Time was spent: preparing to see the patient(eg.review tests), obtaining and/or reviewing separately otained hiistory, ordering medications,tests, procedures, referring, communicating with other health post anesthesia care unit nurse, indepentently interpreting results, counseling the patient and care coordination
[2025-06-06 12:34] LABS: Troponin I 817 ng/L (<or=51)
[2025-06-06] MEDS: Rivaroxaban 15 MG TABLET PO (17:05)
[2025-06-06] MEDS: Losartan 25 MG TAB PO (19:17)
[2025-06-06] MEDS: Acetaminophen 325 MG TAB 650 MG PO (19:18)
[2025-06-07] VITALS (15 sets, daily range): BP systolic 107–129; BP diastolic 63–90; PULSE 71–124; RESP 17–35; TEMP 36.2–37.2; O2SAT 96–99
[2025-06-07] MEDS: Metoprolol 25 MG TAB 37.5 MG PO ×3 (01:13→13:51)
[2025-06-07] MEDS: Acetaminophen 325 MG TAB 650 MG PO ×2 (01:13→13:52)
[2025-06-07 05:04] LABS: HCT 33.3 % (36.0-46.0); HGB 10.4 g/dL (11.2-15.7)
[2025-06-07] MEDS: Levothyroxine 25 MCG TAB PO (05:08)
[2025-06-07 05:47] LABS: Anion Gap 12.3 mmol/L (3-11); BUN 28 mg/dL (7-18); CO2 22.7 mmol/L (21.0-32.0); Calcium 8.9 mg/dL (8.5-10.1); Chloride 104 mmol/L (98-107); Estimated GFR 43.27 (mL/min/1.73m2); Glucose 122 mg/dL (74-106); Magnesium 1.7 mg/dL (1.8-2.4); Potassium 4.3 mmol/L (3.5-5.1); Sodium 139 mmol/L (136-145)
[2025-06-07] MEDS: Cholecalciferol (Vitamin D3) 1,000 UNIT TAB 2000 UNITS PO (08:26)
[2025-06-07] MEDS: Clopidogrel 75 MG TAB PO (08:26)
[2025-06-07] MEDS: Cyanocobalamin 500 MCG TAB PO (08:26)
[2025-06-07] MEDS: Normal Saline Flush 10 ML SYR IVP (08:29)
--- NOTE | 2025-06-07 09:52 | PT.INTREAT ---
PT Notes Visit Reasons: Hematochezia, Acute Anemia Physical Therapy Inpatient Initial Evaluation Date: 06/07/2025 Precautions: Fall. Standard. Activity as tolerated. Subjective: Agreeable to just taking it easy today as she has not had breakfast and is on NPO for a potential pacemeker pacement at [facility] any time now, just waiting for a bed. Pleasant and cooperative. Denied headache, chest pain, and lightheadedness throughout session. Objective: General Observation: Telemetry on. Mental Status: Alert and oriented as to person, place, time, and purpose. Able to pay attention, focus, and respond appropriately. Pain: None reported Vital Signs: HR highest of 121 thorughout the short walk Bed Mobility/Transfers: Minimal cueing provided for use of B hands as needed for support, movement sequence, AD management, and posture to reduce fall risk and minimize pain report Sit to stand standby assist with FWW Stand to sit standby assist with FWW Bed to bedside commode standby assist with FWW Bedside commode to bed standby assist with FWW Bed to reclining chair standby assist with FWW Gait: Facilitate safe and correct performance of level surface ambulation covering a distance of about 80 feet with use of walker with decreased gait speed. No LOB and no undue SOB. Directional change slow down. Step height and length decreased. Stairs: Not tested today Balance: Static Sitting: Normal Dynamic Sitting: Normal Static Standing: Good Dynamic Standing: Fair Assessment: Deferred any other activity today as patient is waiting for a pacemker palcemnet at [facility] and has been NPO. Plan of Care/Treatment Plan: 1-2x/day, 7 days/week x 1 week. Plan of care has been reviewed with the LANDSCAPE ARCHITECTURE TEACHER providing the service under Physical Therapy direction. Initiate Physical Therapy intervention for pain management as needed, strengthening, bed mobility, transfers, gait, stairs, balance training, and use of assistive device. DISCHARGE RECOMMENDATIONS: PT TREATMENT CODE/TIME: 9753 x 24 minutes for 1 unit (09:52-10:16).
[2025-06-07] MEDS: Pantoprazole 40 MG TABCR PO (10:15)
--- NOTE | 2025-06-07 10:24 | PDOC.CMPRO ---
Date of service: 06/07/25 Time of Service: 10:24 Care Management Progress Note Progress Note Text Progress Note Text: Jayashree was sitting up in her chair when CM met with her. She stated that per MD, she would be transferred to [facility], pending bed availability. Jayashree was pleasant and engaged in conversation well. She discussed how supportive her family and friends are, and shared her advice stating grow older, but don't age. During the conversation, Jayashree's RN stated that [facility] called and stated that they have a bed for her, and that EMS would transport her soon. She was excited about the forward movement in her plan, and requested to contact her daughter. She was happy with this plan. CM will continue to follow. Discharge Potential Discharge Needs: Other (transfer to tertiary facility) Anticipated Barriers to Discharge: Bed availability Patient/Family Education Needs: Review discharge instructions, discuss Ask Me Three Transportation: EMS Plan: Anticipate Jayashree will transfer to [facility] for further care as she requires a pacemaker. She will transport via EMS, coordinated by RN College Archivist, once a bed has been secured. She will follow up with her PCP and discharge plan of care. CM will continue to follow. Social Determinants of Health Screening Social Determinants of health last assessed in clinic: 06/07/25 Will the Patient Participate in the Screening?: Yes Do you worry about having a steady place to live?: yes What is your living situation today?: I have housing today, but am worried about losing it Problems where you live: no known problems In the past 12 months, have you had to go without electric, gas, oil or water in your home?: no 1. Within the past 12 months, we worried whether our food would run out before we got money to buy more.: Never true 2. Within the past 12 months, the food we bought just didn't last and we didn't have money to get more.: Never true Has lack of transportation kept you from medical appointments or from doing things needed for daily living?: no Has anyone in your life made you feel unsafe or unsupported?: no How hard is it for you to pay for the very basics like food, housing, medical care, and heating? Would you say it is:: Not hard at all Do you want help finding or keeping work or a job?: I do not need or want help If for any reason you need help with day-to-day activities such as bathing, preparing meals, shopping, managing finances, etc., do you get the help you need?: I don?t need any help How often do you feel lonely or isolated from those around you?: Never Do you speak a language other than Setsw[place] at home?: No Does the patient want assistance with any of the above?: No Health Related Social Needs Health related social needs: housing instability, housed, with risk of homelessness (Z59.811) Health related social needs details: no further
--- NOTE | 2025-06-07 13:52 | CHAPLAIN ---
I visited with Jayashree and brought her a prayer shawl while she waits to be transferred to [facility] for a pacemaker. She talked a bit about the decision to have a pacemaker put in, and the experience of other people she knows. Her daughter will be following her Jayashree to [facility] to be with her. Her daughter has a daughter who had cardiac issues since she was born, so Jayashree her daughter is a good advocate. Waiting is difficult and Jayashree hasn't been allowed anything to eat or drink since midnight because she may have a procedure today. Jayashree was very pleasant and easily engaged in conversation.
--- NOTE | 2025-06-07 16:32 | DSE_ITS ---
Date of service: 06/07/25 Time of Service: 16:32 DS: Diagnosis Discharge Diagnosis (1) Symptomatic bradycardia: Status: Acute (2) Right-sided heart failure: Status: Acute (3) Melena: Status: Chronic (4) Anemia due to blood loss, acute: Status: Acute (5) PAD (peripheral artery disease): Status: Chronic (6) Atrial fibrillation: Status: Chronic Discharge Plan Disposition Patient Disposition: Transfer-Acute Inpatient Care Specific Acute Inpt Facility: [facility] Condition: Fair Discharge Details Reason For Visit: Hematochezia, Acute Anemia Admit Date/Time: 06/03/25 03:51 Admit Provider: Alphonse Armendariz Attending Provider: Alphonse Armendariz Primary Care Provider: Chantell Castillo V Hospital Course Hospital Course: Jayashree Sanchez is an 89 year old woman with h/o CAD, PAD, atrial fibrillation on rivaroxaban, and h/o recurrent GI bleeding who presented June 03 with wea kness and some blood stools, with some shortness of breath and low heart rate. She was admitted for GI bleed, for anemia monitoring. In the technical service specialist she was bradycardic in the 30's and was transferred to the ICU. Her heart rate fluctuated from 30s to 130s. Digoxin level was 0.79, stable from previous. cardiology was contacted who recommended holding her metoprolol and digoxin for 48 hours. On 06/04 overnight her heart rate was in the 170s with increased SOB and she was given IV diltiazem. On 06/05 the decision was made to resume her metoprolol but not digoxin. Her symptoms improved and her heart rate stabilized around 100 without bradycardic episodes. Troponins were not done on admission, but she did have troponemia of 815 noted when checked in the evening of 06/06. She did not have chest pain. This was not trended. She was continued on clopidogrel and rivaroxaban. Reduction in RV function and increased RV pressures noted on 06/03 echocardiogram. She was given a dose of 20mg IV furesmide 06/06 and was negative 1500ml 06/06-. She had brown stools while admitted, without blood. Her hemoglobin was totally stable at 10.2 on admission and 10.4 on discharge. Her iron/TIBC was low at 15%. She was given an infusion of IV ferric sodium gluconate 10ml on 06/05. She has basline CKD3 and her creatinine was near her baseline at 1.2 the morning of discharge. Her magnesium supplemented and should be followed with ongoing diuresis. Home Meds and New Rx's Prescriptions: New magnesium hydroxide [Milk of Magnesia] 400 mg/5 mL Suspension 30 ml PO DAILY PRN PRNQty: 100 0RF Continued losartan 25 mg Tablet 25 mg PO HS aspirin 81 mg tablet,chewable 81 mg PO DAILY Patient Comments: CHEW ONE TABLET BY MOUTH EVERY DAY levothyroxine 25 mcg tablet 25 mcg PO DAILY Patient Comments: TAKE 1 AND 1/2 TABLETS BY MOUTH EVERY DAY LEAST 30 MINUTES PRIOR TO BREAKFAST nitroglycerin 0.4 mg tablet, sublingual 0.4 mg sublingual Q5M PRN Patient Comments: PLACE ONE TABLET UNDER THE TONGUE EVERY 5 MINUTES FOR UP TO 3 DOSES NEEDED FOR CHEST PAIN. IF CHEST PAIN STILL PERSISTS CONTACT 911 metoprolol tartrate 25 mg tablet 25 mg PO DAILY Patient Comments: TAKE ONE-HALF TABLET BY MOUTH EVERY DAY NEEDED FOR ELEVATED PULSE losartan 50 mg tablet 25 mg PO HS Patient Comments: Take 1/2 tablet by mouth once a day levothyroxine 25 mcg capsule 25 mcg PO DAILY metoprolol succinate [Toprol XL] 50 mg tablet extended release 24 hr 75 mg PO BID furosemide 40 mg tablet 40 mg PO DAILY Patient Comments: TAKE ONE TABLET BY MOUTH EVERY DAY acetaminophen [Tylenol] 325 mg tablet 325 mg PO Q6H PRN clopidogrel 75 mg tablet 75 mg PO DAILY Patient Comments: TAKE ONE TABLET BY MOUTH EVERY DAY pantoprazole [Protonix] 40 mg tablet,delayed release (DR/EC) 40 mg PO DAILY pyridoxine (vitamin B6) 100 mg tablet 100 mg PO DAILY cranberry 500 mg capsule 500 mg PO DAILY Rx Instructions: administer with a meal cholecalciferol (vitamin D3) 50 mcg (2,000 unit) capsule 50 mcg PO DAILY Xarelto 15 mg tablet 15 mg PO QPM Rx Instructions: must administer with evening meal coQ10 (ubiquinol) [Qunol Malik CoQ10] 100 mg capsule 100 mg PO BID mecobalamin (vitamin B12) 500 mcg tablet,chewable 500 mcg PO DAILY naturelo vegan iron 25 mg PO 1XD Patient Comments: 4 hours after thyroid med Discontinued digoxin 125 mcg (0.125 mg) tablet 125 mcg PO DAILY Qty: 30 1RF famotidine 20 mg tablet 20 mg PO DAILY Patient Comments: TAKE 1 TABLET BY MOUTH TWICE A WEEK Discharge Instructions Activity:: Activity as Tolerated Equipment/Supplies:: No Equipment Needed Diet:: As Tolerated Discharge Orders Discharge Orders: Discharge Order (Routine); Ordered 06/07/25 Ordered By: Cal Ortiz DS: Summary Time Spent with Patient providing and/or coordinating discharge services: Greater than 30 minutes Status at Discharge Functional status at discharge: uses cane/walker Overall status at discharge: patient is not back to baseline Mental Status: mental status grossly normal Speech and Movement: speech and movement normal Mood: congruent mood Affect: normal affect Quality:SDOH Health Related Social Needs: Health related social needs risk of homeless Health related social needs details no further Health related social needs details: no further Exam Narrative Exam Narrative: General: This is a very pleasant, elderly woman in no distress CV: borderline tachycardic with rate around 100, irregular, no murmur, no elevation JVP Resp: CTAB, nl effort Abd: soft, NTND EXT: no cyanosis, warm. trace leanne LE edema Neuro: awake, alert, no focal deficits Psych Mental Status: mental status grossly normal Speech and Movement: speech and movement normal Mood: congruent mood Affect: normal affect DS: Data Vitals/I&O Vitals and I&O: Vital Signs Temperature 36.2 C L 06/07/25 15:17 Temperature Source Temporal Artery Scan 06/07/25 13:37 Pulse 106 H 06/07/25 15:17 Pulse Rhythm Regular 06/03/25 05:36 Pulse 96 H 06/07/25 16:00 Respiratory Rate 19 06/07/25 16:00 Respiratory Effort Normal, Non-Labored, Accessory Muscle Use 06/03/25 05:36 Respiratory Depth Normal 06/03/25 05:36 Respiratory Pattern Normal 06/03/25 05:36 Blood Pressure 129/90 06/07/25 15:17 Blood Pressure Mean 104 06/07/25 15:17 Pulse Oximetry 96 06/07/25 08:06 Oxygen Delivery Method Room Air 06/07/25 13:37 Oxygen Flow Rate 0 06/07/25 13:37 Pain Level 4 06/07/25 13:52 Comment POST AMBULATION 06/03/25 03:31 Intake & Output 06/06/25 06/07/25 06/07/25 23:59 11:59 23:59 Intake Total 470 / 490 300 / 400 100 / 400 Output Total 725 / 1525 750 / 900 150 / 900 Balance -255 / -1035 -450 / -500 -50 / -500 Intake: IV Oral 460 / 460 300 / 400 100 / 400 Output: Urine 725 / 1525 750 / 900 150 / 900 Other: Urine Color Yellow Yellow Yellow Urine Appearance Clear Clear Clear Urine Odor Normal Comment Mixed w/ stool, not measured. Estimate 100-150cc Stool Size Small Small Small Stool Characteristics Hard Formed Formed Bloody Hard Data Completed and Pending Labs on day of discharge: Labs from last 24 hours 06/07/25 04:45 Hgb 10.4 L Hct 33.3 L Sodium 139 Potassium 4.3 Chloride 104 Carbon Dioxide 22.7 Anion Gap 12.3 H BUN 28 H Creatinine 1.2 H Est GFR (CKD-EPI 2020) 43.27 Glucose 122 H Calcium 8.9 Magnesium 1.7 L PFSH All Active Problems (Updated 06/06/25 @ 11:44 by Cal Oritz) Right-sided heart failure (Acute) Symptomatic bradycardia (Acute) Anticoagulant long-term use (Acute) GI bleed (Chronic) PAD (peripheral artery disease) (Chronic) CAD (coronary artery disease), [place] coronary artery (Chronic) HTN (hypertension) (Chronic) Elevated troponin (Acute) Pain of left calf (Acute) Left leg numbness (Acute) Anemia due to blood loss, acute (Acute) Discharge planning issues (Acute) Acute low back pain (Acute) Atrial fibrillation (Chronic) Duodenal ulcer (Chronic) Melena (Chronic) Hyperlipidemia (Acute) Hypothyroidism (Chronic) Reaction, situational (Acute) Leukocytosis (Acute) Abdominal pain (Acute) Diverticulosis (Acute) Medical History (Updated 06/06/25 @ 11:44 by Cal Ortiz) Diverticulitis large intestine Elevated blood pressure reading without diagnosis of hypertension Ventral hernia Pharyngitis Urinary frequency Vitamin B12 deficiency Grief reaction Surgical History History of bladder repair surgery History of colonoscopy S/P hysterectomy Social History Smoking/Tobacco Use Status: Never Smoking risk assessment performed?: Yes Alcohol Intake: never Drug use: Never Substance use type: does not use Housing: house Do you feel safe at home: Yes Do you feel safe in your relationship?: Yes Time Spent with Patient Time Spent with Patient: 45-69 minutes Time was spent: preparing to see the patient(eg.review tests), obtaining and/or reviewing separately otained hiistory, ordering medications,tests, procedures, referring, communicating with other health child care attendant school, indepentently interpreting results, counseling the patient and care coordination
== END 2025-06-07 17:30 | disposition short-term general hospital (02) | DRG 308 ==
LOC: ER 03:59 → MS 07:10 → ICU 14:03 → MS 06-05 09:07 → ICU 06-05 09:10
PROVIDERS: Family Medicine; Admitting Provider Family Medicine; Emergency Provider Emergency Medicine; PCP Family Medicine; Responsible Provider Family Medicine; Visit Provider Family Medicine
DX: D62 Acute posthemorrhagic anemia (principal); R00.1 Bradycardia, unspecified; K26.4 Chronic or unspecified duodenal ulcer with hemorrhage; K57.33 Diverticulitis of large intestine without perforation or abscess with bleeding; Z59.811 Housing instability, housed, with risk of homelessness; I13.0 Hypertensive heart and chronic kidney disease with heart failure and stage 1 through stage 4 chronic kidney disease, or unspecified chronic kidney disease; Z79.01 Long term (current) use of anticoagulants; E83.42 Hypomagnesemia; I73.9 Peripheral vascular disease, unspecified; I25.10 Atherosclerotic heart disease of native coronary artery without angina pectoris; E03.9 Hypothyroidism, unspecified; Z79.899 Other long term (current) drug therapy; I48.91 Unspecified atrial fibrillation; E78.5 Hyperlipidemia, unspecified; E53.8 Deficiency of other specified B group vitamins; Z79.82 Long term (current) use of aspirin; Z86.0100 Personal history of colon polyps, unspecified; I25.2 Old myocardial infarction; Z86.718 Personal history of other venous thrombosis and embolism; I50.811 Acute right heart failure; N18.30 Chronic kidney disease, stage 3 unspecified
CPT/HCPCS: 00123; 36415; 80048; 80053; 85027; 86850; 86900; 86901; 87637; 93005; 96360; 96361; 97162; 97530; 99291; 74174; 80162; 82272; 83540; 83550; 83735; 84439; 84443; 84484; 85014; 85018; 85025; 85610; 93010; 93306; 99223; 99231; 99233; 99239; J1938; J2916; J3475; J3490

== ENCOUNTER 2025-06-20 12:37 | Outpatient (REF) | payer MEDICARE, SELFPAY ==
[2025-06-20 15:32] LABS: HCT 35.8 % (36.0-46.0); HGB 11.3 g/dL (11.2-15.7); MCH 31.7 pg (27.0-33.0); MCHC 31.6 % (32.0-36.0); MCV 101 fL (80-95); MPV 10.2 fL (8.0-11.0); Platelet Count 330 10^3/uL (130-400); RBC 3.56 10^6/uL (3.93-5.22); RDW 14.3 % (11.7-14.6); RDW-SD 53.2 fL; WBC 6.81 10^3/uL (4.4-10.8)
[2025-06-20 15:43] LABS: Anion Gap 11.1 mmol/L (3-11); BUN 34 mg/dL (7-18); CO2 24.9 mmol/L (21.0-32.0); Calcium 9.5 mg/dL (8.5-10.1); Chloride 102 mmol/L (98-107); Estimated GFR 39.31 (mL/min/1.73m2); Glucose 97 mg/dL (74-106); Magnesium 1.8 mg/dL (1.8-2.4); Potassium 4.4 mmol/L (3.5-5.1); Sodium 138 mmol/L (136-145)
== END 2025-06-20 12:38 | disposition home or self-care (01) ==
LOC: NCHCN 12:37
PROVIDERS: PCP Family Medicine; Visit Provider Family Medicine
DX: I48.21 Permanent atrial fibrillation (principal); N28.9 Disorder of kidney and ureter, unspecified
CPT/HCPCS: 80048; 85027; 83735

== ENCOUNTER 2025-07-12 18:19 | Outpatient (REF) | payer MEDICARE, SELFPAY ==
[2025-07-12 19:16] LABS: Anion Gap 11.2 mmol/L (3-11); BUN 29 mg/dL (9-23); CO2 29.1 mmol/L (20.0-31.0); Calcium 9.0 mg/dL (8.3-10.6); Chloride 100 mmol/L (98-107); Glucose 117 mg/dL (74-106); Potassium 3.5 mmol/L (3.5-5.1); Sodium 140 mmol/L (136-145)
[2025-07-12 19:18] LABS: TSH 6.49 uIU/mL (0.55-4.78)
== END 2025-07-12 18:20 | disposition home or self-care (01) ==
LOC: NCHCN 18:19
PROVIDERS: PCP Family Medicine; Visit Provider Family Medicine
DX: I48.91 Unspecified atrial fibrillation (principal)
CPT/HCPCS: 80048; 84439; 84443

== ENCOUNTER 2025-08-16 10:49 | Inpatient (IN) | payer MEDICARE, SELFPAY ==
[2025-08-16] VITALS (40 sets, daily range): BP systolic 68–174; BP diastolic 25–130; PULSE 56–199; RESP 15–35; TEMP 36.3–37.4; O2SAT 95–100
--- NOTE | 2025-08-16 10:30 | RT.EKG_ITS ---
APPROVED REPORT Exam: Resting ECG Reason for Exam: Edema Patient Location: E HR:66 bpm ECG Measurements Heart Rate 66 AXIS AZ [id number] P [id number] QRSd 137 QRS 57 QT 438 T 250 QTc 459 Conclusion Atrial fibrillation...V-rate 53- 69, irreg A-activity Right bundle branch block...QRSd>120, terminal axis(90,270) Anterior infarct, age indeterminate...Q >35mS, T neg, in V2-V5 Abnormal T, consider ischemia, lateral leads...T <-0.20mV, I aVL V5 V6 No STEMI
--- NOTE | 2025-08-16 11:41 | DI.RAD_ITS ---
Exam(s) XR PORTABLE CHEST AP EXAM: XR PORTABLE CHEST AP CLINICAL HISTORY: peripehral edema. TECHNIQUE: 2D digital imaging was performed. COMPARISON: No exams were available for comparison FINDINGS: Single AP portable view. Mild cardiomegaly. The mediastinum is not widened. There are bilateral pleural effusions, small on the right side and moderate on the left side. There is atelectasis in the lung bases and possible infiltrate in left lower lobe. No obvious airspace pulmonary edema. IMPRESSION: Cardiomegaly. Bilateral pleural effusions left larger than right. Possible left lower lobe infiltrate. DATA REPOSITORY: RADIATION DOSE DELIVERED:
[2025-08-16 11:48] LABS: INR 1.7 (0.9-1.1); PTT Activated 34.8 sec (20.6-30.2); Prothrombin Time 16.6 sec (9.1-11.1)
[2025-08-16 11:53] LABS: Magnesium 1.5 mg/dL (1.6-2.6)
[2025-08-16 11:54] LABS: Abs Immature Grans 0.08 10^3/uL (0.0-0.06); HCT 36.0 % (36.0-46.0); HGB 11.3 g/dL (11.2-15.7); Immature Grans % 0.6 %; MCH 29.4 pg (27.0-33.0); MCHC 31.4 % (32.0-36.0); MCV 94 fL (80-95); MPV 11.1 fL (8.0-11.0); Platelet Count 186 10^3/uL (130-400); RBC 3.85 10^6/uL (3.93-5.22); RDW 17.3 % (11.7-14.6); RDW-SD 58.5 fL; WBC 14.50 10^3/uL (4.4-10.8)
[2025-08-16 11:55] LABS: ALT 25 U/L (10-49); AST 32 U/L (<34); Albumin 4.3 g/dL (3.2-5.0); Alkaline Phosphatase 50 U/L (46-116); Anion Gap 11.5 mmol/L (3-11); BUN 39 mg/dL (9-23); Bilirubin, Total 1.3 mg/dL (0.2-1.2); CO2 28.5 mmol/L (20.0-31.0); Calcium 9.5 mg/dL (8.3-10.6); Chloride 100 mmol/L (98-107); Glucose 128 mg/dL (74-106); Potassium 3.2 mmol/L (3.5-5.1); Sodium 140 mmol/L (136-145); Total Protein 7.4 g/dL (5.7-8.2)
[2025-08-16] MEDS: cefTRIAXone 2 GM/50 ML BAG IVPB (12:14)
[2025-08-16 12:15] LABS: Troponin I 479 ng/L (<35)
--- NOTE | 2025-08-16 12:24 | W.ED.GENAD ---
Discharge Plan Disposition Patient Disposition: Admit to [facility] Discharge Details Clinical Impression: CHF (congestive heart failure), A-fib, Acute leg pain Primary Care Provider: Chantell Castillo V ED Provider: Dennis Greene Home Meds and New Rx's Prescriptions: No Action losartan 25 mg Tablet 25 mg PO HS aspirin 81 mg tablet,chewable 81 mg PO DAILY Patient Comments: CHEW ONE TABLET BY MOUTH EVERY DAY levothyroxine 25 mcg tablet 25 mcg PO DAILY Patient Comments: TAKE 1 AND 1/2 TABLETS BY MOUTH EVERY DAY LEAST 30 MINUTES PRIOR TO BREAKFAST nitroglycerin 0.4 mg tablet, sublingual 0.4 mg sublingual Q5M PRN Patient Comments: PLACE ONE TABLET UNDER THE TONGUE EVERY 5 MINUTES FOR UP TO 3 DOSES NEEDED FOR CHEST PAIN. IF CHEST PAIN STILL PERSISTS CONTACT 911 metoprolol tartrate 25 mg tablet 25 mg PO DAILY Patient Comments: TAKE ONE-HALF TABLET BY MOUTH EVERY DAY NEEDED FOR ELEVATED PULSE levothyroxine 25 mcg capsule 25 mcg PO DAILY metoprolol succinate [Toprol XL] 50 mg tablet extended release 24 hr 75 mg PO BID furosemide 40 mg tablet 40 mg PO BID Patient Comments: TAKE ONE TABLET BY MOUTH EVERY DAY acetaminophen [Tylenol] 325 mg tablet 325 mg PO Q6H PRN clopidogrel 75 mg tablet 75 mg PO DAILY Patient Comments: TAKE ONE TABLET BY MOUTH EVERY DAY pantoprazole [Protonix] 40 mg tablet,delayed release (DR/EC) 40 mg PO DAILY pyridoxine (vitamin B6) 100 mg tablet 100 mg PO DAILY cranberry 500 mg capsule 500 mg PO DAILY Rx Instructions: administer with a meal cholecalciferol (vitamin D3) 50 mcg (2,000 unit) capsule 50 mcg PO DAILY Xarelto 15 mg tablet 15 mg PO QPM Rx Instructions: must administer with evening meal coQ10 (ubiquinol) [Qunol Malik CoQ10] 100 mg capsule 100 mg PO BID mecobalamin (vitamin B12) 500 mcg tablet,chewable 500 mcg PO DAILY naturelo vegan iron 25 mg PO 1XD Patient Comments: 4 hours after thyroid med magnesium hydroxide [Milk of Magnesia] 400 mg/5 mL Suspension 30 ml PO DAILY PRN PRNQty: 100 0RF levothyroxine 50 mcg tablet 50 mcg PO DAILY Patient Comments: TAKE ONE TABLET BY MOUTH EVERY MORNING digoxin 125 mcg (0.125 mg) tablet 0.125 mg PO DAILY Patient Comments: TAKE ONE TABLET BY MOUTH EVERY DAY atorvastatin [Lipitor] 80 mg tablet 80 mg PO DAILY HPI General Date/Time Provider Initiated Documentation: 08/16/25 11:00. HPI Narrative: MDM/Narrative: 89-year-old female past medical history of CHF, A-fib, status post pacemaker ureter, hypertension, presents for evaluation of right lower extremity pain and swelling times several days. Vital signs notable for tachypnea, and borderline febrile as per EMS with temperature of 100 degrees. Patient's clinical presentation is most concerning for acute infectious etiology based on my examination, most concern for likely cellulitis complicating her peripheral lower extremity edema on the right lower extremity. However will also consider viral syndrome such as flu and COVID, bacterial pneumonia, among others. Further have suspicions that patient is likely not medically optimized in the standpoint of her chronic congestive heart failure, given the worsening bilateral extremity swelling, and inability to lay flat overnight to sleep. Will obtain screening labs including troponins, BNP and metabolic panel. Suspect patient would likely benefit from inpatient stay for likely diuresis and management of my suspicion of a right lower extremity cellulitis. ED Course: Initial labs are notable for an elevated white blood cell count, and elevated troponinhowever much lower than patient's prior baselines, hypokalemia and hypomagnesemia. Patient chest x-ray shows bilateral pleural effusions left greater than right which appear new as compared to most recent study approximately 2 months ago. Similarly, the patient's BNP is also significantly elevated over prior baseline. Based on these findings I am more convinced of a right lower extremity cellulitis, will start treatment with ceftriaxone, as well as fluid overload status due to CHF, will administer Lasix 80 mg IV. Case discussed with Dr. Russo (hospitalist) who will admit [facility] patient for further management. Disposition: Admit to [facility] HPI: 89-year-old female past med history of CHF, A-fib, status post pacemaker, hypertension presents for evaluation of right lower extremity pain swelling and redness which began several days ago. Patient lives alone at home, however family report that over the past several weeks after having a place maker placed 2 months ago she has been having worsening bilateral lower extremity edema. They note her heart rate has been labile however restarted digoxin several weeks ago with improvement of heart rate. Patient states overnight she has been having fever and chills, today found to have a temperature of 100 ?F by EMS, and notes that the right lower extremity became painful and red since yesterday. Denies any chest pain, acute shortness of breath or any other new or concerning symptoms. However she notes that she typically sleeps in a recliner as she is unable to lay flat due to depth of occultly breathing. ROS: Negative besides as mentioned above Exam: Gen: A&O NAD HEENT: NCAT, EOMI, not icteric. External ears normal. No rhinorrhea. Moist mucous membranes. Neck: Supple, full range of motion, no observable masses, No meningeal sign. Lungs: No Respiratory distress. Decreased bibasilar breath sounds CV: RRR, no edema. Abdomen: Soft, nondistended, No rebound tenderness. MSK: Bilateral pitting peripheral edema Skin: No rashes, petechiae, lesions. Normal color per patient. Neuro: Normal Gait, Grossly intact. Psych: Appropriate for situation. Rhythm: A-fib Rate: 66 [place]: Normal axis Intervals: Normal intervals Other findings: Lateral ST depressions. No acute ST segment elevation or T wave changes to suggest acute ischemia. As compared to EKG dated 06/03/25, the A-fin is new. Labs: 08/16/25 11:50 Blood Blood Culture - Pending 08/16/25 11:25 Blood Blood Culture - Pending Laboratory Tests Range/Units 08/16/25 08/16/25 08/16/25 11:25 12:06 12:35 WBC (4.4-10.8) 10^3/uL 14.50 H RBC (3.93-5.22) 10^6/uL 3.85 L Hgb (11.2-15.7) g/dL 11.3 Hct (36.0-46.0) % 36.0 MCV (80-95) fL 94 MCH (27.0-33.0) pg 29.4 MCHC (32.0-36.0) % 31.4 L RDW (11.7-14.6) % 17.3 H Plt Count (130-400) 10^3/uL 186 MPV (8.0-11.0) fL 11.1 H Immature Gran % % 0.6 Neutrophils % % 85.3 Lymphocytes % % 6.3 Monocytes % % 7.7 Eosinophils % % 0.0 Basophils % % 0.1 Nucleated RBC % (0.0-0.3) % 0.0 Absolute Neutrophils (1.2-6.7) 10^3/uL 12.37 H Absolute Lymphocytes (1.2-3.4) 10^3/uL 0.91 L Absolute Monocytes (0.1-0.8) 10^3/uL 1.12 H Absolute Eosinophils (0.0-0.7) 10^3/uL 0.00 Absolute Basophils (0.0-0.2) 10^3/uL 0.01 PT (9.1-11.1) sec 16.6 H INR (0.9-1.1) 1.7 H APTT (20.6-30.2) sec 34.8 H Sodium (136-145) mmol/L 140 Potassium (3.5-5.1) mmol/L 3.2 L Chloride (98-107) mmol/L 100 Carbon Dioxide (20.0-31.0) mmol/L 28.5 Anion Gap (3-11) mmol/L 11.5 H BUN (9-23) mg/dL 39 H Creatinine (0.55-1.02) mg/dL 1.32 H Est GFR (CKD-EPI 2020) (mL/min/1.73m2) 37.85 Glucose (74-106) mg/dL 128 H Calcium (8.3-10.6) mg/dL 9.5 Magnesium (1.6-2.6) mg/dL 1.5 L Total Bilirubin (0.2-1.2) mg/dL 1.3 H AST (<34) U/L 32 ALT (10-49) U/L 25 Alkaline Phosphatase (46-116) U/L 50 Troponin I (<35) ng/L 479 H* 417 H* NT-Pro-B Natriuret Pep (<300) pg/mL 72356 H Total Protein (5.7-8.2) g/dL 7.4 Albumin (3.2-5.0) g/dL 4.3 COVID-19 Source Nasopharynx SARS-CoV-2 (PCR) (Negative) Negative Influenza Type A (PCR) (Negative) Negative Influenza Type B (PCR) (Negative) Negative RSV (PCR) (Negative) Negative Radiology: PROCEDURE INFORMATION: Exam: XR Chest Exam date and time: 08/16/2025 11:39 AM Age: 89 years old Clinical indication: Other: Peripheral edema TECHNIQUE: Imaging protocol: Radiologic exam of the chest. Views: 1 view. COMPARISON: CR XR PORTABLE CHEST AP 01/12/2024 3:25 PM FINDINGS: Lungs: Bilateral lower lobe atelectasis. Pleural spaces: Bilateral pleural effusions. Heart/Mediastinum: Cardiomegaly. Bones/joints: Unremarkable. IMPRESSION: Cardiomegaly with bilateral pleural effusions. Thank you for allowing us to participate in the care of your patient. Dictated and Authenticated by: Sergio Bui MD Related Data Home Medications ?Medication ?Instructions ?Recorded ?Confirmed losartan 25 mg tablet 25 mg PO HS 10/05/20 08/16/25 aspirin 81 mg chewable tablet 81 mg PO DAILY 12/03/20 08/16/25 levothyroxine 25 mcg capsule 25 mcg PO DAILY 01/12/24 08/16/25 levothyroxine 25 mcg tablet 25 mcg PO DAILY 01/12/24 08/16/25 metoprolol succinate 50 mg 75 mg PO BID 01/12/24 08/16/25 tablet,extended release 24 hr (Toprol XL) metoprolol tartrate 25 mg tablet 25 mg PO DAILY 01/12/24 08/16/25 nitroglycerin 0.4 mg sublingual 0.4 mg sublingual Q5M PRN 01/12/24 08/16/25 tablet acetaminophen 325 mg tablet 325 mg PO Q6H PRN 06/03/25 08/16/25 (Tylenol) cholecalciferol (vitamin D3) 50 50 mcg PO DAILY 06/03/25 08/16/25 mcg (2,000 unit) capsule clopidogrel 75 mg tablet 75 mg PO DAILY 06/03/25 08/16/25 coQ10 (ubiquinol) 100 mg capsule 100 mg PO BID 06/03/25 08/16/25 (Qunol Malik CoQ10) cranberry 500 mg capsule 500 mg PO DAILY 06/03/25 08/16/25 furosemide 40 mg tablet 40 mg PO BID 06/03/25 08/16/25 mecobalamin (vitamin B12) 500 mcg 500 mcg PO DAILY 06/03/25 08/16/25 chewable tablet naturelo vegan iron 25 mg PO 1XD 06/03/25 08/16/25 pantoprazole 40 mg tablet,delayed 40 mg PO DAILY 06/03/25 08/16/25 release (Protonix) pyridoxine (vitamin B6) 100 mg 100 mg PO DAILY 06/03/25 08/16/25 tablet rivaroxaban 15 mg tablet (Xarelto) 15 mg PO QPM 06/03/25 08/16/25 magnesium hydroxide 400 mg/5 mL 30 ml PO DAILY PRN PRN #100 mL 06/06/25 08/16/25 oral suspension (Milk of Magnesia) atorvastatin 80 mg tablet (Lipitor) 80 mg PO DAILY 08/16/25 08/16/25 digoxin 125 mcg (0.125 mg) tablet 0.125 mg PO DAILY 08/16/25 08/16/25 levothyroxine 50 mcg tablet 50 mcg PO DAILY 08/16/25 08/16/25 Previous Rx's ?Medication ?Instructions ?Recorded magnesium hydroxide 400 mg/5 mL 30 ml PO DAILY PRN PRN #100 mL 06/06/25 oral suspension (Milk of Magnesia) Allergies Allergy/AdvReac Type Severity Reaction Status Date / Time No Known Allergies Allergy Verified 08/16/25 11:04 General Stated Complaint: Cellulitis PAL: 3 Course Vital Signs Vital signs: Vital Signs Temperature 37.4 C 08/16/25 10:50 Pulse 59 L 08/16/25 10:50 Respiratory Rate 25 H 08/16/25 10:50 Blood Pressure 115/25 L 08/16/25 10:50 Pulse Oximetry 95 08/16/25 10:50 Temperature 37.4 C 08/16/25 11:05 Temperature Source Oral 08/16/25 10:50 Pulse 59 L 08/16/25 11:05 Respiratory Rate 25 H 08/16/25 11:05 Blood Pressure 115/25 L 08/16/25 11:05 Blood Pressure Position Supine 08/16/25 10:50 Pulse Oximetry 95 08/16/25 11:05 Oxygen Delivery Method Room Air 08/16/25 11:05 Oxygen Flow Rate 0 08/16/25 10:50 Pain Level 10 08/16/25 10:50 Lab/Test Results Lab/Test Results: 08/16/25 11:50 Blood Blood Culture - Pending 08/16/25 11:25 Blood Blood Culture - Pending Laboratory Tests Range/Units 08/16/25 11:25 WBC (4.4-10.8) 10^3/uL 14.50 H RBC (3.93-5.22) 10^6/uL 3.85 L Hgb (11.2-15.7) g/dL 11.3 Hct (36.0-46.0) % 36.0 MCV (80-95) fL 94 MCH (27.0-33.0) pg 29.4 MCHC (32.0-36.0) % 31.4 L RDW (11.7-14.6) % 17.3 H Plt Count (130-400) 10^3/uL 186 MPV (8.0-11.0) fL 11.1 H Immature Gran % % 0.6 Neutrophils % % 85.3 Lymphocytes % % 6.3 Monocytes % % 7.7 Eosinophils % % 0.0 Basophils % % 0.1 Nucleated RBC % (0.0-0.3) % 0.0 Absolute Neutrophils (1.2-6.7) 10^3/uL 12.37 H Absolute Lymphocytes (1.2-3.4) 10^3/uL 0.91 L Absolute Monocytes (0.1-0.8) 10^3/uL 1.12 H Absolute Eosinophils (0.0-0.7) 10^3/uL 0.00 Absolute Basophils (0.0-0.2) 10^3/uL 0.01 PT (9.1-11.1) sec 16.6 H INR (0.9-1.1) 1.7 H APTT (20.6-30.2) sec 34.8 H Sodium (136-145) mmol/L 140 Potassium (3.5-5.1) mmol/L 3.2 L Chloride (98-107) mmol/L 100 Carbon Dioxide (20.0-31.0) mmol/L 28.5 Anion Gap (3-11) mmol/L 11.5 H BUN (9-23) mg/dL 39 H Creatinine (0.55-1.02) mg/dL 1.32 H Est GFR (CKD-EPI 2020) (mL/min/1.73m2) 37.85 Glucose (74-106) mg/dL 128 H Calcium (8.3-10.6) mg/dL 9.5 Magnesium (1.6-2.6) mg/dL 1.5 L Total Bilirubin (0.2-1.2) mg/dL 1.3 H AST (<34) U/L 32 ALT (10-49) U/L 25 Alkaline Phosphatase (46-116) U/L 50 Troponin I (<35) ng/L 479 H* NT-Pro-B Natriuret Pep (<300) pg/mL 47209 H Total Protein (5.7-8.2) g/dL 7.4 Albumin (3.2-5.0) g/dL 4.3 Medical Decision Making Quality:SDOH Health Related Social Needs: Health related social needs risk of homeless Health related social needs details no further PFSH All Active Problems (Updated 08/16/25 @ 13:57 by Dennis Greene MD) Acute leg pain (Acute) A-fib (Chronic) CHF (congestive heart failure) (Chronic) Right-sided heart failure (Acute) Anticoagulant long-term use (Acute) PAD (peripheral artery disease) (Chronic) CAD (coronary artery disease), [place] coronary artery (Chronic) HTN (hypertension) (Chronic) Elevated troponin (Acute) Pain of left calf (Acute) Left leg numbness (Acute) Anemia due to blood loss, acute (Acute) Discharge planning issues (Acute) Acute low back pain (Acute) Duodenal ulcer (Chronic) Atrial fibrillation (Chronic) Abdominal pain (Acute) Leukocytosis (Acute) Reaction, situational (Acute) Diverticulosis (Acute) Hypothyroidism (Chronic) Hyperlipidemia (Acute) Medical History (Updated 08/16/25 @ 13:57 by Dennis Greene MD) GI bleed Elevated blood pressure reading without diagnosis of hypertension Ventral hernia Pharyngitis Urinary frequency Vitamin B12 deficiency Grief reaction Surgical History History of bladder repair surgery History of colonoscopy S/P hysterectomy Social History Smoking/Tobacco Use Status: Never Smoking risk assessment performed?: Yes Alcohol Intake: never Drug use: Never Substance use type: does not use Housing: house Do you feel safe at home: Yes Do you feel safe in your relationship?: Yes
[2025-08-16 12:53] LABS: COVID-19 PCR Negative (Negative); RSV PCR Negative (Negative)
[2025-08-16] MEDS: Acetaminophen 500 MG TAB 1000 MG PO (12:55)
[2025-08-16] MEDS: Furosemide 100 MG/10 ML VIAL 80 MG IVP (12:56)
[2025-08-16] MEDS: POTASSIUM CHLORIDE 20 MEQ/100 ML BAG 50 MEQ IV INF (12:57)
[2025-08-16 13:11] LABS: Troponin I 417 ng/L (<35)
[2025-08-16 14:14] LABS: Glucose Negative (Negative)
[2025-08-16 14:29] LABS: C & S Indicated? No; WBC 0-2 HPF (0-5)
--- NOTE | 2025-08-16 14:51 | W.PM.HP.N ---
Date of service: 08/16/25 Time of Service: 14:00 Assessment and Plan Assessment and plan (1) Cellulitis of right lower extremity: Status: Acute Assessment and plan: BLE edema with some stigmata of venous stasis Right anterior goldsmith with broken skin, very painful to touch, likely cellulitis Continue ceftriaxone PT eval when pain tolerable (2) Acute on chronic heart failure with preserved ejection fraction (HFpEF): Status: Acute Assessment and plan: June 04 echocardiogram with LVEF 55%, abnormal septum motion due to RV pressure and overload. Moderate MR, moderate/severe TR. Noted worsening from December 2023 study. August 02 [facility] cardiology visit, severe fatigue and SOB noted. Plan to have her see EP for possible ablation. Digoxin restarted. Patient has 4+ pitting edema in BLE Diuresis begun in ED with furosemide 80 IV Will continue furosemide 80 IV q12H for 2 doses (3) Valvular heart disease: Status: Acute Assessment and plan: Moderate to severe disease on May echo (4) Elevated troponin: Status: Acute Assessment and plan: Troponins in the 400's this visit, trending down This is chronic with her ongoing heart disease (5) Atrial fibrillation: Status: Chronic Assessment and plan: As above, she expects to see an ceramic saw tender to discuss possible ablation She has had no devices placed other than a 24 hour monitor which was removed at [facility] appointment. Continue digoxin, rivaroxaban (6) PAD (peripheral artery disease): Status: Chronic Assessment and plan: History of right femoral artery thrombus, jail rivaroxaban (7) Hypothyroidism: Status: Chronic Assessment and plan: TSH and free T4 done in May, therapeutic at that time Continue home levothyroxine History of Present Illness History of Present Illness Chief Complaint: leg edema Narrative: Jayashree Sanchez is an 89 year old woman presenting August 16 with pain and swelling in both lower legs. The right leg is more painful and swollen and has redness on the goldsmtih. She also reports fever, chills and weakness with a cough. She was hospitalized here in May for symptomatic bradycardia and is under the care of [facility] cardiology. She has not had a pacemaker placed nor has she had a procedure to sebastián her atrial fibrillation. She reports that her medications have changed constantly and that she is not sure what she is supposed to be taking. No chest pain, no shortness of breath, no abdominal pain, no N/V/D. EMS reported temp of 100 in the field. In the ED she was mildly bradycardic HR 59, mildly tachypneic RR 25, with diastolic hypotension BP 115/25. EKG showed afib with RBBB, no occlusive pattern. CXR showed cardiomegaly and bilateral pleural effusions L > R with possible LLL infiltrate. Neutrophilic leukocytosis WBC 14.5. Elevated INR 1.7 (was 1.5 in May). Mild hypokalemia 3.2. Acute vs chronic renal injury with creatinine 1.32, baseline appears to be 1.0. Hypomagnesemia 1.5. Elevated troponin 479->417 which may be chronic. Elevated BNP 17563 which is 10x higher than previously seen elevations. PMH includes [place] x2, left femoral arterial clot on rivaroxaban, no longer on plavix/aspirin; atrial fibrillation on digoxin and metoprolol, hypothyroid on levothyroxine PFSH All Active Problems (Updated 08/16/25 @ 18:19 by Davion Russo MD) Cellulitis of right lower extremity (Acute) Valvular heart disease (Acute) Acute on chronic heart failure with preserved ejection fraction (HFpEF) (Acute) Acute leg pain (Acute) A-fib (Chronic) CHF (congestive heart failure) (Chronic) Right-sided heart failure (Acute) Anticoagulant long-term use (Acute) PAD (peripheral artery disease) (Chronic) CAD (coronary artery disease), [place] coronary artery (Chronic) HTN (hypertension) (Chronic) Elevated troponin (Acute) Pain of left calf (Acute) Left leg numbness (Acute) Anemia due to blood loss, acute (Acute) Discharge planning issues (Acute) Acute low back pain (Acute) Duodenal ulcer (Chronic) Atrial fibrillation (Chronic) Abdominal pain (Acute) Leukocytosis (Acute) Reaction, situational (Acute) Diverticulosis (Acute) Hypothyroidism (Chronic) Hyperlipidemia (Acute) Medical History (Updated 08/16/25 @ 18:19 by Davion Russo MD) GI bleed Elevated blood pressure reading without diagnosis of hypertension Ventral hernia Pharyngitis Urinary frequency Vitamin B12 deficiency Grief reaction Surgical History History of bladder repair surgery History of colonoscopy S/P hysterectomy Social History Smoking/Tobacco Use Status: Never Smoking risk assessment performed?: Yes Alcohol Intake: never Drug use: Never Substance use type: does not use Housing: house Do you feel safe at home: Yes Do you feel safe in your relationship?: Yes Meds Allergies and Home Medications Allergies Allergy/AdvReac Type Severity Reaction Status Date / Time No Known Allergies Allergy Verified 08/16/25 11:04 Home Medications ?Medication ?Instructions ?Recorded ?Confirmed ?Type losartan 25 mg tablet 25 mg PO HS 10/05/20 08/16/25 History aspirin 81 mg chewable tablet 81 mg PO DAILY 12/03/20 08/16/25 History levothyroxine 25 mcg capsule 25 mcg PO DAILY 01/12/24 08/16/25 History levothyroxine 25 mcg tablet 25 mcg PO DAILY 01/12/24 08/16/25 History metoprolol succinate 50 mg 75 mg PO BID 01/12/24 08/16/25 History tablet,extended release 24 hr (Toprol XL) metoprolol tartrate 25 mg tablet 25 mg PO DAILY 01/12/24 08/16/25 History nitroglycerin 0.4 mg sublingual 0.4 mg sublingual Q5M PRN 01/12/24 08/16/25 History tablet acetaminophen 325 mg tablet 325 mg PO Q6H PRN 06/03/25 08/16/25 History (Tylenol) cholecalciferol (vitamin D3) 50 50 mcg PO DAILY 06/03/25 08/16/25 History mcg (2,000 unit) capsule clopidogrel 75 mg tablet 75 mg PO DAILY 06/03/25 08/16/25 History coQ10 (ubiquinol) 100 mg capsule 100 mg PO BID 06/03/25 08/16/25 History (Qunol Malik CoQ10) cranberry 500 mg capsule 500 mg PO DAILY 06/03/25 08/16/25 History furosemide 40 mg tablet 40 mg PO BID 06/03/25 08/16/25 History mecobalamin (vitamin B12) 500 mcg 500 mcg PO DAILY 06/03/25 08/16/25 History chewable tablet naturelo vegan iron 25 mg PO 1XD 06/03/25 08/16/25 History pantoprazole 40 mg tablet,delayed 40 mg PO DAILY 06/03/25 08/16/25 History release (Protonix) pyridoxine (vitamin B6) 100 mg 100 mg PO DAILY 06/03/25 08/16/25 History tablet rivaroxaban 15 mg tablet (Xarelto) 15 mg PO QPM 06/03/25 08/16/25 History magnesium hydroxide 400 mg/5 mL 30 ml PO DAILY PRN PRN #100 mL 06/06/25 08/16/25 Rx oral suspension (Milk of Magnesia) atorvastatin 80 mg tablet (Lipitor) 80 mg PO DAILY 08/16/25 08/16/25 History digoxin 125 mcg (0.125 mg) tablet 0.125 mg PO DAILY 08/16/25 08/16/25 History levothyroxine 50 mcg tablet 50 mcg PO DAILY 08/16/25 08/16/25 History Exam Narrative Exam Narrative: General: This is a very pleasant, elderly woman in no distress HEENT: Normocephalic. Stable, large nevus under left eye. CV: mildly bradycardic in the 50's, no afib, no murmur Resp: CTAB Abd: soft, NTND MSK: voluntary motion x4 Neuro: awake, alert, no focal deficits Results Labs 08/16/25 11:25 08/16/25 11:25 Labs: Laboratory Results - last 24 hr 08/16/25 08/16/25 08/16/25 11:25 12:06 12:35 WBC 14.50 H RBC 3.85 L Hgb 11.3 Hct 36.0 MCV 94 MCH 29.4 MCHC 31.4 L RDW 17.3 H Plt Count 186 MPV 11.1 H Immature Gran % 0.6 Neutrophils % 85.3 Lymphocytes % 6.3 Monocytes % 7.7 Eosinophils % 0.0 Basophils % 0.1 Nucleated RBC % 0.0 Absolute Neutrophils 12.37 H Absolute Lymphocytes 0.91 L Absolute Monocytes 1.12 H Absolute Eosinophils 0.00 Absolute Basophils 0.01 PT 16.6 H INR 1.7 H APTT 34.8 H Sodium 140 Potassium 3.2 L Chloride 100 Carbon Dioxide 28.5 Anion Gap 11.5 H BUN 39 H Creatinine 1.32 H Est GFR (CKD-EPI 2020) 37.85 Glucose 128 H Calcium 9.5 Magnesium 1.5 L Total Bilirubin 1.3 H AST 32 ALT 25 Alkaline Phosphatase 50 Troponin I 479 H* 417 H* NT-Pro-B Natriuret Pep 11076 H Total Protein 7.4 Albumin 4.3 Urine Color Urine Clarity Urine pH Ur Specific [place] Urine Protein Urine Ketones Urine Blood Urine Nitrite Urine Bilirubin Urine Urobilinogen Ur Leukocyte Esterase Urine RBC Urine WBC Ur Epithelial Cells Urine Crystals Urine Bacteria Urine Casts Urine Mucus Ur Culture Indicated? Urine Glucose COVID-19 Source Nasopharynx SARS-CoV-2 (PCR) Negative Influenza Type A (PCR) Negative Influenza Type B (PCR) Negative RSV (PCR) Negative 08/16/25 13:31 WBC RBC Hgb Hct MCV MCH MCHC RDW Plt Count MPV Immature Gran % Neutrophils % Lymphocytes % Monocytes % Eosinophils % Basophils % Nucleated RBC % Absolute Neutrophils Absolute Lymphocytes Absolute Monocytes Absolute Eosinophils Absolute Basophils PT INR APTT Sodium Potassium Chloride Carbon Dioxide Anion Gap BUN Creatinine Est GFR (CKD-EPI 2020) Glucose Calcium Magnesium Total Bilirubin AST ALT Alkaline Phosphatase Troponin I NT-Pro-B Natriuret Pep Total Protein Albumin Urine Color Yellow Urine Clarity Clear Urine pH 5.0 Ur Specific [place] 1.010 Urine Protein 30 H Urine Ketones Negative Urine Blood Trace-intact H Urine Nitrite Negative Urine Bilirubin Negative Urine Urobilinogen 0.2 Ur Leukocyte Esterase Negative Urine RBC 3-5 H Urine WBC 0-2 Ur Epithelial Cells Moderate Urine Crystals Few Amorphous Urine Bacteria Few Urine Casts 0-2 Hyaline Urine Mucus Trace Ur Culture Indicated? No Urine Glucose Negative COVID-19 Source SARS-CoV-2 (PCR) Influenza Type A (PCR) Influenza Type B (PCR) RSV (PCR) Last Vital Signs Temp 37.4 C 08/16/25 11:05 Pulse 59 L 08/16/25 14:31 Resp 24 08/16/25 14:31 BP 102/48 L 08/16/25 14:31 Pulse Ox 96 08/16/25 13:16 VTE Prohylaxis Risk Level: Moderate/High Risk Contraindications: None Prophylaxis: Patient anticoagulated Time Spent Time spent with Patient: 40-54 minutes Time was spent: preparing to see the patient(eg.review tests), obtaining and/or reviewing separately otained hiistory, ordering medications,tests, procedures, referring, communicating with other health lpn care manager, indepentently interpreting results, counseling the patient and care coordination
--- NOTE | 2025-08-16 15:01 | W.PC.ACHO ---
Registration Status: REG ER Primary Language: Preferred Language: ED Information & Data Chief Complaint Cellulitis 08/16/25 12:26 Triage Note pt BIBA for BLE edema, RLE 08/16/25 10:50 worse than LLE and c/o pain. Increased weakness, lower pulse and BP en route to hospital. EMS reports fever, pt endorses chills, cough. Medical / Surgical History (Last Updated 06/03/25 @ 07:35 by Alphonse Armendariz) GI bleed Elevated blood pressure reading without diagnosis of hypertension Ventral hernia Pharyngitis Urinary frequency Vitamin B12 deficiency Grief reaction (Last Reviewed 06/03/25 @ 03:19 by Alphonse Armendariz) History of bladder repair surgery History of colonoscopy S/P hysterectomy Most Recent Vital Signs Temperature 37.4 C 08/16/25 11:05 Temperature Source Oral 08/16/25 10:50 Pulse 59 L 08/16/25 14:31 Pulse 79 08/16/25 14:31 Respiratory Rate 24 08/16/25 14:31 Blood Pressure 102/48 L 08/16/25 14:31 Blood Pressure Mean 66 08/16/25 14:31 Blood Pressure Position Supine 08/16/25 10:50 Pulse Oximetry 96 08/16/25 13:16 Oxygen Delivery Method Room Air 08/16/25 11:05 Oxygen Flow Rate 0 08/16/25 10:50 Pain Level 10 08/16/25 12:55 Allergies No Known Allergies Allergy (Verified 08/16/25 11:04) Precautions Isolation Standard precaution 08/16/25 11:05 IV IV Catheter Type [Right Saline Lock Antecubital] IV Catheter Type [Left Saline Lock Antecubital] IV Catheter Gauge [Right 18 Antecubital] IV Catheter Gauge [Left 18 Antecubital] Diet Orders Category Date Time Status DIET [Low Sodium] [DIET] Nutrition 08/16/25 Dinner Active Diagnostics 08/16/25 08/16/25 08/16/25 Range/Units 13:31 12:35 12:06 WBC (4.4-10.8) 10^3/uL RBC (3.93-5.22) 10^6/uL Hgb (11.2-15.7) g/dL Hct (36.0-46.0) % MCV (80-95) fL MCH (27.0-33.0) pg MCHC (32.0-36.0) % RDW (11.7-14.6) % Plt Count (130-400) 10^3/uL MPV (8.0-11.0) fL Immature Gran % % Neutrophils % % Lymphocytes % % Monocytes % % Eosinophils % % Basophils % % Nucleated RBC % (0.0-0.3) % Absolute Neutrophils (1.2-6.7) 10^3/uL Absolute Lymphocytes (1.2-3.4) 10^3/uL Absolute Monocytes (0.1-0.8) 10^3/uL Absolute Eosinophils (0.0-0.7) 10^3/uL Absolute Basophils (0.0-0.2) 10^3/uL PT (9.1-11.1) sec INR (0.9-1.1) APTT (20.6-30.2) sec Sodium (136-145) mmol/L Potassium (3.5-5.1) mmol/L Chloride (98-107) mmol/L Carbon Dioxide (20.0-31.0) mmol/L Anion Gap (3-11) mmol/L BUN (9-23) mg/dL Creatinine (0.55-1.02) mg/dL Est GFR (CKD-EPI 2020) (mL/min/1.73m2) Glucose (74-106) mg/dL Calcium (8.3-10.6) mg/dL Magnesium (1.6-2.6) mg/dL Total Bilirubin (0.2-1.2) mg/dL AST (<34) U/L ALT (10-49) U/L Alkaline Phosphatase (46-116) U/L Troponin I 417 H* (<35) ng/L NT-Pro-B Natriuret Pep (<300) pg/mL Total Protein (5.7-8.2) g/dL Albumin (3.2-5.0) g/dL Urine Color Yellow (Yellow) Urine Clarity Clear (Clear) Urine pH 5.0 (5-8) Ur Specific [place] 1.010 (1.005-1.025) Urine Protein 30 H (Neg-Trace) mg/dL Urine Ketones Negative (Negative) mg/dL Urine Blood Trace-intact H (Negative) Urine Nitrite Negative (Negative) Urine Bilirubin Negative (Negative) Urine Urobilinogen 0.2 (Up to 0.2) mg/dL Ur Leukocyte Esterase Negative (Negative) Urine RBC 3-5 H (0-2) HPF Urine WBC 0-2 (0-5) HPF Ur Epithelial Cells Moderate (Negative) HPF Urine Crystals Few Amorphous (Negative) HPF Urine Bacteria Few (Negative) HPF Urine Casts 0-2 Hyaline (Negative) LPF Urine Mucus Trace (Negative) Ur Culture Indicated? No Urine Glucose Negative (Negative) mg/dL COVID-19 Source Nasopharynx SARS-CoV-2 (PCR) Negative (Negative) Influenza Type A (PCR) Negative (Negative) Influenza Type B (PCR) Negative (Negative) RSV (PCR) Negative (Negative) 08/16/ Range/Units 11:25 WBC 14.50 H (4.4-10.8) 10^3/uL RBC 3.85 L (3.93-5.22) 10^6/uL Hgb 11.3 (11.2-15.7) g/dL Hct 36.0 (36.0-46.0) % MCV 94 (80-95) fL MCH 29.4 (27.0-33.0) pg MCHC 31.4 L (32.0-36.0) % RDW 17.3 H (11.7-14.6) % Plt Count 186 (130-400) 10^3/uL MPV 11.1 H (8.0-11.0) fL Immature Gran % 0.6 % Neutrophils % 85.3 % Lymphocytes % 6.3 % Monocytes % 7.7 % Eosinophils % 0.0 % Basophils % 0.1 % Nucleated RBC % 0.0 (0.0-0.3) % Absolute Neutrophils 12.37 H (1.2-6.7) 10^3/uL Absolute Lymphocytes 0.91 L (1.2-3.4) 10^3/uL Absolute Monocytes 1.12 H (0.1-0.8) 10^3/uL Absolute Eosinophils 0.00 (0.0-0.7) 10^3/uL Absolute Basophils 0.01 (0.0-0.2) 10^3/uL PT 16.6 H (9.1-11.1) sec INR 1.7 H (0.9-1.1) APTT 34.8 H (20.6-30.2) sec Sodium 140 (136-145) mmol/L Potassium 3.2 L (3.5-5.1) mmol/L Chloride 100 (98-107) mmol/L Carbon Dioxide 28.5 (20.0-31.0) mmol/L Anion Gap 11.5 H (3-11) mmol/L BUN 39 H (9-23) mg/dL Creatinine 1.32 H (0.55-1.02) mg/dL Est GFR (CKD-EPI 2020) 37.85 (mL/min/1.73m2) Glucose 128 H (74-106) mg/dL Calcium 9.5 (8.3-10.6) mg/dL Magnesium 1.5 L (1.6-2.6) mg/dL Total Bilirubin 1.3 H (0.2-1.2) mg/dL AST 32 (<34) U/L ALT 25 (10-49) U/L Alkaline Phosphatase 50 (46-116) U/L Troponin I 479 H* (<35) ng/L NT-Pro-B Natriuret Pep 60998 H (<300) pg/mL Total Protein 7.4 (5.7-8.2) g/dL Albumin 4.3 (3.2-5.0) g/dL Urine Color (Yellow) Urine Clarity (Clear) Urine pH (5-8) Ur Specific [place] (1.005-1.025) Urine Protein (Neg-Trace) mg/dL Urine Ketones (Negative) mg/dL Urine Blood (Negative) Urine Nitrite (Negative) Urine Bilirubin (Negative) Urine Urobilinogen (Up to 0.2) mg/dL Ur Leukocyte Esterase (Negative) Urine RBC (0-2) HPF Urine WBC (0-5) HPF Ur Epithelial Cells (Negative) HPF Urine Crystals (Negative) HPF Urine Bacteria (Negative) HPF Urine Casts (Negative) LPF Urine Mucus (Negative) Ur Culture Indicated? Urine Glucose (Negative) mg/dL COVID-19 Source SARS-CoV-2 (PCR) (Negative) Influenza Type A (PCR) (Negative) Influenza Type B (PCR) (Negative) RSV (PCR) (Negative) 08/16/25 11:50 Blood Culture - Pending Blood 08/16/25 11:25 Blood Culture - Pending Blood Intake and Output - 24 Hour Total 08/16/25 10:39 thru 08/16/25 14:32 Output Total 400 Balance -400 Weight 58.967 kg Output: Urine 400 Other: Urine Color Pale Urinary Catheter Urinary Catheter Date of 08/16/25 Insertion [Urethral (Yoon)] Time of insertion [Urethral ( 12:00 Yoon)] Falls Risk Assessment History of Falls No History 08/16/25 11:05 Contributing Factors No Factors 08/16/25 11:05 Ambulatory Aids Uses ambulatory device 08/16/25 11:05 Tubes/Lines None 08/16/25 11:05 Gait Evaluation W/no contributing factors 08/16/25 11:05 Cognition No cognitive impairment 08/16/25 11:05 Fall Total Score 08/16/25 11:05 Level of Risk Moderate Risk 08/16/25 11:05 Problems (Last Updated 06/03/25 @ 07:35 by Alphonse Armendariz) Acute leg pain (Acute) A-fib (Chronic) CHF (congestive heart failure) (Chronic) Attestation Statement: By documenting the first initial, last name, and credentials of the reporting nurse below, both parties acknowledge that all relevant information regarding the patient handoff has been communicated, and that all questions have been addressed to ensure continuity and safety of care. Additional Patient Information/Comments: Pt is a/o x 4 and able to make needs known. Here for CHF exacerbation with BLE edema and increased SOB. Pt will be admitted for diuresis and antibiotic therapy. Report Received From: LONG Garrett
[2025-08-16] MEDS: Rivaroxaban 10 MG TABLET 15 MG PO (19:57)
[2025-08-16] MEDS: Atorvastatin 40 MG TAB 80 MG PO (19:58)
[2025-08-17] VITALS (11 sets, daily range): BP systolic 101–131; BP diastolic 43–70; PULSE 72–145; RESP 14–20; TEMP 36.4–36.7; O2SAT 92–99
[2025-08-17] MEDS: Levothyroxine 50 MCG TAB PO (06:03)
[2025-08-17 06:59] LABS: Magnesium 1.6 mg/dL (1.6-2.6)
[2025-08-17 07:00] LABS: ALT 20 U/L (10-49); AST 25 U/L (<34); Albumin 3.6 g/dL (3.2-5.0); Alkaline Phosphatase 53 U/L (46-116); Anion Gap 8.1 mmol/L (3-11); BUN 44 mg/dL (9-23); Bilirubin, Total 1.1 mg/dL (0.2-1.2); CO2 30.9 mmol/L (20.0-31.0); Calcium 9.2 mg/dL (8.3-10.6); Chloride 103 mmol/L (98-107); Glucose 104 mg/dL (74-106); Potassium 3.6 mmol/L (3.5-5.1); Sodium 142 mmol/L (136-145); Total Protein 6.4 g/dL (5.7-8.2)
[2025-08-17 07:19] LABS: Abs Immature Grans 0.14 10^3/uL (0.0-0.06); HCT 35.5 % (36.0-46.0); HGB 10.9 g/dL (11.2-15.7); Immature Grans % 1.0 %; MCH 29.1 pg (27.0-33.0); MCHC 30.7 % (32.0-36.0); MCV 95 fL (80-95); MPV 11.2 fL (8.0-11.0); Platelet Count 145 10^3/uL (130-400); RBC 3.74 10^6/uL (3.93-5.22); RDW 17.6 % (11.7-14.6); RDW-SD 61.1 fL; WBC 13.89 10^3/uL (4.4-10.8)
[2025-08-17] MEDS: Furosemide 100 MG/10 ML VIAL 80 MG IVP ×2 (08:33→20:36)
[2025-08-17] MEDS: Digoxin 0.125 MG TAB PO (08:34)
--- NOTE | 2025-08-17 08:36 | INITIAL_ITS ---
Date of service: 08/17/25 Time of Service: 08:36 Care Management Initial Assmt Initial Assessment Reason for Hospitalization: HF Exacerbation Functional Status/Living Situation Patient Presentation: Jayashree was sitting in a recliner, and is accompanied by her daughter, Niru, and granddaughter, Jana, when CM met with her. She is currently admitted to [facility] for Heart Failure with significant Edema, especially of her BLE causing her legs to weep and affecting her ability to ambulate. Pt was recently D/C'd from [facility] in May and has since received [facility] RN/PT services. Jayashree lives alone in [place] [facility] [facility] and has historically declined SNF for STR because she is well supported by her daughter Niru and son Alphonse. She is agreeable to PT's recommendation which is SNF for STR, prior to returning home with a resumption of [facility] services and family/caregiver support. CM placed referrals to [facility] and [facility], with pts consent. Patient recently met with the COA and was found to be ineligible for LTM/CFC, without going through a spend down process, which she and her family have not followed up on. Either way, she is not interested in SNF/assisted living facility placement, and reports that she and her daughter are exploring options to increase in-home supports on a self pay basis. CM will follow. Town of Residence: [place] Resides with: Alone Significant Other/Family: Local Caregiver/Guardian: Niru is listed as HCA and visits often, also brings her to appts. Alphonse stays with Pat, if/when she needs extra support. Natural Supports: Children, Niru, Alphonse and Ramses Ten grandchildren and eleven great grandchildren Employment Status: Retired (worked many jobs outside of the home when she was not home with her children) Instrumental Activities of Daily Living (ADLs): Independent Medications Medication Management: No Issues/Barriers identified Physical Functioning/Mobility Assistive Device: cane, FWW Commode Advance Directives Advance Directives: Do you have an Advance Directive: Y , 10:01 AD On File at [facility]: Y 10/05/20, 16:43 Date Asked 06/20/25 06/20/25, 12:36 AD Date Reviewed COLST On File at [facility] No 10/05/20, 16:43 COLST Date Scanned Code Status Resuscitation Status Full Code Portal Pt does not currently have a portal and education provided: Yes Insurance Coverage/Financial Issues Insurance: Medicare Part A & B - [id number] [facility] - [id number] Care Team Visit Care Team Role Provider Type Chantell Castillo MD Primary Care Provider [facility] STAFF PHYSICIAN InPatient [facility] Other Providers OTHER Dennis Greene MD Emergency Provider [facility] STAFF PHYSICIAN Davion Russo MD Admit Provider [facility] STAFF PHYSICIAN Attending Provider Discharge Potential Discharge Needs: PCP F/U Appt Anticipated Barriers to Discharge: None Identified Patient/Family Education Needs: Review discharge instructions, discuss Ask Me Three Transportation: RCT RCT Transportation: Wheel chair van Plan: PT recommends SNF for STR vs Home with [facility] services. Referrals are pending at [facility] and [facility], will need a 3 night qualifying stay. She will follow up with her PCP and discharge plan of care. Transportation will be via [facility] W/C van. CM will continue to follow. Social Determinants of Health Screening Social Determinants of health last assessed in clinic: 08/17/25 Will the Patient Participate in the Screening?: Yes Do you worry about having a steady place to live?: no Problems where you live: no known problems In the past 12 months, have you had to go without electric, gas, oil or water in your home?: no 1. Within the past 12 months, we worried whether our food would run out before we got money to buy more.: Never true 2. Within the past 12 months, the food we bought just didn't last and we didn't have money to get more.: Never true Has lack of transportation kept you from medical appointments or from doing things needed for daily living?: no Has anyone in your life made you feel unsafe or unsupported?: no How hard is it for you to pay for the very basics like food, housing, medical care, and heating? Would you say it is:: Not hard at all Do you want help finding or keeping work or a job?: I do not need or want help If for any reason you need help with day-to-day activities such as bathing, preparing meals, shopping, managing finances, etc., do you get the help you need?: I don?t need any help How often do you feel lonely or isolated from those around you?: Never Do you speak a language other than [place]alan at home?: No Does the patient want assistance with any of the above?: No PFSH All Active Problems (Updated 08/16/25 @ 18:19 by Davion Russo MD) Cellulitis of right lower extremity (Acute) Valvular heart disease (Acute) Acute on chronic heart failure with preserved ejection fraction (HFpEF) (Acute) Acute leg pain (Acute) A-fib (Chronic) CHF (congestive heart failure) (Chronic) Right-sided heart failure (Acute) Anticoagulant long-term use (Acute) PAD (peripheral artery disease) (Chronic) CAD (coronary artery disease), [place] coronary artery (Chronic) HTN (hypertension) (Chronic) Elevated troponin (Acute) Pain of left calf (Acute) Left leg numbness (Acute) Anemia due to blood loss, acute (Acute) Discharge planning issues (Acute) Acute low back pain (Acute) Duodenal ulcer (Chronic) Atrial fibrillation (Chronic) Abdominal pain (Acute) Leukocytosis (Acute) Reaction, situational (Acute) Diverticulosis (Acute) Hypothyroidism (Chronic) Hyperlipidemia (Acute) Medical History (Updated 08/16/25 @ 18:19 by Davion Russo MD) GI bleed Elevated blood pressure reading without diagnosis of hypertension Ventral hernia Pharyngitis Urinary frequency Vitamin B12 deficiency Grief reaction Surgical History History of bladder repair surgery History of colonoscopy S/P hysterectomy Social History Smoking/Tobacco Use Status: Never Smoking risk assessment performed?: Yes Alcohol Intake: never Drug use: Never Substance use type: does not use Housing: house Do you feel safe at home: Yes Do you feel safe in your relationship?: Yes
--- NOTE | 2025-08-17 10:20 | IN_ITS ---
PT Notes Visit Reasons: HF Exacerbation Physical Therapy Inpatient Initial Evaluation Date: 08/17/2025 Referring Doctor: Cal Ortiz MD PT Orders: PT CONSULT: Fall safety assessment. Safety consult for DC. Precautions: Fall. Standard. Activity as tolerated. Patient Profile/Admitting Diagnosis: Jayashree is an 89-year-old female who presented to the Ed on 08/16/2025 due to R LE pain, redness, and swelling along with mild fever and chills for several days prior to admission. Patient is admitted for management of cellulitis of R LE, caute on chronic, heart failure with presereved EF, valvular heart disease with oacemaker palced about 2 months ago, elevated tropnin, peripheral artery disease, and hypothyroidism. PMHX: All Active Problems (Updated 08/16/25 @ 18:19 by Davion Russo MD) Cellulitis of right lower extremity (Acute) Valvular heart disease (Acute) Acute on chronic heart failure with preserved ejection fraction (HFpEF) (Acute) Acute leg pain (Acute) A-fib (Chronic) CHF (congestive heart failure) (Chronic) Right-sided heart failure (Acute) Anticoagulant long-term use (Acute) PAD (peripheral artery disease) (Chronic) CAD (coronary artery disease), [place] coronary artery (Chronic) HTN (hypertension) (Chronic) Elevated troponin (Acute) Pain of left calf (Acute) Left leg numbness (Acute) Anemia due to blood loss, acute (Acute) Discharge planning issues (Acute) Acute low back pain (Acute) Duodenal ulcer (Chronic) Atrial fibrillation (Chronic) Abdominal pain (Acute) Leukocytosis (Acute) Reaction, situational (Acute) Diverticulosis (Acute) Hypothyroidism (Chronic) Hyperlipidemia (Acute) Medical History (Updated 08/16/25 @ 18:19 by Davion Russo MD) GI bleed Elevated blood pressure reading without diagnosis of hypertension Ventral hernia Pharyngitis Urinary frequency Vitamin B12 deficiency Grief reaction Surgical History History of bladder repair surgery History of colonoscopy S/P hysterectomy Social History/Home Situation: Modified independent household ambulator using the FWW. Lives alone but has excellent support from family and friends. No longer drives. Family does grocery shopping. Mail collects her email and delivers it to her house regularly. Equipment Owned/DME: FWW, BSC Subjective: Happy that her swelling has significantly subsided. Complained of 8-9/10 pain in the R LE with each weight bearing. Updated Nurse Brian about pain report immediately after session. Denied headache, chest pain, and lightheadedness throughout session. Agreeable to bringin in supportive shoes for walking. Objective: General Observation:telemetry monitoring in place. Resting in bed. Grade 1 edema with noted in R leg. Mental Status: Alert and oriented as to person, place, time, and purpose. Able to pay attention, focus, and respond appropriately. Pain: None reported Vital Signs: Closely monitored by nursing staff ROM: Right Upper Extremity: Shoulder Flexion WFL. Shoulder abduction WFL. Elbow flexion WFL. Wrist flexion WFL. Functional opening and closing of hand WFL. Left Upper Extremity: Shoulder Flexion WFL. Shoulder abduction WFL. Elbow flexion WFL. Wrist flexion WFL. Functional opening and closing of hand WFL. Right Lower Extremity: Hip flexion WFL. Hip abduction WFL. Knee flexion WFL. Ankle dorsiflexion WFL. Ankle plantarflexion WFL. Left Lower Extremity: Hip flexion WFL. Hip abduction WFL. Knee flexion WFL. Ankle dorsiflexion WFL. Ankle plantarflexion WFL. Strength: Right Upper Extremity: Shoulder flexors 4-/5. Shoulder abductors 4-/5. Elbow flexors 4-/5. Elbow extensors 4-/5. Vibratory Pile Driver strong. Left Upper Extremity: Shoulder flexors 4-/5. Shoulder abductors 4-/5. Elbow flexors 4-/5. Elbow extensors 4-/5. Vibratory Pile Driver strong. Right Lower Extremity: Hip flexors 4-/5. Hip abductors 4-/5. Knee flexors 4-/5. Knee extensors 4-/5. Ankle dorsiflexors 4-/5. Ankle plantarflexors 4-/5. Left Lower Extremity: Hip flexors 4-/5. Hip abductors 4-/5. Knee flexors 4-/5. Knee extensors 4-/5. Ankle dorsiflexors 4-/5. Ankle plantarflexors 4-/5. Bed Mobility/Transfers: Minimal cueing provided for use of B hands as needed for support, movement sequence, AD management, and posture to reduce fall risk and minimize pain report Supine to sit minimal assist with HOB at 45 degrees Sit to stand minimal assist with FWW Stand to sit minimal assist with FWW Bed to reclining chair minimal assist with FWW Gait: Facilitate safe and correct performance of level surface in-room ambulation covering a distance of about 10 feet with use of walker with complaint of 8-9/10 pain through the R leg and foot with each weight bearing but no LOB nor SOB. Directional change slowed. Step height and length decreased. Stairs: Not tested today Balance: Static Sitting: Good Dynamic Sitting: Good Static Standing: Fair Dynamic Standing: Fair Special Tests: Mobility Limitations Standardized Measure [facility] AM-PAC 6 clicks Basic Mobility Inpatient Short Form: Raw Score: 15 CMS Score: 58% deficit Informed Consent/Education: Patient was instructed in purpose of PT consult and plan of care. Agreeable to proceed with established PT POC to achieve personal goals. Assessment: Pain limited patient's ability to complete mobility assessment for this session. Nurse brian was updated about patient's pain report. Patient will benefit from pre-emedaiction for Pt session for optimal session perforamnce. Sandra, per prior level of function, has been a household ambulator and holds onto furnitures navigating her house. She will benefit from PT to ensurea smooth transition to home while facilitating return to [place]. Patient presents with clinical signs and symptoms consistent with current/admitting diagnoses that have resulted to mobility limitations, gait instability, generalized weakness, and overall ADL decline as demonstrated by the following impairment level findings: 1. Decreased strength to B UE/LE major muscle groups R LE more than L LE due to cellulitis 2. Impaired standing balance 3. Impaired activity tolerance Impairments are contributing to the following functional limitations: 1. Difficulty with ambulation without assistive device and physical assistance 2. Increased completion time for mobility ADL performance 3. Increased risk for falls 4. Difficulty with managing steps alone safely Patient is assessed as a 64413 moderate complexity based on the following: History: 89-year-old female with past medical history as indicated above Examination: Demonstrable impairment in strength, balance, and mobility level with underlying impairments and functional limitations as exhibited above as well as deficit score of 21% utilizing the [facility] Mobility Inpatient Short Form Presentation: Evolving Decision Makin moderate complexity Goals: Goals X1 week 1. Supine-Sit independent 2. Sit-Supine independent 3. Sit-Stand independent 4. Stand-Sit independent with FWW 5. Bed-Chair independent with FWW 6. Chair-Bed independent with FWW 7. Independent gait on level surface with use of FWW for at least 150 feet without report of pain nor dyspnea 8. Independent stair negotiation while holding onto B rails for at least 3 steps without report of pain nor dyspnea 9. Independent with home exercise program 10. Good static and dynamic standing balance/tolerance Plan of Care/Treatment Plan: 1-2x/day, 7 days/week x 1 week. Plan of care has been reviewed with the SHIPPING AND RECEIVING ASSISTANT providing the service under Physical Therapy direction. Initiate Physical Therapy intervention for pain management as needed, strengthening, bed mobility, transfers, gait, stairs, balance training, and use of assistive device. DISCHARGE RECOMMENDATIONS: PT vs short-term SNF TREATMENT CODE/TIME: 24225 x 20 minutes for 1 unit, 86090 x 19 minutes for 1 unit (09:36-10:15). Thank you for the opportunity to participate in the care of this patient. Carissa Rosales PT, DPT, CLT [facility] [place], [place]
--- NOTE | 2025-08-17 11:23 | W.NUTRFU ---
Documented by User: Elijah Callejas 08/17/25 11:32 Date of service: 08/17/25 Time of Service: 10:15 Nutrition Note NOTE: 89, F. 5 ft. 0 in. 58.6 kg. BMI 25.2. Patient admitted w/ edema, cellulitis. Patient seen by dietitian on 08/17. Patient reports no concerns with the food during her stay. Reports meals have been adequate, no concerns with swallowing, masticating, or bowel movements. Weight is stable, but she reports less of an appetite than usual; kitchen to provide CIB Frap at lunch and dinner to supplement diet. The patient lives in a house with her family, who provide a stable food environment; patient consumes 3 meals/day. No nutrition-focused physical examination was performed, but the patient appeared adequately nourished with no concerning visual indications given age. No aggressive nutrition intervention. Will continue to monitor dietary intake and satisfaction. Time Spent in Nutritional Counseling and Treatment: 5 min Documented by User: Dain Arnold RDN 08/17/25 12:28 Nutrition Note NOTE: 89, F. 5 ft. 0 in. 58.6 kg. BMI 25.2. Patient admitted w/ edema, cellulitis. Patient seen by dietitian on 08/17. Patient reports no concerns with the food during her stay. Reports meals have been adequate, no concerns with swallowing, masticating, or bowel movements. Weight is stable recently but shows about 10kg loss over the last ~5 years. She states current usual body weight of 130's and is currently 129lbs., She reports less of an appetite than usual recently. The patient lives in a house with her family, who provide a stable food environment; patient consumes 3 meals/day. No nutrition-focused physical examination was performed but will revisit if patient is receptive. Nutrition Dx: inadequate intake related to decreased appetite AEB pt interview this morning. Intervention: will offer CIB frappes at lunch and dinner and resassess tolerance/preference with pt. Monitoring: will monitor weight, po intake, ONS tolerance/preference and will attempt to complete NFPE with pt approval
--- NOTE | 2025-08-17 11:50 | CHAPLAIN ---
Jayashree was sitting up in the chair when I visited. She said she's a bit feeling better and told me about walking in her room with PT. Jayashree has yard to donate for our prayer shawl program so we talked about that as well. I'll continue to visit.
[2025-08-17] MEDS: Pantoprazole 40 MG TABCR PO (12:07)
[2025-08-17] MEDS: cefTRIAXone 2 GM/50 ML BAG IVPB (12:07)
[2025-08-17] MEDS: Clopidogrel 75 MG TAB PO (12:07)
[2025-08-17] MEDS: Acetaminophen 325 MG TAB 650 MG PO (14:07)
--- NOTE | 2025-08-17 14:10 | PT.INTREAT ---
PT Notes Visit Reasons: HF Exacerbation Physical Therapy Inpatient Treatment Note Date: 08/17/2025 Precautions: Fall. Standard. Activity as tolerated. Subjective: Happy to have her daughter and granddaughter visit. Complained of increased swelling and pain in the R leg and foot. Too fatigued. Wanted to rest in bed after session. Denied headache, chest pain, and lightheadedness throughout session. Agreeable to bringing in supportive shoes for walking. Objective: General Observation: Telemetry monitoring in place. Resting in bed. Grade 1 edema with noted in R leg. Mental Status: Alert and oriented as to person, place, time, and purpose. Able to pay attention, focus, and respond appropriately. Pain: None reported Vital Signs: Closely monitored by nursing staff Bed Mobility/Transfers: Minimal cueing provided for use of B hands as needed for support, movement sequence, AD management, and posture to reduce fall risk and minimize pain report Sit to stand minimal assist with FWW Chair to bed transfer minimal assist with FWW Stand to sit minimal assist with FWW Sit to supine minimal assist with FWW Scoot up in bed moderate assist of 2, FERRYBOAT DECKHAND eugenia assisted with task Gait: Facilitate safe and correct performance of level surface in-room ambulation covering a distance of about 20 feet with use of walker with complaint of 8-9/10 pain through the R leg and foot with each weight bearing but no LOB nor SOB. Directional change slowed. Step height and length decreased. Stairs: Not tested today Balance: Static Sitting: Good Dynamic Sitting: Good Static Standing: Fair Dynamic Standing: Fair Assessment: Nurse Nabila was able to premedicate patient for this session. Although movement were slow and pain level increased on the R leg and foot with each weight bearing, patient was able to complete task without LOB nor shortness of breath. Pain subsided with supine positioning and elevation of B LE. THERA EX: Iniated seated level exercises as follows: Gentle ankle DF/PF x 5 Slow seated marches x 5 Alternate LAQs x 5 Plan of Care/Treatment Plan: 1-2x/day, 7 days/week x 1 week. Plan of care has been reviewed with the BRAKE MACHINE OPERATOR providing the service under Physical Therapy direction. Initiate Physical Therapy intervention for pain management as needed, strengthening, bed mobility, transfers, gait, stairs, balance training, and use of assistive device. DISCHARGE RECOMMENDATIONS: HH PT vs short-term SNF TREATMENT CODE/TIME: 08844 x 18 minutes for 1 unit (14:10-14:28).
[2025-08-17] MEDS: Rivaroxaban 15 MG TABLET PO (17:05)
--- NOTE | 2025-08-17 17:36 | W.PM.PROGNOT ---
Date of Service Date of service: 08/17/25 Time of Service: 08:00 Assessment and Plan Assessment and plan (1) Cellulitis of right lower extremity: Status: Acute Assessment and plan: BLE edema with some stigmata of venous stasis Right anterior goldsmith with broken skin, very painful to touch, likely cellulitis Continue ceftriaxone PT eval when pain tolerable Aug 17: improved edema, continue furosemide 80 IV BID tomorrow (2) Acute on chronic heart failure with preserved ejection fraction (HFpEF): Status: Acute Assessment and plan: June 04 echocardiogram with LVEF 55%, abnormal septum motion due to RV pressure and overload. Moderate MR, moderate/severe TR. Noted worsening from December 2023 study. August 02 [facility] [place], severe fatigue and SOB noted. Plan to have her see EP for possible ablation. Digoxin restarted. Patient arrived with 4+ pitting edema in BLE, improving, Aug 17 edema is 2+ Diuresis begun in ED with furosemide 80 IV Continuing furosemide 80 IV BID at least through Aug 18 (3) Valvular heart disease: Status: Acute Assessment and plan: Moderate to severe disease on May echo (4) Elevated troponin: Status: Chronic Assessment and plan: Troponins in the 400's this visit, trending down This is chronic with her ongoing heart disease (5) Atrial fibrillation: Status: Chronic Assessment and plan: As above, she expects to see an trimmer sorter to discuss possible ablation She has had no devices placed other than a 24 hour monitor which was removed at [facility] [place] appointment. Continue digoxin, rivaroxaban (6) PAD (peripheral artery disease): Status: Chronic Assessment and plan: History of right femoral artery thrombus, nursing home rivaroxaban (7) Hypothyroidism: Status: Chronic Assessment and plan: TSH and free T4 done in May, therapeutic at that time Continue home levothyroxine Subjective Subjective Interval history since last seen: Ms. Sanchez is comfortable in bed. In the early evening she began to have a rapid heart rate. Her beta michelle had been held due to bradycardia and soft pressures. Lower extremity edema much improved. Exam Narrative Exam Narrative: General: This is a very pleasant, elderly woman in no distress HEENT: Normocephalic. Stable, large nevus under left eye. CV: irregularly irregular, tachycardic to 150 prior to intervention. BLE edema improved, now 2+ Resp: CTAB Abd: soft, NTND MSK: voluntary motion x4 Neuro: awake, alert, no focal deficits Objective Last Vital Signs Temp 36.7 C 08/17/25 14:59 Pulse 82 08/17/25 14:59 Resp 14 08/17/25 14:59 BP 110/61 08/17/25 14:59 Pulse Ox 96 08/17/25 14:59 Laboratory Results - last 24 hr 08/17/25 05:40 WBC 13.89 H RBC 3.74 L Hgb 10.9 L Hct 35.5 L MCV 95 MCH 29.1 MCHC 30.7 L RDW 17.6 H Plt Count 145 MPV 11.2 H Immature Gran % 1.0 Neutrophils % 84.0 Lymphocytes % 6.8 Monocytes % 7.0 Eosinophils % 0.9 Basophils % 0.3 Nucleated RBC % 0.0 Absolute Neutrophils 11.67 H Absolute Lymphocytes 0.94 L Absolute Monocytes 0.97 H Absolute Eosinophils 0.13 Absolute Basophils 0.04 Sodium 142 Potassium 3.6 Chloride 103 Carbon Dioxide 30.9 Anion Gap 8.1 BUN 44 H Creatinine 1.41 H Est GFR (CKD-EPI 2020) 35.07 Glucose 104 Calcium 9.2 Magnesium 1.6 Total Bilirubin 1.1 AST 25 ALT 20 Alkaline Phosphatase 53 Total Protein 6.4 Albumin 3.6 VTE Prohylaxis Risk Level: Moderate/High Risk Contraindications: None Prophylaxis: Patient anticoagulated Time Spent with Patient Time Spent with Patient: 35-49 minutes Time was spent: preparing to see the patient(eg.review tests), obtaining and/or reviewing separately otained hiistory, ordering medications,tests, procedures, referring, communicating with other health acute care physician, indepentently interpreting results, counseling the patient and care coordination
[2025-08-17] MEDS: Metoprolol 5 MG/5 ML VIAL IVP (17:42)
[2025-08-17] MEDS: Metoprolol CR 100 MG TABCR PO (18:14)
[2025-08-17] MEDS: Atorvastatin 40 MG TAB 80 MG PO (20:36)
[2025-08-18 06:06] VITALS: BP 133/78; PULSE 80; RESP 16; TEMP 36.6; O2SAT 98
[2025-08-18] MEDS: Metoprolol CR 100 MG TABCR PO ×2 (06:06→18:14)
[2025-08-18] MEDS: Levothyroxine 50 MCG TAB PO (06:06)
[2025-08-18 06:49] LABS: Abs Immature Grans 0.13 10^3/uL (0.0-0.06); HCT 33.6 % (36.0-46.0); HGB 10.6 g/dL (11.2-15.7); Immature Grans % 0.9 %; MCH 29.2 pg (27.0-33.0); MCHC 31.5 % (32.0-36.0); MCV 93 fL (80-95); MPV 11.2 fL (8.0-11.0); Platelet Count 155 10^3/uL (130-400); RBC 3.63 10^6/uL (3.93-5.22); RDW 16.9 % (11.7-14.6); RDW-SD 57.0 fL; WBC 14.73 10^3/uL (4.4-10.8)
[2025-08-18 07:12] LABS: ALT 18 U/L (10-49); AST 23 U/L (<34); Albumin 3.5 g/dL (3.2-5.0); Alkaline Phosphatase 63 U/L (46-116); Anion Gap 9.3 mmol/L (3-11); BUN 42 mg/dL (9-23); Bilirubin, Total 0.9 mg/dL (0.2-1.2); CO2 30.7 mmol/L (20.0-31.0); Calcium 8.9 mg/dL (8.3-10.6); Chloride 102 mmol/L (98-107); Digoxin 1.73 ng/mL (0.80-2.00); Glucose 103 mg/dL (74-106); Potassium 3.1 mmol/L (3.5-5.1); Sodium 142 mmol/L (136-145); Total Protein 6.4 g/dL (5.7-8.2)
[2025-08-18 08:31] VITALS: PULSE 80
[2025-08-18] MEDS: Digoxin 0.125 MG TAB PO (08:31)
[2025-08-18] MEDS: Furosemide 100 MG/10 ML VIAL 80 MG IVP ×2 (08:32→18:14)
[2025-08-18] MEDS: Acetaminophen 325 MG TAB 650 MG PO ×2 (08:46→20:11)
[2025-08-18] MEDS: Normal Saline Flush 10 ML SYR ×2 (08:48→11:35)
--- NOTE | 2025-08-18 09:39 | PT.INTREAT ---
PT Notes Visit Reasons: HF Exacerbation Inpatient Physical Therapy Treatment Note [facility] Date: 08/18/25 PRECAUTIONS: Fall. Standard. Activity as tolerated. SUBJECTIVE: Pt was agreeable to work with PT. OBJECTIVE: Pt presented sitting in chair. ? PAIN: right LE pain VITALS: Nursing monitoring vitals ? Therapeutic Activities (24872u[1]): Direct one-on-one instruction in dynamic activities to improve functional performance. ? BED MOBILITY/TRANSFERS? Stand-sit: min (A) to CG of 1 ? Stand to sit: CG of 1 Standing Balance: CG of 1 and (B) UE support Scooting forward and back in chair with verbal cues Provided skilled cues and instruction on performance and technique throughout. Gait Training (89332k[1]): Direct one-on-one instruction and skilled instruction in: [x] employing an assistive device [x] movement sequencing [x] turning and movement with proper form [x] Provided verbal cues for equipment management and technique [x] Provided instruction in gait pattern Gait: Ambulation ? Assistive Device: Front wheeled rolling walker ? Assist: CG of 1, some minimal assistance required for navigating walker with turning at the start of walking ?Distance:? 30 ft ? ASSESSMENT:? Pt did well with ambulation. She required verbal instructions for navigating turn at first but then pt was able to navigate the walker with verbal instructions only. PLAN: 1-2x/day, 7 days/week x 1 week. Plan of care has been reviewed with the FIRE APPARATUS ENGINEER providing the service under Physical Therapy direction. Continue PT intervention for pain management as needed, strengthening, bed mobility, transfers, gait, stairs, balance training, and use of assistive device. TREATMENT CODE/TIME: 86138, 34966 9:10-9:35 25 minutes total DISCHARGE RECOMMENDATION: PT vs short-term SNF
[2025-08-18 11:06] VITALS: BP 106/56; PULSE 68; RESP 17; TEMP 35.6; O2SAT 98
[2025-08-18] MEDS: Pantoprazole 40 MG TABCR PO (11:25)
[2025-08-18] MEDS: Potassium Chloride 20 MEQ TABCR PO ×2 (11:25→19:44)
[2025-08-18] MEDS: Clopidogrel 75 MG TAB PO (11:25)
[2025-08-18] MEDS: cefTRIAXone 2 GM/50 ML BAG IVPB (11:26)
[2025-08-18 15:08] VITALS: BP 111/55; PULSE 67; RESP 15; TEMP 36.1; O2SAT 99
--- NOTE | 2025-08-18 18:06 | W.PM.PROGNOT ---
Date of Service Date of service: 08/18/25 Time of Service: 08:00 Assessment and Plan Assessment and plan (1) Cellulitis of right lower extremity: Status: Acute Assessment and plan: BLE edema with some stigmata of venous stasis Right anterior goldsmith with broken skin, very painful to touch, likely cellulitis Continue ceftriaxone PT eval when pain tolerable Aug 17: improved edema, continue furosemide 80 IV BID tomorrow Aug 18: much improved, will stop IV diuretic and resume home furosemide 40 PO BID (2) Acute on chronic heart failure with preserved ejection fraction (HFpEF): Status: Acute Assessment and plan: June 04 echocardiogram with LVEF 55%, abnormal septum motion due to RV pressure and overload. Moderate MR, moderate/severe TR. Noted worsening from December 2023 study. August 02 [facility] [place] cardiology visit, severe fatigue and SOB noted. Patient has pacemaker placed after this visit. Patient arrived with 4+ pitting edema in BLE, improving, Aug 17 edema is 2+ Diuresis begun in ED with furosemide 80 IV, continued BID through August 18 Resuming home diuresis as above Continue digoxin. Serum level is therapeutic. (3) Valvular heart disease: Status: Acute Assessment and plan: Moderate to severe disease on May echo (4) Elevated troponin: Status: Chronic Assessment and plan: Troponins in the 400's this visit, trending down This is chronic with her ongoing heart disease (5) Atrial fibrillation: Status: Chronic Assessment and plan: As above, she expects to see an special education paraeducator to discuss possible ablation She has had no devices placed other than a 24 hour monitor which was removed at [facility] [place] appointment. Continue digoxin, rivaroxaban (6) PAD (peripheral artery disease): Status: Chronic Assessment and plan: History of right femoral artery thrombus, predatory animal exterminator rivaroxaban (7) Hypothyroidism: Status: Chronic Assessment and plan: TSH and free T4 done in May, therapeutic at that time Continue home levothyroxine Subjective Subjective Interval history since last seen: Ms. Sanchez reports that she feels better today, and her legs are less painful. Exam Narrative Exam Narrative: General: This is a very pleasant, elderly woman in no distress HEENT: Normocephalic. Stable, large nevus under left eye. CV: irregularly irregular. BLE edema 2+ Resp: CTAB Abd: soft, NTND MSK: voluntary motion x4 Neuro: awake, alert, no focal deficits Objective Last Vital Signs Temp 36.1 C L 08/18/25 15:08 Pulse 67 08/18/25 15:08 Resp 15 08/18/25 15:08 BP 111/55 L 08/18/25 15:08 Pulse Ox 99 08/18/25 15:08 Laboratory Results - last 24 hr 08/18/25 06:12 WBC 14.73 H RBC 3.63 L Hgb 10.6 L Hct 33.6 L MCV 93 MCH 29.2 MCHC 31.5 L RDW 16.9 H Plt Count 155 MPV 11.2 H Immature Gran % 0.9 Neutrophils % 84.9 Lymphocytes % 6.5 Monocytes % 7.3 Eosinophils % 0.2 Basophils % 0.2 Nucleated RBC % 0.0 Absolute Neutrophils 12.51 H Absolute Lymphocytes 0.96 L Absolute Monocytes 1.08 H Absolute Eosinophils 0.03 Absolute Basophils 0.03 Sodium 142 Potassium 3.1 L Chloride 102 Carbon Dioxide 30.7 Anion Gap 9.3 BUN 42 H Creatinine 1.17 H Est GFR (CKD-EPI 2020) 43.50 Glucose 103 Calcium 8.9 Total Bilirubin 0.9 AST 23 ALT 18 Alkaline Phosphatase 63 Total Protein 6.4 Albumin 3.5 Digoxin 1.73 VTE Prohylaxis Risk Level: Moderate/High Risk Contraindications: None Prophylaxis: Patient anticoagulated Time Spent with Patient Time Spent with Patient: 35-49 minutes Time was spent: preparing to see the patient(eg.review tests), obtaining and/or reviewing separately otained hiistory, ordering medications,tests, procedures, referring, communicating with other health lpn care manager, indepentently interpreting results, counseling the patient and care coordination
[2025-08-18] MEDS: Rivaroxaban 15 MG TABLET PO (18:14)
[2025-08-18 19:37] VITALS: BP 112/52; PULSE 61; RESP 16; TEMP 36.5; O2SAT 91
[2025-08-18] MEDS: Atorvastatin 40 MG TAB 80 MG PO (19:44)
[2025-08-18 22:43] VITALS: BP 106/57; PULSE 61; RESP 17; TEMP 35.8; O2SAT 94
[2025-08-19] MEDS: Levothyroxine 50 MCG TAB PO (05:55)
[2025-08-19] MEDS: Metoprolol CR 100 MG TABCR PO ×2 (05:55→17:21)
[2025-08-19 06:10] VITALS: BP 129/81; PULSE 70; RESP 19; TEMP 36.6; O2SAT 98
[2025-08-19 07:08] LABS: Abs Immature Grans 0.06 10^3/uL (0.0-0.06); HCT 34.6 % (36.0-46.0); HGB 11.0 g/dL (11.2-15.7); Immature Grans % 0.4 %; MCH 29.6 pg (27.0-33.0); MCHC 31.8 % (32.0-36.0); MCV 93 fL (80-95); MPV 10.9 fL (8.0-11.0); Platelet Count 179 10^3/uL (130-400); RBC 3.71 10^6/uL (3.93-5.22); RDW 16.7 % (11.7-14.6); RDW-SD 57.1 fL; WBC 14.06 10^3/uL (4.4-10.8)
[2025-08-19 08:08] VITALS: PULSE 78
[2025-08-19] MEDS: Digoxin 0.125 MG TAB PO (08:08)
[2025-08-19] MEDS: Potassium Chloride 20 MEQ TABCR PO ×2 (08:08→20:35)
[2025-08-19] MEDS: Furosemide 40 MG TAB PO ×2 (08:09→17:22)
[2025-08-19] MEDS: Normal Saline Flush 10 ML SYR IVP ×2 (08:11→12:44)
[2025-08-19 10:42] VITALS: BP 129/54; PULSE 64; RESP 18; TEMP 36.4; O2SAT 99
[2025-08-19] MEDS: cefTRIAXone 2 GM/50 ML BAG IVPB (12:39)
[2025-08-19] MEDS: Pantoprazole 40 MG TABCR PO (12:43)
[2025-08-19] MEDS: Clopidogrel 75 MG TAB PO (12:43)
--- NOTE | 2025-08-19 14:29 | PTTR_ITS ---
PT Notes Visit Reasons: HF Exacerbation Inpatient Physical Therapy Treatment Note [facility] Date: 08/19/25 PRECAUTIONS: Fall. Standard. Activity as tolerated. SUBJECTIVE: Pt reports that she walked with nursing this morning. OBJECTIVE: Pt presented sitting in chair. ? PAIN: right LE pain VITALS: Nursing monitoring vitals ? Therapeutic Activities (13159x[1]): Direct one-on-one instruction in dynamic activities to improve functional performance. ? BED MOBILITY/TRANSFERS? Stand-sit: CG of 1 ? Stand to sit: CG of 1 Standing Balance: CG of 1 and (B) UE support Scooting forward and back in chair with verbal cues Provided skilled cues and instruction on performance and technique throughout. Gait: Ambulation ? Assistive Device: Front wheeled rolling walker ? Assist: CG of 1 ?Distance:? 50 ft ? ASSESSMENT:? Pt did well with ambulation and was able to navigate her walker without assistance today. PLAN: 1-2x/day, 7 days/week x 1 week. Plan of care has been reviewed with the APPLIANCE ASSEMBLER providing the service under Physical Therapy direction. Continue PT intervention for pain management as needed, strengthening, bed mobility, transfers, gait, stairs, balance training, and use of assistive device. TREATMENT CODE/TIME: 62869 14:10-14:30 20 minutes total DISCHARGE RECOMMENDATION: PT vs short-term SNF
[2025-08-19 15:21] VITALS: BP 125/60; PULSE 69; RESP 18; TEMP 36.6; O2SAT 98
[2025-08-19 17:19] VITALS: BP 121/50; PULSE 73
[2025-08-19] MEDS: Rivaroxaban 15 MG TABLET PO (17:22)
--- NOTE | 2025-08-19 17:35 | PGE_ITS ---
Date of Service Date of service: 08/19/25 Time of Service: 08:00 Assessment and Plan Assessment and plan (1) Cellulitis of right lower extremity: Status: Acute Assessment and plan: BLE edema with some stigmata of venous stasis Right anterior goldsmith with broken skin, very painful to touch, likely cellulitis Continue ceftriaxone PT eval when pain tolerable Aug 17: improved edema, continue furosemide 80 IV BID tomorrow Aug 18: much improved, will stop IV diuretic and resume home furosemide 40 PO BID Aug 19: likely DC Aug 20 (2) Acute on chronic heart failure with preserved ejection fraction (HFpEF): Status: Acute Assessment and plan: June 04 echocardiogram with LVEF 55%, abnormal septum motion due to RV pressure and overload. Moderate MR, moderate/severe TR. Noted worsening from December 2023 study. August 02 [facility] [place] cardi[place] visit, severe fatigue and SOB noted. Patient has pacemaker placed after this visit. Patient arrived with 4+ pitting edema in BLE, improving, Aug 17 edema is 2+ Diuresis begun in ED with furosemide 80 IV, continued BID through August 18 Resuming home diuresis as above Continue digoxin. Serum level is therapeutic. (3) Valvular heart disease: Status: Acute Assessment and plan: Moderate to severe disease on May echo (4) Elevated troponin: Status: Chronic Assessment and plan: Troponins in the 400's this visit, trending down This is chronic with her ongoing heart disease (5) Atrial fibrillation: Status: Chronic Assessment and plan: As above, she expects to see an lumber sorter to discuss possible ablation She has had no devices placed other than a 24 hour monitor which was removed at [facility] [place] appointment. Continue digoxin, rivaroxaban (6) PAD (peripheral artery disease): Status: Chronic Assessment and plan: History of right femoral artery thrombus, prison rivaroxaban (7) Hypothyroidism: Status: Chronic Assessment and plan: TSH and free T4 done in May, therapeutic at that time Continue home levothyroxine Subjective Subjective Interval history since last seen: Ms. Sanchez is comfortable. She is happy that her leg swelling is improving. Exam Narrative Exam Narrative: General: This is a very pleasant, elderly woman in no distress HEENT: Normocephalic. Stable, large nevus under left eye. CV: irregularly irregular. BLE edema 2+ Resp: CTAB Abd: soft, NTND MSK: voluntary motion x4 Neuro: awake, alert, no focal deficits Objective Last Vital Signs Temp 36.6 C 08/19/25 15:21 Pulse 73 08/19/25 17:19 Resp 18 08/19/25 15:21 BP 121/50 L 08/19/25 17:19 Pulse Ox 98 08/19/25 15:21 Laboratory Results - last 24 hr 08/19/25 06:17 WBC 14.06 H RBC 3.71 L Hgb 11.0 L Hct 34.6 L MCV 93 MCH 29.6 MCHC 31.8 L RDW 16.7 H Plt Count 179 MPV 10.9 Immature Gran % 0.4 Neutrophils % 81.0 Lymphocytes % 8.5 Monocytes % 8.7 Eosinophils % 1.1 Basophils % 0.3 Nucleated RBC % 0.0 Absolute Neutrophils 11.39 H Absolute Lymphocytes 1.20 Absolute Monocytes 1.22 H Absolute Eosinophils 0.15 Absolute Basophils 0.04 VTE Prohylaxis Risk Level: Moderate/High Risk Contraindications: None Prophylaxis: Patient anticoagulated Time Spent with Patient Time Spent with Patient: 25-34 minutes Time was spent: preparing to see the patient(eg.review tests), obtaining and/or reviewing separately otained hiistory, ordering medications,tests, procedures, referring, communicating with other health home care administrator, indepentently interpreting results, counseling the patient and care coordination
[2025-08-19 19:39] VITALS: BP 115/52; PULSE 70; RESP 16; TEMP 36.2; O2SAT 98
[2025-08-19] MEDS: Atorvastatin 40 MG TAB 80 MG PO (20:35)
[2025-08-19] MEDS: Acetaminophen 325 MG TAB 650 MG PO (20:35)
[2025-08-20] VITALS (8 sets, daily range): BP systolic 110–122; BP diastolic 54–96; PULSE 60–88; RESP 16–19; TEMP 36.2–37; O2SAT 94–99
[2025-08-20] MEDS: Metoprolol CR 100 MG TABCR PO ×2 (05:47→17:43)
[2025-08-20] MEDS: Levothyroxine 50 MCG TAB PO (05:47)
[2025-08-20 07:30] LABS: Abs Immature Grans 0.05 10^3/uL (0.0-0.06); HCT 33.0 % (36.0-46.0); HGB 10.5 g/dL (11.2-15.7); Immature Grans % 0.4 %; MCH 29.4 pg (27.0-33.0); MCHC 31.8 % (32.0-36.0); MCV 92 fL (80-95); MPV 11.2 fL (8.0-11.0); Platelet Count 183 10^3/uL (130-400); RBC 3.57 10^6/uL (3.93-5.22); RDW 16.1 % (11.7-14.6); RDW-SD 54.7 fL; WBC 11.18 10^3/uL (4.4-10.8)
[2025-08-20 08:01] LABS: ALT 36 U/L (10-49); AST 49 U/L (<34); Albumin 3.4 g/dL (3.2-5.0); Alkaline Phosphatase 87 U/L (46-116); Anion Gap 8.7 mmol/L (3-11); BUN 37 mg/dL (9-23); Bilirubin, Total 0.5 mg/dL (0.2-1.2); CO2 30.3 mmol/L (20.0-31.0); Calcium 8.6 mg/dL (8.3-10.6); Chloride 100 mmol/L (98-107); Glucose 102 mg/dL (74-106); Magnesium 1.7 mg/dL (1.6-2.6); Potassium 3.6 mmol/L (3.5-5.1); Sodium 139 mmol/L (136-145); Total Protein 6.5 g/dL (5.7-8.2)
[2025-08-20] MEDS: Digoxin 0.125 MG TAB PO (08:47)
[2025-08-20] MEDS: Furosemide 40 MG TAB PO (08:47)
[2025-08-20] MEDS: Acetaminophen 325 MG TAB 650 MG PO (08:47)
[2025-08-20] MEDS: Potassium Chloride 20 MEQ TABCR PO ×2 (08:48→19:48)
--- NOTE | 2025-08-20 09:20 | CMPROGNOTE_ITS ---
Date of service: 08/20/25 Time of Service: 09:20 Care Management Progress Note Progress Note Text Progress Note Text: Jayashree was awake and sitting in a chair when CM met with her. She is medically ready for discharge, however no bed offers have been made. Referrals are pending at [facility] (no response 08/20) and [facility] (no beds 08/20.) Jayashree is not agreeable to additional referrals. CM spoke with Niru, and she is also opposed to sending additional [facility] referrals and states that she would prefer to care for Jayashree herself after discharge. Patient will discharge home tomorrow with resumption of services and caregiver support (daughter Niru) if no bed offers are received. CM will follow. Discharge Potential Discharge Needs: PCP F/U Appt Anticipated Barriers to Discharge: None Identified and Bed availability (Patient is medically ready. ) Patient/Family Education Needs: Review discharge instructions, discuss Ask Me Three Transportation: Private vehicle (Depending on dispo) Plan: Jayashree will be discharging home with resumption of H RN/PT and caregiver support provided by rashi Marrufo. Patient will follow up with community providers and continue per her discharge plan of care. CM will follow. Social Determinants of Health Screening Social Determinants of health last assessed in clinic: 08/20/25 Will the Patient Participate in the Screening?: Yes Do you worry about having a steady place to live?: no Problems where you live: no known problems In the past 12 months, have you had to go without electric, gas, oil or water in your home?: no 1. Within the past 12 months, we worried whether our food would run out before we got money to buy more.: Never true 2. Within the past 12 months, the food we bought just didn't last and we didn't have money to get more.: Never true Has lack of transportation kept you from medical appointments or from doing things needed for daily living?: no Has anyone in your life made you feel unsafe or unsupported?: no How hard is it for you to pay for the very basics like food, housing, medical care, and heating? Would you say it is:: Not hard at all Do you want help finding or keeping work or a job?: I do not need or want help If for any reason you need help with day-to-day activities such as bathing, preparing meals, shopping, managing finances, etc., do you get the help you need?: I don?t need any help How often do you feel lonely or isolated from those around you?: Never Do you speak a language other than Polish at home?: No Does the patient want assistance with any of the above?: No
[2025-08-20] MEDS: cefTRIAXone 2 GM/50 ML BAG IVPB (11:27)
[2025-08-20] MEDS: Clopidogrel 75 MG TAB PO (11:27)
[2025-08-20] MEDS: Pantoprazole 40 MG TABCR PO (11:27)
[2025-08-20] MEDS: Normal Saline Flush 10 ML SYR IVP ×3 (11:28→19:49)
[2025-08-20] MEDS: Furosemide 20 MG TAB PO (11:34)
--- NOTE | 2025-08-20 11:36 | PTTR_ITS ---
PT Notes Visit Reasons: HF Exacerbation Physical Therapy Inpatient Treatment Note Date: 08/20/2025 Precautions: Fall. Standard. Activity as tolerated. Subjective: Did not want to be moved out of facility today due to worrisome road conditions. Wanted to try out using the toilet instead of the commode. Continues to have pain through her R leg and foot with weight bearing. Objective: General Observation: Telemetry monitoring in place. Resting in bed. Grade 1 edema with noted in R leg. Mental Status: Alert and oriented as to person, place, time, and purpose. Able to pay attention, focus, and respond appropriately. Pain: 5-6/10 in the R LE Vital Signs: Closely monitored by nursing staff Bed Mobility/Transfers: Minimal cueing provided for use of B hands as needed for support, movement sequence, AD management, and posture to reduce fall risk and minimize pain report Sit to stand minimal assist with FWW Chair to bed transfer minimal assist with FWW Stand to sit onto toilet seat minimal assist with FWW Sit to stand from toilet seat moderate assist while holding onto B rails Gait: Facilitate safe and correct performance of level surface in-room ambulation covering a distance of about 80 feet with use of walker with complaint of 5-6/10 pain through the R leg and foot with each weight bearing but no LOB nor SOB. Directional change slowed. Step height and length decreased. Gait antalgic with step-to gait pattern. Contact kimberli assist only Stairs: Not tested today Balance: Static Sitting: Good Dynamic Sitting: Good Static Standing: Fair Dynamic Standing: Fair Assessment: Improing pain tolerance contributed to increased ability to cover longer distance and increased safety of mobility ADL performance. Sit<>stand remains challenging, neding minimal assist to moderate assist depednening on toilet seat height. THERA EX: Iniated seated level exercises as follows: Gentle ankle DF/PF x 5 Slow seated marches x 5 Alternate LAQs x 5 Plan of Care/Treatment Plan: 1-2x/day, 7 days/week x 1 week. Plan of care has been reviewed with the INSURANCE ACCOUNT MANAGER providing the service under Physical Therapy direction. Initiate Physical Therapy intervention for pain management as needed, strengthening, bed mobility, transfers, gait, stairs, balance training, and use of assistive device. DISCHARGE RECOMMENDATIONS: HH PT vs short-term SNF TREATMENT CODE/TIME: 44331 x 29 minutes for 2 units (11:36-1205).
--- NOTE | 2025-08-20 13:00 | PHA.REVIEW2 ---
Pharmacy Admission Review Admission Clinical Review Admission Pharmacy Review: Cellulitis of right lower extremity (Acute) Valvular heart disease (Acute) Acute on chronic heart failure with preserved ejection fraction (HFpEF) (Acute) Acute leg pain (Acute) No Known Allergies Allergy (Verified 08/16/25 11:04) Resuscitation Status Full Code Height 5 ft Weight 59.8 kg Pharmacy Admission Review Renal Dosing Renal Dosing: BUN 37 mg/dL (9-23) H 08/20/25 06:20 Creatinine 1.06 mg/dL (0.55-1.02) H 08/20/25 06:20 Medications needing adjustments: Reviewed (CrCl 28.9 mL/min, SCr and BUN decreased) List of meds needing interventions: Current medications are okay Anticoagulation Anticoagulation: Hgb 10.5 g/dL (11.2-15.7) L 08/20/25 06:20 Hct 33.0 % (36.0-46.0) L 08/20/25 06:20 Plt Count 183 10^3/uL (130-400) 08/20/25 06:20 INR 1.7 (0.9-1.1) H 08/16/25 11:25 Creatinine 1.06 mg/dL (0.55-1.02) H 08/20/25 06:20 DVT Prophylaxis: Reviewed Medications: Rivaroxaban (15mg daily) Relevant Labs Relevant Labs: Sodium 139 mmol/L (136-145) 08/20/25 06:20 Potassium 3.6 mmol/L (3.5-5.1) 08/20/25 06:20 Chloride 100 mmol/L (98-107) 08/20/25 06:20 Magnesium 1.7 mg/dL (1.6-2.6) 08/20/25 06:20 Electrolytes, C-Reactive P, ESR: Reviewed (AST/ALT increased from 23/18 to 49/36) Cardiac Review Cardiac Review: Troponin I 417 ng/L (<35) H* 08/16/25 12:35 NT-Pro-B Natriuret Pep 24802 pg/mL (<300) H 08/16/25 11:25 Blood Pressure 113/92 1123 Blood Pressure 113/70 0725 Blood Pressure 110/82 0546 BP, HR, EF%: Reviewed (HR WNL) List meds needing interventions: Has orders for digoxin 0.125mg daily, furosemide 60mg BID, and metoprolol XL 100mg q12h QTc Review QTc: Reviewed (459 from 08/16/25) IV to PO Switch IV Medications: Reviewed (ceftriaxone) Home Meds Home Med List reviewed: Reviewed Relevent Home Meds Not ordered & why?: vitamin D3, CoQ10, vitamin B12, nitroglycerin (PRN) and vitamin B6 Current Meds Current Medication Order Review: Reviewed Pharmacy Antibiotic Review Relevant Labs: WBC 11.18 10^3/uL (4.4-10.8) H 08/20/25 06:20 Temperature 36.8 C Temperature 36.6 C Temperature 36.2 C Microbiology 08/16/25 11:50 Blood Culture - Preliminary Blood NO GROWTH 72 HOURS 08/16/25 11:25 Blood Culture - Preliminary Blood NO GROWTH 72 HOURS Pharmacy Antibiotic Activity: C/S review and Reviewed, no change Comments: Patient is on ceftriaxone, day 4, for cellulitis of right lower extremity. WBC decreased from 14.06.
--- NOTE | 2025-08-20 14:18 | W.PALLCONSUL ---
Date of service: 08/20/25 Time of Service: 13:00 History of Present Illness Narrative: Ms Flores is an 89 y/o F currently hospitalized 2/2 CHF exacerbation; PMHx sig for h/o DC (x2), GIB, PAD (post stent), A Fib, CAD, valvular heart disease, pacemaker; Hospital course: presented to [facility] ED on 08/16 w/CC BLE pain and swelling, worsening to point where unable to ambulate w/F/C/weakness/cough on arrival; ED work up consistent w/CHF exacerbation and cellulitis, admitted for ongoing management. diuresis w/IV furosemide, improved edema, resumed home diuretics on 08/18, Lasix increased to 60mg BID today; pending EP for potential ablation Sandra is aware of current hospitalization 2/2 cellulitis and CHF exacerbation, reports her first known exacerbation. She has had 4 hospitalizations since May 2025, related to bradycardia, COVID and heart. Her leg pain is better. uses apap for pain most often. swelling is not at baseline, but some improvement. She lives alone in [facility] w/help available w/children. At her baseline she is able to care for herself, does not take shower rather does sponge bath in bathroom. She has a walker in home she uses to ambulate safely and a commode for PRN use. She is unable to lie flat 2/2 SOB. She would benefit from having a hospital bed. She gets SOB w/any amount of exertion, including transfer from lying to sitting. She was up today and able to walk hallway and go to bathroom, while she did have SOB she recovers w/rest. SOB w/prolonged speech, recovers w/rest. She completed an AD in 2011, feels she recently reviewed w/family and it felt mostly accurate. She feels her body slowing down and feeling more worn out. She trusts the Lord to take her when ready and things are in the Lord's hands. Her alejandra is important to her. She would not want CPR or intubation if her heart or lungs were to stop, now and in the future. She would want to review this with her family prior to any document completion. She does want some treatments aimed at helping her treat/cure reversible or new illnesses, but would hesisate for more invasive interventions. Assessment and Plan Assessment and plan (1) Acute on chronic heart failure with preserved ejection fraction (HFpEF): Status: Acute Assessment and plan: reported 1st exacerbation; potentially w/others given recent hospitalizations - resumed home diuretics 08/18, increased today to 60mg BID - continue digoxin, Xarelto, Plavix, metoprolol, Lasix potential hospice eligible diagnosis (2) Cellulitis of right lower extremity: Status: Acute Assessment and plan: improved continue ceftriaxone (3) Valvular heart disease: Status: Acute (4) A-fib: Status: Chronic (5) PAD (peripheral artery disease): Status: Chronic (6) CAD (coronary artery disease), squaxin coronary artery: Status: Chronic (7) Discharge planning issues: Status: Acute Assessment and plan: current POC is for discharge for SNF; discharge plan pending - CFL is preferred; CM working for alternative options - recommend not discharged home w/o additional supports at this time (8) Palliative care encounter: Status: Acute Assessment and plan: PC will continue follow, hopeful for discharge prior to next available; PC to call s/p discharge to schedule HV f/u - completion of COLST document - review hospice eligibility, program benefits and detention plan (9) Advance care planning: Status: Acute Assessment and plan: reviewed palliative care, philosophy of care and future visits reviewed completed AD: would want treatment for sustaining life if longer than weeks/days/hrs to live, aware/think/act for self, if benefits of treatment outweigh risks; if need more time, start LST treatments, unless above true; would want home w/hospice for EOL. [facility] Niru, daughter reviewed current CODE status, she would not want CPR/intubation if heart or lungs were to stop, would want all other LST at this time. prefers to review COLST form w/family prior to completing. will change for this admissions; note left for Pat to review w/family w/PC recommendations. reviewed obtaining hospital bed, easiest done through hospice supports, if no hospice, recommend PCP to start process for hospital bed w/o hospice supports spent 35m w/ACP (10) Encounter for hospice care discussion: Status: Acute Assessment and plan: would benefit from hospital bed at home; nearing eligibility for cardiac disease - on optimal treatment, not candidate for procedure/decline procedures; NYHA Class IV, EF <20%; documentation of tx-resistant supraventricular/ventricular arrhythmias, h/o cardiac arrest/resuscitation, h/o unexplained syncope, brain embolism of cardiac origin - she is on optimal treatment; unsure on procedure preferences; sxs w/minimal exertion, EF preserved; h/o DC x2 - non-disease specific PPS <70%, ADL assistance of 2/more, co-morbidities CHF, ischemic heart disease; recurrent infx (PNA, sepsis, pyelonephritis), progressive weight loss; sxs of dyspnea w/elevated RR, intractable cough, N/V w/poor response, pain w/o improvement; signs: decline in BP <90 systolic, ascites, lymphatic obstruction, edema, pleural/pericardial effusion, weakness, change in LOC - current PPS 60%; baseline ADL assistance w/hygiene; using walker and commode; currently requiring transfer assistance, did not at baseline Review of Systems Narrative: as per HPI PFSH All Active Problems (Updated 08/20/25 @ 14:35 by Blanca Garcia NP) Encounter for hospice care discussion (Acute) Advance care planning (Acute) Palliative care encounter (Acute) Cellulitis of right lower extremity (Acute) Valvular heart disease (Acute) Acute on chronic heart failure with preserved ejection fraction (HFpEF) (Acute) Acute leg pain (Acute) A-fib (Chronic) CHF (congestive heart failure) (Chronic) Right-sided heart failure (Acute) Anticoagulant long-term use (Acute) PAD (peripheral artery disease) (Chronic) CAD (coronary artery disease), squaxin coronary artery (Chronic) HTN (hypertension) (Chronic) Elevated troponin (Chronic) Pain of left calf (Acute) Left leg numbness (Acute) Anemia due to blood loss, acute (Acute) Discharge planning issues (Acute) Acute low back pain (Acute) Duodenal ulcer (Chronic) Atrial fibrillation (Chronic) Abdominal pain (Acute) Leukocytosis (Acute) Reaction, situational (Acute) Diverticulosis (Acute) Hypothyroidism (Chronic) Hyperlipidemia (Acute) Medical History GI bleed Elevated blood pressure reading without diagnosis of hypertension Ventral hernia Pharyngitis Urinary frequency Vitamin B12 deficiency Grief reaction Surgical History History of bladder repair surgery History of colonoscopy S/P hysterectomy Social History Smoking/Tobacco Use Status: Never Smoking risk assessment performed?: Yes Alcohol Intake: never Drug use: Never Substance use type: does not use Housing: house Do you feel safe at home: Yes Do you feel safe in your relationship?: Yes Exam Narrative Exam Narrative: General: older adult female, AAO x3; sitting in recliner in hosp room, chronically frail appearing HEENT: normocephalic, atraumatic, hearing grossly WNL, MMM Resp: norm resp effort at rest, SOB w/prolonged speech recovers w/rest; no audible wheeze or cough Psych: appearance/speech/movement WNL; pleasant, cooperative; thought process normal w/loose association; insight/judgment normal to fair Results Last Vital Signs Temp 98.2 F 08/20/25 11:23 Pulse 60 08/20/25 11:23 Resp 18 08/20/25 11:23 BP 113/92 H 08/20/25 11:23 Pulse Ox 98 08/20/25 11:23 Labs 08/20/25 06:20 08/20/25 06:20 Labs: Laboratory Results - last 24 hr 08/20/25 06:20 WBC 11.18 H RBC 3.57 L Hgb 10.5 L Hct 33.0 L MCV 92 MCH 29.4 MCHC 31.8 L RDW 16.1 H Plt Count 183 MPV 11.2 H Immature Gran % 0.4 Neutrophils % 75.6 Lymphocytes % 11.5 Monocytes % 10.8 Eosinophils % 1.5 Basophils % 0.2 Nucleated RBC % 0.0 Absolute Neutrophils 8.45 H Absolute Lymphocytes 1.29 Absolute Monocytes 1.21 H Absolute Eosinophils 0.17 Absolute Basophils 0.02 Sodium 139 Potassium 3.6 Chloride 100 Carbon Dioxide 30.3 Anion Gap 8.7 BUN 37 H Creatinine 1.06 H Est GFR (CKD-EPI 2020) 48.75 Glucose 102 Calcium 8.6 Magnesium 1.7 Total Bilirubin 0.5 AST 49 H ALT 36 Alkaline Phosphatase 87 Total Protein 6.5 Albumin 3.4 Time Spent Time Spent with Patient Time Spent(min): 75
[2025-08-20] MEDS: Furosemide 20 MG TAB 60 MG PO (15:33)
[2025-08-20] MEDS: Rivaroxaban 15 MG TABLET PO (16:32)
--- NOTE | 2025-08-20 16:53 | PGE_ITS ---
Date of Service Date of service: 08/20/25 Time of Service: 08:00 Assessment and Plan Assessment and plan (1) Cellulitis of right lower extremity: Status: Acute Assessment and plan: BLE edema with some stigmata of venous stasis Right anterior goldsmith with broken skin, very painful to touch, likely cellulitis Continue ceftriaxone PT eval when pain tolerable IV furosemide 80 BID until August 18, then resumed home furosemide 40 PO BID With reported painful swelling overnight Aug 19-, increased furosemide to 60 PO BID Llikely DC Aug 21 (2) Acute on chronic heart failure with preserved ejection fraction (HFpEF): Status: Acute Assessment and plan: June 04 echocardiogram with LVEF 55%, abnormal septum motion due to RV pressure and overload. Moderate MR, moderate/severe TR. Noted worsening from December 2023 study. August 02 [facility], severe fatigue and SOB noted. Patient has pacemaker placed after this visit. Patient arrived with 4+ pitting edema in BLE, improving, Aug 17 edema is 2+ Diuresis begun in ED with furosemide 80 IV, continued BID through August 18 Resuming home diuresis as above Continue digoxin. Serum level is therapeutic. (3) Valvular heart disease: Status: Acute Assessment and plan: Moderate to severe disease on May echo (4) Elevated troponin: Status: Chronic Assessment and plan: Troponins in the 400's this visit, trending down This is chronic with her ongoing heart disease (5) Atrial fibrillation: Status: Chronic Assessment and plan: As above, she expects to see an plasterer apprentice to discuss possible ablation Continue digoxin, rivaroxaban (6) PAD (peripheral artery disease): Status: Chronic Assessment and plan: History of right femoral artery thrombus, termite control service representative rivaroxaban (7) Hypothyroidism: Status: Chronic Assessment and plan: TSH and free T4 done in May, therapeutic at that time Continue home levothyroxine Subjective Subjective Interval history since last seen: Ms. Sanchez feels that her legs were very swollen last night, better this morning. She does not feel ready to discharge today. Exam Narrative Exam Narrative: General: This is a very pleasant, elderly woman in no distress HEENT: Normocephalic. Stable, large nevus under left eye. CV: irregularly irregular. BLE edema 2+ Resp: CTAB Abd: soft, NTND MSK: voluntary motion x4. Right anterior goldsmith with broken skin, very painful. Neuro: awake, alert, no focal deficits Objective Last Vital Signs Temp 36.6 C 08/20/25 15:08 Pulse 82 08/20/25 15:08 Resp 18 08/20/25 15:08 BP 122/58 L 08/20/25 15:08 Pulse Ox 99 08/20/25 15:08 Laboratory Results - last 24 hr 08/20/25 06:20 WBC 11.18 H RBC 3.57 L Hgb 10.5 L Hct 33.0 L MCV 92 MCH 29.4 MCHC 31.8 L RDW 16.1 H Plt Count 183 MPV 11.2 H Immature Gran % 0.4 Neutrophils % 75.6 Lymphocytes % 11.5 Monocytes % 10.8 Eosinophils % 1.5 Basophils % 0.2 Nucleated RBC % 0.0 Absolute Neutrophils 8.45 H Absolute Lymphocytes 1.29 Absolute Monocytes 1.21 H Absolute Eosinophils 0.17 Absolute Basophils 0.02 Sodium 139 Potassium 3.6 Chloride 100 Carbon Dioxide 30.3 Anion Gap 8.7 BUN 37 H Creatinine 1.06 H Est GFR (CKD-EPI 2020) 48.75 Glucose 102 Calcium 8.6 Magnesium 1.7 Total Bilirubin 0.5 AST 49 H ALT 36 Alkaline Phosphatase 87 Total Protein 6.5 Albumin 3.4 VTE Prohylaxis Risk Level: Moderate/High Risk Contraindications: None Prophylaxis: Patient anticoagulated Time Spent with Patient Time Spent with Patient: 25-34 minutes Time was spent: preparing to see the patient(eg.review tests), obtaining and/or reviewing separately otained hiistory, ordering medications,tests, procedures, referring, communicating with other health health care manager, indepentently interpreting results, counseling the patient and care coordination
[2025-08-20] MEDS: Atorvastatin 40 MG TAB 80 MG PO (19:48)
[2025-08-21 04:31] VITALS: BP 136/78; PULSE 107; RESP 20; TEMP 36.6; O2SAT 97
[2025-08-21] MEDS: Metoprolol CR 100 MG TABCR PO (05:59)
[2025-08-21] MEDS: Levothyroxine 50 MCG TAB PO (05:59)
[2025-08-21 07:35] LABS: HCT 32.9 % (36.0-46.0); HGB 10.3 g/dL (11.2-15.7); MCH 28.5 pg (27.0-33.0); MCHC 31.3 % (32.0-36.0); MCV 91 fL (80-95); MPV 11.0 fL (8.0-11.0); Platelet Count 213 10^3/uL (130-400); RBC 3.61 10^6/uL (3.93-5.22); RDW 16.7 % (11.7-14.6); RDW-SD 55.9 fL; WBC 9.19 10^3/uL (4.4-10.8)
[2025-08-21 07:43] VITALS: BP 124/67; PULSE 88; RESP 18; TEMP 36.5; O2SAT 96
[2025-08-21 08:00] LABS: Anion Gap 8.5 mmol/L (3-11); BUN 31 mg/dL (9-23); CO2 30.5 mmol/L (20.0-31.0); Calcium 8.9 mg/dL (8.3-10.6); Chloride 100 mmol/L (98-107); Glucose 106 mg/dL (74-106); Potassium 4.2 mmol/L (3.5-5.1); Sodium 139 mmol/L (136-145)
--- NOTE | 2025-08-21 08:28 | CMDISCH_ITS ---
Date of service: 08/21/25 Time of Service: 08:28 LACE Index Scoring Tool Questions: Length of Stay (in days): 4 - 6 Was the patient admitted via the E.D.?: Yes Comorbidities: Congestive Heart Failure E.D. Visits: 2 Answers: Total Score: 11 Risk of Readmission: High Risk Care Management Discharge Plan Reason for Hospitalization: HF Exacerbation Discharge Plan: Jayashree is discharging home with resumption of [facility] RN/PT, and caregiver support provided by daughter Niru. Patient will follow up with community providers and continue per her discharge plan of care. Patient/Family Education Needs: Review discharge instructions, discuss Ask Me Three Services Needed at Discharge: Home Health Care Services (Resume [facility] RN/PT, CM notified [facility] prior to discharge) SDOH Health Related Social Needs: Health related social needs risk of homeless Health related social needs details no further
--- NOTE | 2025-08-21 09:22 | W.PM.DS.N ---
Date of service: 08/21/25 Time of Service: 09:23 DS: Diagnosis Discharge Diagnosis (1) Cellulitis of right lower extremity: Status: Acute (2) Acute on chronic heart failure with preserved ejection fraction (HFpEF): Status: Acute (3) Valvular heart disease: Status: Acute (4) Elevated troponin: Status: Chronic (5) Atrial fibrillation: Status: Chronic (6) PAD (peripheral artery disease): Status: Chronic (7) Hypothyroidism: Status: Chronic Discharge Plan Disposition Patient Disposition: Home W/Home Health Services Home Health Services: Resumption of Home Health Services Anticipated Discharge Date/Time: 08/20/25 00:00 Condition: Fair Discharge Details Reason For Visit: HF Exacerbation Admit Date/Time: 08/16/25 14:25 Admit Provider: Davion Russo Attending Provider: Davion Russo Primary Care Provider: Chantell Castillo V Recommendations for Follow Up Recommended tests to be ordered by follow up provider: Jayashree Sanchez is an 89 year old woman presenting August 16 with pain and swelling in both lower legs. The right leg is more painful and swollen and has redness on the goldsmith. She also reports fever, chills and weakness with a cough. She was hospitalized here in May for symptomatic bradycardia and is under the care of [facility]. She has not had a pacemaker placed nor has she had a procedure to sebastián her atrial fibrillation. She reports that her medications have changed constantly and that she is not sure what she is supposed to be taking. No chest pain, no shortness of breath, no abdominal pain, no N/V/D. EMS reported temp of 100 in the field. In the ED she was mildly bradycardic HR 59, mildly tachypneic RR 25, with diastolic hypotension BP 115/25. EKG showed afib with RBBB, no occlusive pattern. CXR showed cardiomegaly and bilateral pleural effusions L > R with possible LLL infiltrate. Neutrophilic leukocytosis WBC 14.5. Elevated INR 1.7 (was 1.5 in May). Mild hypokalemia 3.2. Acute vs chronic renal injury with creatinine 1.32, baseline appears to be 1.0. Hypomagnesemia 1.5. Elevated troponin 479->417 which may be chronic. Elevated BNP 41780 which is 10x higher than previously seen elevations. 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 In the hospital she responded well to diuresis with IV furosemide. Patient is improvement with increasing p.o. diuretics, as well as ceftriaxone it was determined that she was stable for discharge home and will be continued on 60 mg of p.o. Lasix twice daily, additional 5 days of p.o. cefpodoxime. Home Meds and New Rx's Prescriptions: New furosemide 20 mg Tablet 60 mg PO BID@0830,1600 Qty: 120 0RF metoprolol succinate 100 mg Tablet Extended Release 24 Hr 100 mg PO Q12H Qty: 90 0RF potassium chloride 20 mEq Tablet Extended Release 20 meq PO BID Qty: 90 0RF cefpodoxime 200 mg tablet 200 mg PO BID Qty: 10 0RF Rx Instructions: must administer with a meal/food Continued nitroglycerin 0.4 mg tablet, sublingual 0.4 mg sublingual Q5M PRN Patient Comments: PLACE ONE TABLET UNDER THE TONGUE EVERY 5 MINUTES FOR UP TO 3 DOSES NEEDED FOR CHEST PAIN. IF CHEST PAIN STILL PERSISTS CONTACT 911 acetaminophen [Tylenol] 325 mg tablet 325 mg PO Q6H PRN clopidogrel 75 mg tablet 75 mg PO DAILY Patient Comments: TAKE ONE TABLET BY MOUTH EVERY DAY pyridoxine (vitamin B6) 100 mg tablet 100 mg PO DAILY cranberry 500 mg capsule 500 mg PO DAILY Rx Instructions: administer with a meal cholecalciferol (vitamin D3) 50 mcg (2,000 unit) capsule 50 mcg PO DAILY Xarelto 15 mg tablet 15 mg PO QPM Rx Instructions: must administer with evening meal coQ10 (ubiquinol) [Qunol Malik CoQ10] 100 mg capsule 100 mg PO BID mecobalamin (vitamin B12) 500 mcg tablet,chewable 500 mcg PO DAILY naturelo vegan iron 25 mg PO 1XD Patient Comments: 4 hours after thyroid med levothyroxine 50 mcg tablet 50 mcg PO DAILY Patient Comments: TAKE ONE TABLET BY MOUTH EVERY MORNING digoxin 125 mcg (0.125 mg) tablet 0.125 mg PO DAILY Patient Comments: TAKE ONE TABLET BY MOUTH EVERY DAY atorvastatin [Lipitor] 80 mg tablet 80 mg PO DAILY Held pantoprazole [Protonix] 40 mg tablet,delayed release (DR/EC) 40 mg PO DAILY Hold Instructions: Resume on 07/26/25. Discontinued metoprolol tartrate 25 mg tablet 25 mg PO DAILY Patient Comments: TAKE ONE-HALF TABLET BY MOUTH EVERY DAY NEEDED FOR ELEVATED PULSE metoprolol succinate [Toprol XL] 50 mg tablet extended release 24 hr 75 mg PO BID furosemide 40 mg tablet 40 mg PO BID Patient Comments: TAKE ONE TABLET BY MOUTH EVERY DAY Discharge Instructions Stand Alone Forms: Portal Information Activity:: Activity as Tolerated Equipment/Supplies:: No Equipment Needed Diet:: As Tolerated Discharge Orders Discharge Orders: Discharge Order (Routine); Ordered 08/21/25 Ordered By: Jake Vaughn DS: Summary Time Spent with Patient providing and/or coordinating discharge services: Greater than 30 minutes Status at Discharge Functional status at discharge: independent ambulation Overall status at discharge: patient is back to baseline Mental Status: mental status grossly normal Speech and Movement: speech and movement normal Mood: congruent mood Affect: normal affect Quality:SDOH Health Related Social Needs: Health related social needs risk of homeless Health related social needs details no further Exam Narrative Exam Narrative: well appearing elderly female sitting up in the chair in no acute distress, AOx4, heart RRR, lungs CTAB, abdomen soft, non-tender, non-distended, RLE with excoriations Psych Mental Status: mental status grossly normal Speech and Movement: speech and movement normal Mood: congruent mood Affect: normal affect DS: Data Vitals/I&O Vitals and I&O: Vital Signs Temperature 97.7 F 08/21/25 07:43 Temperature Source Temporal Artery Scan 08/21/25 07:43 Pulse 88 08/21/25 07:43 Pulse Rhythm Irregular 08/16/25 15:27 Pulse 79 08/16/25 14:31 Respiratory Rate 18 08/21/25 07:43 Respiratory Effort Short of Breath 08/16/25 15:27 Respiratory Depth Normal 08/16/25 15:27 Respiratory Pattern Normal 08/16/25 15:27 Blood Pressure 124/67 08/21/25 07:43 Blood Pressure Mean 86 08/21/25 07:43 Blood Pressure Position Supine 08/16/25 10:50 Pulse Oximetry 96 08/21/25 07:43 Oxygen Delivery Method Room Air 08/21/25 07:43 Oxygen Flow Rate 0 08/21/25 07:43 Pain Level 6 08/21/25 07:43 Comment pt refused vitals..pt sleeping....nurse notified 08/19/25 23:40 Intake & Output 08/20/25 08/21/25 08/21/25 17:59 05:59 17:59 Intake Total 650 / 650 240 / 240 Output Total 150 / 150 855 / 1005 Balance 500 / 500 -855 / -355 240 / 240 Weight 132 lb 0.91 oz Intake: IV 50 / 50 Oral 600 / 600 240 / 240 Output: Urine 150 / 150 855 / 1005 Other: Urine Color Yellow Yellow Urine Appearance Clear Clear Urine Odor Normal Normal Stool Size Small Stool Characteristics Soft Data Completed and Pending Pending Labs at Discharge: 08/16/25 08/16/25 08/16/25 11:25 12:06 12:35 WBC 14.50 H RBC 3.85 L Hgb 11.3 Hct 36.0 MCV 94 MCH 29.4 MCHC 31.4 L RDW 17.3 H Plt Count 186 MPV 11.1 H Immature Gran % 0.6 Neutrophils % 85.3 Lymphocytes % 6.3 Monocytes % 7.7 Eosinophils % 0.0 Basophils % 0.1 Nucleated RBC % 0.0 Absolute Neutrophils 12.37 H Absolute Lymphocytes 0.91 L Absolute Monocytes 1.12 H Absolute Eosinophils 0.00 Absolute Basophils 0.01 PT 16.6 H INR 1.7 H APTT 34.8 H Sodium 140 Potassium 3.2 L Chloride 100 Carbon Dioxide 28.5 Anion Gap 11.5 H BUN 39 H Creatinine 1.32 H Est GFR (CKD-EPI 2020) 37.85 Glucose 128 H Calcium 9.5 Magnesium 1.5 L Total Bilirubin 1.3 H AST 32 ALT 25 Alkaline Phosphatase 50 Troponin I 479 H* 417 H* NT-Pro-B Natriuret Pep 18175 H Total Protein 7.4 Albumin 4.3 Urine Color Urine Clarity Urine pH Ur Specific [place] Urine Protein Urine Ketones Urine Blood Urine Nitrite Urine Bilirubin Urine Urobilinogen Ur Leukocyte Esterase Urine RBC Urine WBC Ur Epithelial Cells Urine Crystals Urine Bacteria Urine Casts Urine Mucus Ur Culture Indicated? Urine Glucose Digoxin COVID-19 Source Nasopharynx SARS-CoV-2 (PCR) Negative Influenza Type A (PCR) Negative Influenza Type B (PCR) Negative RSV (PCR) Negative 08/16/25 08/17/25 08/18/25 13:31 05:40 06:12 WBC 13.89 H 14.73 H RBC 3.74 L 3.63 L Hgb 10.9 L 10.6 L Hct 35.5 L 33.6 L MCV 95 93 MCH 29.1 29.2 MCHC 30.7 L 31.5 L RDW 17.6 H 16.9 H Plt Count 145 155 MPV 11.2 H 11.2 H Immature Gran % 1.0 0.9 Neutrophils % 84.0 84.9 Lymphocytes % 6.8 6.5 Monocytes % 7.0 7.3 Eosinophils % 0.9 0.2 Basophils % 0.3 0.2 Nucleated RBC % 0.0 0.0 Absolute Neutrophils 11.67 H 12.51 H Absolute Lymphocytes 0.94 L 0.96 L Absolute Monocytes 0.97 H 1.08 H Absolute Eosinophils 0.13 0.03 Absolute Basophils 0.04 0.03 PT INR APTT Sodium 142 142 Potassium 3.6 3.1 L Chloride 103 102 Carbon Dioxide 30.9 30.7 Anion Gap 8.1 9.3 BUN 44 H 42 H Creatinine 1.41 H 1.17 H Est GFR (CKD-EPI 2020) 35.07 43.50 Glucose 104 103 Calcium 9.2 8.9 Magnesium 1.6 Total Bilirubin 1.1 0.9 AST 25 23 ALT 20 18 Alkaline Phosphatase 53 63 Troponin I NT-Pro-B Natriuret Pep Total Protein 6.4 6.4 Albumin 3.6 3.5 Urine Color Yellow Urine Clarity Clear Urine pH 5.0 Ur Specific [place] 1.010 Urine Protein 30 H Urine Ketones Negative Urine Blood Trace-intact H Urine Nitrite Negative Urine Bilirubin Negative Urine Urobilinogen 0.2 Ur Leukocyte Esterase Negative Urine RBC 3-5 H Urine WBC 0-2 Ur Epithelial Cells Moderate Urine Crystals Few Amorphous Urine Bacteria Few Urine Casts 0-2 Hyaline Urine Mucus Trace Ur Culture Indicated? No Urine Glucose Negative Digoxin 1.73 COVID-19 Source SARS-CoV-2 (PCR) Influenza Type A (PCR) Influenza Type B (PCR) RSV (PCR) 08/19/25 08/20/25 08/21/25 06:17 06:20 06:30 WBC 14.06 H 11.18 H 9.19 RBC 3.71 L 3.57 L 3.61 L Hgb 11.0 L 10.5 L 10.3 L Hct 34.6 L 33.0 L 32.9 L MCV 93 92 91 MCH 29.6 29.4 28.5 MCHC 31.8 L 31.8 L 31.3 L RDW 16.7 H 16.1 H 16.7 H Plt Count 179 183 213 MPV 10.9 11.2 H 11.0 Immature Gran % 0.4 0.4 Neutrophils % 81.0 75.6 Lymphocytes % 8.5 11.5 Monocytes % 8.7 10.8 Eosinophils % 1.1 1.5 Basophils % 0.3 0.2 Nucleated RBC % 0.0 0.0 Absolute Neutrophils 11.39 H 8.45 H Absolute Lymphocytes 1.20 1.29 Absolute Monocytes 1.22 H 1.21 H Absolute Eosinophils 0.15 0.17 Absolute Basophils 0.04 0.02 PT INR APTT Sodium 139 139 Potassium 3.6 4.2 Chloride 100 100 Carbon Dioxide 30.3 30.5 Anion Gap 8.7 8.5 BUN 37 H 31 H Creatinine 1.06 H 1.02 Est GFR (CKD-EPI 2020) 48.75 50.96 Glucose 102 106 Calcium 8.6 8.9 Magnesium 1.7 Total Bilirubin 0.5 AST 49 H ALT 36 Alkaline Phosphatase 87 Troponin I NT-Pro-B Natriuret Pep Total Protein 6.5 Albumin 3.4 Urine Color Urine Clarity Urine pH Ur Specific [place] Urine Protein Urine Ketones Urine Blood Urine Nitrite Urine Bilirubin Urine Urobilinogen Ur Leukocyte Esterase Urine RBC Urine WBC Ur Epithelial Cells Urine Crystals Urine Bacteria Urine Casts Urine Mucus Ur Culture Indicated? Urine Glucose Digoxin COVID-19 Source SARS-CoV-2 (PCR) Influenza Type A (PCR) Influenza Type B (PCR) RSV (PCR) Preliminary micro results at discharge 08/16/25 11:50 Blood Blood Culture - Preliminary NO GROWTH 96 HOURS 08/16/25 11:25 Blood Blood Culture - Preliminary NO GROWTH 96 HOURS PFSH All Active Problems (Updated 08/20/25 @ 14:35 by Blanca Garcia NP) Encounter for hospice care discussion (Acute) Advance care planning (Acute) Palliative care encounter (Acute) Cellulitis of right lower extremity (Acute) Valvular heart disease (Acute) Acute on chronic heart failure with preserved ejection fraction (HFpEF) (Acute) Acute leg pain (Acute) A-fib (Chronic) CHF (congestive heart failure) (Chronic) Right-sided heart failure (Acute) Anticoagulant long-term use (Acute) PAD (peripheral artery disease) (Chronic) CAD (coronary artery disease), elim ira coronary artery (Chronic) HTN (hypertension) (Chronic) Elevated troponin (Chronic) Pain of left calf (Acute) Left leg numbness (Acute) Anemia due to blood loss, acute (Acute) Discharge planning issues (Acute) Acute low back pain (Acute) Duodenal ulcer (Chronic) Atrial fibrillation (Chronic) Abdominal pain (Acute) Leukocytosis (Acute) Reaction, situational (Acute) Diverticulosis (Acute) Hypothyroidism (Chronic) Hyperlipidemia (Acute) Medical History GI bleed Elevated blood pressure reading without diagnosis of hypertension Ventral hernia Pharyngitis Urinary frequency Vitamin B12 deficiency Grief reaction Surgical History History of bladder repair surgery History of colonoscopy S/P hysterectomy Social History Smoking/Tobacco Use Status: Never Smoking risk assessment performed?: Yes Alcohol Intake: never Drug use: Never Substance use type: does not use Housing: house Do you feel safe at home: Yes Do you feel safe in your relationship?: Yes Time Spent with Patient Time Spent with Patient: <45 minutes Time was spent: preparing to see the patient(eg.review tests), obtaining and/or reviewing separately otained hiistory, ordering medications,tests, procedures, referring, communicating with other health foster care social worker, indepentently interpreting results, counseling the patient and care coordination
[2025-08-21 09:33] VITALS: PULSE 88
[2025-08-21] MEDS: Digoxin 0.125 MG TAB PO (09:33)
[2025-08-21] MEDS: Furosemide 20 MG TAB 60 MG PO (09:34)
[2025-08-21] MEDS: Potassium Chloride 20 MEQ TABCR PO (09:34)
--- NOTE | 2025-08-21 10:55 | PDOC.HHF2F ---
Date of service: 08/21/25 Time of Service: 10:55 Home Health Referral Home Health Orders Clinical synopsis of why skilled professionals are needed: RLE cellulitis, chronic bilateral LE edema 2/2 CHF Registered Nurse: Check all that apply Instruct on new or changed medication(s)/assess compliance: Ordered Assess for exacerbation of medical condition, instruct patient/caregivers on signs and symptoms to report for early detection: Ordered Physical Therapist: Check all that apply Increase strength & endurance for safe mobility at home: Ordered To design/establish home maintenance program: Ordered Fall reduction therapy program for patient with history of frequent falls: Ordered Home safety evaluation and teaching/gait training including stair management (if applicable): Ordered Encounter Date and Reason: I certify that a FTF encounter for this patient was performed on August 21, 2025 and that such encounter was related to the primary reason the patient requires home health services. The encounter was conducted in the following manner: By me as the certifying physician, WRAPPER LEAF INSPECTOR, PA or By an inpatient physician, WRAPPER LEAF INSPECTOR or PA during an inpatient stay who communicated findings to me, Certification And Authentication I certify that I composed the above information based on my clinical judgment relating to this patient's medical condition and, if applicable, clinical findings communicated to me by the NPP or inpatient physician who performed the FTF encounter. Name of Provider that will be monitoring home health services: Chantell Castillo
[2025-08-21 10:59] VITALS: BP 142/74; PULSE 85; RESP 18; TEMP 36.6; O2SAT 96
[2025-08-21] MEDS: Pantoprazole 40 MG TABCR PO (11:24)
[2025-08-21] MEDS: Normal Saline Flush 10 ML SYR IVP (11:24)
[2025-08-21] MEDS: Clopidogrel 75 MG TAB PO (11:24)
[2025-08-21] MEDS: cefTRIAXone 2 GM/50 ML BAG IVPB (11:24)
--- NOTE | 2025-08-21 11:27 | PT.INTREAT ---
PT Notes Visit Reasons: HF Exacerbation Date: 08/21/2025 PRECAUTIONS: Fall, Standard, Activity as tolerated. SUBJECTIVE: OBJECTIVE: ? PAIN: VITALS: Pre-Treatment: Post-Treatment: ? Therapeutic Activities 78869: Direct one-on-one instruction in dynamic activities to improve functional performance. ?? BED MOBILITY/TRANSFERS? Rolling L/R: Supine-sit: ? Sit-supine: ? Sit-stand: ? Stand-sit: ? Bed-Chair:? Chair-bed: Provided skilled cues and instruction on performance and technique throughout. Gait Training 95669: Direct one-on-one instruction and skilled instruction in: Employing an assistive device Modified weight-bearing status Movement sequencing Turning and movement with proper form Provided verbal cues for equipment management and technique Provided instruction in gait pattern Patient education regarding pacing and breathing techniques to maximize activity tolerance? GAIT? Assistive Device: ? Weight bearing: Assist: ? Distance:? Deviation: ? STAIRS:? Therapeutic Exercises 10102: Direct one-on-one instruction in therapeutic exercises to develop strength, endurance, range of motion and flexibility. Exercises Ambulation ? Assistive Device: ? Weight bearing: Assist: ? Distance:? Deviation: ? Provided skilled instruction in proper exercise performance Provided skilled manual cues to facilitate proper muscle recruitment and/or form: Neuromuscular Re-education 79241: Activities that facilitate re-education of movement balance, posture, coordination, and proprioception or kinesthetic sense, requiring skilled tactile and verbal cues Exercises/techniques: ? ASSESSMENT:? PLAN: Continue with balance training, global strengthening and general conditioning for improved safety, mobility and activity tolerance until pt is ready for DC. TREATMENT CODE/TIME:
--- NOTE | 2025-08-22 07:50 | PT.INTREAT ---
PT Notes Visit Reasons: HF Exacerbation Physical Therapy Inpatient Treatment Note Date: 08/21/2025 Precautions: Fall. Standard. Activity as tolerated. Subjective: Hopeful about being able to go home now, confident about the mobility gains that she has achieved so far. Objective: General Observation: Telemetry monitoring in place. Resting in bed. Grade 1 edema with noted in R leg. Mental Status: Alert and oriented as to person, place, time, and purpose. Able to pay attention, focus, and respond appropriately. Pain: 3-4/10 in the R LE Vital Signs: Closely monitored by nursing staff Bed Mobility/Transfers: Minimal cueing provided for use of B hands as needed for support, movement sequence, AD management, and posture to reduce fall risk and minimize pain report Sit to stand stand by assist with FWW Chair to bed transfer stand by assist with FWW Stand to sit onto toilet seat stand by assist with FWW Sit to stand from toilet seat stand by assist with FWW Gait: Facilitate safe and correct performance of level surface ambulation covering a distance of about 200 feet with use of walker with complaint of 53-4/10 pain through the R leg and foot with each weight bearing but no LOB nor SOB. Directional change remains slowed. Step height and length increased. Gait minimally antalgic with step-to gait pattern. Contact guard assist only Balance: Static Sitting: Good Dynamic Sitting: Good Static Standing: Fair Dynamic Standing: Fair Assessment: Improving pain tolerance contributed to increased ability to cover longer distance and increased safety of mobility ADL performance. Sit<>stand remains challenging, neding minimal assist to moderate assist depednening on toilet seat height. Plan of Care/Treatment Plan: 1-2x/day, 7 days/week x 1 week. Plan of care has been reviewed with the INTERNAL CONTROLS ANALYST providing the service under Physical Therapy direction. Initiate Physical Therapy intervention for pain management as needed, strengthening, bed mobility, transfers, gait, stairs, balance training, and use of assistive device. DISCHARGE RECOMMENDATIONS: PT vs short-term SNF TREATMENT CODE/TIME: 24474 x 20 minutes for 2 units (07:50-08:10).
== END 2025-08-21 14:35 | disposition home health service (06) | DRG 602 ==
LOC: ER 13:57 → MS 16:04
PROVIDERS: Admitting Provider Family Medicine; Emergency Provider General Practice; PCP Family Medicine; Responsible Provider Family Medicine; Visit Provider Family Medicine
DX: L03.115 Cellulitis of right lower limb (principal); I50.33 Acute on chronic diastolic (congestive) heart failure; I48.20 Chronic atrial fibrillation, unspecified; I25.10 Atherosclerotic heart disease of native coronary artery without angina pectoris; Z79.82 Long term (current) use of aspirin; Z79.01 Long term (current) use of anticoagulants; D72.829 Elevated white blood cell count, unspecified; R74.8 Abnormal levels of other serum enzymes; E87.6 Hypokalemia; E83.42 Hypomagnesemia; I11.0 Hypertensive heart disease with heart failure; E03.9 Hypothyroidism, unspecified; E78.5 Hyperlipidemia, unspecified; I87.2 Venous insufficiency (chronic) (peripheral); I08.1 Rheumatic disorders of both mitral and tricuspid valves; I45.10 Unspecified right bundle-branch block; I25.2 Old myocardial infarction
CPT/HCPCS: 00123; 36415; 51702; 80048; 80053; 85027; 87040; 87637; 93005; 96365; 96366; 96375; 97116; 97162; 97530; 99285; 71045; 80162; 81003; 81015; 83735; 83880; 84484; 85025; 85610; 85730; 93010; 99222; 99231; 99232; 99238; J0696; J1938; J3480